=== PATIENT | female | born 1955 | race Caucasian/White ===

== ENCOUNTER 2017-01-01 07:56 | Day surgery (SDC) | payer SELFPAY ==
[~2017-01-01] VITALS: Ht 172.7 cm; Wt 84.6 kg
[~2017-01-01 07:56] MED LIST: AMLO2.5T PO; AMOX875T2 PO; LEVA750T PO; MUPI2OIN TOPICAL
[2017-01-01 09:42] VITALS: BP 176/89; PULSE 84; RESP 20; O2SAT 98
[2017-01-01] MEDS ORDERED: IBUP800T23 PO (09:42)
[2017-01-01] MEDS ORDERED: SODIUM CHLORIDE 0.9% FLUSH 10 ML FLUSH IV FLUSH PRN (09:45)
[2017-01-01] MEDS ORDERED: SODIUM BICARBONATE 100 MEQ in D5W 1000 ML IV SCH (09:45)
[2017-01-01] MEDS ORDERED: MORPHINE SULFATE 4 MG/ML INJ ONE (09:56)
[2017-01-01] MEDS ORDERED: SODIUM CHLORIDE 0.9% FLUSH 10 ML FLUSH IV FLUSH SCH (10:00)
[2017-01-01 10:15] LABS: AUTOMATED NEUTROPHIL # 9.8 TH/MM3 (1.8-7.7); BASOPHIL # 0.1 TH/MM3 (0-0.2); BASOPHIL % 0.5 % (0.0-2.0); EOSINOPHIL # 0.1 TH/MM3 (0-0.4); EOSINOPHIL % 1.1 % (0.0-4.0); HEMATOCRIT 41.4 % (35.0-46.0); HEMO FLAGS DIFF FINAL; LYMPH % 15.7 % (9.0-44.0); MEAN CELL VOLUME 93.4 FL (80.0-100.0); MEAN CORPUSCULAR HEMOGLOBIN 31.9 PG (27.0-34.0); MEAN CORPUSCULAR HGB CONC 34.2 % (32.0-36.0); MONO % 4.9 % (0.0-8.0); NEUT % 77.8 % (16.0-70.0); PLATELET COUNT 294 TH/MM3 (150-450); RED BLOOD COUNT 4.43 MIL/MM3 (4.00-5.30); RED CELL DISTRIBUTION WIDTH 12.6 % (11.6-17.2); WHITE BLOOD COUNT 12.6 TH/MM3 (4.0-11.0)
[2017-01-01 10:26] LABS: PROTHROMBIN TIME - PATIENT 10.5 SEC (9.8-11.6)
[2017-01-01] MEDS ORDERED: MORPHINE SULFATE 4 MG/ML INJ IV PRN (10:30)
[2017-01-01 10:35] LABS: BICARBONATE 29.8 MEQ/L (21.0-32.0); POTASSIUM 3.9 MEQ/L (3.5-5.1)
[2017-01-01] MEDS ORDERED: HEPARIN SODIUM - IV 10,000 UNITS/10 ML VIAL ONE ×2 (11:18→11:31)
[2017-01-01] MEDS ORDERED: MIDAZOLAM HCL 5 MG/5 ML VIAL ONE ×2 (11:31→12:18)
[2017-01-01] MEDS ORDERED: NITROGLYCERIN INJ 5 ML ONE (11:31)
[2017-01-01] MEDS ORDERED: METOPROLOL TARTRATE 5 MG/5 ML VIAL ONE (14:11)
[2017-01-01] MEDS ORDERED: CLOPIDOGREL 300 MG TAB ONE (14:55)
--- NOTE | 2017-01-02 07:29 | MA ---
cc: CHUCKY GASPAR DATE: 01/01/[address] Chucky Gaspar. PREOPERATIVE DIAGNOSIS Critical limb ischemia, right lower extremity. POSTOPERATIVE DIAGNOSIS Critical limb ischemia, right lower extremity. PROCEDURE 1. Aortogram. 2. Pelvic arteriogram. 3. Selective left lower extremity arteriogram. 4. Duplex ultrasound for access. 5. Bilateral common iliac stents with 7 mm x [address] Medtronic chromium cobalt stents. SURGEON Dr. Gaspar. IV FLUIDS Approximately 1 liter. ESTIMATED BLOOD LOSS Minimal. URINE OUTPUT Not calculated. COMPLICATIONS None. DISPOSITION To PACU. PROCEDURE The patient's bilateral groins were prepped and draped in a sterile fashion after being under moderate sedation. I got access to the left common femoral artery using Duplex ultrasound after anesthetizing the area. Using the Seldinger technique I exchanged for a micropuncture 4-Moroccan to a 5-Moroccan sheath. I then advanced an Omni-Flush catheter and then advanced it into the abdominal aorta. I shot AP aortogram. I pulled my catheter out and shot pelvic oblique arteriograms. I then selected out the right lower extremity arteries with Omni-Flush catheter and shot a selective right lower extremity arteriogram, and then I pulled a straight non-angled 5-Moroccan catheter through the right external iliac artery to the distal abdominal aorta, and from the abdominal aorta into the left external iliac artery. On the right side there was a more than 20 mm systolic pressure gradient and more than 10 mm systolic pressure gradient as well as in the left external iliac artery. It signified the right pressure gradient was larger than the left. My findings were that the abdominal aorta and bilateral renal arteries were widely patent. The abdominal aorta was patent, it was more narrowed distally than it was proximally but there did not appear to be a flow limiting stenosis associated with aorta as I measured a pressure gradient from the proximal below the renal arteries to the distal abdominal aorta before the bifurcation. The right common iliac artery had a flow limiting stenosis with a pressure gradient as well as the left common iliac artery. It should be noted that these lesions were just distal to the bifurcation bilaterally. The left external iliac artery was widely patent. The left hypogastric artery had some stenosis at its origin. The right distal common iliac artery, external iliac artery and hypogastric arteries were patent. The right common femoral artery appeared to be patent without any flow limiting stenosis and the right profunda femoral artery was patent. The right superficial femoral artery was essentially occluded after a diffuse narrowing a few centimeters after its takeoff and then reconstituted for a short segment at the area of the adductor canal and reoccluded again at the popliteal artery with reconstitution of the below-knee popliteal artery and the anterior tibial and posterior tibial arteries. 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 I did heparinize the patient to an ACT of greater than 200. I then got access to the right groin using the same technique as I did on the contralateral side. I then placed a 6-Moroccan sheath in the bilateral groins and extended them up into the distal abdominal aorta and then advanced my chromium cobalt stents after mapping and shooting a magged up view of this area with contrast. I then unsheathed the balloon mounted stents and then concomitantly and deployed the stents bilaterally. Afterwards there was good flow through the stents, there did not appear to be any flow limiting lesions subsequently. We then gave Protamine and make sure the ACT was less than 200 and then placed AngioSeal closure devices in the bilateral groins. The patient tolerated the procedure well. DO SYDNEY Harrison/KYA /2:06 PM /7:29 AM
[2017-02-04] MEDS ORDERED: NORV2.5T PO (09:44)
[2017-02-04] MEDS ORDERED: ASPI-110 PO (09:44)
[2017-02-04] MEDS ORDERED: BACT800T5 PO (09:44)
[2017-02-04] MEDS ORDERED: PLAV75TA29 PO (09:44)
[2017-02-20] MEDS ORDERED: VANC1000P IV (10:14)
== END 2017-01-01 17:51 | disposition home or self-care (01) ==
LOC: HCVO 07:56 → HDIC 08:07 → HCVO 17:51
PROVIDERS: ATTEND Surgery
DX: I73.9 Peripheral vascular disease, unspecified (principal); I70.92 Chronic total occlusion of artery of the extremities; I10 Essential (primary) hypertension; B35.1 Tinea unguium; M72.2 Plantar fascial fibromatosis; F17.210 Nicotine dependence, cigarettes, uncomplicated; Z01.818 Encounter for other preprocedural examination
CPT/HCPCS: 37221; 37223; 75625; 75710; 80048; 85002; 85025; 85610; C1876; J1644; J2250; J2270; J3010

== ENCOUNTER 2017-01-02 11:28 | Inpatient (IN) | payer SELFPAY ==
[~2017-01-02] VITALS: Ht 172.7 cm; Wt 85.6 kg
[~2017-01-02 11:28] MED LIST changes: -ASPI-110 PO; -BACT800T5 PO; -LEVA750T PO; -NORV2.5T PO; -PERC5TAB12 PO; -PLAV75TA29 PO; -VANC1000P IV
[2017-01-05 06:55] VITALS: BP 180/94; PULSE 94; RESP 18; TEMP 98.8; O2SAT 98
[2017-01-05] MEDS ORDERED: THROMBIN (TOPICAL) 5,000 UNIT VIAL ONE (07:21)
[2017-01-05] MEDS ORDERED: GELFOAM SIZE 100 ONE (07:21)
[2017-01-05] MEDS ORDERED: HEPARIN SODIUM - IV 10,000 UNITS/10 ML VIAL ONE ×2 (07:21→12:24)
[2017-01-05] MEDS ORDERED: HEPARIN SODIUM - SQ 10,000 UNITS/ML VIAL ONE (07:28)
[2017-01-05] MEDS ORDERED: FAMOTIDINE 20 MG/2 ML VIAL ONE (07:52)
[2017-01-05] MEDS ORDERED: ACETAMINOPHEN 1000 MG/100 ML VIAL IV ONE (07:52)
[2017-01-05] MEDS ORDERED: fentaNYL CITRATE 250 MCG/5 ML AMP ONE ×2 (07:53→15:01)
[2017-01-05] MEDS ORDERED: DEXAMETHASONE SOD PHOS 4 MG/ML VIAL ONE (07:53)
[2017-01-05] MEDS ORDERED: MIDAZOLAM HCL 2 MG/2 ML VIAL ONE (07:53)
[2017-01-05] MEDS ORDERED: CHLORHEXIDINE GLUCONATE 2 % 1 PACK (2 CLOTHS) TOPICAL PRN (08:00)
[2017-01-05] MEDS ORDERED: SODIUM CHLORID 0.9% 500 ML IV PRN (08:00)
[2017-01-05] MEDS ORDERED: METOPROLOL TARTRATE 25 MG TAB PO PRN (08:00)
[2017-01-05] MEDS ORDERED: LACTATED RINGER'S 1000 ML IV PRN (08:00)
[2017-01-05] MEDS ORDERED: POVIDONE IODINE 5% (ANTISEPSIS KIT) 4 APPLICATIONS EACH NARE PRN (08:00)
[2017-01-05] MEDS ORDERED: INSULIN HUMAN REGULAR 1,000 UNITS/10 ML VIAL SQ PRN (08:00)
[2017-01-05] MEDS ORDERED: ceFAZolin 2 GM PREMIX 50 ML ONE (08:20)
[2017-01-05] MEDS ORDERED: BUPIVACAINE HCL PF 0.5% 30 ML VIAL ONE (08:20)
[2017-01-05] MEDS ORDERED: SODIUM CHLOR 0.9% 1000 ML BAG IV ONE (08:20)
[2017-01-05] MEDS ORDERED: PROPOFOL 200 MG/20 ML AMP IV ONE (14:10)
[2017-01-05] MEDS ORDERED: ePHEDrine/NS 25 MG/5 ML SYR IV ONE (14:11)
[2017-01-05] MEDS ORDERED: ONDANSETRON HCL 4 MG/2 ML VIAL IV PUSH ONE (14:11)
[2017-01-05] MEDS ORDERED: NORMOSOL R INJ 3,000 ML IV ONE (14:12)
[2017-01-05] MEDS ORDERED: SODIUM CHLORID 0.9% 500 ML INJ 500 ML IV ONE (14:12)
[2017-01-05] MEDS ORDERED: PROTAMINE SULFATE 50 MG/5 ML VIAL ONE (14:33)
[2017-01-05] MEDS ORDERED: DO NOT ADM ANY ANTICOAGULANT DRUGS PRN (15:44)
--- NOTE | 2017-01-05 15:47 | HHI.PR ---
Immediate Post Op Note Procedure Date: January 05, 2017 Pre Op Diagnosis: (1) PAD (peripheral artery disease) Post Op Diagnosis: (1) PAD (peripheral artery disease) Surgeon: Chucky Medeiros Photography Manager(s): Harrison Procedure: Femoral endarterectomy right lower extremity. Fem-below knee popliteal artery bypass with spliced reversed SVG. Findings: Strong signal status post bypass. Additional Information: NA Complications: none Specimen(s) removed: NA Estimated blood loss: 500cc Anesthesia: General Drains: None Fluids: 3.5 lters. IVF Tourniquet time (min at mmHg) NA Patient to: PACU Patient Condition: Good Implant/Devices: Other Date/Time of Procedure: Other Chucky Medeiros DO January 05, 2017 15:47
--- NOTE | 2017-01-05 15:47 | PD.VS.PN ---
Subjective POD #: 0 Procedure(s): right fem-below knee pop with RSVG. Objective Vascular: dorsum of right foot with quarter sized necrotic eschar and 2,3 rd toes with ischemic changes distally. Right PT with strong signals. Assessment and Plan Assessment: (1) PAD (peripheral artery disease) Status: Acute Plan 61 yof with CLI with necrotic wound after trauma with dog more than a month ago. Status post right lower extremity femoral bovine patch and subsequent bypass. Signals noted distally. Bedrest overnight . Chucky Medeiros DO, FACS. Chucky Medeiros DO January 05, 2017 15:47
[2017-01-05] MEDS ORDERED: *MEPERIDINE 25 MG INJ VIAL PERIprocedural Use ONLY ONE (16:55)
[2017-01-05] MEDS ORDERED: *morphine SULFATE 8 MG/ML PERIprocedure ONLY ONE ×2 (17:20→18:06)
[2017-01-05] MEDS ORDERED: POTASSIUM CHLOR 20 MEQ 100 ML x 2 BAGS IV PRN (17:30)
[2017-01-05] MEDS ORDERED: LACTATED RINGER'S 1000 ML INJ IV SCH (17:30)
[2017-01-05] MEDS ORDERED: ONDANSETRON HCL 4 MG/2 ML VIAL IV PUSH PRN (17:30)
[2017-01-05] MEDS ORDERED: POTASSIUM CHLOR 20 MEQ/100 ML x 1 BAG IV PRN (17:30)
[2017-01-05] MEDS ORDERED: SODIUM CHLORIDE 0.9% FLUSH 10 ML FLUSH IV FLUSH PRN (17:30)
[2017-01-05] MEDS ORDERED: MAGNESIUM SULFATE 1 GM/100 ML IV PRN (17:30)
[2017-01-05 19:00] VITALS: PULSE 89
[2017-01-05 20:00] VITALS: BP 130/75; PULSE 85; PULSE 96; RESP 18; TEMP 98.4; O2SAT 97
[2017-01-05 21:00] VITALS: PULSE 90
[2017-01-05] MEDS: SODIUM CHLORIDE 0.9% FLUSH 10 ML FLUSH IV FLUSH SCH (21:00)
[2017-01-05] MEDS: MORPHINE SULFATE 4 MG/ML INJ IV PRN (21:58)
[2017-01-05 22:00] VITALS: PULSE 84
[2017-01-05 23:00] VITALS: PULSE 84
[2017-01-06] VITALS (25 sets, daily range): BP systolic 120–162; BP diastolic 63–78; PULSE 82–108; RESP 17–20; TEMP 98.1–99.6; O2SAT 92–96
[2017-01-06] MEDS: MORPHINE SULFATE 4 MG/ML INJ IV PRN ×4 (02:25→08:16)
[2017-01-06 05:31] LABS: REVIEW FLAG FINAL
[2017-01-06 05:53] LABS: BICARBONATE 28.2 MEQ/L (21.0-32.0); MAGNESIUM 2.3 MG/DL (1.5-2.5); POTASSIUM 3.7 MEQ/L (3.5-5.1)
--- NOTE | 2017-01-06 07:44 | EKG ---
Date Performed: 01/02/2017 Time Performed: 11:53:37 PTAGE: 61 years EKG: Sinus rhythm NONSPECIFIC ST & T-WAVE ABNORMALITY BORDERLINE ECG NO PREVIOUS TRACING DOCTOR: Sebas Shepard Interpretating Date/Time 01/06/2017 07:43:29
[2017-01-06] MEDS: SODIUM CHLORIDE 0.9% FLUSH 10 ML FLUSH IV FLUSH SCH ×2 (08:13→20:40)
[2017-01-06] MEDS ORDERED: NALOXONE HCL 0.4 MG/ML AMP IV PRN (08:30)
[2017-01-06] MEDS: MORPHINE SULFATE 30 MG/30 ML PCA IV SCH ×2 (09:53→20:27)
[2017-01-06] MEDS: ASPIRIN EC 81 MG TABEC PO SCH (09:53)
[2017-01-06] MEDS: PCA - TOTAL MG MORPHINE DELIVERED PER SHIFT SCH ×2 (14:00→22:00)
--- NOTE | 2017-01-06 14:56 | PD.VS.PN ---
Subjective POD #: 1 Procedure(s): right fem-below knee pop with RSVG. Subjective/Hospital Course Pain controlled (Syeda Tafoya) Objective Vitals/I&O Date Time Temp Pulse Resp B/P Pulse Ox O2 Delivery O2 Flow Rate FiO2 01/06/17 14:01 107 01/06/17 14:00 18 01/06/17 13:00 102 01/06/17 12:00 93 01/06/17 11:00 96 01/06/17 11:00 94 Room Air 01/06/17 11:00 99.2 92 17 140/71 94 01/06/17 10:42 94 21 01/06/17 10:00 88 01/06/17 09:53 18 01/06/17 09:00 96 01/06/17 08:00 91 01/06/17 07:00 87 01/06/17 07:00 93 Room Air 01/06/17 07:00 98.8 93 20 154/78 93 01/06/17 06:23 18 01/06/17 06:00 93 01/06/17 05:00 84 01/06/17 04:00 98.1 91 18 145/63 96 01/06/17 04:00 96 Room Air 01/06/17 04:00 98 01/06/17 03:00 82 01/06/17 02:47 18 01/06/17 02:00 84 01/06/17 01:00 92 01/06/17 00:00 96 Room Air 01/06/17 00:00 91 01/06/17 00:00 98.5 87 18 139/70 96 01/05/17 23:00 84 01/05/17 22:00 84 01/05/17 21:00 90 01/05/17 20:00 97 Room Air 01/05/17 20:00 96 01/05/17 20:00 98.4 85 18 130/75 97 01/05/17 19:22 97.4 88 20 131/63 97 Room Air 01/05/17 19:00 89 01/05/17 19:00 88 20 131/63 97 Room Air 01/05/17 18:00 97 20 155/70 97 Room Air 01/05/17 17:00 97 20 169/68 100 Room Air 01/05/17 16:45 96 20 177/79 100 Nasal Cannula 4 01/05/17 16:30 95 20 139/68 100 Nasal Cannula 4 01/05/17 16:15 96 20 128/58 100 Nasal Cannula 4 01/05/17 16:00 96 20 137/63 99 Nasal Cannula 4 01/05/17 15:40 98.1 90 20 132/60 97 Nasal Cannula 4 01/06/17 01/06/17 01/06/17 06:59 14:59 22:59 Intake Total 1720 ml Output Total 1850 ml Balance -130 ml Exam: GENERAL: A&OX3, NAD, GCS15 SKIN: Warm and dry. Provena wound vac to R groin intact, Dressings to RLE intact with mild serosanguineous drainage CARDIOVASCULAR: RRR,+S1, S2 w/o M/G/R RESPIRATORY: BS CTA GASTROINTESTINAL: S/NT Bilat LE warm with motor intact Incisions: Provena wound vac to R groin intact Dressing to RLE I/C/D Laboratory Laboratory Tests Test 01/06/17 04:57 Hemoglobin 9.9 Hematocrit 29.0 Sodium Level 138 Potassium Level 3.7 Chloride Level 103 Carbon Dioxide Level 28.2 Anion Gap 7 Blood Urea Nitrogen 9 Creatinine 0.71 Estimat Glomerular Filtration 83 Rate Random Glucose 106 Calcium Level 8.1 Phosphorus Level 2.7 Magnesium Level 2.3 (Syeda Tafoya) Assessment and Plan Assessment: (1) PAD (peripheral artery disease) Status: Acute Plan 61 yof with CLI with necrotic wound after trauma with dog more than a month ago. Status post right lower extremity femoral bovine patch and subsequent bypass. Signals noted distally. Plan PT OOB today D/C [place] tomorrow am Syeda MEIER [facility]/[employer] [phone] Discharge Planning 3-4 days (Syeda Tafoya) Plan I agree with above assessment and plan. Patient with warm right lower extremity. Right groin discomfort but no swelling. Will advance activity and diet with adjustment of pain medication over the next 24-48 hours. Chucky Medeiros DO, FACS (Chucky Medeiros DO) Syeda Tafoya January 06, 2017 14:56 Chucky Medeiros DO January 06, 2017 16:17
[2017-01-06] MEDS: amLODIPine BESYLATE 5 MG TAB PO SCH (16:31)
[2017-01-07] VITALS (29 sets, daily range): BP systolic 105–148; BP diastolic 62–83; PULSE 74–110; RESP 16–26; TEMP 98.6–102; O2SAT 89–99
[2017-01-07] MEDS ORDERED: ACETAMINOPHEN 325 MG TAB PO PRN (01:00)
[2017-01-07] MEDS: PCA - TOTAL MG MORPHINE DELIVERED PER SHIFT SCH ×3 (06:00→22:00)
--- NOTE | 2017-01-07 08:26 | MP ---
cc: JIMY GASPAR DATE OF SURGERY 01/05/2017 PREOPERATIVE DIAGNOSIS Critical ischemic right lower extremity. POSTOPERATIVE DIAGNOSIS Critical ischemic right lower extremity. PROCEDURE 1. Femoral endarterectomy/patch angioplasty of the right common femoral artery. 2. Right fem to below-knee popliteal artery bypass with spliced reverse saphenous vein from the bilateral thighs. IV FLUIDS 3500 cc of crystalloid. ESTIMATED BLOOD LOSS 500 cc URINE OUTPUT 630 COMPLICATIONS None DISPOSITION To the PACU PROCEDURE The patient was prepped and draped from the belly button to the feet bilaterally. The patient vein mapped preoperatively. We started making an incision over the right medial calf proximally to the thigh. It should be noted the usable saphenous vein was from around the level of the knee up to the thigh. We mobilized the vein with Metzenbaum scissors and used small medium clips as well as 2-0 and 4-0 ties as needed. I marked the vein along its length. I divided it distally with two medium clips and then proximally using a 5-0 on a BB1 and a horizontal mattress in a continuous running fashion. I then irrigated the vein and there were one or two areas that required 6-0 Prolene sutures for correction. Otherwise, I mobilized the common femoral, superficial femoral and profunda femoral arteries. I placed Vesseloops around these. I then made an incision on the contralateral leg where it was previously vein marked. With a scalpel and electrocautery, I dissected down with Metzenbaum scissors and in a similar fashion removed side branches with small to medium clips as needed and 2-0 and 4-0 ties as needed. Once I mobilized the vein, I closed in layers with 2-0 and 3-0 Vicryl absorbable and 4-0 Monocryl along the length of left leg. I then dissected out the deep space over the below-knee popliteal artery with a scalpel and electrocautery. I dissected down dividing the semitendinosus. I then dissected down to the level of the popliteal vessel and the sciatic nerve and the popliteal vein. I used a Vesseloop control the vein inferiorly. Once I mobilized the popliteal artery, I then heparinized the patient, I then performed an anastomosis in a reverse fashion with a cobra head and spliced the two pieces of saphenous vein together. Afterwards the patient required multiple 6-0 Prolene sutures in order to connect this area that had been oozing with irrigation. It should be noted that I connected it from the groin down to the leg through my saphenous vein harvest site area. Then I heparinized the patient with approximately 7000 units of heparin. I performed an arteriotomy on the right common femoral. They extended the superficial femoral artery. I used an 11 blade and Mark scissors to perform this after controlling the profunda, SFA and common femoral artery. I then used a 9 x 2 patch which I divided in half and extended from the common femoral into the superficial femoral artery with two 5-0 Prolene's in a continuous running fashion. After the patch was in place, I then made sure that there was good blood flow in the profunda. It should be noted that the SFA was occluded distally and had a different more resistant signal to it, but the profunda had a diastolic signal. After I performed this, I placed clamps once again on the common femoral, profunda and SFA and then performed a patchotomy with an 11 blade and Mark scissors. It should be noted, that this is pretty generous to make sure that there was no narrowing at this area. Then I sewed this in with two 5-0 and a Prolene suture. It should be noted, I used a bulldog distally for control. I marked the vein whenever I was irrigated the vessel. I then used a two pediatric profunda clamps to control my below-knee popliteal artery and then performed an arteriotomy with an 11-blade and Mark scissors. I sewed my distal anastomosis on with two 5-0 Prolene's in a continuous running fashion. I did use Angel and Surgicel to help with that with hemostasis. We used some small medium clips as needed for side branch of the veins in the below-knee operation. At the end of the case, I did give the patient protamine to reverse him and then we closed in layers with 2-0 and 3-0 Vicryl's and 4-0 Monocryl along the length. I used Dermabond for the skin. It should be noted there was hardly any signal in the posterior tibial before whenever I occluded my bypass. When the bypass was open, there is a triphasic strong signal in the posterior tibial distribution. Then I used a Prevena Vac on the groin and just used Tegmadyson bandages for the rest of the incision. DO SYDNEY Harrison/BRANDAN /2:40 PM /7:56 AM
[2017-01-07] MEDS: SODIUM CHLORIDE 0.9% FLUSH 10 ML FLUSH IV FLUSH SCH ×2 (09:17→21:00)
[2017-01-07] MEDS: amLODIPine BESYLATE 5 MG TAB PO SCH (09:19)
[2017-01-07] MEDS: ASPIRIN EC 81 MG TABEC PO SCH (09:19)
[2017-01-07] MEDS: ACETAMINOPHEN/HYDROcodone 325 MG/5 MG TAB PO PRN ×2 (10:20→15:35)
[2017-01-07] MEDS ORDERED: oxyCODONE/ACETAMINOPHEN 5 MG/325 MG TAB PO PRN (11:00)
--- NOTE | 2017-01-07 11:11 | PD.VS.PN ---
Subjective POD #: 2 Procedure(s): right fem-below knee pop with RSVG. Subjective/Hospital Course Pt alert laying in bed this am in NAD Reported she had a good night sleep without pain Pain controlled Pt reported Right leg "feels heavy" and swollen (Syeda Tafoya) Objective Vitals/I&O Date Time Temp Pulse Resp B/P Pulse Ox O2 Delivery O2 Flow Rate FiO2 01/07/17 10:18 16 01/07/17 06:00 83 01/07/17 06:00 18 01/07/17 05:00 89 01/07/17 04:00 84 01/07/17 04:00 99 Nasal Cannula 1.00 01/07/17 04:00 99.0 83 20 145/63 99 01/07/17 03:00 74 01/07/17 02:00 82 01/07/17 01:00 84 01/07/17 00:15 94 Nasal Cannula 2.00 01/07/17 00:00 102.0 99 26 148/68 89 01/07/17 00:00 92 01/07/17 00:00 88 Room Air 01/06/17 23:00 100 01/06/17 22:00 92 01/06/17 22:00 18 01/06/17 21:25 21 01/06/17 21:00 100 01/06/17 20:42 18 01/06/17 20:27 18 01/06/17 20:00 92 Room Air 01/06/17 20:00 99.6 107 18 120/66 92 01/06/17 20:00 108 01/06/17 19:00 95 01/06/17 18:00 102 01/06/17 17:00 106 01/06/17 16:00 104 01/06/17 15:00 94 Room Air 01/06/17 15:00 98.7 94 18 162/73 94 01/06/17 15:00 95 01/06/17 14:01 107 01/06/17 14:00 18 01/06/17 13:00 102 01/06/17 12:00 93 01/06/17 11:00 96 01/06/17 11:00 94 Room Air 01/06/17 11:00 99.2 92 17 140/71 94 01/07/17 01/07/17 01/07/17 07:00 15:00 23:00 Intake Total 1468 ml Output Total 2750 ml Balance -1282 ml Exam: GENERAL: A&OX3, NAD, GCS15, pleasant 61/F SKIN: Warm and dry. Provena wound vac to R groin intact, Dressings to RLE intact with mild serosanguineous drainage CARDIOVASCULAR: RRR,+S1, S2 w/o M/G/R RESPIRATORY: BS CTA GASTROINTESTINAL: S/NT Bilat LE warm with motor intact Bilat PT with phasic signals noted RLE with slight swelling RLE 4/5 strength LLE 5/5 strength Pulses: Bilateral PT with phasic signals Incisions: R groin vac in place/ No hematoma Incisions to R/L LE intact w/o S/R (Syeda Tafoya) Assessment and Plan Assessment: (1) PAD (peripheral artery disease) Status: Acute Plan Plan D/C SLOOP CAPTAIN pump PT OOB today Syeda MEIER [facility]/[place] [phone] Discharge Planning 3-4 days (Syeda Tafoya) Plan I agree with above assessment and plan. Right foot warm with signals in graft and PT. Plan for ambulation with PO pain meds . Chucky Medeiros DO, FACS (Chucky Medeiros DO) Syeda Tafoya January 07, 2017 11:11 Chucky Medeiros DO January 07, 2017 18:26
[2017-01-07] MEDS ORDERED: DOCUSATE SODIUM 50 MG/SENNA 8.6 MG TAB PO PRN (13:45)
[2017-01-07] MEDS: oxyCODONE/ACETAMINOPHEN 5 MG/325 MG TAB PO SCH ×2 (20:10→23:57)
[2017-01-08] VITALS (27 sets, daily range): BP systolic 138–159; BP diastolic 60–83; PULSE 75–96; RESP 16–18; TEMP 98–99; O2SAT 93–98
[2017-01-08] MEDS: oxyCODONE/ACETAMINOPHEN 5 MG/325 MG TAB PO SCH ×5 (04:03→21:06)
[2017-01-08] MEDS: PCA - TOTAL MG MORPHINE DELIVERED PER SHIFT SCH ×3 (05:41→22:00)
[2017-01-08 05:43] LABS: AUTOMATED NEUTROPHIL # 10.4 TH/MM3 (1.8-7.7); BASOPHIL # 0.1 TH/MM3 (0-0.2); BASOPHIL % 0.4 % (0.0-2.0); EOSINOPHIL # 0.4 TH/MM3 (0-0.4); EOSINOPHIL % 3.2 % (0.0-4.0); HEMATOCRIT 29.8 % (35.0-46.0); HEMO FLAGS DIFF FINAL; LYMPH % 14.2 % (9.0-44.0); MEAN CELL VOLUME 92.7 FL (80.0-100.0); MEAN CORPUSCULAR HEMOGLOBIN 31.8 PG (27.0-34.0); MEAN CORPUSCULAR HGB CONC 34.3 % (32.0-36.0); MONO % 7.3 % (0.0-8.0); NEUT % 74.9 % (16.0-70.0); PLATELET COUNT 289 TH/MM3 (150-450); RED BLOOD COUNT 3.22 MIL/MM3 (4.00-5.30); RED CELL DISTRIBUTION WIDTH 12.3 % (11.6-17.2); WHITE BLOOD COUNT 13.9 TH/MM3 (4.0-11.0)
[2017-01-08] MEDS: ASPIRIN EC 81 MG TABEC PO SCH (08:19)
[2017-01-08] MEDS: amLODIPine BESYLATE 5 MG TAB PO SCH (08:20)
[2017-01-08] MEDS: SODIUM CHLORIDE 0.9% FLUSH 10 ML FLUSH IV FLUSH SCH ×2 (08:20→21:00)
--- NOTE | 2017-01-08 10:38 | PD.VS.PN ---
Subjective POD #: 3 Procedure(s): right fem-below knee pop with RSVG. Subjective/Hospital Course Pt w/o complaints this am Pt reported her R leg weakness and swelling has improved Pt is w/o pain Pain controlled (Syeda Tafoya) Objective Vitals/I&O Date Time Temp Pulse Resp B/P Pulse Ox O2 Delivery O2 Flow Rate FiO2 01/08/17 09:53 94 21 01/08/17 08:00 98.6 84 16 138/60 93 01/08/17 06:18 80 01/08/17 05:00 76 01/08/17 04:00 78 01/08/17 03:05 80 01/08/17 03:05 Room Air 94 01/08/17 03:05 94 Nasal Cannula 2.00 01/08/17 03:05 98.5 90 18 148/72 94 01/08/17 02:24 83 01/08/17 01:17 77 01/08/17 00:24 79 01/07/17 23:59 99.0 88 18 146/74 92 01/07/17 23:59 Room Air 92 01/07/17 23:39 81 01/07/17 23:00 92 Nasal Cannula 2.00 01/07/17 22:00 84 01/07/17 21:00 88 01/07/17 20:13 97 Nasal Cannula 2.00 01/07/17 20:13 99.7 93 18 148/78 97 01/07/17 20:13 Room Air 97 01/07/17 20:00 88 01/07/17 19:00 87 01/07/17 18:00 94 01/07/17 17:45 93 21 01/07/17 17:00 93 01/07/17 16:10 96 01/07/17 15:14 93 Room Air 01/07/17 15:00 99.4 91 16 138/75 93 01/07/17 15:00 92 01/07/17 14:00 93 01/07/17 13:00 94 01/07/17 12:16 106 01/07/17 11:30 94 Room Air 01/07/17 11:30 98.6 98 16 141/83 94 01/07/17 11:00 91 01/07/17 10:18 16 Exam: GENERAL: A&OX3,NAD, GCS15, pleasant 61/F SKIN: Warm and dry. Left thigh/Right thigh and LE incision intact with erythema and ecchymosis noted. NO Drainage, swelling, pain or odor present. Incisions intact with surgical glue NECK: Supple, No JVD or lymphadenopathy. CARDIOVASCULAR: RRR RESPIRATORY: No accessory muscle use. GASTROINTESTINAL: S/NT MUSCULOSKELETAL: No cyanosis, or edema. + DP/PT RLE heard via doppler Bilat feet warm with motor intact LLE = 5/5 strength RLE= 5/5 strength Pulses: R- + DP/PT Incisions: Right groin vac in place/ No hematoma R thigh/LE incision intact with surgical glue L thigh incision intact with surgical glue No Swelling, pain or drainage Laboratory Laboratory Tests Test 01/08/17 04:30 White Blood Count 13.9 Red Blood Count 3.22 Hemoglobin 10.2 Hematocrit 29.8 Mean Corpuscular Volume 92.7 Mean Corpuscular Hemoglobin 31.8 Mean Corpuscular Hemoglobin 34.3 Concent Red Cell Distribution Width 12.3 Platelet Count 289 Mean Platelet Volume 9.1 Neutrophils (%) (Auto) 74.9 Lymphocytes (%) (Auto) 14.2 Monocytes (%) (Auto) 7.3 Eosinophils (%) (Auto) 3.2 Basophils (%) (Auto) 0.4 Neutrophils # (Auto) 10.4 Lymphocytes # (Auto) 2.0 Monocytes # (Auto) 1.0 Eosinophils # (Auto) 0.4 Basophils # (Auto) 0.1 CBC Comment DIFF FINAL Differential Comment (Syeda Tafoya) Assessment and Plan Assessment: (1) PAD (peripheral artery disease) Status: Acute Plan Plan Continue PT/OOB/ambulation ab ehsan Right foot warm with signals in graft and PT. Dressings removed from BLE Apply Kerlix to RLE Leave LLE incision RISK CONTROL FIELD REPRESENTATIVE Syeda MEIER [facility] [phone] Discharge Planning 2-3 days (Syeda Tafoya) Plan I agree with above assessment and plan. Chucky Medeiros DO, FACS (Chucky Medeiros DO) Syeda Tafoya January 08, 2017 10:38 Chucky Medeiros DO January 08, 2017 11:48
[2017-01-09] VITALS (12 sets, daily range): BP systolic 131–132; BP diastolic 65–67; PULSE 76–93; RESP 18; TEMP 98.1–98.8; O2SAT 92–94
[2017-01-09] MEDS: oxyCODONE/ACETAMINOPHEN 5 MG/325 MG TAB PO SCH ×4 (01:07→11:55)
[2017-01-09] MEDS: PCA - TOTAL MG MORPHINE DELIVERED PER SHIFT SCH (05:59)
[2017-01-09] MEDS: ASPIRIN EC 81 MG TABEC PO SCH (07:35)
[2017-01-09] MEDS: SODIUM CHLORIDE 0.9% FLUSH 10 ML FLUSH IV FLUSH SCH (07:35)
[2017-01-09] MEDS: amLODIPine BESYLATE 5 MG TAB PO SCH (07:36)
--- NOTE | 2017-01-09 09:55 | PD.VS.PN ---
Subjective POD #: 4 Procedure(s): right fem-below knee pop with RSVG. Subjective/Hospital Course Pt w/o complaints this am Pt reported she ambulated with assistance yesterday Pt is w/o pain Pain controlled (Syeda Tafoya) Objective Vitals/I&O Date Time Temp Pulse Resp B/P Pulse Ox O2 Delivery O2 Flow Rate FiO2 01/09/17 09:06 18 01/09/17 09:06 18 01/09/17 06:30 78 01/09/17 05:23 87 01/09/17 04:01 76 01/09/17 03:22 92 Room Air 01/09/17 03:22 98.8 93 18 131/67 92 01/09/17 03:04 89 01/09/17 02:30 79 01/09/17 01:00 80 01/09/17 00:00 84 01/08/17 23:30 98.4 89 18 159/83 97 01/08/17 23:30 97 Room Air 01/08/17 23:00 89 01/08/17 22:00 92 01/08/17 21:00 77 01/08/17 20:00 85 01/08/17 19:30 99.0 86 18 140/71 94 01/08/17 19:30 94 Room Air 01/08/17 19:00 89 01/08/17 18:07 89 01/08/17 17:00 96 01/08/17 16:00 91 01/08/17 15:00 90 01/08/17 15:00 98.7 91 16 142/71 93 01/08/17 15:00 93 Room Air 01/08/17 14:00 90 01/08/17 13:00 82 01/08/17 12:00 87 01/08/17 11:00 98.0 81 16 143/68 98 01/08/17 11:00 98 Room Air 01/08/17 11:00 88 01/08/17 10:00 92 01/08/17 09:53 94 21 Exam: GENERAL: Pt alert and in NAD SKIN: Warm and dry. Increased Erythema noted to RLE incision line intact with no S/D/O or warmth noted. LLE incision intact NECK: Supple,No JVD CARDIOVASCULAR: RRR +S1,S2 GASTROINTESTINAL: Abdomen soft, non-tender, nondistended. + DP/PT strong phasic signals RLE Bilat feet warm with motor intact Pulses: + DP/PT RLE Incisions: Increased Erythema to RLE incision line LLE incision line intact w/no R/D/S/O (Syeda Tafoya) Assessment and Plan Assessment: (1) PAD (peripheral artery disease) Status: Acute Plan Plan PT OOB with ambulation Continue pain management Apply Kerlix to RLE Syeda MEIER [facility]/[place] [phone] Discharge Planning This afternoon or tomorrow AM (Syeda Tafoya) Plan I agree with the above A/P. Patient may benefit from staying an extra day if not ready from mobility standpoint. Prescriptions in place for discharge. Good social support at the house. Chucky Medeiros DO, KATRINA (Chucky Medeiros DO) Syeda Tafoya January 09, 2017 09:55 Chucky Medeiros DO January 09, 2017 10:51
[2017-01-09] MEDS ORDERED: SULFAMETHOXAZOLE-TRIMETHOPRIM DS 800-160 MG TAB PO ONE (11:15)
--- NOTE | 2017-01-09 11:16 | PD.VS.DC ---
Discharge Summary Admission Date: January 05, 2017 at 06:16 Discharge Date: January 09, 2017 Admission Diagnosis: (1) PAD (peripheral artery disease) Discharge Diagnosis: (1) PAD (peripheral artery disease) Status: Acute Brief History from admission 61 yof with CLI with necrotic wound (dorsum of right foot with quarter sized necrotic eschar and 2,3 rd toes with ischemic changes distally) after trauma with dog more than a month ago. Procedure(s): right fem-below knee pop with RSVG. Significant Findings + Strong DP/PT phasic signals R/L LE via doppler Bilat feet warm with motor intact Erythema noted to RLE incision line Laboratory Tests Test 01/08/17 04:30 White Blood Count 13.9 TH/MM3 (4.0-11.0) Red Blood Count 3.22 MIL/MM3 (4.00-5.30) Hemoglobin 10.2 GM/DL (11.6-15.3) Hematocrit 29.8 % (35.0-46.0) Neutrophils (%) (Auto) 74.9 % (16.0-70.0) Neutrophils # (Auto) 10.4 TH/MM3 (1.8-7.7) Monocytes # (Auto) 1.0 TH/MM3 (0-0.9) Hospital Course: 61 yof with CLI with necrotic wound (dorsum of right foot with quarter sized necrotic eschar and 2,3 rd toes with ischemic changes distally) after trauma with dog more than a month ago. Status post right lower extremity femoral bovine patch and subsequent bypass. Signals noted distally post op Pt cleared for D/C Pain controlled Pt able to ambulate w/o difficulty Allergies Coded Allergies Type Severity Reaction Last Updated Verified No Known Allergies 01/05/17 No /////// 06:00 18:00 06:00 18:00 06:00 18:00 Intake Total 1468 ml 720 ml 1200 ml 720 ml Output Total 2750 ml 425 ml 1025 ml 600 ml Balance -1282 ml 295 ml 175 ml 120 ml Intake Oral 1200 ml 720 ml 1200 ml 720 ml IV Total 268 ml Output Urine Total 2750 ml 425 ml 1025 ml 600 ml Stool Total 0 ml # Voids 2 3 # Bowel Movements 0 0 0 0 Laboratory Tests Test 01/08/17 04:30 White Blood Count 13.9 TH/MM3 Red Blood Count 3.22 MIL/MM3 Hemoglobin 10.2 GM/DL Hematocrit 29.8 % Mean Corpuscular Volume 92.7 FL Mean Corpuscular Hemoglobin 31.8 PG Mean Corpuscular Hemoglobin 34.3 % Concent Red Cell Distribution Width 12.3 % Platelet Count 289 TH/MM3 Mean Platelet Volume 9.1 FL Neutrophils (%) (Auto) 74.9 % Lymphocytes (%) (Auto) 14.2 % Monocytes (%) (Auto) 7.3 % Eosinophils (%) (Auto) 3.2 % Basophils (%) (Auto) 0.4 % Neutrophils # (Auto) 10.4 TH/MM3 Lymphocytes # (Auto) 2.0 TH/MM3 Monocytes # (Auto) 1.0 TH/MM3 Eosinophils # (Auto) 0.4 TH/MM3 Basophils # (Auto) 0.1 TH/MM3 CBC Comment DIFF FINAL Differential Comment Procedure Category Date Status Time Consult Pt Eval & Tx PT 01/06/17 Logged OOB 14:23 Remove Urinary JEANNETTE 01/07/17 In Process Catheter 05:00 Amlodipine (Norvasc) MED 01/06/17 In Process 16:15 Complete Blood Count LAB 01/08/17 Complete With Diff 06:00 Acetaminophen MED 01/07/17 In Process (Tylenol) 01:00 ^ Remove Smoke Room Operator JEANNETTE 01/07/17 In Process 09:09 Oxycodone-Acetamin MED 01/07/17 Complete 5-325 Mg (Percocet 11:00 Docusate Sodium-Senna MED 01/07/17 In Process (Nahomi-Colace) 13:45 Oxycodone-Acetamin MED 01/07/17 In Process 5-325 Mg (Percocet 20:00 Oxycodone (Roxicodone) MED 01/07/17 In Process 18:45 ^ Wound Care JEANNETTE 01/08/17 In Process 10:39 Sulfamet-Trimeth Ds MED 01/09/17 In Process 800-160 Mg (Bactrim 11:15 Attending Discharge DISCHARGE 01/09/17 Transmitted Order Vital Signs Date Time Temp Pulse Resp B/P Pulse Ox O2 Delivery O2 Flow Rate FiO2 01/09/17 10:00 78 01/09/17 09:06 18 01/09/17 09:06 18 01/09/17 08:00 78 01/09/17 07:00 82 01/09/17 07:00 98.1 80 18 132/65 94 01/09/17 07:00 94 Room Air 01/09/17 06:30 78 01/09/17 05:23 87 01/09/17 04:01 76 01/09/17 03:22 92 Room Air 01/09/17 03:22 98.8 93 18 131/67 92 01/09/17 03:04 89 01/09/17 02:30 79 01/09/17 01:00 80 01/09/17 00:00 84 01/08/17 23:30 98.4 89 18 159/83 97 01/08/17 23:30 97 Room Air 01/08/17 23:00 89 01/08/17 22:00 92 01/08/17 21:00 77 01/08/17 20:00 85 01/08/17 19:30 99.0 86 18 140/71 94 01/08/17 19:30 94 Room Air 01/08/17 19:00 89 01/08/17 18:07 89 01/08/17 17:00 96 01/08/17 16:00 91 01/08/17 15:00 90 01/08/17 15:00 98.7 91 16 142/71 93 01/08/17 15:00 93 Room Air 01/08/17 14:00 90 01/08/17 13:00 82 01/08/17 12:00 87 01/08/17 11:00 98.0 81 16 143/68 98 01/08/17 11:00 98 Room Air 01/08/17 11:00 88 01/08/17 10:00 92 01/08/17 09:53 94 21 01/08/17 09:00 86 01/08/17 08:00 84 01/08/17 08:00 93 Room Air 01/08/17 08:00 98.6 84 16 138/60 93 01/08/17 08:00 93 Room Air 01/08/17 07:00 75 01/08/17 06:18 80 01/08/17 05:00 76 01/08/17 04:00 78 01/08/17 03:05 80 01/08/17 03:05 Room Air 94 01/08/17 03:05 98.5 90 18 148/72 94 01/08/17 02:24 83 01/08/17 01:17 77 01/08/17 00:24 79 01/07/17 23:59 99.0 88 18 146/74 92 01/07/17 23:59 Room Air 92 01/07/17 23:39 81 01/07/17 22:00 84 01/07/17 21:00 88 01/07/17 20:13 99.7 93 18 148/78 97 01/07/17 20:13 Room Air 97 01/07/17 20:00 88 01/07/17 19:00 87 01/07/17 18:00 94 01/07/17 17:45 93 21 01/07/17 17:00 93 01/07/17 16:10 96 01/07/17 15:14 93 Room Air 01/07/17 15:00 99.4 91 16 138/75 93 01/07/17 15:00 92 01/07/17 14:00 93 01/07/17 13:00 94 01/07/17 12:16 106 01/07/17 11:30 94 Room Air 01/07/17 11:30 98.6 98 16 141/83 94 01/07/17 11:00 91 01/07/17 10:18 16 01/07/17 10:00 110 01/07/17 10:00 93 21 01/07/17 09:00 94 01/07/17 08:00 90 01/07/17 08:00 98.7 88 16 148/74 92 01/07/17 08:00 92 Room Air 01/07/17 07:00 93 01/07/17 06:00 83 01/07/17 06:00 18 01/07/17 05:00 89 01/07/17 04:00 84 01/07/17 04:00 99 Nasal Cannula 1.00 01/07/17 04:00 99.0 83 20 145/63 99 01/07/17 03:00 74 01/07/17 02:00 82 01/07/17 01:00 84 01/07/17 00:15 94 Nasal Cannula 2.00 01/07/17 00:00 102.0 99 26 148/68 89 01/07/17 00:00 92 01/07/17 00:00 88 Room Air 01/06/17 23:00 100 01/06/17 22:00 92 01/06/17 22:00 18 01/06/17 21:25 21 01/06/17 21:00 100 01/06/17 20:42 18 01/06/17 20:27 18 01/06/17 20:00 92 Room Air 01/06/17 20:00 99.6 107 18 120/66 92 01/06/17 20:00 108 01/06/17 19:00 95 01/06/17 18:00 102 01/06/17 17:00 106 01/06/17 16:00 104 01/06/17 15:00 94 Room Air 01/06/17 15:00 98.7 94 18 162/73 94 01/06/17 15:00 95 01/06/17 14:01 107 01/06/17 14:00 18 01/06/17 13:00 102 01/06/17 12:00 93 Discharge Condition: Good Discharge Disposition: Discharge Home Discharge Instructions: Pt will return to our out patient clinic on Thursday for a wound check and surveillance U/S Apply Kerlix to RLE Pt may shower then pat dry incisions Do not apply creams or ointments to incisions Leave Open to air Call the office with any new onset fever, chills, increased redness, drainage or warmth near incision sites. Syeda MEIER [facility] [phone] Any questions or concerns: Call [facility] Heart and Vascular Surgery at [facility] [phone] Syeda Tafoya January 09, 2017 11:15
[2017-02-04] MEDS ORDERED: NORV2.5T PO (09:44)
[2017-02-04] MEDS ORDERED: PLAV75TA29 PO (09:44)
[2017-02-04] MEDS ORDERED: ASPI-110 PO (09:44)
[2017-02-04] MEDS ORDERED: BACT800T5 PO (09:44)
[2017-02-20] MEDS ORDERED: VANC1000P IV (10:14)
== END 2017-01-09 12:14 | disposition home or self-care (01) | DRG 254 ==
LOC: HSDI 01-05 06:16 → HCIN 01-05 19:23 → HCIS 01-07 14:40 → HCIN 01-07 14:42
PROVIDERS: ADMIT Surgery; ATTEND Surgery
PROC: 041L09L Bypass Left Femoral Artery to Popliteal Artery with Autologous Venous Tissue, Open Approach (ICD-10-PCS; 2017-01-05)
PROC: 06BP0ZZ Excision of Right Saphenous Vein, Open Approach (ICD-10-PCS; 2017-01-05)
PROC: 04UK0JZ Supplement Right Femoral Artery with Synthetic Substitute, Open Approach (ICD-10-PCS; 2017-01-05)
PROC: 04CK0ZZ Extirpation of Matter from Right Femoral Artery, Open Approach (ICD-10-PCS; principal; 2017-01-05 08:08)
DX: I70.235 Atherosclerosis of native arteries of right leg with ulceration of other part of foot (principal)
CPT/HCPCS: 76937; 80048; 83735; 84100; 85014; 85018; 85025; J0131; J0690; J1100; J1644; J2175; J2250; J2270; J2405; J2720; J3010; J7030; J7040; J7120

== ENCOUNTER → 2017-01-02 | Outpatient (CLI) | payer SELFPAY ==
[~2017-01-02] MED LIST changes: +ASPI-110 PO; +BACT800T5 PO; +IBUP800T23 PO; -MUPI2OIN TOPICAL; +NORV2.5T PO; +PERC5TAB12 PO; +PLAV75TA29 PO; +VANC1000P IV
--- NOTE | 2017-01-02 12:51 | RADRPT ---
EXAM DATE/TIME: 01/02/2017 12:41 [place] COMPARISON: No previous studies available for comparison. INDICATIONS : Evaluate for pneumonia, pneumothorax, or communicable disease. Pre op for artery bypass. MEDICAL HISTORY : Ex-smoker. SURGICAL HISTORY : None. ENCOUNTER: Initial ACUITY: 1 day PAIN SCORE: 0/10 LOCATION: Bilateral chest FINDINGS: PA and lateral views of the chest demonstrate a normal-sized cardiac silhouette. There is no effusion , consolidation, or pneumothorax. The bones and soft tissues demonstrate no acute abnormality. There are degenerative changes of the thoracic spine. CONCLUSION: No acute cardiopulmonary abnormality is identified. Adiel Del Real MD on January 02, 2017 at 12:47 Board Certified Radiologist. This report was verified electronically.
--- NOTE | 2017-01-06 09:47 | EKG ---
Date Performed: 01/02/2017 Time Performed: 11:53:37 PTAGE: 61 years EKG: Sinus rhythm NONSPECIFIC ST & T-WAVE ABNORMALITY BORDERLINE ECG NO PREVIOUS TRACING DOCTOR: Sebas Shepard Interpretating Date/Time 01/06/2017 09:45:50
== END ==
LOC: CPRE 11:25
PROVIDERS: ATTEND Surgery
DX: Z01.810 Encounter for preprocedural cardiovascular examination (principal); Z01.812 Encounter for preprocedural laboratory examination; I73.9 Peripheral vascular disease, unspecified; R94.31 Abnormal electrocardiogram [ECG] [EKG]
CPT/HCPCS: 71020; 93005

== ENCOUNTER 2017-02-13 11:31 | Inpatient (IN) | payer SELFPAY ==
[2017-02-13] VITALS (13 sets, daily range): BP systolic 159–175; BP diastolic 80–94; PULSE 70–89; RESP 16; TEMP 97.9–98.8; O2SAT 97–100
[~2017-02-13 11:31] MED LIST changes: -AMOX875T2 PO; +ASPI-110 PO; +BACT800T5 PO; +NORV2.5T PO; +PLAV75TA29 PO
[2017-02-13] MEDS ORDERED: HYDROmorphone HCL PF 1 MG/ML VIAL IV PRN (13:00)
[2017-02-13] MEDS ORDERED: PILL SPLITTER OTHER PRN (13:00)
[2017-02-13] MEDS: ASPIRIN 81 MG CHEW TAB PO SCH (13:11)
[2017-02-13] MEDS: CLOPIDOGREL 75 MG TAB PO SCH (13:11)
[2017-02-13 13:54] LABS: AUTOMATED NEUTROPHIL # 4.6 TH/MM3 (1.8-7.7); BASOPHIL % 0.7 % (0.0-2.0); EOSINOPHIL # 0.2 TH/MM3 (0-0.4); EOSINOPHIL % 2.9 % (0.0-4.0); HEMATOCRIT 38.4 % (35.0-46.0); HEMO FLAGS DIFF FINAL; LYMPH % 25.4 % (9.0-44.0); LYMPHOCYTE # 1.9 TH/MM3 (1.0-4.8); MEAN CELL VOLUME 93.3 FL (80.0-100.0); MEAN CORPUSCULAR HEMOGLOBIN 30.3 PG (27.0-34.0); MEAN CORPUSCULAR HGB CONC 32.4 % (32.0-36.0); MONO % 8.5 % (0.0-8.0); NEUT % 62.5 % (16.0-70.0); PLATELET COUNT 238 TH/MM3 (150-450); RED BLOOD COUNT 4.11 MIL/MM3 (4.00-5.30); RED CELL DISTRIBUTION WIDTH 13.6 % (11.6-17.2); WHITE BLOOD COUNT 7.3 TH/MM3 (4.0-11.0)
[2017-02-13 14:23] LABS: POTASSIUM 3.8 MEQ/L (3.5-5.1)
[2017-02-13] MEDS ORDERED: ALPRAZolam 0.25 MG TAB PO ONE (16:00)
[2017-02-13] MEDS ORDERED: SODIUM CHLOR 0.9% 1000 ML INJ 1,000 ML IV ONE (17:00)
[2017-02-13] MEDS: COLLAGENASE OINT 30 GM TUBE TOPICAL SCH (17:40)
[2017-02-13] MEDS: amLODIPine BESYLATE 5 MG TAB PO SCH (23:23)
[2017-02-13] MEDS: oxyCODONE/ACETAMINOPHEN 5 MG/325 MG TAB PO PRN (23:23)
[2017-02-13] MEDS: ALPRAZolam 0.25 MG TAB PO PRN (23:30)
[2017-02-14] VITALS (27 sets, daily range): BP systolic 141–191; BP diastolic 77–93; PULSE 63–92; RESP 16; TEMP 98–98.8; O2SAT 96–99
[2017-02-14] MEDS: ASPIRIN 81 MG CHEW TAB PO SCH (08:37)
[2017-02-14] MEDS: amLODIPine BESYLATE 5 MG TAB PO SCH ×2 (08:38→20:31)
--- NOTE | 2017-02-14 08:38 | HHI.HP ---
History of Present Illness Chief Complaint: left leg incisional break down with bypass graft (cryovein under incision) History of Present Illness 61 year old female with hx of right lower extremity bypass with cryovein (fem-PT ) Jan 05 2017. Patient had traumatic wound on right foot toes from dog that was non-healing. Found to have severe PAD right lower extremity Area of incision site above the knee with skin breakdown. Concern for proximity and exposure of bypass with wound care alone. Plan for surgical exploration and possible revision of right lower extremity bypass. Past/Family/Social History Past Medical History HTN Anxiety PAD Past Surgical History left lower extremity bypass. Home Medications Active Scripts Amlodipine 2.5 Mg Tab2.5 Mg PO DAILY #90 TAB Ref 0 Prov:Beryl Simons MD 12/19/16 Reported Medications Amlodipine (Norvasc)2.5 Mg Tab2.5 Mg PO DAILY #30 TAB Ref 0 02/04/[address] (Aspirin 81)81 Mg Tabdr81 Mg PO DAILY Ref 0 02/04/17 Clopidogrel (Plavix)75 Mg Tab75 Mg PO DAILY #30 TAB Ref 0 02/04/17 Sulfamethoxazole-Trimethoprim (Bactrim DS)800-160 Mg Tab1 Tab PO BID 10 Days Ref 0 02/04/17 Ibuprofen 800 Mg Exp330 Mg PO Q6HR PRN (PAIN) #40 TAB Ref 0 01/01/17 Coded Allergies: No Known Allergies (Unverified , 02/04/17) Review of Systems Cardiovascular: COMPLAINS OF: Lower Extremity Edema Psychiatric: COMPLAINS OF: Anxiety Physical Exam Vitals/I&O Date Time Temp Pulse Resp B/P Pulse Ox O2 Delivery O2 Flow Rate FiO2 02/14/17 05:29 98.8 76 16 141/79 97 02/14/17 05:00 75 02/14/17 04:00 81 02/14/17 03:00 84 02/14/17 02:00 89 02/14/17 01:26 98.7 84 16 159/77 96 02/14/17 01:00 89 02/14/17 01:00 88 02/14/17 00:00 92 02/13/17 23:00 84 02/13/17 22:00 78 02/13/17 21:22 97.9 87 16 159/94 97 02/13/17 21:00 89 02/13/17 20:00 87 02/13/17 19:00 72 02/13/17 18:00 72 02/13/17 17:00 70 02/13/17 16:00 76 02/13/17 15:00 98.8 75 16 167/80 100 02/13/17 14:00 71 02/13/17 13:00 98.8 75 16 175/80 100 02/13/17 13:00 73 02/13/17 12:00 85 02/14/17 02/14/17 02/14/17 07:00 15:00 23:00 Intake Total 240 ml Output Total 800 ml Balance -560 ml Neuro: A&Ox3 Neck: supple Heart: regular Lungs: CTA Bilaterally Abdomen: soft and ND. Vascular: Phasic right PT and phasic bypass signal. Extremities: right foot with dressing over dorsum. Right leg incision above knee area with elliptical denuded area with SQ tissue. approximately 2x1x0.5 cm.. No discharge but fibrinous exudate. no visible vessel. Laboratory Tests Test 02/13/17 13:08 White Blood Count 7.3 Red Blood Count 4.11 Hemoglobin 12.5 Hematocrit 38.4 Mean Corpuscular Volume 93.3 Mean Corpuscular Hemoglobin 30.3 Mean Corpuscular Hemoglobin 32.4 Concent Red Cell Distribution Width 13.6 Platelet Count 238 Mean Platelet Volume 9.8 Neutrophils (%) (Auto) 62.5 Lymphocytes (%) (Auto) 25.4 Monocytes (%) (Auto) 8.5 Eosinophils (%) (Auto) 2.9 Basophils (%) (Auto) 0.7 Neutrophils # (Auto) 4.6 Lymphocytes # (Auto) 1.9 Monocytes # (Auto) 0.6 Eosinophils # (Auto) 0.2 Basophils # (Auto) 0.0 CBC Comment DIFF FINAL Differential Comment Sodium Level 141 Potassium Level 3.8 Chloride Level 107 Carbon Dioxide Level 28.0 Anion Gap 6 Blood Urea Nitrogen 18 Creatinine 0.84 Estimat Glomerular Filtration 69 Rate Random Glucose 83 Calcium Level 9.0 Assessment and Plan Assessment: (1) PAD (peripheral artery disease) Status: Acute Plan 61 year old female with hx of incisional breakdown of right lower extremity bypass. Although vessel not visible, minimal tissue over the bypass with risk of bleeding. Patient admitted and scheduled for exploration and revision of wound with possible revision of bypass. Will allow for santyl debridement in the interim. Chucky Medeiros DO, FACS Resource Technician of Vascular Surgery /Chucky Churchill DO Feb 14, 2017 08:38
[2017-02-14] MEDS: COLLAGENASE OINT 30 GM TUBE TOPICAL SCH (08:39)
[2017-02-14] MEDS: CLOPIDOGREL 75 MG TAB PO SCH (08:40)
[2017-02-14] MEDS ORDERED: amLODIPine BESYLATE 5 MG TAB PO SCH (09:00)
[2017-02-14] MEDS: ALPRAZolam 0.25 MG TAB PO PRN ×2 (11:25→20:31)
[2017-02-14] MEDS ORDERED: IOHEXOL 350 MG/ML 10 ML VIAL (for RAD DIAG) IV ONE (18:24)
[2017-02-14] MEDS: oxyCODONE/ACETAMINOPHEN 5 MG/325 MG TAB PO PRN (20:31)
[2017-02-15] VITALS (26 sets, daily range): BP systolic 122–174; BP diastolic 74–93; PULSE 68–116; RESP 16–20; TEMP 96.5–98.3; O2SAT 96–100
[2017-02-15] MEDS: ALPRAZolam 0.25 MG TAB PO PRN ×2 (08:58→17:33)
[2017-02-15] MEDS: COLLAGENASE OINT 30 GM TUBE TOPICAL SCH (08:59)
[2017-02-15] MEDS: CLOPIDOGREL 75 MG TAB PO SCH (08:59)
[2017-02-15] MEDS: ASPIRIN 81 MG CHEW TAB PO SCH (08:59)
[2017-02-15] MEDS: amLODIPine BESYLATE 5 MG TAB PO SCH ×2 (08:59→20:13)
--- NOTE | 2017-02-15 11:57 | PD.VS.PN ---
Subjective Subjective/Hospital Course Underwent CTA. No new complaints. Objective Vitals/I&O Date Time Temp Pulse Resp B/P Pulse Ox O2 Delivery O2 Flow Rate FiO2 02/15/17 10:00 116 02/15/17 09:00 80 02/15/17 08:00 97.9 72 20 174/93 100 02/15/17 08:00 86 02/15/17 07:00 73 02/15/17 06:48 96.5 81 16 165/85 97 02/15/17 06:00 68 02/15/17 05:00 76 02/15/17 04:00 74 02/15/17 03:00 83 02/15/17 02:00 78 02/15/17 01:00 94 02/15/17 00:00 84 02/14/17 23:23 98.5 69 16 165/85 98 02/14/17 23:00 81 02/14/17 22:00 72 02/14/17 21:00 80 02/14/17 20:24 98.2 79 16 191/90 98 02/14/17 20:00 80 02/14/17 19:00 86 02/14/17 18:22 70 02/14/17 17:00 79 02/14/17 16:00 75 02/14/17 15:00 98.0 83 16 153/86 98 02/14/17 14:00 68 02/14/17 13:00 63 02/14/17 12:00 73 02/15/17 02/15/17 02/15/17 07:00 15:00 23:00 Intake Total 420 ml Output Total 1600 ml Balance -1180 ml Physical Exam right leg incision area with some fibrinous exudate and underlying granulation tissue. No discharge. Assessment and Plan Assessment: (1) PAD (peripheral artery disease) Status: Acute Plan 61 year old female with hx of incisional breakdown of right lower extremity bypass. CTA shows patent bypass.. Patient admitted and scheduled for exploration, debridement, closure and possible revision of right lower extremity bypass. Will allow for santyl debridement in the interim. Chucky Medeiros DO, FACS [facility] of Vascular Surgery MANJIT/Chucky Churchill DO Feb 15, 2017 11:57
--- NOTE | 2017-02-15 12:44 | RADRPT ---
EXAM DATE/TIME: 02/14/2017 18:18 [place] COMPARISON: No previous studies available for comparison. INDICATIONS : Persistent right foot wound. Recent right femoral bypass. IV CONTRAST: 100 cc Omnipaque 350 (iohexol) IV RADIATION DOSE: 2.77 CTDIvol (mGy) MEDICAL HISTORY : Hypertension. Carcinoma, breast. PAD SURGICAL HISTORY : section. Femoral bypass ENCOUNTER: Initial ACUITY: 1 week PAIN SCALE: 3/10 LOCATION: Right leg TECHNIQUE: Volumetric scanning was performed using a multi-row detector CT scanner. The data was post processed with a variety of visualization algorithms including full volume maximum intensity projection, multi -planar sliding thin slab reformation, curved planar reformation, and surface rendering techniques. Using automated exposure control and adjustment of the mA and/or kV according to patient size, radiat ion dose was kept as low as reasonably achievable to obtain optimal diagnostic quality images. ANGIOGRAPHIC FINDINGS: AORTA: The moderate vascular calcifications seen the infrarenal abdominal aorta with focal fusiform aneurysm injuring up to 2.1 cm in diameter compared with 1.3 cm for the remaining aorta. VISCERAL ARTERIES: Mild to moderate stenosis of the celiac origin. Standard celiac anatomy. Very mild stenosis of the SM A origin. NEIL is moderately stenosed at the origin. Single bilateral renal arteries. The left renal a rtery is patent. There is mild to moderate stenosis of the right renal artery origin secondary mixed plaque. RIGHT LEG: INFLOW: There is a proximal common iliac artery stent in place. Stent appears grossly patent. Origin of the i nternal iliac artery is moderate severely stenosed. There is mild stenosis of the external iliac román ry origin which is otherwise patent. Post surgical changes are noted in the common femoral artery. Bu lky eccentric calcified plaque in the proximal common femoral artery with resultant mild to moderate stenosis. Distally, post endarterectomy change.OUTFLOW: There is a patent right femoral to proximal below knee popliteal artery bypass evaluation of the prox imal anastomosis is somewhat limited due to a calcified plaque in the distal common femoral artery. T he distal anastomosis appears patent. The profunda is patent. RUNOFF: Three-vessel runoff to the foot with flow extending to the plantar and dorsal arches. LEFT LEG: INFLOW: There is a patent left proximal common iliac artery stent. Very mild stenosis of the distal common il iac artery right at the bifurcation. Diffusely diseased internal iliac artery with likely moderate st enosis at the origin. External iliac artery is widely patent. Diffuse bulky eccentric calcified plaqu e in the common femoral artery with resultant mild diffuse stenosis. OUTFLOW: Patent but small caliber profunda. Diffusely diseased SFA with moderate to severe approximately 2 cm length stenosis proximally and severe approximately 3 cm length stenosis in the mid thigh. Mild kelly ntric stenosis of the above-knee popliteal artery proximally and distally. Below knee popliteal arter y is small in caliber but patent. RUNOFF: Three-vessel runoff although the anterior tibial artery is small in caliber and not in visualized bey ond the ankle. GENERAL FINDINGS: Minimal atelectasis at the visualized lung bases. Evaluation of the abdominal viscera is limited due to arterial phase technique. Liver, spleen, adrenal glands, gallbladder, and pancreas are grossly unr emarkable. Kidneys demonstrate symmetrical enhancement without evidence for radiopaque renal calculi or hydronephrosis. No definite renal mass. Mild sigmoid diverticulosis without inflammatory changes t o suggest diverticulitis. Bowel is otherwise grossly unremarkable without evidence for obstruction. Bladder is mildly distended but otherwise unremarkable. Uterus and adnexa are unremarkable for age. T here is no significant free fluid or drainable fluid collection. There are no abnormal lytic or blast ic bony lesions. CONCLUSION: 1. No significant aortic occlusive disease or inflow stenosis with patent bilateral common iliac román ry stents. 2. Eccentric bulky calcified plaque in the common femoral arteries bilaterally with resultant mild to moderate stenosis in the proximal right common femoral artery and diffuse mild stenosis in the left common femoral artery. 3. Patent right common femoral artery to proximal below knee popliteal artery bypass. The distal anas tomosis is widely patent. The proximal anastomosis is suboptimally evaluated due to calcified plaque in the common femoral artery although it does not appear significantly stenosed. 4. Three-vessel runoff on the right. 5. Extensive left SFA outflow disease, as above. 6. Limited three-vessel runoff on the left. Breezy Saravia MD on February 15, 2017 at 12:14 Board Certified Radiologist. This report was verified electronically.
[2017-02-15] MEDS: oxyCODONE/ACETAMINOPHEN 5 MG/325 MG TAB PO PRN (20:15)
[2017-02-16] VITALS (21 sets, daily range): BP systolic 142–179; BP diastolic 71–92; PULSE 68–114; RESP 16–18; TEMP 98.1–98.6; O2SAT 96–100
[2017-02-16] MEDS ORDERED: SODIUM CHLORID 0.9% 500 ML IV PRN (03:15)
[2017-02-16] MEDS ORDERED: INSULIN HUMAN REGULAR 1,000 UNITS/10 ML VIAL SQ PRN (03:15)
[2017-02-16] MEDS ORDERED: CHLORHEXIDINE GLUCONATE 2 % 1 PACK (2 CLOTHS) TOPICAL PRN (03:15)
[2017-02-16] MEDS ORDERED: METOPROLOL TARTRATE 25 MG TAB PO PRN (03:15)
[2017-02-16] MEDS ORDERED: LACTATED RINGER'S 1000 ML IV PRN (03:15)
[2017-02-16] MEDS ORDERED: POVIDONE IODINE 5% (ANTISEPSIS KIT) 4 APPLICATIONS EACH NARE PRN (03:15)
[2017-02-16] MEDS: ASPIRIN 81 MG CHEW TAB PO SCH (08:26)
[2017-02-16] MEDS: CLOPIDOGREL 75 MG TAB PO SCH (08:26)
[2017-02-16] MEDS: amLODIPine BESYLATE 5 MG TAB PO SCH ×3 (08:26→20:17)
[2017-02-16] MEDS: COLLAGENASE OINT 30 GM TUBE TOPICAL SCH (08:30)
[2017-02-16] MEDS ORDERED: THROMBIN (TOPICAL) 5,000 UNIT VIAL ONE (09:25)
[2017-02-16] MEDS ORDERED: HEPARIN SODIUM - SQ 10,000 UNITS/ML VIAL ONE (09:25)
[2017-02-16] MEDS ORDERED: GELFOAM SIZE 100 ONE (09:26)
[2017-02-16] MEDS ORDERED: HEPARIN SODIUM - IV 10,000 UNITS/10 ML VIAL ONE ×2 (09:26→10:10)
[2017-02-16] MEDS ORDERED: FAMOTIDINE 20 MG/2 ML VIAL ONE (09:40)
[2017-02-16] MEDS ORDERED: VANCOMYCIN HCL 1000 MG VIAL ONE (10:02)
[2017-02-16] MEDS ORDERED: SODIUM CHLOR 0.9% 250 ML INJ 250 ML ONE (10:02)
[2017-02-16] MEDS ORDERED: GENTAMICIN SULFATE 80 MG/2 ML VIAL ONE ×2 (10:02→11:07)
[2017-02-16] MEDS ORDERED: PROTAMINE SULFATE 50 MG/5 ML VIAL ONE (10:10)
[2017-02-16] MEDS ORDERED: ACETAMINOPHEN 1000 MG/100 ML VIAL IV ONE (10:11)
[2017-02-16] MEDS ORDERED: KETAMINE HCL 500 MG/5 ML VIAL ONE (10:23)
[2017-02-16] MEDS ORDERED: VANCOMYCIN HCL 1000 MG VIAL OTHER ONE (10:47)
[2017-02-16] MEDS ORDERED: LACTATED RINGER'S 1000 ML INJ 1,000 ML IV ONE (12:00)
[2017-02-16] MEDS ORDERED: PROPOFOL 200 MG/20 ML AMP IV ONE (12:00)
[2017-02-16] MEDS ORDERED: BUPIVACAINE/EPINEPHRINE 0.5% PF 30 ML VIAL INFIL ONE (12:00)
[2017-02-16] MEDS ORDERED: ONDANSETRON HCL 4 MG/2 ML VIAL IV PUSH ONE (12:00)
[2017-02-16] MEDS ORDERED: DO NOT ADM ANY ANTICOAGULANT DRUGS PRN (12:30)
[2017-02-16] MEDS ORDERED: MIDAZOLAM HCL 2 MG/2 ML VIAL ONE (12:37)
[2017-02-16] MEDS ORDERED: fentaNYL CITRATE 250 MCG/5 ML AMP ONE (12:38)
[2017-02-16] MEDS: oxyCODONE/ACETAMINOPHEN 5 MG/325 MG TAB PO PRN ×2 (14:09→17:31)
--- NOTE | 2017-02-16 14:57 | PD.VS.PN ---
Subjective POD #: 0 Procedure(s): Exploration with I&D with transposition of right lower extremity bypass. Subjective/Hospital Course Underwent CTA. No new complaints. Objective Vitals/I&O Date Time Temp Pulse Resp B/P Pulse Ox O2 Delivery O2 Flow Rate FiO2 02/16/17 14:39 16 02/16/17 14:39 16 02/16/17 13:30 75 20 124/62 99 Room Air 02/16/17 13:15 74 20 114/61 96 Room Air 02/16/17 13:00 73 20 114/75 94 Room Air 02/16/17 12:45 77 20 114/75 94 Room Air 02/16/17 12:31 97.5 88 20 114/75 97 Nasal Cannula 2 02/16/17 08:00 74 02/16/17 08:00 98.2 78 16 179/87 99 02/16/17 07:00 82 02/16/17 06:34 98.4 68 16 162/92 98 02/16/17 06:00 87 02/16/17 05:00 86 02/16/17 04:00 74 02/16/17 03:00 72 02/16/17 02:00 76 02/16/17 01:00 78 02/16/17 00:17 98.1 86 16 147/71 99 02/16/17 00:00 86 02/15/17 23:00 74 02/15/17 22:00 76 02/15/17 21:00 84 02/15/17 20:30 98.1 98 16 169/91 97 02/15/17 20:00 92 02/15/17 19:00 81 02/15/17 18:00 90 02/15/17 17:00 85 02/15/17 16:00 87 02/15/17 15:00 98.3 78 20 161/84 97 02/15/17 15:00 86 02/16/17 02/16/17 02/16/17 07:00 15:00 23:00 Intake Total 1200 ml 1230 ml Output Total 1200 ml 100 ml Balance 0 ml 1130 ml Pulses: Triphasic DP and PT. Right leg with vac in place. Dressing over right foot. Laboratory Date/Time Procedure Status Source Growth 02/16/17 10:47 Gram Stain Received Wound Leg Pending 02/16/17 10:47 Wound Culture Received Wound Leg Pending 02/16/17 10:47 Fungal Smear Received Wound Leg Pending 02/16/17 10:47 Fungal Culture Received Wound Leg Pending 02/16/17 10:47 Acid Fast Stain Received Wound Leg Pending 02/16/17 10:47 Mycobacterial Culture Received Wound Leg Pending Assessment and Plan Assessment: (1) PAD (peripheral artery disease) Status: Acute Plan 61 year old female with hx of incisional breakdown of right lower extremity bypass. Status post debridement and revision of incision with transposition of bypass. Now will be on IV vancomycin, expected for two weeks with wound vac to right foot wound as well to help with acceleration of granulation tissue. Discharge planning. Chucky Medeiros DO, FACS Mechanical Fitter of Vascular Surgery MANJIT/Chucky Churchill DO Feb 16, 2017 14:57
--- NOTE | 2017-02-16 18:06 | PD.WCN.NOT ---
Wound Consult Description: Patient seen on [facility] for Wound VAC application to R foot. Removed Rolled gauze and 4x4 g[address] to wound bed to reveal wound to R foot. Wound bed presents with ~40% red granulation tissue, and ~60% yellow slough. Minimal sero- sanguinous drainage noted to old dressing with out odor. Wound is not actively draining.Wound measurements are as follows ~2.5 x ~4 x0.2. Wound is to shallow for wound VAC. Cleansed wound with normal saline and applied Santyl to wound bed and covered with saline moistened gauze and covered with dry 4x4 gauze. Secured dressing with rolled gauze and tape. Communicated with: LORENE Montano and HARDEEP Landa for Vascular Surgery Recommendation: Recommend to cleanse wound to R foot with normal saline only and apply Santyl ointment perez thickness with saline moistened 2x2 gauze to wound bed and cover with dry 4x4 gauze. Secure dressing with rolled gauze and tape. Please change dressing daily. Rufina Mccarty [facility] Feb 16, 2017 18:06
[2017-02-16] MEDS ORDERED: SODIUM CHLORIDE FLUSH PRN IV FLUSH (19:00)
[2017-02-16] MEDS ORDERED: MAGNESIUM SULFATE 1 GM/100 ML IV PRN (20:00)
[2017-02-16] MEDS ORDERED: ONDANSETRON HCL 4 MG/2 ML VIAL IV PUSH PRN (20:00)
[2017-02-16] MEDS ORDERED: POTASSIUM PHOSPHATE 21 MMOL/NS 250 ML IV PRN ×2 (20:00)
[2017-02-16] MEDS ORDERED: POTASSIUM CHLOR 20 MEQ 100 ML x 2 BAGS IV PRN (20:00)
[2017-02-16] MEDS ORDERED: SODIUM CHLORIDE 0.9% FLUSH 10 ML FLUSH IV FLUSH PRN (20:00)
[2017-02-16] MEDS ORDERED: POTASSIUM CHLOR 20 MEQ/100 ML x 1 BAG IV PRN (20:00)
[2017-02-16] MEDS: HYDROmorphone HCL PF 1 MG/ML VIAL IV PRN (20:10)
[2017-02-16] MEDS: SODIUM CHLORIDE 0.9% FLUSH 10 ML FLUSH IV FLUSH SCH (20:11)
[2017-02-16] MEDS ORDERED: SODIUM CHLORIDE FLUSH BID IV FLUSH SCH (21:00)
[2017-02-17] VITALS (22 sets, daily range): BP systolic 117–154; BP diastolic 52–82; PULSE 80–107; RESP 16–20; TEMP 98.3–99.4; O2SAT 95–100
[2017-02-17] MEDS: HYDROmorphone HCL PF 1 MG/ML VIAL IV PRN ×3 (00:20→18:27)
[2017-02-17 05:24] LABS: HEMATOCRIT 29.1 % (35.0-46.0); REVIEW FLAG FINAL
[2017-02-17 05:47] LABS: POTASSIUM 3.7 MEQ/L (3.5-5.1)
--- NOTE | 2017-02-17 08:31 | MP ---
cc: JIMY GASPAR DATE OF SURGERY 02/16/2017 PREOPERATIVE DIAGNOSIS Exposed graft right lower extremity. POSTOPERATIVE DIAGNOSIS Exposed graft right lower extremity. PROCEDURE Incision, debridement and irrigation with transposition of right lower extremity AV graft see me lower right lower extremity bypass. SURGEON DO Mala E COMMERCE ARCHITECT Jess Miller IV FLUIDS Approximately 1200 cc crystalloid. ESTIMATED BLOOD LOSS About 100 cc URINE OUTPUT Not calculated. COMPLICATIONS None. DISPOSITION To PACU. PROCEDURE The patient had a right lower extremity incisional wound with tissue loss. The patient had an underlying bypass graft in the way of cryo vein. We placed the patient under MAC anesthesia. Before performing the procedure we injected a culture swab into the wound, into the deep space, then removed it. We sent that for tissue culture and sensitivity. I used approximately a total of 6 liters of irrigation with gentamicin after mobilizing the vessel. It should be noted that the vessel was fairly posterior so we were able to move it anteriorly. The area of breakdown was just above the knee on the right lower extremity. I extended longitudinally the incision approximately 8-10 cm. Using a scalpel and electrocautery I dissected down. I did use two 5-0 Prolene sutures in order to help with bleeding from the graft itself. I should be noted that we irrigated thoroughly with gentamicin 3 liters for the superficial tissue and then 3 liters for the deeper subcutaneous tissue. I was able to use electrocautery and scalpel for sharp dissection to remove any of the nonviable tissue edges and then undermined the shelf anteriorly where I was able to transposed the bypass graft. I used 2-0 interrupted Vicryl sutures in a [id number] fashion in order to transpose it anteriorly. I used FloSeal help out with hemostasis and used minimal electrocautery to make sure that we did not devitalized the tissue. Mostly there was pretty good hemostasis. We used multiple interrupted 2-0 nylon sutures as horizontal mattress sutures along the length of the incision. It should be noted there was another incisional breakdown inferiorly below at the bottom aspect where we used two 2-0 nylon sutures there as well. It should be noted that the patient had an area of wound on the dorsum of the right foot which was debrided with sharp debridement with a scalpel. I did use approximately a total of 20 cc of 0.5% Marcaine with epinephrine during the procedure. I did use Prevena wound VAC over the right leg. It should be noted that, when we were manipulating the bypass I did give 2000 units of heparin and I did give 1 gram of vancomycin after getting my cultures. The patient tolerated the procedure well and was taken to the PACU at the end of the case. DO SYDNEY Harrison/THONG /12:22 PM /8:20 AM
[2017-02-17] MEDS: VANCOMYCIN 1,000 MG/NS 250 ML IV SCH ×2 (09:02)
[2017-02-17] MEDS: ASPIRIN 81 MG CHEW TAB PO SCH (09:04)
[2017-02-17] MEDS: CLOPIDOGREL 75 MG TAB PO SCH (09:04)
[2017-02-17] MEDS: SODIUM CHLORIDE 0.9% FLUSH 10 ML FLUSH IV FLUSH SCH ×2 (09:05→20:40)
[2017-02-17] MEDS: COLLAGENASE OINT 30 GM TUBE TOPICAL SCH (09:05)
--- NOTE | 2017-02-17 09:40 | PD.VS.PN ---
Subjective POD #: 1 Procedure(s): Exploration with I&D with transposition of right lower extremity bypass. Subjective/Hospital Course Pt in bed alert in NAD with daughter at the BS Pt reported mild pain last night Dressing to Right LE/Right foot changed this am (Syeda Tafoya) Procedure(s): right lower extremity wound revision with transposition of bypass. (Chucky Medeiros DO) Objective Vitals/I&O Date Time Temp Pulse Resp B/P Pulse Ox O2 Delivery O2 Flow Rate FiO2 02/17/17 08:49 18 02/17/17 08:00 98.7 107 20 148/72 98 02/17/17 07:00 101 02/17/17 05:00 86 02/17/17 04:52 98.7 94 16 143/72 95 02/17/17 04:00 92 02/17/17 03:00 90 02/17/17 02:00 86 02/17/17 01:00 98 02/17/17 00:20 99.4 96 16 147/76 97 02/17/17 00:00 94 02/16/17 23:00 88 02/16/17 22:00 94 02/16/17 21:00 102 02/16/17 20:13 98.5 95 16 142/85 96 02/16/17 20:00 104 02/16/17 19:00 114 02/16/17 18:23 16 02/16/17 18:00 104 02/16/17 17:00 88 02/16/17 16:00 74 02/16/17 16:00 98.6 75 18 146/82 100 02/16/17 15:00 72 02/16/17 14:39 16 02/16/17 13:30 75 20 124/62 99 Room Air 02/16/17 13:15 74 20 114/61 96 Room Air 02/16/17 13:00 73 20 114/75 94 Room Air 02/16/17 12:45 77 20 114/75 94 Room Air 02/16/17 12:31 97.5 88 20 114/75 97 Nasal Cannula 2 02/17/17 02/17/17 02/17/17 06:59 14:59 22:59 Intake Total 720 ml Output Total 1600 ml Balance -880 ml Exam: GENERAL: A&OX3, NAD, GCS15 SKIN: Warm and dry/ Provena wound vac to Right leg intact/no hematoma/ 4 X 3.2 ulcer to right foot with granulation tissue, hyperpigmentation along the borders of the of ulceration noted CARDIOVASCULAR: +S1,S2 RESPIRATORY: No accessory muscle use. + stong triphasic bilat DP/PT present Bilat feet warm with motor intact Laboratory Laboratory Tests Test 02/17/17 04:20 Hemoglobin 9.7 Hematocrit 29.1 Sodium Level 138 Potassium Level 3.7 Chloride Level 104 Carbon Dioxide Level 26.0 Anion Gap 8 Blood Urea Nitrogen 16 Creatinine 0.74 Estimat Glomerular Filtration 80 Rate Random Glucose 99 Calcium Level 8.6 Date/Time Procedure Status Source Growth 02/16/17 10:47 Gram Stain - Final Resulted Wound Leg 02/16/17 10:47 Wound Culture Resulted Wound Leg Pending 02/16/17 10:47 Fungal Smear - Final Resulted Wound Leg NO FUNGAL ELEMENTS SEEN. 02/16/17 10:47 Fungal Culture Resulted Wound Leg Pending 02/16/17 10:47 Acid Fast Stain Received Wound Leg Pending 02/16/17 10:47 Mycobacterial Culture Received Wound Leg Pending (Syeda Tafoya) Assessment and Plan Assessment: (1) PAD (peripheral artery disease) Status: Acute Plan 61 year old female with hx of incisional breakdown of right lower extremity bypass. Status post debridement and revision of incision with transposition of bypass. Plan Dressing changed this am Continue antibiotic therapy PICC line insertion for home Vancomycin therapy (2W) Syeda Tafoya [facility] [phone] Discharge Planning 1-2 days with home Vanco therapy (Syeda Tafoya) Plan I agree with above. Possible DC in AM in ambulating without pain. Chucky Medeiros DO, FACS (Chucky Medeiros DO) Syeda Tafoya Feb 17, 2017 09:40 Chucky Medeiros DO Feb 17, 2017 12:49
--- NOTE | 2017-02-17 13:08 | RADRPT ---
EXAM DATE/TIME: 02/17/2017 12:13 [place] COMPARISON: CHEST PA & LAT, January 02, 2017, 12:41. INDICATIONS : Post PICC line placement. MEDICAL HISTORY : Hypertension. SURGICAL HISTORY : Left lower extremity bypass. ENCOUNTER: Initial ACUITY: 1 day PAIN SCORE: 0/10 LOCATION: Bilateral chest FINDINGS: The PICC is in satisfactory position. The heart is mildly enlarged. There are diffuse chronic interstitial changes within the pulmonary par enchyma. The visualized bony structures are grossly intact. CONCLUSION: 1. PICC in satisfactory position. Jacoby Neal MD on February 17, 2017 at 13:03 Board Certified Radiologist. This report was verified electronically.
[2017-02-17] MEDS: amLODIPine BESYLATE 5 MG TAB PO SCH (20:33)
[2017-02-18] VITALS (20 sets, daily range): BP systolic 115–144; BP diastolic 53–77; PULSE 87–118; RESP 18–20; TEMP 98.1–99.6; O2SAT 93–98
[2017-02-18] MEDS: HYDROmorphone HCL PF 1 MG/ML VIAL IV PRN ×4 (03:00→22:38)
--- NOTE | 2017-02-18 08:55 | PD.VS.PN ---
Subjective POD #: 2 Procedure(s): right lower extremity wound revision with transposition of bypass. Subjective/Hospital Course Pt in bed alert in NAD Pt reported moderate pain last night and this am Dressing to Right LE/Right foot changed this am Objective Vitals/I&O Date Time Temp Pulse Resp B/P Pulse Ox O2 Delivery O2 Flow Rate FiO2 02/18/17 08:20 20 02/18/17 08:00 96 02/18/17 08:00 98.7 96 20 139/66 95 02/18/17 07:00 88 02/18/17 06:35 92 02/18/17 03:30 18 02/18/17 03:00 98.7 95 20 137/77 93 02/18/17 03:00 95 02/17/17 23:00 99 02/17/17 23:00 98.6 99 20 126/72 98 02/17/17 19:00 101 02/17/17 19:00 98.8 101 20 117/52 97 02/17/17 18:00 92 02/17/17 17:00 96 02/17/17 16:00 99 02/17/17 15:00 98.9 84 20 154/82 100 02/17/17 15:00 89 02/17/17 14:00 90 02/17/17 13:00 96 02/17/17 12:00 80 02/17/17 11:00 86 02/17/17 11:00 98.3 86 20 139/77 98 02/17/17 10:00 90 02/17/17 09:00 96 02/18/17 02/18/17 02/18/17 07:00 15:00 23:00 Intake Total 780 ml Output Total 1500 ml Balance -720 ml Exam: GENERAL: A&OX3,NAD,GCS15 Warm and dry. wound vac to Right leg intact/ Right foot ulcer with improved granulation tissue since last assessment + bilat triphasic DP/PT noted Bilat feet warm with motor intact Laboratory Date/Time Procedure Status Source Growth 02/16/17 10:47 Gram Stain - Final Resulted Wound Leg 02/16/17 10:47 Wound Culture - Preliminary Resulted Gram Negative Harrison 02/16/17 10:47 Fungal Smear - Final Resulted Wound Leg NO FUNGAL ELEMENTS SEEN. 02/16/17 10:47 Fungal Culture Resulted Wound Leg Pending 02/16/17 10:47 Acid Fast Stain - Final Resulted Wound Leg NO ACID FAST BACILLI SEEN 02/16/17 10:47 Mycobacterial Culture Resulted Wound Leg Pending Assessment and Plan Assessment: (1) PAD (peripheral artery disease) Status: Acute Plan Plan Continue pain management D/C planning for tomorrow am Dressings change this am Syeda MEIER [facility] [employer] [phone] Discharge Planning Potentially tomorrow am with home Vanco therapy Syeda Tafoya Feb 18, 2017 08:55
[2017-02-18] MEDS: COLLAGENASE OINT 30 GM TUBE TOPICAL SCH (09:00)
[2017-02-18] MEDS: amLODIPine BESYLATE 5 MG TAB PO SCH ×2 (10:02→20:12)
[2017-02-18] MEDS: CLOPIDOGREL 75 MG TAB PO SCH (10:02)
[2017-02-18] MEDS: ASPIRIN 81 MG CHEW TAB PO SCH (10:02)
[2017-02-18] MEDS: SODIUM CHLORIDE 0.9% FLUSH 10 ML FLUSH IV FLUSH SCH ×2 (10:02→20:12)
[2017-02-18] MEDS: VANCOMYCIN 1,000 MG/NS 250 ML IV SCH ×2 (10:03)
--- NOTE | 2017-02-18 12:42 | PD.VS.PN ---
Subjective Subjective/Hospital Course Pt in bed alert in NAD Pt reported moderate pain last night and this am Dressing to Right LE/Right foot changed this am Objective Vitals/I&O Date Time Temp Pulse Resp B/P Pulse Ox O2 Delivery O2 Flow Rate FiO2 02/18/17 11:38 20 02/18/17 11:00 88 02/18/17 10:00 96 02/18/17 09:00 104 02/18/17 08:00 96 02/18/17 08:00 98.7 96 20 139/66 95 02/18/17 07:00 88 02/18/17 06:35 92 02/18/17 03:30 18 02/18/17 03:00 98.7 95 20 137/77 93 02/18/17 03:00 95 02/17/17 23:00 99 02/17/17 23:00 98.6 99 20 126/72 98 02/17/17 19:00 101 02/17/17 19:00 98.8 101 20 117/52 97 02/17/17 18:00 92 02/17/17 17:00 96 02/17/17 16:00 99 02/17/17 15:00 98.9 84 20 154/82 100 02/17/17 15:00 89 02/17/17 14:00 90 02/17/17 13:00 96 02/18/17 02/18/17 02/18/17 07:00 15:00 23:00 Intake Total 780 ml Output Total 1500 ml Balance -720 ml Physical Exam right leg incision intact. no erythema or drainage. Laboratory Date/Time Procedure Status Source Growth 02/16/17 10:47 Gram Stain - Final Resulted Wound Leg 02/16/17 10:47 Wound Culture - Preliminary Resulted Gram Negative Harrison 02/16/17 10:47 Fungal Smear - Final Resulted Wound Leg NO FUNGAL ELEMENTS SEEN. 02/16/17 10:47 Fungal Culture Resulted Wound Leg Pending 02/16/17 10:47 Acid Fast Stain - Final Resulted Wound Leg NO ACID FAST BACILLI SEEN 02/16/17 10:47 Mycobacterial Culture Resulted Wound Leg Pending Imaging Last 48 hours Impressions Chest X-Ray 02/17/17 0000 Signed Impressions: Service Date/Time: Friday, February 17, 2017 12:13 - CONCLUSION: 1. PICC in satisfactory position. Jacoby Neal MD Assessment and Plan Assessment: (1) PAD (peripheral artery disease) Status: Acute Plan BID foot dressing changes with santyl and daily dressing changes of leg dressing with povidine ointment. Continued IV abx. Chucky Medeiros DO, FACS Senior Research Manager of Vascular Surgery /[place] Discharge Planning Potentially tomorrow am with home Vanco therapy Chucky Medeiros DO Feb 18, 2017 12:42
[2017-02-19] VITALS (10 sets, daily range): BP systolic 107–149; BP diastolic 59–72; PULSE 81–103; RESP 18; TEMP 98.7–98.9; O2SAT 93–98
[2017-02-19] MEDS: CLOPIDOGREL 75 MG TAB PO SCH (07:56)
[2017-02-19] MEDS: VANCOMYCIN 1,000 MG/NS 250 ML IV SCH ×2 (07:56)
[2017-02-19] MEDS: amLODIPine BESYLATE 5 MG TAB PO SCH (07:57)
[2017-02-19] MEDS: ASPIRIN 81 MG CHEW TAB PO SCH (07:57)
[2017-02-19] MEDS: COLLAGENASE OINT 30 GM TUBE TOPICAL SCH (07:58)
[2017-02-19] MEDS: SODIUM CHLORIDE 0.9% FLUSH 10 ML FLUSH IV FLUSH SCH (07:59)
--- NOTE | 2017-02-19 08:55 | PD.VS.PN ---
Subjective POD #: 3 Procedure(s): right lower extremity wound revision with transposition of bypass. Subjective/Hospital Course Pt in bed alert in NAD w/ daughters at the BS Pt reported minimal pain last night and this am Dressing to Right LE/Right foot changed this am Objective Vitals/I&O Date Time Temp Pulse Resp B/P Pulse Ox O2 Delivery O2 Flow Rate FiO2 02/19/17 06:00 92 02/19/17 05:00 88 02/19/17 04:00 96 02/19/17 03:50 98.9 97 18 107/59 93 02/19/17 03:00 87 02/19/17 02:00 88 02/19/17 01:00 84 02/19/17 00:00 84 02/18/17 23:00 87 02/18/17 23:00 98.1 93 18 115/53 93 02/18/17 22:00 114 02/18/17 21:00 90 02/18/17 20:00 96 02/18/17 19:20 98.8 97 18 136/71 96 02/18/17 19:00 94 02/18/17 18:56 20 02/18/17 18:00 91 02/18/17 17:00 106 02/18/17 16:23 18 02/18/17 16:00 97 02/18/17 15:00 87 02/18/17 15:00 99.4 89 20 142/77 94 02/18/17 14:00 95 02/18/17 13:00 118 02/18/17 12:00 90 02/18/17 11:00 99.6 92 20 144/69 98 02/18/17 11:00 88 02/18/17 10:00 96 02/18/17 09:00 104 02/19/17 02/19/17 02/19/17 07:00 15:00 23:00 Intake Total 720 ml Output Total 800 ml Balance -80 ml Exam: GENERAL: A&OX3,NAD,GCS15 SKIN: Warm and dry. Right lower ext incision w/ 13 lexy/13 suture closure, no R/S present/ mild serosanguineous drainage/ Right foot ulcer improving with granulation tissue present Bilat triphasic DP/PT heard via Doppler Blat feet warm w/ motor intact Laboratory Date/Time Procedure Status Source Growth 02/16/17 10:47 Gram Stain - Final Resulted Wound Leg 02/16/17 10:47 Wound Culture - Preliminary Resulted Pseudomonas Species 02/16/17 10:47 Fungal Smear - Final Resulted Wound Leg NO FUNGAL ELEMENTS SEEN. 02/16/17 10:47 Fungal Culture Resulted Wound Leg Pending 02/16/17 10:47 Acid Fast Stain - Final Resulted Wound Leg NO ACID FAST BACILLI SEEN 02/16/17 10:47 Mycobacterial Culture Resulted Wound Leg Pending Assessment and Plan Assessment: (1) PAD (peripheral artery disease) Status: Acute Plan Plan D/C today Daily right foot dressing changes with santyl and daily dressing changes of leg dressing with povidine ointment. Continued IV abx out patient Syeda MEIER formerly [facility] [phone] Discharge Planning This am with home Vanco therapy Syeda Tafoya Feb 19, 2017 08:55
[2017-02-19] MEDS ORDERED: PERC5TAB12 PO (08:58)
[2017-02-19] MEDS ORDERED: POVIDONE IODINE 10% OINT 30 GM TUBE TOPICAL PRN (09:00)
[2017-02-19] MEDS ORDERED: POVIDONE IODINE 10% OINT 30 GM TUBE TOPICAL SCH (09:00)
--- NOTE | 2017-02-19 09:05 | PD.VS.DC ---
Discharge Summary Admission Date: Feb 13, 2017 at 11:40 Discharge Date: Feb 19, 2017 Admission Diagnosis: (1) PAD (peripheral artery disease) Discharge Diagnosis: (1) PAD (peripheral artery disease) Status: Acute Brief History from admission 61 year old female with hx of right lower extremity bypass with cryovein (fem-PT ) Jan 05 2017. Patient had traumatic wound on right foot toes from dog that was non-healing. Found to have severe PAD right lower extremity Area of incision site above the knee with skin breakdown. Concern for proximity and exposure of bypass with wound care alone. Plan for surgical exploration and possible revision of right lower extremity bypass. Procedure(s): right lower extremity wound revision with transposition of bypass. Significant Findings Laboratory Tests Test 02/17/17 04:20 Hemoglobin 9.7 GM/DL (11.6-15.3) Hematocrit 29.1 % (35.0-46.0) Estimat Glomerular Filtration 80 ML/MIN (>89) Rate Hospital Course: 61 year old female with hx of right lower extremity bypass with cryovein -Jan 05 2017. Patient had traumatic wound on right foot toes from dog that was non-healing Found to have severe PAD right lower extremity Pt presented weeks later with an area of incision site above the knee with skin breakdown Concern for proximity and exposure of bypass with wound care alone Surgical exploration and revision of right lower extremity bypass was done Pt is w/o complications Discharge Condition: Good Discharge Disposition: Discharge Home Discharge Instructions: Follow up in our out patient clinic next week at shceduled appointment time Weight bear as tolerated MAY shower MAY NOT submerge in a swimming pool/ocean/ or tub bath while incision is healing Change dressings to right leg as instructed Daily right foot dressing changes with santyl and Daily dressing changes of leg dressing with povidine ointment. Continued IV abx out patient therapy Call the office to report any new onset increased redness, swelling or drainage Call the office with any new questions or concerns Syeda MEIER [facility] [phone] Any questions or concerns: Call [facility] Heart and Vascular Surgery at [facility] [phone] Syeda Tafoya Feb 19, 2017 09:05
[2017-02-20] MEDS ORDERED: VANC1000P IV (10:14)
== END 2017-02-19 10:09 | disposition home or self-care (01) | DRG 254 ==
LOC: HCIN 11:40
PROVIDERS: ADMIT Surgery; ATTEND Surgery
PROC: 04S Lower Arteries, Reposition (ICD-10-PCS; 2017-02-16)
PROC: 0HBMXZZ Excision of Right Foot Skin, External Approach (ICD-10-PCS; 2017-02-16)
PROC: 04QK0ZZ Repair Right Femoral Artery, Open Approach (ICD-10-PCS; principal; 2017-02-16 10:14)
DX: T82.312A Breakdown (mechanical) of femoral arterial graft (bypass), initial encounter (principal); I10 Essential (primary) hypertension; I70.201 Unspecified atherosclerosis of native arteries of extremities, right leg; Y83.2 Surgical operation with anastomosis, bypass or graft as the cause of abnormal reaction of the patient, or of later complication, without mention of misadventure at the time of the procedure; F41.9 Anxiety disorder, unspecified; S91.351A Open bite, right foot, initial encounter; W54.0XXA Bitten by dog, initial encounter
CPT/HCPCS: 36569; 71010; 75635; 76937; 80048; 85014; 85018; 85025; 87015; 87070; 87077; 87102; 87116; 87186; 87205; 87206; J0131; J1170; J1580; J1644; J2250; J2405; J2720; J3010; J3370; J7050; J7120; Q9967

== ENCOUNTER 2017-09-01 10:16 | Day surgery (SDC) | payer SELFPAY ==
[~2017-09-01] VITALS: Ht 172.7 cm; Wt 82.0 kg
[~2017-09-01 10:16] MED LIST changes: -AMLO2.5T PO; -ASPI-110 PO; +ASPI1TAB57 PO; -BACT800T5 PO; +IBUP1TAB7 PO; -IBUP800T23 PO; +PERC5TAB12 PO; +VANC1000P IV
[2017-09-01] MEDS ORDERED: IOHEXOL 350 MG/ML 100 ML BTL (for Cath Lab) OTHER ONE (10:17)
[2017-09-01 11:20] VITALS: BP 198/108; PULSE 78; RESP 17; TEMP 97.6; O2SAT 97
[2017-09-01] MEDS ORDERED: TURM500C3 PO (11:28)
[2017-09-01] MEDS ORDERED: LEVO100T5 PO (11:28)
[2017-09-01] MEDS ORDERED: POTA-255 (11:28)
[2017-09-01] MEDS ORDERED: VITATAB11 PO (11:28)
[2017-09-01] MEDS ORDERED: VITA100T65 PO (11:28)
[2017-09-01] MEDS ORDERED: POTA99TA4 PO (11:28)
[2017-09-01] MEDS ORDERED: AMLO5TAB2 PO (11:28)
[2017-09-01 11:31] LABS: AUTOMATED NEUTROPHIL # 9.7 TH/MM3 (1.8-7.7); BASOPHIL # 0.1 TH/MM3 (0-0.2); BASOPHIL % 0.7 % (0.0-2.0); EOSINOPHIL # 0.2 TH/MM3 (0-0.4); EOSINOPHIL % 1.1 % (0.0-4.0); HEMATOCRIT 44.6 % (35.0-46.0); HEMOGLOBIN 15.8 GM/DL (11.6-15.3); LYMPH % 22.3 % (9.0-44.0); LYMPHOCYTE # 3.1 TH/MM3 (1.0-4.8); MEAN CELL VOLUME 95.4 FL (80.0-100.0); MEAN CORPUSCULAR HEMOGLOBIN 33.7 PG (27.0-34.0); MEAN CORPUSCULAR HGB CONC 35.4 % (32.0-36.0); MEAN PLATELET VOLUME 9.6 FL (7.0-11.0); MONO % 5.4 % (0.0-8.0); MONOCYTE # 0.7 TH/MM3 (0-0.9); NEUT % 70.5 % (16.0-70.0); PLATELET COUNT 398 TH/MM3 (150-450); RED BLOOD COUNT 4.68 MIL/MM3 (4.00-5.30); RED CELL DISTRIBUTION WIDTH 13.9 % (11.6-17.2); WHITE BLOOD COUNT 13.7 TH/MM3 (4.0-11.0)
[2017-09-01] MEDS ORDERED: PLAV75TA29 PO (11:34)
[2017-09-01] MEDS ORDERED: ASPI81CH6 CHEW (11:34)
[2017-09-01] MEDS ORDERED: IBUP1TAB7 PO (11:34)
[2017-09-01 11:46] LABS: CALCIUM 9.3 MG/DL (8.5-10.1); CREATININE 0.93 MG/DL (0.50-1.00)
[2017-09-01] MEDS ORDERED: MORPHINE SULFATE 2 MG/ML INJ IV PUSH PRN (13:00)
--- NOTE | 2017-09-01 14:44 | PD.VS.PN ---
Pre-operative Note Pre-operative diagnosis: R LE tissue loss, PAD, failed bypass Planned procedure: Aortogram w/ R LE angiogram Interval History: The patient has continued pain but no motor dysfunction. Labs: Laboratory Results Test 09/01/17 11:09 Anion Gap 6 MEQ/L (5-15) Blood Urea Nitrogen 21 MG/DL (7-18) Creatinine 0.93 MG/DL (0.50-1.00) Random Glucose 95 MG/DL (74-106) Calcium Level 9.3 MG/DL (8.5-10.1) Sodium Level 136 MEQ/L (136-145) Potassium Level 4.0 MEQ/L (3.5-5.1) Chloride Level 103 MEQ/L (98-107) Carbon Dioxide Level 27.0 MEQ/L (21.0-32.0) Hematocrit 44.6 % (35.0-46.0) Hemoglobin 15.8 GM/DL (11.6-15.3) Mean Corpuscular Hemoglobin 33.7 PG (27.0-34.0) Mean Corpuscular Hemoglobin Concent 35.4 % (32.0-36.0) Mean Corpuscular Volume 95.4 FL (80.0-100.0) Mean Platelet Volume 9.6 FL (7.0-11.0) Platelet Count 398 TH/MM3 (150-450) Red Blood Count 4.68 MIL/MM3 (4.00-5.30) Red Cell Distribution Width 13.9 % (11.6-17.2) White Blood Count 13.7 TH/MM3 (4.0-11.0) Blood: none needed Imaging: will make in OR Orders: NPO Post-operative destination: DOCU Operative site marked: Yes Consent: Informed consent has been obtained from Mary Alice Burnham. I have explained the procedure in detail and discussed the risks, benefits, and potential complications. All questions have been answered. Patient contact information: daughter [phone] SofiaThomas sheffield Juan Antonio TY Sep 01, 2017 14:44
[2017-09-01] MEDS ORDERED: HEPARIN-NS/PF INJ 500 ML ONE (14:50)
[2017-09-01] MEDS ORDERED: MIDAZOLAM HCL 2 MG/2 ML VIAL ONE ×2 (14:55→15:01)
[2017-09-01] MEDS ORDERED: MORPHINE SULFATE 2 MG/ML INJ IV PRN (15:30)
--- NOTE | 2017-09-01 15:33 | CATHPROC ---
[facility] HIS Report Study Information Study Number Admission Scheduled Start Study Start [id number] Sep 01 2017 10:16AM 09/01/2017 Sep 01 2017 2:43PM [place] Service Cath Endovascular Study Admit Source Facility Department Other [facility] - Recruiter Manager Physician and Clinical Staff Initial Thomas Sebastian Circular Knife Machine Cutter Magdalena Fuentes BSN Recorder Jignesh Santizo,RT(R) Scrub Christian Law,RT(R) Procedures Performed Procedure Location (Site) Vessel Name Abdominal Angiogram Abd Aorta (A3) Aorta Abdominal Angiogram Fem R. Com (R7) Femoral Art Abdominal Angiogram Fem Sup. (right) Femoral Art Abdominal Angiogram Popliteal R (R10) Popliteal Abdominal Angiogram Tib, Ant. (right) Popliteal Wire insertion Fem Art (left) Femoral Art Equipment Time Historic Sites Registrar Description Size Mfg Part Number Used/Scraped [id number] 14:57 ANGIO-DYNAMICS OMNI FLUSH 65CM CATHETER FR 4 Used *[id number] INTRODUCER SET, 14:53 [employer] INC. FR 5 [id number] *[id number] Used MICROPUNCTURE, STIFFENED [id number] 14:53 [employer] INDUSTRIES PACK, CCL CUSTOM * Used *[id number] 14:53 [employer] MEDICAL PRESSURE TUBING 48" 48" [id number] Used [id number] 14:53 NAMIC TUBING, HIGH PRESSURE 20" 20" Used *[id number] TUBING, PRESSURE MONITORING [id number] 14:53 NAMIC PACER 72" Used 72" *[id number] 14:53 NYCOMED OMNIPAQUE, 300 MG, 150ML 150ML [id number] Used 14:53 NYCOMED OMNIPAQUE, 300 MG, 50ML 50ML [id number] Used [id number] 14:53 [employer] MEDICAL BLANKET,WARM AIR CCL * Used *[id number] 14:53 TERUMO MEDICAL SHEATH, FR4 TERUMO (10CM) FR 4 Used *[id number] WIRE, ANGLED GLIDE .035 [id number] 14:53 TERUMO MEDICAL/ANDREA 260CM Used 260CM *[id number] Labs Hgb (g/dl) Hct (%) WBC (l/cumm) Platelets (thousands) 11.60-17.00 35.00-51.00 4.00-11.00 150.00-450.00 15.8 44.6 13.7 398 Glucose (mg/dl) BUN (mg/dl) Creatinine (mg/dl) BUN:Creatinine (1:x) 74.00-106.00 7.00-18.00 0.50-1.30 10.00-20.00 95 21 0.9 23.3 Na (meq/l) K (meq/l) 136.00-145.00 3.50-5.10 136 4 CPK-MB (ng/ML) 0.50-3.60 Not Drawn Medication Medication Total Dose (Bolus/Oral) Medication Total Dosage/Unit 1% XYLOCAINE 20 mL FENTANYL 75 mcg VERSED 3 mg Medications (Bolus/Oral) Medication Time Given Dosage/Unit Administered By Reason 1% XYLOCAINE 09/01/2017 2:59:25 PM 20 mL Thomas Xiong Patient arrived on 20 mL 1% XYLOCAINE given by Thomas Xiong in Left Groin via Subcutaneous. Ordered by Thomas Xiong. VERSED 09/01/2017 2:59:53 PM 2 mg Magdalena Fuentes Patient arrived on 2 mg VERSED given by Magdalena Fuentes BSN in Right Antecubital via Peripheral IV. Ordered by Thomas Xiong. FENTANYL 09/01/2017 3:00:03 PM 50 mcg Magdalena Fuentes Patient arrived on 50 mcg FENTANYL given by Magdalena Fuentes BSN in Right Antecubital via Periphe ral IV. Ordered by Thomas Xiong. VERSED 09/01/2017 3:01:14 PM 1 mg Magdalena Fuentes Patient arrived on 1 mg VERSED given by Magdalena Fuentes BSN in Right Antecubital via Peripheral IV. Ordered by Thomas Xiong. FENTANYL 09/01/2017 3:02:55 PM 25 mcg Magdalena Fuentes Patient arrived on 25 mcg FENTANYL given by Magdalena Fuentes BSN via Peripheral IV. Ordered by Thomas Osorio. Medication (Drip) Medication Time Given Dosage/Unit Concentration/Unit Diluent (ml) Solution IV Solutions 09/01/2017 2:52:46 PM 0 mL (IV) 500 NaCl .9 Patient arrived on IV Solutions given by Thomas Xiong in Right Antecubital via Peripheral IV. Pump/ Drip Flow = 20 ml/hr using NaCl .9. Ordered by Thomas Xiong. Initial Case Assessment Cardiovascular HR Rhythm NIBP Chest Pain 70 sr 160/84 0 Edema Present Skin color Skin None Normal Warm Dry Circulatory - Right Pulses Femoral 2 Scale (0,1,2,3,4,d) Circulatory - Left Pulses Femoral 2 Scale (0,1,2,3,4,d) Neurological State Oriented to time-place- Alert Moves all extremities person Respiration - General Respiration Rate SpO2 (%) O2 (lpm) (B/min) 18 98 0 Chronological Log Time Study Chronological Log 14:43:06 Patient arrived via Bed. 14:43:07 Patient Name, D.O.B, / Armband Verified By R.N. 14:43:08 Consent signed by the physician and the patient and verified by the Recruiter Manager staff. 14:43:09 Pre-op and post- op instructions given; patient acknowledges understanding of instructions. 14:44:59 MD arrived. 14:50:49 Reference ECG taken 14:51:45 Verbal Stimulation=2 Physical Stimulation=2 Airway=2 Respiration=2 TOTAL=8. (0=absent, 1=li mited, 2=present) 14:51:59 Presedation assessment performed by Recruiter Manager RN. 14:52:02 Patient has been NPO for More than 6Hrs. 14:52:06 Skin Breakdown-noted is right foot. 14:52:26 A # 20 IV was noted in the Antecubital (right). Grade = 0 Patient arrived on IV Solutions given by Thomas Xiong in Right Antecubital via Peripheral IV. Pump/Drip Flow = 20 14:52:46 ml/hr using NaCl .9. Ordered by Thomas Xiong. 14:53:04 History and physical on the chart or being dictated. Assessment: Initial Case, HR=70 BPM, Rhythm=sr, IKDK=712/84 mmhg, Chest Pain=0, Edema=None, Col or=Normal, Skin = Warm, Dry Right Pulses: Femoral=2 14:53:06 Left Pulses: Femoral=2 Neurological: State=Alert, Ox3, [place]IP[place] Respiration: Resp=18 B/min, SpO2=98 %, O2=0 lpm Vitals capture started with the following parameters, Patient=Adult, Interval=5 min, Initial Pr pfkhlv=232 mmHg, 14:53:08 Deflation Rate=5 mmHg, Cuff placed on Right Arm 14:53:12 Bilateral groins prepped with 2% chlorhexidine, and draped after a 3 minute waiting time. 14:53:47 HR=71 bpm, LAWL=218/84 mmhg, SpO2=99.0 %, Resp=15 B/min, Smallwood=2 Time Out. Correct patient, correct procedure, correct physician, power injector loaded with con natalie with surgical team 14:58:29 present. Time Out Concurred by MD and individual staff in procedure. Loaded by Magdalena chavez rn verified bt Chritsian Law. 14:58:52 HR=92 bpm, EOSL=081/74 mmhg, BhG4=256.0 %, Resp=12 B/min, Smallwood=2 14:59:05 Presedation re-assessment performed by Recruiter Manager RN. 14:59:07 Case Start 14:59:12 Verbal Stimulation=2 Physical Stimulation=2 Airway=2 Respiration=2 TOTAL=8. (0=absent, 1=li mited, 2=present) Patient arrived on 20 mL 1% XYLOCAINE given by Thomas Xiong in Left Groin via Subcutaneous. O rdered by Tyrese, 14:59:25 Thomas. Patient arrived on 2 mg VERSED given by Magdalena Fuentes BSN in Right Antecubital via Perip heral IV. Ordered by 14:59:53 Thomas Xiong. Patient arrived on 50 mcg FENTANYL given by Magdalena Fuentes BSN in Right Antecubital via P eripheral IV. 15:00:03 Ordered by Thomas Xiong. Patient arrived on 1 mg VERSED given by Magdalena Fuentes BSN in Right Antecubital via Perip heral IV. Ordered by 15:01:14 Thomas Xiong. 15:01:39 Access site was Left Femoral Artery. A INTRODUCER SET, MICROPUNCTURE, STIFFENED FR 5 was advanced into the Fem Art (left) using the Percutaneous 15:01:49 technique. 15:02:16 A WIRE, ANGLED GLIDE .035 260CM 260CM was inserted via Fem Art (left). A SHEATH, FR4 TERUMO (10CM) FR 4 was exchanged in the Fem Art (left). This was necessary in ord er to 15:02:23 accomodate a larger catheter. 15:02:55 Patient arrived on 25 mcg FENTANYL given by Magdalena Fuentes BSN via Peripheral IV. Ord ered by Thomas Xiong. 15:03:47 HR=85 bpm, ADSM=289/83 mmhg, DzD0=607.0 %, Resp=13 B/min, Smallwood=2 15:05:07 Through a OMNI FLUSH 65CM CATHETER FR 4, The Abdominal Aorta was injected with 10 cc's of c ontrast. 15:05:20 A WIRE, ANGLED GLIDE .035 260CM 260CM was inserted via Fem Art (left). 15:05:55 Wire removed Through a OMNI FLUSH 65CM CATHETER FR 4, The Abdominal Aorta was injected with [address]Right common 15:06:03 fem 15:06:23 Through a OMNI FLUSH 65CM CATHETER FR 4, The Abdominal Aorta was injected with 4 cc's of co ntrast.Right Sfa 15:06:34 Through a OMNI FLUSH 65CM CATHETER FR 4, The Abdominal Aorta was injected with 4 cc's of co ntrast. Right pop 15:06:52 Through a OMNI FLUSH 65CM CATHETER FR 4, The Abdominal Aorta was injected with 4 cc's of co ntrast. right tibial 15:08:48 HR=84 bpm, UTLN=321/83 mmhg, SpO2=99.0 %, Resp=11 B/min, Smallwood=2 15:10:26 Through a OMNI FLUSH 65CM CATHETER FR 4, The Abdominal Aorta was injected with 12 cc's of c ontrast.right tibials 15:13:51 HR=87 bpm, MJWR=976/83 mmhg, SpO2=98.0 %, Resp=11 B/min, Smallwood=2 15:16:05 Catheter was removed 15:16:08 Case End 15:16:56 Sheath removed; pressure applied to access site. 15:19:33 HR=84 bpm, UFHO=953/78 mmhg, DfS8=273.0 %, Resp=12 B/min, Smallwood=2 15:23:51 HR=83 bpm, XEWW=204/80 mmhg, CjW2=587.0 %, Resp=15 B/min, Smallwood=2 15:28:46 HR=87 bpm, XVKP=555/81 mmhg, SpO2=99.0 %, Resp=16 B/min, Smallwood=2 15:31:06 Sterile dressing applied to site 15:31:11 Patient moved to stretcher 15:32:32 Vitals capture stopped. End Study - Contrast Media Used In Study Contrast Total Opened (mL) Total Used (mL) Total Wasted (mL) Omnipaque 64 64 0 End Study - Maximum Contrast Load Max Contrast Load (mL) 455.6 End Study - Radiation Exposure Fluoro Time (minutes) 2.8 End Study - Patient Disposition Complications Transferred To No Telemetry Bed
--- NOTE | 2017-09-01 21:06 | MP ---
cc: THOMAS XIONG DATE OF SURGERY: 09/01/2017 PREOPERATIVE DIAGNOSIS: Right lower extremity ischemic rest pain and failed distal bypass, peripheral arterial occlusive disease. POSTOPERATIVE DIAGNOSIS Right lower extremity ischemic rest pain and failed distal bypass, peripheral arterial occlusive disease. PROCEDURE Aortogram with right extremity angiogram. MEDICATIONS Thomas Xiong MD. ANESTHESIA Local with sedation INDICATIONS Mary Alice Burnham is a 61 year-old lady who has right lower extremity failed distal bypasses with ABIs in the 0.2 range. She has ischemic rest pain and she is taken to the operating room for angiographic evaluation. There is no prior catheter-based imaging on my review. DESCRIPTION OF PROCEDURE Informed consent was obtained from the patient. She was taken to the operating room, placed supine on the operating room table. An appropriate time-out was taken to ensure the patient's identity, operative site and planned procedure. The administration of antibiotics not necessary as this is a clean procedure without the planned implantation of any foreign object. Everyone in the room agreed to time-out and we proceeded. Her bilateral groins were prepped and draped. The left groin was anesthetized with 1% lidocaine. A 21 gauge micropuncture needle was used to access the left common femoral artery. This was exchanged using Seldinger technique micropuncture sheath through which a 0.035 Glidewire was introduced. The micropuncture sheath was exchanged for a 4-Georgian sheath. A VCF catheter was placed over the wire into the sheath and aortogram pelvic arteriograms obtained. The Glidewire was reintroduced, navigated down to the right common femoral artery and the VCF catheter was advanced over this. A right lower extremity arteriograms was obtained. The wire catheter and sheath were removed. Pressure was held for hemostasis, so there were no complications. I was present and scrubbed for the entire procedure. The patient has patent infrarenal aorta without any hemodynamically significant stenosis. Bilateral common iliac artery stents are present and there is approximately 50% In-stent stenosis on the one on the right. The right hypogastric occluded. The external iliac artery is widely patent. The common femoral artery has a smooth tapering of approximately 50%. Profunda is patent. The SFA and all the bypasses are occluded. Reconstitution via profunda based collaterals opacify a very sluggish anterior tibial artery. MD GOLD Broussard /8:01 PM /8:33 PM
== END 2017-09-01 17:39 | disposition home or self-care (01) ==
LOC: HDOC 10:16 → HDIC 10:19 → HDOC 17:39
PROVIDERS: ATTEND Surgery
DX: I73.9 Peripheral vascular disease, unspecified (principal); Z01.818 Encounter for other preprocedural examination
CPT/HCPCS: 36200; 36246; 75625; 75710; 80048; 85025; 99152; 99153; C1769; C1893; J1644; J2250; J2270; J3010; Q9967

== ENCOUNTER 2017-09-10 10:49 | Inpatient (IN) | payer SELFPAY ==
[~2017-09-10] VITALS: Ht 172.7 cm; Wt 94.0 kg
[~2017-09-10 10:49] MED LIST changes: +AMLO5TAB2 PO; -ASPI1TAB57 PO; +ASPI81CH6 CHEW; +LEVO100T5 PO; -NORV2.5T PO; -PERC5TAB12 PO; +POTA99TA4 PO; +TURM500C3 PO; -VANC1000P IV; +VITA100T65 PO; +VITATAB11 PO
--- NOTE | 2017-09-10 11:25 | HHI.HP ---
History of Present Illness Chief Complaint: RIGHT foot rest pain History of Present Illness 62 yo female with PAD and prior distal bypass that has failed. Has severe rest pain. Past/Family/Social History Past Medical History PAD HTN XOL Past Surgical History R LE bypass (Dr. Medeiros) about a year ago Family History NC Home Medications Reported Medications Clopidogrel (Plavix) 75 Mg Tab, 75 MG PO DAILY for Blood Clot Prevention, #30 TAB 0 Refills 09/01/17 Aspirin (Aspirin Low Dose) 81 Mg Chew, 81 MG CHEW DAILY, TAB 0 Refills 09/01/17 Ibuprofen (Ibuprofen) 800 Mg Tab, 800 MG PO Q6HR Y for PAIN, #40 TAB 0 Refills 09/01/17 B-Complex Vitamins (Vitamin B Complex) 1 Tab, PO DAILY 09/01/17 Vitamin E (Vitamin E) 100 Unit Tab, PO DAILY for Nutritional Supplement, TAB 0 Refills 09/01/17 Amlodipine (Amlodipine) 5 Mg Tab, 5 MG PO DAILY for Blood Pressure Management, # 30 TAB 0 Refills 09/01/17 Turmeric (Curcuma Longa) (Turmeric) 450 Mg-50 Mg Cap, PO DAILY 09/01/17 Potassium (Potassium) 99 Mg Tablet, 99 MG PO DAILY 09/01/17 Levothyroxine (Levothyroxine) 100 Mcg Tab, 100 MCG PO DAILY for Thyroid, #30 TAB 0 Refills 09/01/17 Coded Allergies: No Known Allergies (Unverified Adverse Reaction, Unknown, 09/09/17) Review of Systems Constitutional: COMPLAINS OF: Diaphoretic episodes, DENIES: Fever, Chills Cardiovascular: DENIES: Chest pain Musculoskeletal: COMPLAINS OF: Muscle aches, Stiffness, Joint Swelling Physical Exam Neuro: Alert, mild distress from pain HEENT: NC/AT, anicteric sclera Neck: trachea midline, no JVD Heart: reg rate Lungs: clear B Abdomen: NT Vascular: No palpable R LE pulses, medial leg incision healed Extremities: R LE dependent rubor pending angio reviewed Caprini VTE Risk Assessment Caprini VTE Risk Assessment: Mod/High Risk (score >= 2) Caprini Risk Assessment Model Point Value = 1 Point Value = 2 Point Value = 3 Point Value = 5 Age 41-60 Minor surgery BMI > 25 kg/m2 Swollen legs Varicose veins or History of unexplained or recurrent spontaneous Oral contraceptives or hormone replacement Sepsis (< 1 month) Serious lung disease, including pneumonia (< 1 month) Abnormal pulmonary function Acute myocardial infarction Congestive heart failure (< 1 month) History of inflammatory bowel disease Medical patient at bed rest Age 61-74 Arthroscopic surgery Major open surgery (> 45 min) Laparoscopic surgery (> 45 min) Malignancy Confined to bed (> 72 hours) Immobilizing plaster cast Central venous access Age >= 75 History of VTE Family history of VTE Factor V Leiden Prothrombin [id number] Lupus anticoagulant Anticardiolipin antibodies Elevated serum homocysteine Heparin-induced thrombocytopenia Other congenital or acquired thrombophilia Stroke (< 1 month) Elective arthroplasty Hip, pelvis, or leg fracture Acute spinal cord injury (< 1 month) Prophylaxis Regimen Total Risk Factor Score Risk Level Prophylaxis Regimen 0-1 Low Early ambulation 2 Moderate Order ONE of the following: *Sequential Compression Device (SCD) *Heparin 5000 units SQ BID 3-4 Higher Order ONE of the following medications: *Heparin 5000 units SQ TID *Enoxaparin/Lovenox 40 mg SQ daily (WT < 150 kg, CrCl > 30 mL/min) *Enoxaparin/Lovenox 30 mg SQ daily (WT < 150 kg, CrCl > 10-29 mL/min) *Enoxaparin/Lovenox 30 mg SQ BID (WT < 150 kg, CrCl > 30 mL/min) AND/OR *Sequential Compression Device (SCD) 5 or more Highest Order ONE of the following medications: *Heparin 5000 units SQ TID (Preferred with Epidurals) *Enoxaparin/Lovenox 40 mg SQ daily (WT < 150 kg, CrCl > 30 mL/min) *Enoxaparin/Lovenox 30 mg SQ daily (WT < 150 kg, CrCl > 10-29 mL/min) *Enoxaparin/Lovenox 30 mg SQ BID (WT < 150 kg, CrCl > 30 mL/min) AND *Sequential Compression Device (SCD) Assessment and Plan Plan R groin and distal with iliac intervention Pt and daughter understands risks of procedure. Operative site marked Thomas Xiong MD Sep 10, 2017 11:25
[2017-09-10 11:49] LABS: AUTOMATED NEUTROPHIL # 9.7 TH/MM3 (1.8-7.7); BASOPHIL # 0.1 TH/MM3 (0-0.2); BASOPHIL % 0.9 % (0.0-2.0); EOSINOPHIL # 0.1 TH/MM3 (0-0.4); EOSINOPHIL % 0.6 % (0.0-4.0); HEMATOCRIT 41.4 % (35.0-46.0); HEMOGLOBIN 14.1 GM/DL (11.6-15.3); LYMPH % 16.7 % (9.0-44.0); LYMPHOCYTE # 2.2 TH/MM3 (1.0-4.8); MEAN CELL VOLUME 95.6 FL (80.0-100.0); MEAN CORPUSCULAR HEMOGLOBIN 32.5 PG (27.0-34.0); MEAN PLATELET VOLUME 9.1 FL (7.0-11.0); MONO % 7.1 % (0.0-8.0); MONOCYTE # 0.9 TH/MM3 (0-0.9); NEUT % 74.7 % (16.0-70.0); PLATELET COUNT 317 TH/MM3 (150-450); RED BLOOD COUNT 4.33 MIL/MM3 (4.00-5.30); RED CELL DISTRIBUTION WIDTH 13.2 % (11.6-17.2)
--- NOTE | 2017-09-10 11:55 | RADRPT ---
EXAM DATE/TIME: 09/10/2017 11:06 [facility] COMPARISON: CHEST SINGLE AP, February 17, 2017, 12:13. INDICATIONS : Evaluate for pneumonia, pneumothorax or communible disease MEDICAL HISTORY : Hypertension. SURGICAL HISTORY : None. ENCOUNTER: Initial ACUITY: 1 day PAIN SCORE: 0/10 LOCATION: Bilateral chest FINDINGS: A single view of the chest demonstrates the lungs to be symmetrically aerated without evidence of mas s, infiltrate or effusion. There is mild scarring. The cardiomediastinal contours are unremarkable. Osseous structures are intact. CONCLUSION: No acute disease. Jordan Trivedi MD on September 10, 2017 at 11:52 Board Certified Radiologist. This report was verified electronically.
[2017-09-10 11:57] LABS: PROTHROMBIN TIME - PATIENT 10.2 SEC (9.8-11.6)
[2017-09-10] MEDS ORDERED: HEPARIN-NS/PF INJ 500 ML ONE ×2 (12:00→14:26)
[2017-09-10] MEDS ORDERED: ONDANSETRON HCL 4 MG/2 ML VIAL IV ONE (12:00)
[2017-09-10] MEDS ORDERED: ROCURONIUM INJ 50 MG/5 ML SYRINGE IV PUSH ONE (12:00)
[2017-09-10] MEDS ORDERED: THROMBIN (TOPICAL) 20,000 UNIT SPRAY KIT ONE (12:00)
[2017-09-10] MEDS ORDERED: PHENYLEPH/NS 1000 MCG/10 ML SYR IV ONE (12:00)
[2017-09-10] MEDS ORDERED: DEXAMETHASONE SOD PHOS 4 MG/ML VIAL IV ONE (12:00)
[2017-09-10] MEDS ORDERED: SODIUM CHLORID 0.9% 500 ML INJ 500 ML IV ONE (12:00)
[2017-09-10] MEDS ORDERED: LIDOCAINE HCL 1% PF 5 ML SYRINGE OTHER ONE (12:00)
[2017-09-10] MEDS ORDERED: NORMOSOL R INJ 2,000 ML IV ONE (12:00)
[2017-09-10] MEDS ORDERED: ceFAZolin 2 GM PREMIX 50 ML ONE (12:00)
[2017-09-10] MEDS ORDERED: HEPARIN SODIUM - IV 10,000 UNITS/10 ML VIAL ONE (12:00)
[2017-09-10] MEDS ORDERED: ePHEDrine/NS 25 MG/5 ML SYRINGE IV ONE (12:00)
[2017-09-10] MEDS ORDERED: LABETALOL HCL 100 MG/20 ML VIAL IV ONE (12:00)
[2017-09-10] MEDS ORDERED: PROTAMINE SULFATE 50 MG/5 ML VIAL ONE (12:00)
[2017-09-10] MEDS ORDERED: BUPIVACAINE HCL PF 0.5% 30 ML VIAL ONE (12:00)
[2017-09-10 12:08] LABS: BICARBONATE 27.3 MEQ/L (21.0-32.0); CALCIUM 9.5 MG/DL (8.5-10.1); CREATININE 1.04 MG/DL (0.50-1.00)
[2017-09-10] MEDS ORDERED: SODIUM CHLORID 0.9% 500 ML IV PRN (12:15)
[2017-09-10] MEDS ORDERED: CHLORHEXIDINE GLUCONATE 2 % 1 PACK (2 CLOTHS) TOPICAL PRN (12:15)
[2017-09-10] MEDS ORDERED: METOPROLOL TARTRATE 25 MG TAB PO PRN (12:15)
[2017-09-10] MEDS ORDERED: LACTATED RINGER'S 1000 ML IV PRN ×2 (12:15→19:00)
[2017-09-10] MEDS ORDERED: POVIDONE IODINE 5% (ANTISEPSIS KIT) 4 APPLICATIONS EACH NARE PRN (12:15)
[2017-09-10] MEDS ORDERED: HEPARIN SODIUM - SQ 10,000 UNITS/ML VIAL ONE (12:35)
[2017-09-10] MEDS ORDERED: IOHEXOL 300 INJ 50 ML IV ONE (14:34)
--- NOTE | 2017-09-10 15:38 | HHI.PR ---
cc: Thomas Xiong MD Immediate Post Op Note Procedure Date: Sep 10, 2017 Pre Op Diagnosis: PAD w/ R LE rest pain, failed distal bypass Post Op Diagnosis: PAD w/ R LE rest pain, failed distal bypass Surgeon: Thomas Xiong Assistance Representative(s): Adiel Drake Procedure: 1. R iliofemoral bypass (8mm Dacron) 2. R DEVANG COMPOSITION ROLL MAKER AND CUTTER (7mm DCB) 3. R EIA COMPOSITION ROLL MAKER AND CUTTER (7mm) 4. R FLOAT BUILDER-AT bypass (cryo), redo bypass Findings: intense scar tissue in groin, significant FLOAT BUILDER and EIA disease Successful revascularization Additional Information: Palpable graft pulse and strong Doppler signal in foot Complications: none Specimen(s) removed: none for pathology Estimated blood loss: 200mL Anesthesia: General Drains: None Fluids: 1500mL IVF Urinary Output (mLs): 300 Patient to: PACU Patient Condition: Good Implant/Devices: SEE IMPLANT LOG (if applicable) Date/Time of Procedure: SEE SURGICAL CARE RECORD Thomas Xiong MD Sep 10, 2017 15:38
[2017-09-10] MEDS ORDERED: SENNOSIDES 8.6 MG TAB PO PRN (15:45)
[2017-09-10] MEDS ORDERED: NALOXONE HCL 0.4 MG/ML AMP IV PUSH PRN (15:45)
[2017-09-10] MEDS ORDERED: LACTULOSE SYRUP 20 GM/30 ML CUP PO PRN (15:45)
[2017-09-10] MEDS ORDERED: MAGNESIUM HYDROXIDE SUSP 30 ML CUP PO PRN (15:45)
[2017-09-10] MEDS ORDERED: BISACODYL 10 MG SUPP RECTAL PRN (15:45)
[2017-09-10] MEDS ORDERED: DO NOT ADM ANY ANTICOAGULANT DRUGS PRN (15:58)
[2017-09-10] MEDS: MORPHINE SULFATE 30 MG/30 ML PCA IV SCH (16:12)
[2017-09-10] MEDS ORDERED: MORPHINE SULFATE 4 MG/ML INJ ONE (16:12)
[2017-09-10] MEDS ORDERED: *morphine SULFATE 10 MG/ML PERIprocedure ONLY ONE (16:18)
[2017-09-10 16:22] LABS: HEMATOCRIT 34.6 % (35.0-46.0); HEMOGLOBIN 12.3 GM/DL (11.6-15.3); MEAN CELL VOLUME 95.1 FL (80.0-100.0); MEAN CORPUSCULAR HEMOGLOBIN 33.7 PG (27.0-34.0); MEAN CORPUSCULAR HGB CONC 35.5 % (32.0-36.0); MEAN PLATELET VOLUME 8.9 FL (7.0-11.0); PLATELET COUNT 246 TH/MM3 (150-450); RED BLOOD COUNT 3.64 MIL/MM3 (4.00-5.30); RED CELL DISTRIBUTION WIDTH 12.8 % (11.6-17.2); WHITE BLOOD COUNT 12.1 TH/MM3 (4.0-11.0)
[2017-09-10 16:24] LABS: INTERNATIONAL NORMALIZED RATIO 1.1 RATIO; PROTHROMBIN TIME - PATIENT 10.7 SEC (9.8-11.6)
[2017-09-10] MEDS ORDERED: *HYDROmorphone PF 1 MG VIAL PERIprocedural Use ONLY ONE ×2 (17:01→17:32)
[2017-09-10] MEDS: HEPARIN-D5W 25,000 U/250 ML 250 ML IV PRN (18:00)
[2017-09-10] MEDS ORDERED: HEPARIN-D5W 25,000 U/250 ML 250 ML IV PRN (18:45)
[2017-09-10 19:48] VITALS: BP_SYST 127; BP_SYST 128; BP_DIAS 58; BP_DIAS 59; PULSE 85; RESP 18; TEMP 97.1; O2SAT 95
[2017-09-10] MEDS: DOCUSATE SODIUM 50 MG/SENNA 8.6 MG TAB PO SCH (20:59)
[2017-09-10] MEDS: ATORVASTATIN 40 MG TAB PO SCH (21:00)
[2017-09-10] MEDS ORDERED: LACTATED RINGER'S 1000 ML INJ 1,000 ML IV SCH (21:00)
[2017-09-10] MEDS: FAMOTIDINE 20 MG TAB PO SCH (21:00)
[2017-09-10] MEDS: PCA - TOTAL MG MORPHINE DELIVERED PER SHIFT SCH (22:00)
[2017-09-10 22:25] VITALS: O2SAT 96
[2017-09-10 23:00] VITALS: BP_SYST 141; BP_SYST 148; BP_DIAS 62; BP_DIAS 68; PULSE 90; RESP 16; TEMP 98.5; O2SAT 95
[2017-09-11] VITALS (8 sets, daily range): BP systolic 118–154; BP diastolic 61–75; PULSE 78–110; RESP 16–20; TEMP 98.1–99.7; O2SAT 91–97
[2017-09-11] MEDS: MORPHINE SULFATE 30 MG/30 ML PCA IV SCH ×3 (01:05→18:48)
[2017-09-11 04:42] LABS: HEMATOCRIT 31.8 % (35.0-46.0); HEMOGLOBIN 10.7 GM/DL (11.6-15.3); MEAN CORPUSCULAR HEMOGLOBIN 32.3 PG (27.0-34.0); MEAN CORPUSCULAR HGB CONC 33.7 % (32.0-36.0); MEAN PLATELET VOLUME 9.2 FL (7.0-11.0); PLATELET COUNT 240 TH/MM3 (150-450); RED BLOOD COUNT 3.31 MIL/MM3 (4.00-5.30); RED CELL DISTRIBUTION WIDTH 12.9 % (11.6-17.2); WHITE BLOOD COUNT 13.1 TH/MM3 (4.0-11.0)
[2017-09-11 05:07] LABS: BICARBONATE 27.8 MEQ/L (21.0-32.0); CALCIUM 7.5 MG/DL (8.5-10.1); CREATININE 0.71 MG/DL (0.50-1.00)
[2017-09-11] MEDS: PCA - TOTAL MG MORPHINE DELIVERED PER SHIFT SCH ×3 (06:00→21:39)
[2017-09-11] MEDS: LEVOTHYROXINE SODIUM 100 MCG TAB PO SCH (06:07)
[2017-09-11] MEDS: FAMOTIDINE 20 MG TAB PO SCH ×2 (08:37→21:00)
[2017-09-11] MEDS: ASPIRIN 81 MG CHEW TAB PO SCH (08:37)
[2017-09-11] MEDS: amLODIPine BESYLATE 5 MG TAB PO SCH (08:38)
[2017-09-11] MEDS: DOCUSATE SODIUM 50 MG/SENNA 8.6 MG TAB PO SCH ×2 (08:38→21:00)
[2017-09-11] MEDS: HEPARIN-D5W 25,000 U/250 ML 250 ML IV PRN (10:45)
--- NOTE | 2017-09-11 10:59 | PD.VS.PN ---
Subjective POD #: 1 Procedure(s): R iliofemoral bypass (8mm Dacron) R DEVANG MANUFACTURING TECHNICIAN (7mm DCB) R EIA MANUFACTURING TECHNICIAN (7mm) R INDUSTRIAL SWEEPER CLEANER-AT bypass (cryo), redo bypass Subjective/Hospital Course 62/F s/p R L E revascularization/ redo bypass Pt reports R LE pain last night Pain controlled this am Objective Vitals/I&O Date Time Temp Pulse Resp B/P (MAP) Pulse Ox O2 Delivery O2 Flow Rate FiO2 09/11/17 09:53 16 09/11/17 07:00 78 09/11/17 07:00 96 Nasal Cannula 2.00 09/11/17 07:00 78 16 145/75 (98) 94 149/64 (92) 09/11/17 06:00 19 09/11/17 04:30 97 Nasal Cannula 2.00 09/11/17 03:00 98.7 89 20 146/62 (90) 97 154/61 (92) 09/11/17 03:00 89 09/11/17 01:16 19 09/11/17 01:05 20 09/11/17 00:00 99 Nasal Cannula 2.00 09/10/17 23:00 90 09/10/17 23:00 98.5 90 16 141/68 (92) 95 148/62 (90) 09/10/17 22:25 96 Nasal Cannula 2.00 09/10/17 22:00 18 09/10/17 19:48 97.1 85 18 128/58 (81) 95 127/59 (81) 09/10/17 19:48 85 09/10/17 19:00 98.2 90 15 121/59 (79) 97 Nasal Cannula 2 09/10/17 18:00 85 13 128/61 (83) 94 Nasal Cannula 2 09/10/17 17:30 86 12 131/62 (85) 97 Nasal Cannula 2 09/10/17 17:00 87 12 144/67 (92) 100 Nasal Cannula 2 09/10/17 16:45 87 12 140/65 (90) 97 Nasal Cannula 2 09/10/17 16:30 88 12 139/65 (89) 97 Nasal Cannula 2 09/10/17 16:15 85 15 133/64 (87) 97 Nasal Cannula 2 09/10/17 16:12 12 09/10/17 16:00 98.7 88 15 132/65 (87) 94 Nasal Cannula 2 09/10/17 11:58 98.5 101 24 159/86 (110) 97 09/11/17 09/11/17 09/11/17 07:00 15:00 23:00 Intake Total 1596.8 ml Output Total 1075 ml Balance 521.8 ml Exam: GENERAL: A&Ox3, NAD,GCS15 SKIN: Provena wound vac intact Right groin w/o swelling or hematoma Right groin S/NT LE Warm and dry, motor intact L>R R LE with mild swelling/ erythema from mid calf region to foot CARDIOVASCULAR: Regular rate and rhythm without murmurs, gallops, or rubs. RESPIRATORY: Breath sounds equal bilaterally. No accessory muscle use. GASTROINTESTINAL: Abdomen soft, non-tender, nondistended. R DP/PT biphasic heard via Doppler Laboratory Laboratory Tests Test 09/10/17 11:30 09/10/17 16:05 09/10/17 23:52 09/11/17 04:00 White Blood Count 13.0 12.1 13.1 Red Blood Count 4.33 3.64 3.31 Hemoglobin 14.1 12.3 10.7 Hematocrit 41.4 34.6 31.8 Mean Corpuscular Volume 95.6 95.1 96.0 Mean Corpuscular Hemoglobin 32.5 33.7 32.3 Mean Corpuscular Hemoglobin Concent 34.0 35.5 33.7 Red Cell Distribution Width 13.2 12.8 12.9 Platelet Count 317 246 240 Mean Platelet Volume 9.1 8.9 9.2 Neutrophils (%) (Auto) 74.7 Lymphocytes (%) (Auto) 16.7 Monocytes (%) (Auto) 7.1 Eosinophils (%) (Auto) 0.6 Basophils (%) (Auto) 0.9 Neutrophils # (Auto) 9.7 Lymphocytes # (Auto) 2.2 Monocytes # (Auto) 0.9 Eosinophils # (Auto) 0.1 Basophils # (Auto) 0.1 CBC Comment DIFF FINAL Differential Comment Prothrombin Time 10.2 10.7 Prothromb Time International Ratio 1.0 1.1 Blood Urea Nitrogen 21 14 Creatinine 1.04 0.71 Random Glucose 113 123 Calcium Level 9.5 7.5 Sodium Level 134 136 Potassium Level 4.2 3.7 Chloride Level 97 102 Carbon Dioxide Level 27.3 27.8 Anion Gap 10 6 Estimat Glomerular Filtration Rate 54 83 Activated Partial Thromboplast Time 28.0 47.8 Test 09/11/17 05:50 Activated Partial Thromboplast Time 50.4 Assessment and Plan Assessment: (1) PAD (peripheral artery disease) Status: Acute Plan Pt s/p R LE revascularization/ redo bypass POD 1 Pain controlled Pt with phasic distal pulses heard via Doppler Plan Continue pain management PT/OOB D/C MIVF D/C A-line Ok to transfer to [facility] Syeda MEIER [facility] [phone] Discharge Planning 3-7 days Syeda Tafoya Sep 11, 2017 10:59
--- NOTE | 2017-09-11 16:31 | EKG ---
Date Performed: 09/10/2017 Time Performed: 11:44:02 PTAGE: 62 years EKG: Sinus rhythm NONSPECIFIC ST & T-WAVE ABNORMALITY BORDERLINE ECG PREVIOUS TRACING : 01/02/2017 11.53 Since previous tracing, no significant change noted DOCTOR: Renny Sams Interpretating Date/Time 09/11/2017 16:29:34
--- NOTE | 2017-09-11 18:09 | MP ---
cc: LONG XIONG DATE OF SURGERY 09/10/17 PREOPERATIVE DIAGNOSIS Right lower extremity ischemia, failed distal bypass. PLAN Right lower extremity ischemia, failed distal bypass. PROCEDURE 1. Right iliofemoral bypass with 8 mm Dacron 2. Right common iliac artery angioplasty with a 7 mm drug coated balloon. 3. Right external artery angioplasty with a 7-mm balloon. 4. Right femoral artery anterior tibial artery bypass with cryopreserved vein. 5. Redo bypass. MEDICATIONS Jaime Xiong MD CALL MANAGER SURGEON Piyush Bernal ANESTHESIA General INDICATIONS Ms. Burnham is a 62-year-old lady who has profound right lower extremity ischemia with rest pain, dependent rubor and LEIF of 0.2. She has a prior failed distal bypass and is taken to the operating room for redo bypass. She has no autogenous conduit and as such a cryopreserved conduit was selected. PROCEDURE IN DETAIL Informed consent was obtained from patient. She was taken to the operating room and placed supine on the operating table. An appropriate time-out was taken to ensure the patient, the operative site and planned procedure. Two grams of Ancef was initiated prior to the skin incision and will be discontinued after a single preoperative dose. Everyone in the room agreed with time-out and we proceeded. She was prepped from her nipples to her toes. A vertical incision was made in patient's right groin, carried down subcutaneous tissue with electrocautery. Dense scar tissue was encountered. The common femoral artery was identified and external artery was identified and encircled with vessel loop. We resected the common femoral artery all the way down to the bifurcation and several centimeters down the profunda. The SFA was noted to be occluded. The previous bypass was noted to be occluded. These were transected without difficulty. The SFA was oversewn with 4-0 Prolene. A separate incision was made in the patient's lateral calf, carried down to subcutaneous tissue with electrocautery. The anterior and lateral muscle groups was and the anterior tibial artery was identified and was noted be quite soft. Proximal and distal control of this artery were obtained and a transverse arteriotomy was made with an 11 blade and a Karma embolectomy catheter was passed down to the level of the foot suggesting the Vessel was widely patent all the way to the foot. A temporary 6-0 Prolene suture was placed in the arteriotomy and this wound was packed. A separate incision was made in the patient's distal lateral calf carried down to the subcutaneous tissue with electrocautery and a lul in the fascia overlying the femoris rectus muscles was performed. A tunnel was then created between the calf and lower thigh incision as well as the lower thigh and groin incision. These were created with DeBakey aorta clamps. The patient was systemically heparinized and throughout the remainder of the case the ACT was kept greater than 250. Proximal control of the external iliac artery and distal control of the profunda artery were obtained with profunda clamps and the entire common femoral artery was resected and the proximal distal ends were spatulated and endarterectomized. Eight mm Dacron was brought up on the field, spatulated and sewn end-to-end to the external artery and end to end to the profunda femoris artery with a running 5-0 Prolene suture. At the completion it was flushed and noted to be hemostatic. A 21 gauge micropuncture needle was used to access the right common femoral artery. The iliofemoral bypass was exchanged using Seldinger technique for micropuncture sheath through which a 0.025 Stork wire was introduced. The micropuncture sheath was changed for a 7-Ivorian sheath. The previously placed common iliac artery stent has a known in-stent stenosis and this was confirmed angiographically. This was successfully angioplastued with a 7 x 80 paclitaxel coated balloon. The completion angiogram showed excellent result and no recoil extravasation and then the external iliac artery was successfully angioplastied with a 7 mm balloon. Again, the completion angiogram showed no recoil extravasation or flow-limiting dissection. The wire, catheter and sheath were removed and clamps were placed above and proximal and distal to the graftotomy with profunda clamps. There was a nice pulse proximal in the graft at this point. The cryopreserved vein was brought up on the field and then prepped in standard fashion and was spatulated and the graftotomy was extended with the Monona scissors and the cryopreserved vein was sewn on end-to-side with running 5-0 Prolene suture. At the completion, it was flushed noted to be hemostatic. It was marked for orientation and passed through the tunnel taking caution not to twist it. Proximal and distal control of the anterior tibial artery was obtained with profunda clamps and a longitudinal arteriotomy was made with an 11 blade and extended with Naman scissors. The vein was cut to an appropriate length, spatulated and the distal anastomosis was sewn with a running 6-0 Prolene suture. The anterior tibial artery was noted to be about a 1 mm blood vessel that was soft and at the completion, there was a nice Doppler pulse in the graft and a strong Doppler signal in the distal anterior tibial artery. The wounds were all irrigated, made hemostatic. The heparin was reversed with protamine. The wounds were all closed with 2-0 Polysorb, 3-0 Polysorb and 4-0 Monocryl. The sponge and needle counts were correct at the end of the case. I was present and scrubbed and performed the entire procedure. MD MIA Broussard/ /5:04 AM /5:30 PM
[2017-09-11] MEDS: ATORVASTATIN 40 MG TAB PO SCH (21:00)
[2017-09-12] VITALS (22 sets, daily range): BP systolic 133–153; BP diastolic 63–69; PULSE 62–107; RESP 16–18; TEMP 98.5–101.1; O2SAT 92–98
[2017-09-12] MEDS ORDERED: ONDANSETRON HCL 4 MG/2 ML VIAL ONE (02:44)
[2017-09-12] MEDS ORDERED: ONDANSETRON HCL 4 MG/2 ML VIAL IV PUSH PRN (03:45)
[2017-09-12] MEDS: HEPARIN-D5W 25,000 U/250 ML 250 ML IV PRN ×2 (03:53→22:21)
[2017-09-12 04:41] LABS: HEMATOCRIT 33.2 % (35.0-46.0); HEMOGLOBIN 11.5 GM/DL (11.6-15.3); MEAN CELL VOLUME 95.6 FL (80.0-100.0); MEAN CORPUSCULAR HEMOGLOBIN 32.9 PG (27.0-34.0); MEAN CORPUSCULAR HGB CONC 34.5 % (32.0-36.0); MEAN PLATELET VOLUME 9.6 FL (7.0-11.0); PLATELET COUNT 239 TH/MM3 (150-450); RED BLOOD COUNT 3.48 MIL/MM3 (4.00-5.30)
[2017-09-12 05:12] LABS: CALCIUM 7.7 MG/DL (8.5-10.1); CREATININE 0.66 MG/DL (0.50-1.00)
[2017-09-12] MEDS: LEVOTHYROXINE SODIUM 100 MCG TAB PO SCH (05:57)
[2017-09-12] MEDS: PCA - TOTAL MG MORPHINE DELIVERED PER SHIFT SCH ×3 (05:57→20:36)
[2017-09-12] MEDS: ASPIRIN 81 MG CHEW TAB PO SCH (09:25)
[2017-09-12] MEDS: amLODIPine BESYLATE 5 MG TAB PO SCH (09:25)
[2017-09-12] MEDS: DOCUSATE SODIUM 50 MG/SENNA 8.6 MG TAB PO SCH ×2 (09:25→20:34)
[2017-09-12] MEDS: CLOPIDOGREL 75 MG TAB PO SCH (09:26)
[2017-09-12] MEDS: FAMOTIDINE 20 MG TAB PO SCH ×2 (09:26→20:35)
--- NOTE | 2017-09-12 15:10 | PD.CAR.PN ---
CVT Progress Note Subjective/Hospital Course: 62-year-old pleasant lady with severe peripheral vascular disease and previous attempts for reconstruction Underwent now right common iliac and external iliac balloon angioplasty followed by iliofemoral bypass and femoral to anterior tibial bypass with cryopreserved vein Patient is doing very well incisions are clean and dry Right foot is warm and red with shiny thinned out skin however well-perfused Patient is very grateful for surgery and has been out of bed walking on the heel Remains on IV heparin and I believe the patient should go home on some sort of long-term anticoagulant probably Eliquis Objective: Vital Signs Date Time Temp Pulse Resp B/P (MAP) Pulse Ox O2 Delivery O2 Flow Rate FiO2 09/12/17 11:00 98.6 93 16 140/63 (88) 97 09/12/17 11:00 97 Room Air 09/12/17 10:00 62 09/12/17 09:00 62 09/12/17 08:45 89 09/12/17 08:45 94 Room Air 09/12/17 08:45 98.5 89 16 140/63 (88) 94 09/12/17 08:05 92 Nasal Cannula 3.00 09/12/17 07:00 85 09/12/17 05:57 16 09/12/17 03:00 99.5 90 16 133/67 (89) 94 09/12/17 03:00 96 09/12/17 03:00 94 Room Air 09/11/17 23:00 99.7 85 16 130/64 (86) 91 Arterial Line 09/11/17 23:00 88 09/11/17 23:00 91 Room Air 09/11/17 21:39 16 09/11/17 19:57 97 09/11/17 19:35 16 09/11/17 19:00 92 Room Air 09/11/17 19:00 99.1 90 16 137/66 (89) 92 09/11/17 19:00 110 09/11/17 18:48 16 09/11/17 16:00 97 Room Air 09/11/17 16:00 98.7 87 16 132/70 (90) 97 09/11/17 16:00 87 Labs: Laboratory Tests Test 09/12/17 04:14 09/12/17 04:17 Activated Partial Thromboplast Time 49.4 SEC (24.3-30.1) White Blood Count 14.0 TH/MM3 (4.0-11.0) Red Blood Count 3.48 MIL/MM3 (4.00-5.30) Hemoglobin 11.5 GM/DL (11.6-15.3) Hematocrit 33.2 % (35.0-46.0) Mean Corpuscular Volume 95.6 FL (80.0-100.0) Mean Corpuscular Hemoglobin 32.9 PG (27.0-34.0) Mean Corpuscular Hemoglobin Concent 34.5 % (32.0-36.0) Red Cell Distribution Width 13.0 % (11.6-17.2) Platelet Count 239 TH/MM3 (150-450) Mean Platelet Volume 9.6 FL (7.0-11.0) Blood Urea Nitrogen 8 MG/DL (7-18) Creatinine 0.66 MG/DL (0.50-1.00) Random Glucose 125 MG/DL (74-106) Calcium Level 7.7 MG/DL (8.5-10.1) Sodium Level 133 MEQ/L (136-145) Potassium Level 3.5 MEQ/L (3.5-5.1) Chloride Level 98 MEQ/L (98-107) Carbon Dioxide Level 29.0 MEQ/L (21.0-32.0) Anion Gap 6 MEQ/L (5-15) Estimat Glomerular Filtration Rate 90 ML/MIN (>89) Result Diagram: 09/12/17 0417 09/12/17 0417 Charu Martell MD Sep 12, 2017 15:10
[2017-09-12] MEDS: MORPHINE SULFATE 30 MG/30 ML PCA IV SCH (16:12)
[2017-09-12] MEDS ORDERED: ACETAMINOPHEN 325 MG TAB PO PRN (20:30)
[2017-09-12] MEDS: ATORVASTATIN 40 MG TAB PO SCH (20:35)
[2017-09-13] VITALS (30 sets, daily range): BP systolic 125–146; BP diastolic 57–69; PULSE 72–95; RESP 16–20; TEMP 98.5–99.5; O2SAT 93–97
[2017-09-13] MEDS: PCA - TOTAL MG MORPHINE DELIVERED PER SHIFT SCH (04:43)
[2017-09-13] MEDS: LEVOTHYROXINE SODIUM 100 MCG TAB PO SCH (04:46)
[2017-09-13 08:30] LABS: HEMATOCRIT 32.1 % (35.0-46.0); HEMOGLOBIN 11.2 GM/DL (11.6-15.3); MEAN CELL VOLUME 96.1 FL (80.0-100.0); MEAN CORPUSCULAR HEMOGLOBIN 33.5 PG (27.0-34.0); MEAN CORPUSCULAR HGB CONC 34.9 % (32.0-36.0); MEAN PLATELET VOLUME 8.8 FL (7.0-11.0); PLATELET COUNT 215 TH/MM3 (150-450); RED BLOOD COUNT 3.34 MIL/MM3 (4.00-5.30); RED CELL DISTRIBUTION WIDTH 12.6 % (11.6-17.2); WHITE BLOOD COUNT 9.8 TH/MM3 (4.0-11.0)
[2017-09-13] MEDS: CLOPIDOGREL 75 MG TAB PO SCH (08:36)
[2017-09-13] MEDS: ASPIRIN 81 MG CHEW TAB PO SCH (08:36)
[2017-09-13] MEDS: DOCUSATE SODIUM 50 MG/SENNA 8.6 MG TAB PO SCH ×2 (08:36→21:27)
[2017-09-13] MEDS: FAMOTIDINE 20 MG TAB PO SCH ×2 (08:36→21:27)
[2017-09-13] MEDS: amLODIPine BESYLATE 5 MG TAB PO SCH (08:36)
[2017-09-13] MEDS: MORPHINE SULFATE 30 MG/30 ML PCA IV SCH (14:03)
[2017-09-13] MEDS: HEPARIN-D5W 25,000 U/250 ML 250 ML IV PRN (14:15)
--- NOTE | 2017-09-13 15:52 | PD.VS.PN ---
Subjective POD #: 3 Procedure(s): R iliofemoral bypass (8mm Dacron) R DEVANG SENIOR ABAP DEVELOPER (7mm DCB) R EIA SENIOR ABAP DEVELOPER (7mm) R TIRE MOUNTER-AT bypass (cryo), redo bypass Subjective/Hospital Course pain controlled Still with dec ROM R foot but able to bear some weight. Working with PT rest pain resolved Objective Vitals/I&O Date Time Temp Pulse Resp B/P (MAP) Pulse Ox O2 Delivery O2 Flow Rate FiO2 09/13/17 14:03 18 09/13/17 08:45 94 21 09/13/17 07:30 98 Room Air 09/13/17 07:30 83 09/13/17 07:30 98.5 83 18 141/62 (88) 97 09/13/17 06:20 99.2 85 16 144/69 (94) 94 09/13/17 06:00 86 09/13/17 05:00 78 09/13/17 04:43 16 09/13/17 04:00 78 09/13/17 03:02 96 Room Air 09/13/17 03:00 75 09/13/17 02:00 74 09/13/17 01:00 72 09/13/17 00:34 99.1 76 16 131/60 (83) 93 09/13/17 00:00 74 09/12/17 23:09 93 Room Air 09/12/17 23:00 77 09/12/17 22:47 99.5 09/12/17 22:00 96 09/12/17 21:00 80 09/12/17 20:36 16 09/12/17 20:00 80 09/12/17 20:00 101.1 97 18 144/69 (94) 93 09/12/17 20:00 99 Room Air 09/12/17 19:39 98 09/12/17 19:00 107 09/12/17 18:00 104 09/12/17 17:00 88 09/12/17 16:20 97 Room Air 09/12/17 16:20 99.6 91 16 153/67 (95) 97 09/12/17 16:12 16 09/12/17 16:00 87 09/13/17 09/13/17 09/13/17 07:00 15:00 23:00 Intake Total 930 ml Output Total 2300 ml Balance -1370 ml Exam: incisions covered; R LE edema and dependent erythema Strong DP/PT signals, even in foot Laboratory Laboratory Tests Test 09/13/17 08:00 White Blood Count 9.8 Red Blood Count 3.34 Hemoglobin 11.2 Hematocrit 32.1 Mean Corpuscular Volume 96.1 Mean Corpuscular Hemoglobin 33.5 Mean Corpuscular Hemoglobin Concent 34.9 Red Cell Distribution Width 12.6 Platelet Count 215 Mean Platelet Volume 8.8 Activated Partial Thromboplast Time 42.0 Assessment and Plan Assessment: (1) PAD (peripheral artery disease) Status: Acute Plan Pt s/p R LE revascularization/ redo bypass POD 4 1. D/C [place] 2. D/C SCRATCHER and change to po pain meds 3. HL IVF 4. anticipate transition heparin gtt to eliquis tomorrow 5. D/C dressings tomorrow (POD#5) 6. continue aggressive PT Discharge Planning 3-7 days Thomas Xiong MD Sep 13, 2017 15:52
[2017-09-13] MEDS ORDERED: MORPHINE SULFATE 2 MG/ML INJ IV PUSH PRN (16:00)
[2017-09-13] MEDS: ATORVASTATIN 40 MG TAB PO SCH (21:27)
[2017-09-13] MEDS: HYDROmorphone HCL 2 MG TAB PO PRN (22:22)
[2017-09-14] VITALS (27 sets, daily range): BP systolic 130–147; BP diastolic 39–72; PULSE 75–100; RESP 16–18; TEMP 98.3–100.1; O2SAT 93–100
[2017-09-14] MEDS: LEVOTHYROXINE SODIUM 100 MCG TAB PO SCH (04:43)
[2017-09-14] MEDS: HYDROmorphone HCL 2 MG TAB PO PRN ×4 (04:44→16:47)
[2017-09-14] MEDS: HEPARIN-D5W 25,000 U/250 ML 250 ML IV PRN (04:48)
--- NOTE | 2017-09-14 07:58 | PD.VS.PN ---
Subjective POD #: 4 Procedure(s): R iliofemoral bypass (8mm Dacron) R DEVANG ANGLE ROLL OPERATOR (7mm DCB) R EIA ANGLE ROLL OPERATOR (7mm) R IP ARCHITECT-AT bypass (cryo), redo bypass Subjective/Hospital Course looks great foot unchanged tani po pain controlled with transition from MACHINE RIVETER to po meds Objective Vitals/I&O Date Time Temp Pulse Resp B/P (MAP) Pulse Ox O2 Delivery O2 Flow Rate FiO2 09/14/17 04:00 82 09/14/17 03:12 100.1 85 16 130/39 (69) 93 09/14/17 03:11 95 Room Air 09/14/17 03:00 84 09/14/17 02:00 80 09/14/17 01:00 100 09/14/17 00:00 76 09/13/17 23:28 99.5 89 16 125/57 (79) 93 09/13/17 23:27 95 Room Air 09/13/17 23:00 81 09/13/17 22:00 78 09/13/17 21:00 86 09/13/17 20:00 93 Room Air 09/13/17 20:00 90 09/13/17 20:00 99.5 89 16 125/57 (79) 93 09/13/17 19:00 94 09/13/17 18:00 88 09/13/17 17:00 84 09/13/17 16:00 88 09/13/17 15:30 96 Room Air 09/13/17 15:30 95 09/13/17 15:30 99.1 95 20 146/64 (91) 96 09/13/17 15:00 92 09/13/17 15:00 18 09/13/17 14:03 18 09/13/17 14:00 88 09/13/17 13:00 78 09/13/17 12:00 76 09/13/17 11:30 93 09/13/17 11:30 95 Room Air 09/13/17 11:30 98.9 93 18 138/63 (88) 95 09/13/17 11:00 86 09/13/17 10:00 90 09/13/17 09:00 92 09/13/17 08:45 94 21 09/13/17 08:00 88 1/15/18 1/15/18 1/15/18 07:00 15:00 23:00 Intake Total 1200 ml Output Total 850 ml Balance 350 ml Exam: R groin soft, R lateral calf edematous R lower thigh incision c/d/i Pulses: Strong DP/PT signals in foot Laboratory Laboratory Tests Test 09/13/17 08:00 09/14/17 04:13 White Blood Count 9.8 Red Blood Count 3.34 Hemoglobin 11.2 Hematocrit 32.1 Mean Corpuscular Volume 96.1 Mean Corpuscular Hemoglobin 33.5 Mean Corpuscular Hemoglobin Concent 34.9 Red Cell Distribution Width 12.6 Platelet Count 215 Mean Platelet Volume 8.8 Activated Partial Thromboplast Time 42.0 38.3 Assessment and Plan Assessment: (1) PAD (peripheral artery disease) Status: Acute Plan Pt s/p R LE revascularization/ redo bypass POD 5 1. reg diet, po meds 2. transition hep gtt to Eliquis and will stop plavix (Eliquis and ASA only) 3. PT 4. D/C dressings tomorrow (POD#5) Discharge Planning potentially Tues home with PT Thomas Xiong MD Sep 14, 2017 07:58
[2017-09-14] MEDS: DOCUSATE SODIUM 50 MG/SENNA 8.6 MG TAB PO SCH ×2 (08:43→21:00)
[2017-09-14] MEDS: ASPIRIN 81 MG CHEW TAB PO SCH (08:43)
[2017-09-14] MEDS: FAMOTIDINE 20 MG TAB PO SCH ×2 (08:43→21:38)
[2017-09-14] MEDS: amLODIPine BESYLATE 5 MG TAB PO SCH (08:43)
[2017-09-14] MEDS: APIXABAN 5 MG TABLET PO SCH ×2 (08:47→21:38)
--- NOTE | 2017-09-14 10:04 | HHI.FF ---
Face to Face Verification Diagnosis: (1) PAD (peripheral artery disease) Physical Therapy Order: Evaluate and Treat, Improve ambulation, Strength and gait training Home Health Nursing Order: Signs/symptoms of disease process I have seen patient Mary Alice Burnham on 09/14/17. My clinical findings support the need for the requested home health care services because: Pt medically clear for d/c but will need continued rehabilitative services for strengthening and gait training Ltd mobility - disease progression High risk of falls I certify that my clinical findings support that this patient is homebound because: Pt medically clear for d/c but will need continued rehabilitative services for strengthening and gait training Post-op weakness Unsteady gait/balance Syeda Tafoya Sep 14, 2017 10:04
[2017-09-14] MEDS ORDERED: WALKER GLIDE WH1 MI1 (10:06)
[2017-09-14] MEDS: ATORVASTATIN 40 MG TAB PO SCH (21:38)
[2017-09-15] VITALS (13 sets, daily range): BP systolic 151–162; BP diastolic 67–74; PULSE 73–90; RESP 16–18; TEMP 98.3–99.2; O2SAT 94–98
[2017-09-15] MEDS: LEVOTHYROXINE SODIUM 100 MCG TAB PO SCH (06:54)
[2017-09-15] MEDS: DOCUSATE SODIUM 50 MG/SENNA 8.6 MG TAB PO SCH (08:17)
[2017-09-15] MEDS: ASPIRIN 81 MG CHEW TAB PO SCH (08:17)
[2017-09-15] MEDS: amLODIPine BESYLATE 5 MG TAB PO SCH (08:17)
[2017-09-15] MEDS: FAMOTIDINE 20 MG TAB PO SCH (08:17)
[2017-09-15] MEDS: APIXABAN 5 MG TABLET PO SCH (08:17)
--- NOTE | 2017-09-15 08:30 | PD.VS.PN ---
Subjective POD #: 5 Procedure(s): R iliofemoral bypass (8mm Dacron) R DEVANG SURVEILLANCE INVESTIGATOR (7mm DCB) R EIA SURVEILLANCE INVESTIGATOR (7mm) R TAX ASSISTANT-AT bypass (cryo), redo bypass Subjective/Hospital Course Pt in bed w/ FM at the BS Pain controlled looks great R LE warm w/ improved mobility, swelling and erythema Objective Vitals/I&O Date Time Temp Pulse Resp B/P (MAP) Pulse Ox O2 Delivery O2 Flow Rate FiO2 09/15/17 08:00 86 09/15/17 07:37 98 Room Air 09/15/17 07:00 90 09/15/17 06:00 73 09/15/17 05:00 77 09/15/17 04:00 77 09/15/17 03:55 99.2 89 18 162/74 (103) 96 09/15/17 03:51 97 Room Air 09/15/17 03:00 77 09/15/17 02:00 76 09/15/17 01:00 80 09/15/17 00:48 96 Room Air 09/15/17 00:00 78 09/15/17 00:00 99.0 81 16 151/67 (95) 94 09/14/17 23:00 84 09/14/17 22:00 80 09/14/17 21:00 88 09/14/17 20:30 95 Room Air 09/14/17 20:15 99.0 82 16 147/68 (94) 95 09/14/17 20:02 21 09/14/17 20:00 87 09/14/17 18:00 85 09/14/17 17:00 86 09/14/17 16:00 84 09/14/17 15:19 99 Room Air 09/14/17 15:18 98.3 86 16 139/65 (89) 99 09/14/17 15:00 91 09/14/17 14:00 89 09/14/17 13:00 85 09/14/17 12:00 80 09/14/17 11:47 98.6 77 18 136/72 (93) 100 09/14/17 11:18 95 Room Air 09/14/17 11:00 78 09/14/17 10:29 96 09/14/17 10:00 75 09/14/17 09:00 82 09/15/17 09/15/17 09/15/17 07:00 15:00 23:00 Intake Total 840 ml Output Total 980 ml Balance -140 ml Exam: GENERAL: A&OX3,NAD,GCS15 SKIN: LE Warm and dry with motor intact L>R Pt w/ Improved erythema/swelling/ mobility Right groin incision intact without R/D/S/O or hematoma CARDIOVASCULAR: Regular rate and rhythm without murmurs, gallops, or rubs. RESPIRATORY: Breath sounds equal bilaterally. No accessory muscle use. GASTROINTESTINAL: Abdomen soft, non-tender, nondistended. MUSCULOSKELETAL: No cyanosis, mild right foot edema (non pitting) Strong Biphasic R DP/PT heard via Doppler Laboratory Laboratory Tests Test 09/15/17 04:20 Activated Partial Thromboplast Time 28.2 Assessment and Plan Assessment: (1) PAD (peripheral artery disease) Status: Acute Plan Pt s/p R LE revascularization/ redo bypass POD 5 R LE with sufficient perfusion by exam R LE warm w/ motor intact and strong distal pulses Pt w/ improved R LE mobility, erythema and swelling Plan Pt clear for D/C with continued PT (out pt) Arranged out pt f/u with a surveillance LEIF/Graft scan Provena wound vac removed (right groin) Syeda MEIER [facility] [phone] Discharge Planning Today with PT Syeda Tafoya Sep 15, 2017 08:30
[2017-09-15] MEDS ORDERED: PERC5TAB12 PO (08:35)
[2017-09-15] MEDS ORDERED: APIX5TAB PO (08:35)
--- NOTE | 2017-09-15 08:49 | PD.VS.DC ---
Discharge Summary Admission Date: Sep 10, 2017 at 10:49 Discharge Date: Sep 15, 2017 Admission Diagnosis: (1) PAD (peripheral artery disease) Discharge Diagnosis: (1) PAD (peripheral artery disease) ICD Codes: I73.9 - Peripheral vascular disease, unspecified Status: Acute Brief History from admission 62 yo female with PAD and prior distal bypass that has failed. Has severe rest pain. Procedure(s): R iliofemoral bypass (8mm Dacron) R DEVANG PREPARED FOODS PRODUCTION TEAM MEMBER (7mm DCB) R EIA PREPARED FOODS PRODUCTION TEAM MEMBER (7mm) R SILK WASHING MACHINE OPERATOR-AT bypass (cryo), redo bypass Significant Findings Allergies Coded Allergies Type Severity Reaction Last Updated Verified No Known Allergies Allergy Unknown 09/10/17 No 09/13/17 09/13/17 09/14/17 09/14/17 09/15/17 09/15/17 06:00 18:00 06:00 18:00 06:00 18:00 Intake Total 1530 ml 1329 ml 1200 ml 840 ml 840 ml Output Total 2300 ml 1200 ml 850 ml 980 ml Balance -770 ml 129 ml 350 ml 840 ml -140 ml Intake Oral 930 ml 1000 ml 1200 ml 840 ml 840 ml IV Total 600 ml 329 ml Output Urine Total 2300 ml 1200 ml 850 ml 980 ml Stool Total 0 ml # Voids 3 # Bowel Movements 0 1 1 Laboratory Tests Test 09/13/17 08:00 09/14/17 04:13 09/15/17 04:20 White Blood Count 9.8 TH/MM3 Red Blood Count 3.34 MIL/MM3 Hemoglobin 11.2 GM/DL Hematocrit 32.1 % Mean Corpuscular Volume 96.1 FL Mean Corpuscular Hemoglobin 33.5 PG Mean Corpuscular Hemoglobin Concent 34.9 % Red Cell Distribution Width 12.6 % Platelet Count 215 TH/MM3 Mean Platelet Volume 8.8 FL Activated Partial Thromboplast Time 42.0 SEC 38.3 SEC 28.2 SEC Orders Procedure Category Date Status Time Acetaminophen MED 09/12/17 In Process (Tylenol) 20:30 Oxycodone (Roxicodone) MED 09/13/17 In Process 16:00 Hydromorphone MED 09/13/17 In Process (Dilaudid) 16:00 Remove Urinary JEANNETTE 09/13/17 In Process Catheter 15:47 ^ Other Nursing Orders JEANNETTE 09/13/17 In Process 15:47 Morphine Inj MED 09/13/17 In Process (Morphine Inj) 16:00 Apixaban (Eliquis) MED 09/14/17 In Process 09:00 Sodium Chlorid 0.9% MED 09/10/17 Complete 500 Ml Inj (Ns 500 M 12:00 Normosol R Inj MED 09/10/17 Complete (Normosol R Inj) 12:00 Lidocaine Pf 1% Inj MED 09/10/17 Complete (Xylocaine-Mpf 1% In 12:00 Rocuronium Inj MED 09/10/17 Complete (Zemuron Inj) 12:00 Phenyleph/Ns 1000 MED 09/10/17 Complete Mcg/10ml Syr (Neosynep 12:00 Ephedrine/Ns 25 Mg/5 MED 09/10/17 Complete Ml Syr (Ephedrine/N 12:00 Dexamethasone Inj MED 09/10/17 Complete (Decadron Inj) 12:00 Ondansetron Inj MED 09/10/17 Complete (Zofran Inj) 12:00 Labetalol Inj MED 09/10/17 Complete (Trandate Inj) 12:00 Shoe Post Op ORTHO 09/14/17 Logged Shoe Cast ORTHO 09/14/17 Complete Attending Discharge DISCHARGE 09/15/17 Transmitted Order Vital Signs Date Time Temp Pulse Resp B/P (MAP) Pulse Ox O2 Delivery O2 Flow Rate FiO2 09/15/17 08:00 86 09/15/17 07:37 98 Room Air 09/15/17 07:00 90 09/15/17 06:00 73 09/15/17 05:00 77 09/15/17 04:00 77 09/15/17 03:55 99.2 89 18 162/74 (103) 96 09/15/17 03:51 97 Room Air 09/15/17 03:00 77 09/15/17 02:00 76 09/15/17 01:00 80 09/15/17 00:48 96 Room Air 09/15/17 00:00 78 09/15/17 00:00 99.0 81 16 151/67 (95) 94 09/14/17 23:00 84 09/14/17 22:00 80 09/14/17 21:00 88 09/14/17 20:30 95 Room Air 09/14/17 20:15 99.0 82 16 147/68 (94) 95 09/14/17 20:02 21 09/14/17 20:00 87 09/14/17 18:00 85 09/14/17 17:00 86 09/14/17 16:00 84 09/14/17 15:19 99 Room Air 09/14/17 15:18 98.3 86 16 139/65 (89) 99 09/14/17 15:00 91 09/14/17 14:00 89 09/14/17 13:00 85 09/14/17 12:00 80 09/14/17 11:47 98.6 77 18 136/72 (93) 100 09/14/17 11:18 95 Room Air 09/14/17 11:00 78 09/14/17 10:29 96 09/14/17 10:00 75 09/14/17 09:00 82 09/14/17 08:00 76 09/14/17 07:23 98.4 82 18 138/61 (86) 96 09/14/17 07:23 96 Room Air 09/14/17 07:00 84 09/14/17 04:00 82 09/14/17 03:12 100.1 85 16 130/39 (69) 93 09/14/17 03:11 95 Room Air 09/14/17 03:00 84 09/14/17 02:00 80 09/14/17 01:00 100 09/14/17 00:00 76 09/13/17 23:28 99.5 89 16 125/57 (79) 93 09/13/17 23:27 95 Room Air 09/13/17 23:00 81 09/13/17 22:00 78 09/13/17 21:00 86 09/13/17 20:00 93 Room Air 09/13/17 20:00 90 09/13/17 20:00 99.5 89 16 125/57 (79) 93 09/13/17 19:00 94 09/13/17 18:00 88 09/13/17 17:00 84 09/13/17 16:00 88 09/13/17 15:30 96 Room Air 09/13/17 15:30 95 09/13/17 15:30 99.1 95 20 146/64 (91) 96 09/13/17 15:00 92 09/13/17 15:00 18 09/13/17 14:03 18 09/13/17 14:00 88 09/13/17 13:00 78 09/13/17 12:00 76 09/13/17 11:30 93 09/13/17 11:30 95 Room Air 09/13/17 11:30 98.9 93 18 138/63 (88) 95 09/13/17 11:00 86 09/13/17 10:00 90 09/13/17 09:00 92 09/13/17 08:45 94 21 09/13/17 08:00 88 09/13/17 07:30 98 Room Air 09/13/17 07:30 83 09/13/17 07:30 98.5 83 18 141/62 (88) 97 09/13/17 06:20 99.2 85 16 144/69 (94) 94 09/13/17 06:00 86 09/13/17 05:00 78 09/13/17 04:43 16 09/13/17 04:00 78 09/13/17 03:02 96 Room Air 09/13/17 03:00 75 09/13/17 02:00 74 09/13/17 01:00 72 09/13/17 00:34 99.1 76 16 131/60 (83) 93 09/13/17 00:00 74 09/12/17 23:09 93 Room Air 09/12/17 23:00 77 09/12/17 22:47 99.5 09/12/17 22:00 96 09/12/17 21:00 80 09/12/17 20:36 16 09/12/17 20:00 80 09/12/17 20:00 101.1 97 18 144/69 (94) 93 09/12/17 20:00 99 Room Air 09/12/17 19:39 98 09/12/17 19:00 107 09/12/17 18:00 104 09/12/17 17:00 88 09/12/17 16:20 97 Room Air 09/12/17 16:20 99.6 91 16 153/67 (95) 97 09/12/17 16:12 16 09/12/17 16:00 87 09/12/17 15:00 62 09/12/17 14:00 90 09/12/17 14:00 16 09/12/17 13:00 94 09/12/17 12:00 85 09/12/17 11:00 98.6 93 16 140/63 (88) 97 09/12/17 11:00 97 Room Air 09/12/17 10:00 62 09/12/17 09:00 62 09/12/17 08:45 89 09/12/17 08:45 94 Room Air 09/12/17 08:45 98.5 89 16 140/63 (88) 94 GENERAL: A&OX3,NAD,GCS15 SKIN: LE Warm and dry with motor intact L>R Pt w/ Improved erythema/swelling/ mobility Right groin incision intact without R/D/S/O or hematoma CARDIOVASCULAR: Regular rate and rhythm without murmurs, gallops, or rubs. RESPIRATORY: Breath sounds equal bilaterally. No accessory muscle use. GASTROINTESTINAL: Abdomen soft, non-tender, nondistended. MUSCULOSKELETAL: No cyanosis, mild right foot edema (non pitting) Strong Biphasic R DP/PT heard via Doppler Laboratory Tests Test 09/13/17 08:00 09/14/17 04:13 09/15/17 04:20 Red Blood Count 3.34 MIL/MM3 (4.00-5.30) Hemoglobin 11.2 GM/DL (11.6-15.3) Hematocrit 32.1 % (35.0-46.0) Activated Partial Thromboplast Time 42.0 SEC (24.3-30.1) 38.3 SEC (24.3-30.1) Hospital Course: Ms. Burnham is a 62 yo female with PAD and prior distal bypass that has failed. Pt arrived c/o severe rest pain. Pt s/p R LE revascularization/ redo bypass POD 1 62/F s/p R L E revascularization/ redo bypass Pt reports R LE pain last night Pain controlled this am POD 2 62-year-old pleasant lady with severe peripheral vascular disease and previous attempts for reconstruction Underwent now right common iliac and external iliac balloon angioplasty followed by iliofemoral bypass and femoral to anterior tibial bypass with cryopreserved vein Patient is doing very well incisions are clean and dry Right foot is warm and red with shiny thinned out skin however well-perfused Patient is very grateful for surgery and has been out of bed walking on the heel Remains on IV heparin and I believe the patient should go home on some sort of long-term anticoagulant probably Eliquis POD 3 pain controlled Still with dec ROM R foot but able to bear some weight. Working with PT rest pain resolved POD 4 looks great foot unchanged atni po pain controlled with transition from JAVA TECHNICAL MANAGER to po meds POD 5 Pt in bed w/ FM at the Pain controlled looks great R LE warm w/ improved mobility, swelling and erythema Provena wound vac removed (R groin) incision intact w/o R/D/S/O Pt clear for D/C with continued out pt PT Arranged post of F/U with a surveillance LEIF/GC in 2W Pt to continue Eliquis/ASA therapy for anticoagulation therapy Discharge Condition: Good Discharge Disposition: Disch w/ Home Health Serv Discharge Instructions: Continue PT- weight bear as tolerated/ Activities as tolerated Continue a heart healthy diet May shower No TUB baths/swimming until incision in healed Leave incision open to air Call the office to report any new onset redness, drainage or increased swelling Syeda MEIER [facility] [phone] Any questions or concerns: Call [facility] [phone] Syeda Tafoya Sep 15, 2017 08:48
== END 2017-09-15 10:45 | disposition home health service (06) | DRG 272 ==
LOC: HSDI 10:49 → HCVI 20:22 → HCPC 09-12 06:15
PROVIDERS: ADMIT Surgery; ATTEND Surgery
PROC: 04WY0KZ Revision of Nonautologous Tissue Substitute in Lower Artery, Open Approach (ICD-10-PCS; 2017-09-10)
PROC: 041H0JH Bypass Right External Iliac Artery to Right Femoral Artery with Synthetic Substitute, Open Approach (ICD-10-PCS; principal; 2017-09-10 12:16)
PROC: 047 Lower Arteries, Dilation (ICD-10-PCS; 2017-09-10 12:16)
PROC: 047H0ZZ Dilation of Right External Iliac Artery, Open Approach (ICD-10-PCS; 2017-09-10 12:16)
DX: T82.858A Stenosis of other vascular prosthetic devices, implants and grafts, initial encounter (principal); I10 Essential (primary) hypertension; I73.9 Peripheral vascular disease, unspecified; Z79.02 Long term (current) use of antithrombotics/antiplatelets; Z79.82 Long term (current) use of aspirin
CPT/HCPCS: 71045; 76937; 80048; 85025; 85027; 85610; 85730; 86850; 86900; 86901; 86920; 93005; 94150; C1757; C1768; C1769; C2623; J0690; J1100; J1170; J1644; J2270; J2370; J2405; J2720; J3010; J7040; J7120; L3260; Q9967

== ENCOUNTER 2017-12-27 08:52 | Inpatient (IN) | payer SELFPAY ==
[~2017-12-27] VITALS: Ht 172.7 cm; Wt 84.0 kg
[~2017-12-27 08:52] MED LIST changes: +APIX5TAB PO; +PERC5TAB12 PO; -PLAV75TA29 PO; +WALKER GLIDE WH1 MI1
[2017-12-27] MEDS ORDERED: IOHEXOL 350 MG/ML 10 ML VIAL (for RAD DIAG) IVCONTRAST ONE (08:53)
[2017-12-27 08:57] VITALS: BP 187/87; PULSE 88; RESP 18; TEMP 97.8; O2SAT 99
[2017-12-27] MEDS ORDERED: MORPHINE SULFATE 4 MG/ML INJ IV PUSH ONE ×2 (09:15→14:30)
[2017-12-27] MEDS ORDERED: LORazepam 2 MG/ML VIAL IV PUSH ONE (09:15)
--- NOTE | 2017-12-27 09:21 | PD ---
HPI . Right leg pain Chief Complaint: Pain: Acute or Chronic Time Seen by Provider: 09:09 Travel History International Travel<30 days: No Contact w/Intl Traveler<30days: No Traveled to known affect area: No History of Present Illness HPI This is a patient with a history of severe peripheral arterial disease status post several previous operative procedures. Her most recent operative procedure was in August when she underwent redo of several bypasses in the right lower extremity. She had been doing well until yesterday when she awakened with pain in her right calf. She reports that she is normally able to feel a pulse in the proximal lateral lower extremity from her bypass. Today, she is unable to palpate that pulse. She has also noted coolness and pain from just proximal to the ankle into the right foot. She is very alarmed that she has suffered an occlusion. She subsequently presents to us for evaluation. She is maintained on Eliquis and has taken an additional 650 mg of aspirin today. This has provided no relief of her symptoms. She is unaware of any modifying factors. She rates the pain at 8/10. She reports no other associated symptoms. PFSH Past Medical History Hx Anticoagulant Therapy: Yes (ELIQUIS) Arthritis: Yes Asthma: No Autoimmune Disease: No Anxiety: No Depression: No Heart Rhythm Problems: No Cancer: Yes (LUMPECTOMY RIGHT BREAST) Cardiovascular Problems: Yes High Cholesterol: No Chemotherapy: No Chest Pain: No Congestive Heart Failure: No COPD: No Cerebrovascular Accident: No Diabetes: No Endocrine: No Gastrointestinal Disorders: No GERD: No Glaucoma: No Genitourinary: No Hepatitis: No Hiatal Hernia: No Hypertension: Yes Immune Disorder: No Kidney Stones: No Musculoskeletal: Yes Neurologic: No Psychiatric: No Reproductive: No Respiratory: No Integumentary: No Migraines: No Radiation Therapy: No Renal Failure: No Seizures: No Sickle Cell Disease: No Sleep Apnea: No Thyroid Disease: Yes (HYPOTHYROID) Ulcer: No Past Surgical History Abdominal Surgery: No AICD: No Arteriovenous Shunt: No Body Medical Devices: BILATERAL ILIAC STENTS Cardiac Surgery: No Ear Surgery: No Endocrine Surgery: No Eye Surgery: Yes (lasik 12 years ago) Genitourinary Surgery: No Gynecologic Surgery: Yes (cs ) Insulin Pump: No Joint Replacement: No Oral Surgery: No Pacemaker: No Social History Tobacco Use: Yes Substance Use: No Allergies-Medications (Allergen,Severity, Reaction): Coded Allergies: No Known Allergies (Unverified Allergy, Unknown, 09/10/17) Reported Meds & Prescriptions Reported Meds & Active Scripts Active Percocet (Oxycodone-Acetaminophen) 5-325 mg Tab 1 Tab PO Q4H PRN Eliquis (Apixaban) 5 Mg Tab 5 Mg PO BID 30 Days Walker Spooner Wheels/5 Adj (Device) 1 Mis Mis Ea .ROUTE DIRECTED Reported Aspirin Low Dose (Aspirin) 81 Mg Chew 81 Mg CHEW DAILY Ibuprofen 800 Mg Tab 800 Mg PO Q6HR PRN Vitamin B Complex (B-Complex Vitamins) 1 Tab Unknown Dose PO DAILY Vitamin E 100 Unit Tab Unknown Dose PO DAILY Amlodipine (Amlodipine Besylate) 5 Mg Tab 5 Mg PO DAILY Turmeric (Turmeric (Curcuma Longa)) 450 Mg-50 Mg Cap Unknown Dose PO DAILY Potassium 99 Mg Tablet 99 Mg PO DAILY Levothyroxine (Levothyroxine Sodium) 100 Mcg Tab 100 Mcg PO DAILY Review of Systems Except as stated in HPI: all other systems reviewed are Neg Physical Exam Narrative GENERAL: Awake and alert but extremely anxious appearing. SKIN: Warm and dry. The right ankle and foot are cool to the touch. HEAD: Normocephalic/atraumatic. EYES: Pupils are equal. Extraocular movements are intact. NECK: Normal range of motion. CARDIOVASCULAR: Regular rate and rhythm. RESPIRATORY: Nonlabored respirations. MUSCULOSKELETAL: Atraumatic. NEUROLOGICAL: Nonfocal. PSYCHIATRIC: Appropriate mood and affect. Data Data Last Documented VS Vital Signs Date Time Temp Pulse Resp B/P (MAP) Pulse Ox O2 Delivery O2 Flow Rate FiO2 12/27/17 09:45 80 18 135/72 (93) 99 Room Air 12/27/17 08:57 97.8 Orders Orders Cta Runoff W Iv Contrast W 3d (12/27/17 ) Us Leg Venous Doppler (12/27/17 09:09) ^ Saline Lock (12/27/17 09:09) Act Partial Throm Time (Ptt) (12/27/17 09:09) Basic Metabolic Panel (Bmp) (12/27/17 09:09) Complete Blood Count With Diff (12/27/17 09:09) Prothrombin Time / Inr (Pt) (12/27/17 09:09) Lorazepam Inj (Ativan Inj) (12/27/17 09:15) Morphine Inj (Morphine Inj) (12/27/17 09:15) Iohexol 350 Inj (Omnipaque 350 Inj) (12/27/17 08:53) Morphine Inj (Morphine Inj) (12/27/17 14:30) Heparin Inj (Heparin Inj) (12/27/17 15:01) Heparin Inj (Heparin Inj) (12/27/17 21:15) Heparin Inj (Heparin Inj) (12/27/17 21:15) Heparin-D5w 25,000 U/250 Ml (Heparin-D5w (12/27/17 15:15) Act Partial Throm Time (Ptt) (12/27/17 15:01) Prothrombin Time / Inr (Pt) (12/27/17 15:01) Cbc No Diff, Includes Plts (12/27/17 15:01) Cbc No Diff, Includes Plts (12/30/17 06:00) Act Partial Throm Time (Ptt) (12/27/17 22:01) Occult Blood (Hemoccult) Stool (12/27/17 15:01) Labs Laboratory Tests Test 12/27/17 09:20 White Blood Count 8.3 TH/MM3 Red Blood Count 4.76 MIL/MM3 Hemoglobin 14.1 GM/DL Hematocrit 42.4 % Mean Corpuscular Volume 89.2 FL Mean Corpuscular Hemoglobin 29.7 PG Mean Corpuscular Hemoglobin Concent 33.2 % Red Cell Distribution Width 14.3 % Platelet Count 323 TH/MM3 Mean Platelet Volume 8.6 FL Neutrophils (%) (Auto) 65.6 % Lymphocytes (%) (Auto) 25.7 % Monocytes (%) (Auto) 6.7 % Eosinophils (%) (Auto) 1.0 % Basophils (%) (Auto) 1.0 % Neutrophils # (Auto) 5.4 TH/MM3 Lymphocytes # (Auto) 2.1 TH/MM3 Monocytes # (Auto) 0.6 TH/MM3 Eosinophils # (Auto) 0.1 TH/MM3 Basophils # (Auto) 0.1 TH/MM3 CBC Comment DIFF FINAL Differential Comment Prothrombin Time 10.6 SEC Prothromb Time International Ratio 1.0 RATIO Activated Partial Thromboplast Time 31.2 SEC Blood Urea Nitrogen 26 MG/DL Creatinine 1.04 MG/DL Random Glucose 100 MG/DL Calcium Level 9.2 MG/DL Sodium Level 137 MEQ/L Potassium Level 4.8 MEQ/L Chloride Level 105 MEQ/L Carbon Dioxide Level 23.5 MEQ/L Anion Gap 9 MEQ/L Estimat Glomerular Filtration Rate 54 ML/MIN MDM Medical Decision Making Medical Screen Exam Complete: Yes Emergency Medical Condition: Yes Medical Record Reviewed: Yes (Medical history of hypertension and severe peripheral arterial disease.) Differential Diagnosis Differential diagnosis includes but is not limited to partial arterial occlusion , complete arterial occlusion, venous occlusion Narrative Course Patient presents with a history of severe peripheral arterial disease status post several operative procedures with the acute onset of right lower extremity pain, decreased pulses and coolness of the foot and ankle. An IV will be started and she will be given Ativan and morphine for discomfort and anxiety. Routine labs have been ordered. Doppler pulses are not obtainable. CTA with runoff has been ordered as well as an ultrasound of her right lower extremity. CBC & BMP Diagram 12/27/17 09:20 Calcium Level 9.2 Last Impressions Lower Extremity Ultrasound 12/27/17 0909 Signed Impressions: Service Date/Time: Wednesday, December 27, 2017 09:15 - CONCLUSION: Normal examination. Noel Mahoney MD Aorta w/Runoff CTA 12/27/17 0000 Signed Impressions: Service Date/Time: Wednesday, December 27, 2017 12:04 - CONCLUSION: 1. Atherosclerotic change in the aorta without aneurysm or occlusion. 2. Bilateral common iliac artery stents. 3. Narrowing of the entire external iliac arteries bilaterally being worse on the right. 4. Occlusion of the superficial femoral arteries bilaterally. There is reconstitution of the distal left superficial femoral artery. 5. The proximal trifurcation vessels are filled via collaterals. 6. Occlusion of the right anterior tibial artery at the midcalf. The posterior tibial and popliteal arteries extend to the ankle region. 7. The left trifurcation vessels are patent. 8. Presumed post intervention changes seen in the right groin. Adiel Michael MD This is a patient of Dr. Abreu. The patient would prefer to be admitted with medical management initially and consultation with Dr. deshpande were tomorrow. Physician Communication Physician Communication Dr. Maciel Diagnosis Primary Impression: PAD (peripheral artery disease) Additional Impression: Right leg pain Admitting Information Admitting Physician Requests: Admit Condition: Stable Jolanta Estrella MD Dec 27, 2017 09:21
[2017-12-27 09:33] LABS: AUTOMATED NEUTROPHIL # 5.4 TH/MM3 (1.8-7.7); BASOPHIL # 0.1 TH/MM3 (0-0.2); EOSINOPHIL # 0.1 TH/MM3 (0-0.4); HEMATOCRIT 42.4 % (35.0-46.0); HEMOGLOBIN 14.1 GM/DL (11.6-15.3); LYMPH % 25.7 % (9.0-44.0); LYMPHOCYTE # 2.1 TH/MM3 (1.0-4.8); MEAN CELL VOLUME 89.2 FL (80.0-100.0); MEAN CORPUSCULAR HEMOGLOBIN 29.7 PG (27.0-34.0); MEAN CORPUSCULAR HGB CONC 33.2 % (32.0-36.0); MEAN PLATELET VOLUME 8.6 FL (7.0-11.0); MONO % 6.7 % (0.0-8.0); MONOCYTE # 0.6 TH/MM3 (0-0.9); NEUT % 65.6 % (16.0-70.0); PLATELET COUNT 323 TH/MM3 (150-450); RED BLOOD COUNT 4.76 MIL/MM3 (4.00-5.30); RED CELL DISTRIBUTION WIDTH 14.3 % (11.6-17.2); WHITE BLOOD COUNT 8.3 TH/MM3 (4.0-11.0)
[2017-12-27 09:44] LABS: PROTHROMBIN TIME - PATIENT 10.6 SEC (9.8-11.6)
[2017-12-27 09:45] VITALS: BP 135/72; PULSE 80; RESP 18; O2SAT 99
[2017-12-27 09:51] LABS: BICARBONATE 23.5 MEQ/L (21.0-32.0); CALCIUM 9.2 MG/DL (8.5-10.1); CREATININE 1.04 MG/DL (0.50-1.00)
--- NOTE | 2017-12-27 09:53 | RADRPT ---
EXAM DATE/TIME: 12/27/2017 09:15 [place] COMPARISON: No previous studies available for comparison. INDICATIONS : Right leg pain. MEDICAL HISTORY : Hypertension. Hypothyroidism. Anticoagulant therapy, Eliquis. Arthritis. SURGICAL HISTORY : section. Lumpectomy. Arterial bypass, right leg. ENCOUNTER: Initial ACUITY: 1 day PAIN SCORE: 3/10 LOCATION: Right leg. TECHNIQUE: Venous ultrasound of the leg was performed from the inguinal ligament to the proximal calf. Real-priscilla e, color Doppler and spectral tracing, compression and augmentation techniques were used. FINDINGS: There is normal compressibility of the deep venous system from the inguinal region to the proximal ca lf. No echogenic clot is seen in the lumen of the common femoral, femoral, popliteal, and posterior tibial veins. There is a normal response of the venous system to proximal and distal augmentation an d respiration. CONCLUSION: Normal examination. Noel Mahoney MD on December 27, 2017 at 9:49 Board Certified Radiologist. This report was verified electronically.
[2017-12-27 13:00] VITALS: BP 123/67; PULSE 89; RESP 18; O2SAT 99
--- NOTE | 2017-12-27 14:14 | RADRPT ---
EXAM DATE/TIME: 12/27/2017 12:04 [place] COMPARISON: CTA RUNOFF W 3D RECON, February 14, 2017, 18:18. INDICATIONS : Right leg pain. IV CONTRAST: 98 cc Omnipaque 350 (iohexol) IV RADIATION DOSE: 3.73 CTDIvol (mGy) MEDICAL HISTORY : SURGICAL HISTORY : section. 4 Femoral grafts ENCOUNTER: Initial ACUITY: 1 day PAIN SCALE: 6/10 LOCATION: Right Leg TECHNIQUE: Volumetric scanning was performed using a multi-row detector CT scanner. The data was post processed with a variety of visualization algorithms including full volume maximum intensity projection, multi -planar sliding thin slab reformation, curved planar reformation, and surface rendering techniques. Using automated exposure control and adjustment of the mA and/or kV according to patient size, radiat ion dose was kept as low as reasonably achievable to obtain optimal diagnostic quality images. DICO M format image data is available electronically for review and comparison. FINDINGS: ABDOMINAL AORTA: There is luminal irregularity but a significant stenosis of the aorta is not seen. No aneurysm is see n. There is a minimal area of plaque at the inferior proximal left renal artery without significant s tenosis. Single renal arteries are seen bilaterally. The celiac and SMA are normal. There is a severe stenosis at the origin of the NEIL. The remaining aspect of the NEIL appears normal. BIFURCATION: Common iliac artery stents are present. These are patent bilaterally. RIGHT PELVIS: There is severe stenosis of the entire right external iliac artery. The right common femoral artery a ppears normal. The internal iliac artery is patent. LEFT PELVIS: There is moderate to severe narrowing of the entire left external iliac artery. The left common femor al artery is small measuring only 4 mm in diameter. The left internal iliac artery is patent. RIGHT THIGH: The right common femoral artery is patent. There is occlusion at the origin of the SFA. The profunda femoris artery is patent. There is air and presumed post intervention changes in the right groin. LEFT THIGH: The left common femoral artery is patent but small. There is occlusion at the origin of the SFA. Ther e is reconstitution of the distal SFA. The profunda femoris artery is patent. RIGHT KNEE: The right popliteal artery is occluded. LEFT KNEE: The left popliteal artery is patent. RIGHT LEG: Flow is seen in the proximal trifurcation arteries. The popliteal artery can be seen extending into t he hindfoot region. The popliteal artery is seen to nearly extend to the ankle. The anterior tibial a rtery occludes in the midcalf. LEFT LEG: The trifurcation is intact. CONCLUSION: 1. Atherosclerotic change in the aorta without aneurysm or occlusion. 2. Bilateral common iliac artery stents. 3. Narrowing of the entire external iliac arteries bilaterally being worse on the right. 4. Occlusion of the superficial femoral arteries bilaterally. There is reconstitution of the distal l eft superficial femoral artery. 5. The proximal trifurcation vessels are filled via collaterals. 6. Occlusion of the right anterior tibial artery at the midcalf. The posterior tibial and popliteal a rteries extend to the ankle region. 7. The left trifurcation vessels are patent. 8. Presumed post intervention changes seen in the right groin. Adiel Michael MD on December 27, 2017 at 13:56 Board Certified Radiologist. This report was verified electronically.
[2017-12-27] MEDS ORDERED: HEPARIN - 10,000 UNITS/ML IV ADDITIVE IV PUSH STA (15:01)
--- NOTE | 2017-12-27 15:22 | HHI.HP ---
[facility] Family [facility] Primary Care Physician Adiel Keen M.D. Admission Diagnosis right popliteal artery occlusion Diagnoses: Chief Complaint: right leg pain International Travel<30 Days: No Contact w/Intl Traveler<30days: No Known Affected Area: No History of Present Illness 62-year-old female with history of hypertension and peripheral artery disease presents today with right leg pain. Patient has a long history of vascular disease history with several surgeries. Patient has had several bypasses done over the last year with Dr. Xiong. She states she woke up yesterday around 5 AM and had numbness in her leg. She also states was called to the touch. She states she took Eliquis and aspirin hoping that the pain would be relieved and that her blood fluid be restored because she was trying to avoid surgery. Also spoke with Dr. Xiong yesterday and today about this, who suggested she come in to the ER for possible surgery again. She states she had appointment with him a couple weeks ago and had good blood flow with Dopplers. She also tried soaking her foot in hot water, which did not help. Denies any pain in her left leg. Last week, denies any claudications symptoms. No pain at rest. Otherwise, denies any other symptoms. Denies any fever/chills , chest pain, shortness of breath, abdominal pain. No leg swelling or redness. Review of Systems Constitutional: DENIES: Fever, Weight loss, Chills Eyes: DENIES: Vision loss Ears, nose, mouth, throat: DENIES: Hearing loss, Throat pain Respiratory: DENIES: Cough, Snoring, Sputum production, Shortness of breath Cardiovascular: DENIES: Chest pain, Palpitations Gastrointestinal: DENIES: Abdominal pain, Black stools, Bloody stools, Constipation, Diarrhea, Nausea, Vomiting Genitourinary: DENIES: Urinary frequency, Urgency Musculoskeletal: DENIES: Muscle aches, Back pain, Neck pain Integumentary: DENIES: Abnormal pigmentation, Rash Neurologic: DENIES: Headache, Localized weakness, Paresthesias, Seizures Psychiatric: DENIES: Confusion, Mood changes Past Family Social History Past Medical History HTN PAD Past Surgical History 2 C-sections 3 bypass surgeries Reported Medications Reported Meds & Active Scripts Active Eliquis (Apixaban) 5 Mg Tab 5 Mg PO BID 30 Days Walker [place] Wheels/5 Adj (Device) 1 Mis Mis Ea .ROUTE DIRECTED Reported Aspirin Low Dose (Aspirin) 81 Mg Chew 81 Mg CHEW DAILY Ibuprofen 800 Mg Tab 800 Mg PO Q6HR PRN Vitamin B Complex (B-Complex Vitamins) 1 Tab Unknown Dose PO DAILY Vitamin E 100 Unit Tab Unknown Dose PO DAILY Turmeric (Turmeric (Curcuma Longa)) 450 Mg-50 Mg Cap Unknown Dose PO DAILY Potassium 99 Mg Tablet 99 Mg PO DAILY Levothyroxine (Levothyroxine Sodium) 100 Mcg Tab 100 Mcg PO DAILY Lisinopril 5mg BID Allergies: Coded Allergies: No Known Allergies (Unverified Allergy, Unknown, 09/10/17) Active Ordered Medications Active Medications Heparin Sodium (Porcine) (Heparin Inj) 2,500 units UNSCH PRN IV PUSH; Start at 21:15 Heparin Sodium (Porcine) (Heparin Inj) 5,000 units UNSCH PRN IV PUSH; Start at 21:15 Heparin Sodium (Porcine) (Heparin Inj) 7,000 units NOW STAT IV PUSH; Start at 15:01; Stop 12/27/17 at 15:03; Status DC Heparin Sodium/ Dextrose 250 ml @ 15 mls/hr TITRATE PRN IV; Start 12/27/17 at 15:15 Iohexol (Omnipaque 350 Inj) 98 ml STK-MED ONCE IVCONTRAST Last administered on at 08:53; Admin Dose 98 ML; Start 12/27/17 at 08:53; Stop 12/27/17 at 13: 28; Status DC Lorazepam (Ativan Inj) 2 mg ONCE ONCE IV PUSH Last administered on 12/27/17at 09 :26; Admin Dose 2 MG; Start 12/27/17 at 09:15; Stop 12/27/17 at 09:24; Status DC Morphine Sulfate (Morphine Inj) 4 mg ONCE ONCE IV PUSH Last administered on at 09:27; Admin Dose 4 MG; Start 12/27/17 at 09:15; Stop 12/27/17 at 09:24 ; Status DC Morphine Sulfate (Morphine Inj) 4 mg ONCE ONCE IV PUSH Last administered on at 14:29; Admin Dose 4 MG; Start 12/27/17 at 14:30; Stop 12/27/17 at 14:31 ; Status DC Family History Father-HD, AAA, CABG, vascular disease Mother- HTN Social History 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 Smoked 1PPD for 30 years Alcohol use: 1-2 drinks/week Illicit drug use-denies Physical Exam Vital Signs Vital Signs Date Time Temp Pulse Resp B/P (MAP) Pulse Ox O2 Delivery O2 Flow Rate FiO2 12/27/17 13:00 89 18 123/67 (85) 99 Room Air 12/27/17 09:45 80 18 135/72 (93) 99 Room Air 12/27/17 09:32 18 12/27/17 08:57 97.8 88 18 187/87 (120) 99 Physical Exam GENERAL: This is a well-nourished, well-developed patient, in no apparent distress. SKIN: No rashes, ecchymoses or lesions. Cool and dry. HEAD: Atraumatic. Normocephalic. EYES: Pupils equal round and reactive. Extraocular motions intact. No scleral icterus. No injection or drainage. ENT: Throat without erythema, tonsillar hypertrophy or exudate. Uvula midline. Airway patent. NECK: Trachea midline. No JVD or lymphadenopathy. Supple, nontender. CARDIOVASCULAR: Regular rate and rhythm without murmurs, gallops, or rubs. RESPIRATORY: Clear to auscultation. Breath sounds equal bilaterally. No wheezes , rales, or rhonchi. GASTROINTESTINAL: Abdomen soft, non-tender, nondistended. No hepato-splenomegaly , or palpable masses. No guarding. MUSCULOSKELETAL: Extremities without clubbing, cyanosis, or edema. Some tenderness to deep palpation. RLE cool to touch. Diminished pulses in right foot NEUROLOGICAL: Awake and alert. Motor and sensory grossly within normal limits. Normal speech. Laboratory Laboratory Tests Test 12/27/17 09:20 White Blood Count 8.3 Red Blood Count 4.76 Hemoglobin 14.1 Hematocrit 42.4 Mean Corpuscular Volume 89.2 Mean Corpuscular Hemoglobin 29.7 Mean Corpuscular Hemoglobin Concent 33.2 Red Cell Distribution Width 14.3 Platelet Count 323 Mean Platelet Volume 8.6 Neutrophils (%) (Auto) 65.6 Lymphocytes (%) (Auto) 25.7 Monocytes (%) (Auto) 6.7 Eosinophils (%) (Auto) 1.0 Basophils (%) (Auto) 1.0 Neutrophils # (Auto) 5.4 Lymphocytes # (Auto) 2.1 Monocytes # (Auto) 0.6 Eosinophils # (Auto) 0.1 Basophils # (Auto) 0.1 CBC Comment DIFF FINAL Differential Comment Prothrombin Time 10.6 Prothromb Time International Ratio 1.0 Activated Partial Thromboplast Time 31.2 Blood Urea Nitrogen 26 Creatinine 1.04 Random Glucose 100 Calcium Level 9.2 Sodium Level 137 Potassium Level 4.8 Chloride Level 105 Carbon Dioxide Level 23.5 Anion Gap 9 Estimat Glomerular Filtration Rate 54 Result Diagram: 12/27/1720 12/27/17919 Imaging Last Impressions Lower Extremity Ultrasound 12/27/1709 Signed Impressions: Service Date/Time: Wednesday, December 27, 2017 09:15 - CONCLUSION: Normal examination. Noel Mahoney MD Aorta w/Runoff CTA 12/27/17 0000 Signed Impressions: Service Date/Time: Wednesday, December 27, 2017 12:04 - CONCLUSION: 1. Atherosclerotic change in the aorta without aneurysm or occlusion. 2. Bilateral common iliac artery stents. 3. Narrowing of the entire external iliac arteries bilaterally being worse on the right. 4. Occlusion of the superficial femoral arteries bilaterally. There is reconstitution of the distal left superficial femoral artery. 5. The proximal trifurcation vessels are filled via collaterals. 6. Occlusion of the right anterior tibial artery at the midcalf. The posterior tibial and popliteal arteries extend to the ankle region. 7. The left trifurcation vessels are patent. 8. Presumed post intervention changes seen in the right groin. MD Sneha Vierai VTE Risk Assessment Caprini VTE Risk Assessment: Mod/High Risk (score >= 2) Caprini Risk Assessment Model Point Value = 1 Point Value = 2 Point Value = 3 Point Value = 5 Age 41-60 Minor surgery BMI > 25 kg/m2 Swollen legs Varicose veins or History of unexplained or recurrent spontaneous Oral contraceptives or hormone replacement Sepsis (< 1 month) Serious lung disease, including pneumonia (< 1 month) Abnormal pulmonary function Acute myocardial infarction Congestive heart failure (< 1 month) History of inflammatory bowel disease Medical patient at bed rest Age 61-74 Arthroscopic surgery Major open surgery (> 45 min) Laparoscopic surgery (> 45 min) Malignancy Confined to bed (> 72 hours) Immobilizing plaster cast Central venous access Age >= 75 History of VTE Family history of VTE Factor V Leiden Prothrombin [id number] Lupus anticoagulant Anticardiolipin antibodies Elevated serum homocysteine Heparin-induced thrombocytopenia Other congenital or acquired thrombophilia Stroke (< 1 month) Elective arthroplasty Hip, pelvis, or leg fracture Acute spinal cord injury (< 1 month) Prophylaxis Regimen Total Risk Factor Score Risk Level Prophylaxis Regimen 0-1 Low Early ambulation 2 Moderate Order ONE of the following: *Sequential Compression Device (SCD) *Heparin 5000 units SQ BID 3-4 Higher Order ONE of the following medications: *Heparin 5000 units SQ TID *Enoxaparin/Lovenox 40 mg SQ daily (WT < 150 kg, CrCl > 30 mL/min) *Enoxaparin/Lovenox 30 mg SQ daily (WT < 150 kg, CrCl > 10-29 mL/min) *Enoxaparin/Lovenox 30 mg SQ BID (WT < 150 kg, CrCl > 30 mL/min) AND/OR *Sequential Compression Device (SCD) 5 or more Highest Order ONE of the following medications: *Heparin 5000 units SQ TID (Preferred with Epidurals) *Enoxaparin/Lovenox 40 mg SQ daily (WT < 150 kg, CrCl > 30 mL/min) *Enoxaparin/Lovenox 30 mg SQ daily (WT < 150 kg, CrCl > 10-29 mL/min) *Enoxaparin/Lovenox 30 mg SQ BID (WT < 150 kg, CrCl > 30 mL/min) AND *Sequential Compression Device (SCD) Assessment and Plan Assessment and Plan 62-year-old female with history of peripheral arterial disease, hypertension, hypothyroidism presents with right leg. Found to have vascular occlusion, will admit for management and vascular consultation. Code Status DNR Discussed Condition With Dr. Estrella Problem List: (1) Vascular occlusion ICD Codes: I99.8 - Other disorder of circulatory system Status: Acute Plan: Patient presents with right leg pain. History of PAD. Right lower extremity cool to touch and diminished peripheral pulses. Has seen Dr. Xiong for multiple revascularizations. Aorta with runoff CTA shows narrowing of entire external iliac arteries, occlusion of superficial femoral arteries bilaterally. Occlusion of right anterior tibial artery at the mid calf. Ultrasound of leg shows no DVT -Vascular consultation-appreciate recs -Started on Heparin gtt -Hamler/morphine PRN pain -NPO after midnight for possible intervention (2) JUAN (acute kidney injury) ICD Codes: N17.9 - Acute kidney failure, unspecified Status: Acute Plan: Cr of 1.04 upon admission. Up from 0.66 in 09/12/17. BUN 26. Likely prerenal -IVF at maintenance -Avoid nephrotoxic agents -Monitor BMP (3) HTN (hypertension) ICD Codes: I10 - Essential (primary) hypertension Status: Chronic Plan: Continue home lisinopril (4) Hypothyroid ICD Codes: E03.9 - Hypothyroidism, unspecified Status: Chronic Plan: Continue home synthroid (5) FEN Status: Chronic Plan: Fluids: NS @ 120mls/hr while NPO Electrolytes; wnl, continue to monitor Nutrition: Heart healthy, NPO after MN DVT ppx: Heparin gtt Physician Certification 2 Midnight Certification Type: Admission for Inpatient Services Order for Inpatient Services The services are ordered in accordance with Medicare regulations or non- Medicare payer requirements, as applicable. In the case of services not specified as inpatient-only, they are appropriately provided as inpatient services in accordance with the 2-midnight benchmark. Estimated LOS (days): 3 days is the estimated time the patient will need to remain in the hospital, assuming treatment plan goals are met and no additional complications. Post-Hospital Plan: Home Problem Qualifiers (1) HTN (hypertension): Qualified Codes: I10 - Essential (primary) hypertension Johan Maciel MD R2 Dec 27, 2017 15:22
[2017-12-27 15:30] VITALS: BP 137/59; PULSE 89; RESP 19; TEMP 97.3; O2SAT 94
[2017-12-27] MEDS: HEPARIN-D5W 25,000 U/250 ML 250 ML IV PRN (15:38)
[2017-12-27 15:44] LABS: HEMOGLOBIN 14.4 GM/DL (11.6-15.3); MEAN CELL VOLUME 88.9 FL (80.0-100.0); MEAN CORPUSCULAR HEMOGLOBIN 29.8 PG (27.0-34.0); MEAN CORPUSCULAR HGB CONC 33.5 % (32.0-36.0); MEAN PLATELET VOLUME 9.2 FL (7.0-11.0); PLATELET COUNT 332 TH/MM3 (150-450); RED BLOOD COUNT 4.84 MIL/MM3 (4.00-5.30); RED CELL DISTRIBUTION WIDTH 14.3 % (11.6-17.2); WHITE BLOOD COUNT 9.6 TH/MM3 (4.0-11.0)
[2017-12-27] MEDS: SODIUM CHLOR 0.9% 1000 ML INJ 1,000 ML IV SCH (15:46)
[2017-12-27] MEDS ORDERED: LISI-519 PO (15:51)
[2017-12-27] MEDS ORDERED: LACTULOSE SYRUP 20 GM/30 ML CUP PO PRN (16:00)
[2017-12-27] MEDS ORDERED: ACETAMINOPHEN/HYDROcodone 325 MG/5 MG TAB PO PRN (16:00)
[2017-12-27] MEDS ORDERED: BISACODYL 10 MG SUPP RECTAL PRN (16:00)
[2017-12-27] MEDS ORDERED: SENNOSIDES 8.6 MG TAB PO PRN (16:00)
[2017-12-27] MEDS ORDERED: ONDANSETRON HCL 4 MG/2 ML VIAL IVP PRN (16:00)
[2017-12-27] MEDS ORDERED: NALOXONE HCL 0.4 MG/ML AMP IV PUSH PRN (16:00)
[2017-12-27] MEDS ORDERED: MAGNESIUM HYDROXIDE SUSP 30 ML CUP PO PRN (16:00)
[2017-12-27 16:12] LABS: PROTHROMBIN TIME - PATIENT 10.5 SEC (9.8-11.6)
[2017-12-27] MEDS: ACETAMINOPHEN/HYDROcodone 325 MG/10 MG TAB PO PRN ×2 (16:54→22:14)
[2017-12-27 20:00] VITALS: BP 124/66; PULSE 87; RESP 22; TEMP 97.6; O2SAT 98
[2017-12-27] MEDS: SODIUM CHLORIDE 0.9% FLUSH 10 ML FLUSH IV FLUSH SCH (21:00)
[2017-12-27] MEDS: DOCUSATE SODIUM 50 MG/SENNA 8.6 MG TAB PO SCH (21:00)
[2017-12-27] MEDS ORDERED: HEPARIN SODIUM - IV 10,000 UNITS/10 ML VIAL IV PUSH PRN (21:15)
[2017-12-27] MEDS ORDERED: HEPARIN - 10,000 UNITS/ML IV ADDITIVE IV PUSH PRN (21:15)
[2017-12-27] MEDS: LISINOPRIL 5 MG TAB PO SCH (22:14)
[2017-12-28] VITALS (12 sets, daily range): BP systolic 122–160; BP diastolic 58–85; PULSE 71–91; RESP 16–20; TEMP 97.6–98; O2SAT 97–100
[2017-12-28 03:47] LABS: CALCIUM 8.6 MG/DL (8.5-10.1); CREATININE 0.89 MG/DL (0.50-1.00)
[2017-12-28] MEDS: SODIUM CHLORIDE 0.9% FLUSH 10 ML FLUSH IV FLUSH PRN (04:01)
[2017-12-28] MEDS: MORPHINE SULFATE 2 MG/ML SYRINGE IV PUSH PRN ×3 (04:01→18:52)
[2017-12-28] MEDS: SODIUM CHLOR 0.9% 1000 ML INJ 1,000 ML IV SCH ×3 (04:07→22:53)
[2017-12-28] MEDS: LEVOTHYROXINE SODIUM 100 MCG TAB PO SCH (05:38)
[2017-12-28] MEDS: DOCUSATE SODIUM 50 MG/SENNA 8.6 MG TAB PO SCH ×2 (08:26→21:00)
[2017-12-28] MEDS: LISINOPRIL 5 MG TAB PO SCH ×2 (08:26→22:02)
[2017-12-28] MEDS: SODIUM CHLORIDE 0.9% FLUSH 10 ML FLUSH IV FLUSH SCH ×2 (08:26→21:00)
[2017-12-28] MEDS: HEPARIN-D5W 25,000 U/250 ML 250 ML IV PRN ×2 (08:31→15:27)
--- NOTE | 2017-12-28 09:08 | PD.VS.CON ---
History of Present Illness Chief Complaint: Painful RIGHT foot Consult Requested by: Medical service History of Present Illness 62 yo female with h/o R LE bypass x 2. On Sat morning, had perception of loss of pulse. She had calf cramping and now has developed foot pain. No motor dysfunction. Admitted and placed on heparin gtt. Past/Family/Social History Past Medical History PAD HTN Past Surgical History C-Sxn R LE bypass x 3 Social History former smoker Family History [place] Home Medications Active Scripts Oxycodone-Acetaminophen (Percocet) 5-325 mg Tab, 1 TAB PO Q4H Y for PAIN, #30 TAB 0 Refills Prov:Syeda Tafoya Danny LEARNING CONSULTANT 09/15/17 Apixaban (Eliquis) 5 Mg Tab, 5 MG PO BID for PAD for 30 Days, #60 TAB 3 Refills Prov:MicheletFarshadSyeda Danny LEARNING CONSULTANT 09/15/17 Walker [place] Wheels/5 Adj ([place] Wheels/5 Adj) 1 Mis Mis, EA .ROUTE DIRECTED for ambulation , #1 0 Refills Prov:MicheletFarshadSyeda Danny LEARNING CONSULTANT 09/14/17 Reported Medications Lisinopril (Lisinopril) 5 Mg Tab, 5 MG PO BID for Blood Pressure Management, # 30 TAB 0 Refills 12/27/17 Aspirin (Aspirin Low Dose) 81 Mg Chew, 81 MG CHEW DAILY, TAB 0 Refills 09/01/17 Ibuprofen (Ibuprofen) 800 Mg Tab, 800 MG PO Q6HR Y for PAIN, #40 TAB 0 Refills 09/01/17 B-Complex Vitamins (Vitamin B Complex) 1 Tab, PO DAILY 09/01/17 Vitamin E (Vitamin E) 100 Unit Tab, PO DAILY for Nutritional Supplement, TAB 0 Refills 09/01/17 Turmeric (Curcuma Longa) (Turmeric) 450 Mg-50 Mg Cap, PO DAILY 09/01/17 Potassium (Potassium) 99 Mg Tablet, 99 MG PO DAILY 09/01/17 Levothyroxine (Levothyroxine) 100 Mcg Tab, 100 MCG PO DAILY for Thyroid, #30 TAB 0 Refills 09/01/17 Coded Allergies: No Known Allergies (Unverified Allergy, Unknown, 09/10/17) Review of Systems Constitutional: DENIES: Fever, Chills, Night Sweats Physical Exam Vitals/I&O Date Time Temp Pulse Resp B/P (MAP) Pulse Ox O2 Delivery O2 Flow Rate FiO2 12/28/17 08:00 97.6 75 17 125/79 (94) 100 12/28/17 04:00 97.7 73 20 126/62 (83) 98 12/28/17 00:00 98.0 73 20 141/64 (89) 97 12/27/17 23:30 Nasal Cannula 2.00 12/27/17 20:00 97.6 87 22 124/66 (85) 98 12/27/17 16:00 12/27/17 15:30 97.3 89 19 137/59 (85) 94 12/27/17 13:00 89 18 123/67 (85) 99 Room Air 12/27/17 09:45 80 18 135/72 (93) 99 Room Air 12/27/17 09:32 18 12/28/17 12/28/17 12/28/17 07:00 15:00 23:00 Intake Total 0 ml Balance 0 ml Neuro: SHIPMAN, alert HEENT: NC/AT Neck: no JVD Heart: reg rate Lungs: clear Vascular: R groin and leg incisions ok. no palpable femoral pulses Extremities: 5/5 motor strength Laboratory Tests Test 12/27/17 09:20 12/27/17 15:05 12/27/17 22:21 12/28/17 02:35 White Blood Count 8.3 9.6 Red Blood Count 4.76 4.84 Hemoglobin 14.1 14.4 Hematocrit 42.4 43.0 Mean Corpuscular Volume 89.2 88.9 Mean Corpuscular Hemoglobin 29.7 29.8 Mean Corpuscular Hemoglobin Concent 33.2 33.5 Red Cell Distribution Width 14.3 14.3 Platelet Count 323 332 Mean Platelet Volume 8.6 9.2 Neutrophils (%) (Auto) 65.6 Lymphocytes (%) (Auto) 25.7 Monocytes (%) (Auto) 6.7 Eosinophils (%) (Auto) 1.0 Basophils (%) (Auto) 1.0 Neutrophils # (Auto) 5.4 Lymphocytes # (Auto) 2.1 Monocytes # (Auto) 0.6 Eosinophils # (Auto) 0.1 Basophils # (Auto) 0.1 CBC Comment DIFF FINAL Differential Comment Prothrombin Time 10.6 10.5 Prothromb Time International Ratio 1.0 1.0 Activated Partial Thromboplast Time 31.2 30.6 98.3 49.5 Blood Urea Nitrogen 26 24 Creatinine 1.04 0.89 Random Glucose 100 94 Calcium Level 9.2 8.6 Sodium Level 137 139 Potassium Level 4.8 4.4 Chloride Level 105 107 Carbon Dioxide Level 23.5 21.0 Anion Gap 9 11 Estimat Glomerular Filtration Rate 54 64 Last 48 hours Impressions Lower Extremity Ultrasound 12/27/17 0909 Signed Impressions: Service Date/Time: Wednesday, December 27, 2017 09:15 - CONCLUSION: Normal examination. Noel Mahoney MD Aorta w/Runoff CTA 12/27/17 0000 Signed Impressions: Service Date/Time: Wednesday, December 27, 2017 12:04 - CONCLUSION: 1. Atherosclerotic change in the aorta without aneurysm or occlusion. 2. Bilateral common iliac artery stents. 3. Narrowing of the entire external iliac arteries bilaterally being worse on the right. 4. Occlusion of the superficial femoral arteries bilaterally. There is reconstitution of the distal left superficial femoral artery. 5. The proximal trifurcation vessels are filled via collaterals. 6. Occlusion of the right anterior tibial artery at the midcalf. The posterior tibial and popliteal arteries extend to the ankle region. 7. The left trifurcation vessels are patent. 8. Presumed post intervention changes seen in the right groin. Adiel Michael MD Assessment and Plan Plan Occluded R LE bypass 1. Angiogram today, Will likely to be able to fix inflow (iliac stents) and evaluate for potential 3rd time redo distal bypass. If her symptoms don't improve with intervention today, will schedule bypass later in week 2. Discussed potential of major amputation which understandably she wants to avoid 3. Continue anticoagulation - can transition to therapeutic lovenox post angio today 4. Pain control 5. OOB 6. If loses motor function, would become surgical emergency 7. Cardiac diet after angiogram today. Pt and daughter aware of plan and agree. Thomas Xiong MD FACS RPVI reconciliation clerk [facility] - Heart [facility] V[facility] Surgery at [facility] [phone] Thomas Xiong MD Dec 28, 2017 09:08
[2017-12-28] MEDS: oxyCODONE/ACETAMINOPHEN 10 MG/325 MG TAB PO PRN ×3 (09:58→22:03)
[2017-12-28 11:43] LABS: AUTOMATED NEUTROPHIL # 4.5 TH/MM3 (1.8-7.7); BASOPHIL # 0.1 TH/MM3 (0-0.2); BASOPHIL % 1.1 % (0.0-2.0); EOSINOPHIL # 0.2 TH/MM3 (0-0.4); EOSINOPHIL % 2.1 % (0.0-4.0); HEMATOCRIT 38.8 % (35.0-46.0); HEMOGLOBIN 12.9 GM/DL (11.6-15.3); LYMPH % 34.5 % (9.0-44.0); LYMPHOCYTE # 2.8 TH/MM3 (1.0-4.8); MEAN CELL VOLUME 90.1 FL (80.0-100.0); MEAN CORPUSCULAR HEMOGLOBIN 29.9 PG (27.0-34.0); MEAN CORPUSCULAR HGB CONC 33.2 % (32.0-36.0); MEAN PLATELET VOLUME 9.6 FL (7.0-11.0); MONO % 7.1 % (0.0-8.0); MONOCYTE # 0.6 TH/MM3 (0-0.9); NEUT % 55.2 % (16.0-70.0); PLATELET COUNT 276 TH/MM3 (150-450); RED BLOOD COUNT 4.31 MIL/MM3 (4.00-5.30); RED CELL DISTRIBUTION WIDTH 14.3 % (11.6-17.2); WHITE BLOOD COUNT 8.2 TH/MM3 (4.0-11.0)
--- NOTE | 2017-12-28 11:43 | HHI.FPPN ---
Subjective Remarks No acute events overnight. Patient's pain in her right lower leg is unchanged. No worsening of symptoms or new skin changes. Patient states that the Mercedes was unhelpful and is requesting something stronger by mouth for pain. Denies chest pain, shortness of breath (Hubert Keen MD R1) Objective Vitals Vital Signs Date Time Temp Pulse Resp B/P (MAP) Pulse Ox O2 Delivery O2 Flow Rate FiO2 12/28/17 08:00 97.6 75 17 125/79 (94) 100 12/28/17 07:45 99 21 12/28/17 04:00 97.7 73 20 126/62 (83) 98 12/28/17 00:00 98.0 73 20 141/64 (89) 97 12/27/17 23:30 Nasal Cannula 2.00 12/27/17 20:00 97.6 87 22 124/66 (85) 98 12/27/17 16:00 12/27/17 15:30 97.3 89 19 137/59 (85) 94 12/27/17 13:00 89 18 123/67 (85) 99 Room Air I/O 12/27/17 12/27/17 12/27/17 12/28/17 12/28/17 12/28/17 07:00 15:00 23:00 07:00 15:00 23:00 Intake Total 0 ml Balance 0 ml Intake Oral 0 ml # Voids 3 # Bowel Movements 0 (Hubert Keen MD R1) Result Diagram: 12/27/17 1505 12/28/17 0235 Imaging Last 48 hours Impressions Lower Extremity Ultrasound 12/27/17 0909 Signed Impressions: Service Date/Time: Wednesday, December 27, 2017 09:15 - CONCLUSION: Normal examination. Noel Mahoney MD Aorta w/Runoff CTA 12/27/17 0000 Signed Impressions: Service Date/Time: Wednesday, December 27, 2017 12:04 - CONCLUSION: 1. Atherosclerotic change in the aorta without aneurysm or occlusion. 2. Bilateral common iliac artery stents. 3. Narrowing of the entire external iliac arteries bilaterally being worse on the right. 4. Occlusion of the superficial femoral arteries bilaterally. There is reconstitution of the distal left superficial femoral artery. 5. The proximal trifurcation vessels are filled via collaterals. 6. Occlusion of the right anterior tibial artery at the midcalf. The posterior tibial and popliteal arteries extend to the ankle region. 7. The left trifurcation vessels are patent. 8. Presumed post intervention changes seen in the right groin. Adiel Michael MD Objective Remarks GENERAL: This is a well-nourished, well-developed patient, in no apparent distress. SKIN: No rashes, ecchymoses or lesions. Cool and dry. HEAD: Atraumatic. Normocephalic. EYES: Pupils equal round and reactive. Extraocular motions intact. No scleral icterus. No injection or drainage. ENT: Throat without erythema, tonsillar hypertrophy or exudate. Uvula midline. Airway patent. NECK: Trachea midline. No JVD or lymphadenopathy. Supple, nontender. CARDIOVASCULAR: Regular rate and rhythm without murmurs, gallops, or rubs. RESPIRATORY: Clear to auscultation. Breath sounds equal bilaterally. No wheezes , rales, or rhonchi. GASTROINTESTINAL: Abdomen soft, non-tender, nondistended. No hepato-splenomegaly , or palpable masses. No guarding. MUSCULOSKELETAL: Extremities without clubbing, cyanosis, or edema. Some tenderness to deep palpation. RLE cool to touch. Diminished pulses in right foot NEUROLOGICAL: Awake and alert. Motor and sensory grossly within normal limits. Normal speech. (Hubert Keen MD R1) A/P Assessment and Plan 62-year-old female with history of peripheral arterial disease, hypertension, hypothyroidism presents with right leg. Found to have vascular occlusion, will admit for management and vascular consultation. Vascular surgery planning for angiogram on 12/28 with possible iliac stents and evaluation for potential third distal bypass. Discharge Planning Discharge pending vascular surgery evaluation (Hubert Keen MD R1) Attending Attestation Patient seen and examined with the medicine team this morning. Please refer to history and physical examination for this admission for additional historical details including past, family, social history and review of systems at the time of admission. This morning, she still complains of decreased sensation in the right foot and pain in the foot with foot feeling cold. She gets slight relief when she lowers her foot and allows gravity to help. She has had numerous arterial bypasses and is very concerned for the loss of her leg. She has already been seen by the vascular surgeons. She no longer smokes. Her daughter is with her. Exam is as documented in the resident note; I do not palpate a dorsalis pedis or posterior tibial pulse in the right lower extremity, the foot feels cool. She does have scars from multiple previous interventions on this leg. I agree with the plan as documented, and appreciate vascular surgery assistance. (Mary Alice Herrera MD) Problem List: (1) Vascular occlusion ICD Codes: I99.8 - Other disorder of circulatory system Status: Acute Plan: Patient presents with right leg pain. History of PAD. Right lower extremity cool to touch and diminished peripheral pulses. Has seen Dr. Xiong for multiple revascularizations. Aorta with runoff CTA shows narrowing of entire external iliac arteries, occlusion of superficial femoral arteries bilaterally. Occlusion of right anterior tibial artery at the mid calf. Ultrasound of leg shows no DVT -Vascular consultation-planning for angiogram on 12/28 with possible iliac stent placement. At risk of needing redo distal bypass. -Started on Heparin gtt, will transition to therapeutic Lovenox post angiogram today -Percocet/morphine PRN pain (2) JUAN (acute kidney injury) ICD Codes: N17.9 - Acute kidney failure, unspecified Status: Acute Plan: Cr of 1.04 upon admission. Up from 0.66 in 09/12/17. BUN 26. Likely prerenal Creatinine improved to 0.89 on 12/28 -IVF at maintenance -Avoid nephrotoxic agents -Monitor BMP (3) HTN (hypertension) ICD Codes: I10 - Essential (primary) hypertension Status: Chronic Plan: Continue home lisinopril (4) Hypothyroid ICD Codes: E03.9 - Hypothyroidism, unspecified Status: Chronic Plan: Continue home synthroid (5) FEN Status: Chronic Plan: Fluids: NS @ 120mls/hr while NPO Electrolytes; wnl, continue to monitor Nutrition: N.p.o. for surgical procedure today DVT ppx: Heparin gtt (Hubert Keen MD R1) Problem Qualifiers (1) HTN (hypertension): Qualified Codes: I10 - Essential (primary) hypertension Hubert Keen MD R1 Dec 28, 2017 11:43 Mary Alice Herrera MD Dec 28, 2017 12:20
[2017-12-28] MEDS ORDERED: HEPARIN-NS/PF FLUSH BAG 1,000 ML IV FLUSH ONE (12:07)
[2017-12-28] MEDS ORDERED: MIDAZOLAM HCL 5 MG/5 ML VIAL ONE (12:15)
[2017-12-28] MEDS ORDERED: LIDOCAINE HCL 2% 50 ML VIAL ONE (12:18)
[2017-12-28] MEDS ORDERED: HEPARIN SODIUM - IV 10,000 UNITS/10 ML VIAL ONE (12:28)
[2017-12-28] MEDS ORDERED: ceFAZolin INJ 1,000 MG VIAL ONE (12:38)
--- NOTE | 2017-12-28 13:07 | HHI.PR ---
cc: Thomas Xiong MD Immediate Post Op Note Procedure Date: Dec 28, 2017 Pre Op Diagnosis: PAD, R LE ischemia, failed distal bypass Post Op Diagnosis: PAD, R LE ischemia, failed distal bypass Surgeon: Thomas Xiong Dog Licenser(s): none Procedure: 1. Aortogram w/ R LE angiogram 2. R EIA GOVERNMENT RELATIONS DIRECTOR (6mm DCB) 3. L CNC LATHE PROGRAMMER Angioseal Findings: 1. High grade R EIA stenosis, successful GOVERNMENT RELATIONS DIRECTOR with no residual stenosis 2. Occluded fem-AT 3. potential open calf peroneal vs PT as potential target for bypass Complications: none Specimen(s) removed: none Estimated blood loss: 10mL Anesthesia: MAC Drains: None Patient to: Other (DOCU) Patient Condition: Good Implant/Devices: SEE IMPLANT LOG (if applicable) Date/Time of Procedure: SEE SURGICAL CARE RECORD Thomas Xiong MD Dec 28, 2017 13:06
--- NOTE | 2017-12-28 13:08 | CATHPROC ---
[email or web address] HIS Report Study Information Study Number Admission Scheduled Start Study Start [id number] Dec 27 2017 3:06PM 12/28/2017 Dec 28 2017 11:59AM [facility] [place] [facility] Cath Endovascular Study Admit Source Facility Department Emergency department [facility] - Prosthetics Lab Technician Physician and Clinical Staff Initial MD Xiong, Thomas Principal Web Developer Lesvia Singh,RT(R) (BS) Recorder Maninder PAULSON, Christian Aiken,RT(R) Procedures Performed Procedure Location (Site) Vessel Name Abdominal Angiogram Abd Aorta (A3) Aorta BARGE MASTER Fem Art (right) Femoral Art PTCA ADD ON'S Wire insertion Fem Art (left) Femoral Art Equipment Time Feather Edger Description Size Mfg Part Number Used/Scraped [id number] 12:17 ANGIO-DYNAMICS OMNI FLUSH 65CM CATHETER FR 4 Used *[id number] INTRODUCER SET, 12:16 [employer]. FR 5 [id number] *[id number] Used MICROPUNCTURE STIFF BALLOON, ADVANCE 35 LP .035 6 [id number] 12:39 COOK/ANDREA 6 X 10 Used X 10 *[id number] KCFW-6.0-18/38- 12:31 COOK/ANDREA SHEATH, FR6 GWEN 1 FLEXOR FR 6 [id number] Used *[id number] WIRE, CHUN CURVED GUIDE [id number] 12:31 COOK/ANDREA 260CM Used 260CM *[id number] 12:55 DAIG/[employer] ANGIOSEAL, FR6 VIP FR 6 Used *[id number] BALLOON, ADMIRAL IN.PACT 6 X [id number] 12:43 [employer] 130CM Used 120 130CM *[id number] 12:16 Desmos PACK, CCL CUSTOM * Used *[id number] 12:32 [employer] 30 JANNETTE INDEFLATOR Used *[id number] TUBING, PRESSURE INJECTION [id number] 12:16 NAMIC PACER 72" Used 72" *[id number] TUBING, PRESSURE INJECTION [id number] 12:47 NAMIC PACER 72" Used 72" *[id number] 12:16 NYCOMED OMNIPAQUE, 300 MG, 150ML 150ML [id number] Used 12:16 NYCOMED OMNIPAQUE, 300 MG, 50ML 50ML [id number] Used [id number] 12:16 DOWELL [employer] BLANKET,WARM AIR CCL * Used *[id number] 12:17 TERUMO MEDICAL SHEATH, FR4 TERUMO (10CM) FR 4 Used *[id number] 12:34 TERUMO MEDICAL SHEATH, FR6 TERUMO (10CM) FR 6 Used *[id number] WIRE, ANGLED GLIDE .035 [id number] 12:16 TERUMO MEDICAL/ANDREA 260CM Used 260CM *[id number] Equipment Model, Serial, Lot Number and Expiration Data Description Model Number Serial Number Lot Number Expiration Date ANGIOSEAL, FR6 VIP [id number] 08-30-2018 BALLOON, ADMIRAL IN.PACT 6 X [id number] 07-01-2018 120 130CM SHEATH, FR6 GEWN 1 FLEXOR [id number] 02-27-2018 WIRE, CUHN CURVED GUIDE [id number] 10-02-2022 260CM History: Current Medications Medication Dosage/Unit Route Frequency Last Date/Time Taken ASA ELIQUIS History: Allergies Allergy Reaction No Known Allergies History: Risk Factors Prior Valve Prior PCI Prior CABG Surgery No No No Peripheral Artery On Dialysis Diabetes Disease No Yes No Labs Hgb (g/dl) Hct (%) WBC (l/cumm) Platelets (thousands) 11.60-17.00 35.00-51.00 4.00-11.00 150.00-450.00 14.4 43 9.6 332 Glucose (mg/dl) BUN (mg/dl) Creatinine (mg/dl) BUN:Creatinine (1:x) 74.00-106.00 7.00-18.00 0.50-1.30 10.00-20.00 94 24 0.8 30 Na (meq/l) K (meq/l) 136.00-145.00 3.50-5.10 139 4.4 INR (PTT:PT) 0.90-1.10 1 CPK-MB (ng/ML) 0.50-3.60 Not Drawn Medication Medication Total Dose (Bolus/Oral) Medication Total Dosage/Unit 1% XYLOCAINE 20 mL FENTANYL 200 mcg HEPARIN 5000 units VERSED 5 mg Medications (Bolus/Oral) Medication Time Given Dosage/Unit Administered By Reason VERSED 12/28/2017 12:16:33 PM 2 mg Chuckie Dickens RN 2 mg VERSED given in lab by Chuckie Dickens RN in Right Antecubital via Peripheral IV. FENTANYL 12/28/2017 12:17:45 PM 50 mcg Chuckie Dickens RN 50 mcg FENTANYL given in lab by Chuckie Dickens RN in Right Antecubital via Peripheral IV. VERSED 12/28/2017 12:21:50 PM 1 mg Maninder PAULSON, Chuckie 1 mg VERSED given in lab by Maninder PAULSON, Chuckie in Right Antecubital via Peripheral IV. 1% XYLOCAINE 12/28/2017 12:21:56 PM 20 mL Thomas Xiong 20 mL 1% XYLOCAINE given in lab by Thomas Xiong in Left Groin via Subcutaneous. FENTANYL 12/28/2017 12:23:29 PM 25 mcg Maninder PAULSON, Chuckie 25 mcg FENTANYL given in lab by Maninder PAULSON, Chuckie in Right Antecubital via Peripheral IV. HEPARIN 12/28/2017 12:29:12 PM 5000 units Maninder PAULSON, Chuckie 5000 units HEPARIN given in lab by Chuckie Dickens RN in Right Antecubital via Peripheral IV. FENTANYL 12/28/2017 12:30:54 PM 25 mcg Maninder PAULSON, Chuckie 25 mcg FENTANYL given in lab by Maninder PAULSON, Chuckie in Right Antecubital via Peripheral IV. VERSED 12/28/2017 12:32:43 PM 2 mg Maninder PAULSON, Chuckie 2 mg VERSED given in lab by Maninder PAULSON, Chuckie in Right Antecubital via Peripheral IV. FENTANYL 12/28/2017 12:45:28 PM 50 mcg Maninder PAULSON, Chuckie 50 mcg FENTANYL given in lab by Maninder PAULSON, Chuckie in Right Antecubital via Peripheral IV. FENTANYL 12/28/2017 12:57:55 PM 50 mcg Chuckie Dickens RN 50 mcg FENTANYL given in lab by Maninder PAULSON, Chuckie in Right Antecubital via Peripheral IV. Medication (Drip) Medication Time Given Dosage/Unit Concentration/Unit Diluent (ml) Solutio n ANCEF 12/28/2017 12:40:52 PM 2 g 2 g ANCEF given in lab by Chuckie Dickens RN in Right Antecubital via Peripheral IV. IV Solutions 12/28/2017 12:07:07 PM 0 mL (IV) 1000 NaCl .9 Patient arrived on IV Solutions in Right Antecubital via Peripheral IV. Pump/Drip Flow = 30 ml/hr usi ng NaCl .9. Initial Case Assessment Cardiovascular HR NIBP 76 155/54 Edema Present Skin color Skin None Normal Warm Dry Neurological State Oriented to time-place- Alert Moves all extremities person Respiration - General Respiration Rate SpO2 (%) (B/min) 12 100 Chronological Log Time Study Chronological Log 12:01:46 Patient arrived via Bed. 12:01:51 Patient Name, D.O.B, / Armband Verified By R.N. 12:06:54 Consent signed by the physician and the patient and verified by the Prosthetics Lab Technician staff. 12:06:55 Pre-op and post- op instructions given; patient acknowledges understanding of instructions. 12:06:55 Verbal Stimulation=2 Physical Stimulation=2 Airway=2 Respiration=2 TOTAL=8. (0=absent, 1=li mited, 2=present) 12:06:57 Presedation assessment performed by Prosthetics Lab Technician RN. 12:07:00 Patient has been NPO for More than 6Hrs. 12:07:01 Skin Breakdown none per pt 12:07:03 Patient Warmer Placed on the Table. 12:07:05 Janice Prominences Protected 12:07:06 A # 20 IV was noted in the Antecubital (right). Grade = 0 12:07:07 Patient arrived on IV Solutions in Right Antecubital via Peripheral IV. Pump/Drip Flow = 30 ml/hr using NaCl .9. 12:07:08 History and physical on the chart or being dictated. Assessment: Initial Case, HR=76 BPM, KGRH=597/54 mmhg, Edema=None, Color=Normal, Skin = Warm, D ry 12:07:11 Neurological: State=Alert, Ox3, SHIPMAN Respiration: Resp=12 B/min, ZkX5=040 % Vitals capture started with the following parameters, Patient=Adult, Interval=5 min, Initial Pr mgxwqp=365 mmHg, 12:09:46 Deflation Rate=5 mmHg, Cuff placed on Right Ankle 12:10:34 OBAR=148/54 mmhg, SpO2=96.0 %, Pain=0, Aleah=10, Smallwood=2 12:15:29 HR=73 bpm, OOVI=067/78 mmhg, SfN5=453.0 %, Resp=9 B/min, Pain=0, Aleah=10, Smallwood=2 12:16:33 2 mg VERSED given in lab by Chuckie Dickens RN in Right Antecubital via Peripheral IV. 12:17:45 50 mcg FENTANYL given in lab by Chuckie Dickens RN in Right Antecubital via Peripheral IV. 12:19:17 Left groin prepped with 2% chlorhexidine, and draped after a 3 min. waiting time. 12:20:28 HR=73 bpm, QFBB=586/71 mmhg, SpO2=97.0 %, Resp=10 B/min, Pain=0, Aleah=10, Smallwood=2 Time Out. Correct patient, correct procedure, correct physician, power injector loaded with con trast with surgical team 12:: present. Time Out Concurred by MD and individual staff in procedure. 12::47 Case Start 12::50 1 mg VERSED given in lab by Chuckie Dickens RN in Right Antecubital via Peripheral IV. 12::56 20 mL 1% XYLOCAINE given in lab by Thomas Xiong in Left Groin via Subcutaneous. 12:: Reference ECG taken 12::29 25 mcg FENTANYL given in lab by Chuckie Dickens RN in Right Antecubital via Peripheral IV. 12:24:10 Access site was Left Femoral Artery. A INTRODUCER SET, MICROPUNCTURE STIFF FR 5 was advanced into the Fem Art (left) using the Al ocampo 12::24 technique. A SHEATH, FR4 TERUMO (10CM) FR 4 was exchanged in the Fem Art (left). This was necessary in ord er to 12:24:39 accomodate a larger catheter. 12::27 HR=80 bpm, SYDI=551/67 mmhg, GkB6=170.0 %, Resp=13 B/min, Pain=0, Aleah=10, Smallwood=2 A OMNI FLUSH 65CM CATHETER FR 4 was advanced over a wire. OMNIPAQUE, 300 MG, 150ML 150ML was us ed for 12::54 injections. 12::42 Wire removed 12:: Through a OMNI FLUSH 65CM CATHETER FR 4, The Abdominal Aorta was injected with 10 cc's of c ontrast. 12::12 5000 units HEPARIN given in lab by Chuckie Dickens RN in Right Antecubital via Peripheral IV. 12::57 A WIRE, ANGLED GLIDE .035 260CM 260CM was inserted via Fem Art (left). 12:30:30 HR=77 bpm, NUIR=238/62 mmhg, SpO2=99.0 %, Resp=13 B/min, Pain=0, Aleah=10, Smallwood=2 12::54 25 mcg FENTANYL given in lab by Chuckie Dickens RN in Right Antecubital via Peripheral IV. 12:31:02 Wire removed 12:32:15 contrast and 30 JANNETTE INDEFLATOR added. A SHEATH, FR6 GWEN 1 FLEXOR FR 6 was exchanged in the Fem Art (left). This was necessary in or andrew to 12:32:31 accomodate a larger catheter. 12:32:43 2 mg VERSED given in lab by Chuckie Dickens RN in Right Antecubital via Peripheral IV. 12:35:31 HR=82 bpm, QZPI=874/56 mmhg, SpO2=96.0 %, Resp=13 B/min, Pain=0, Aleah=10, Smallwood=2 A BALLOON, ADVANCE 35 LP .035 6 X 10 6 X 10 was inserted over WIRE, CHUN CURVED GUIDE 260CM 26 0CM via 12:38:04 the Fem Art (left). 12:38:36 In the Fem Art (right) a BALLOON, ADVANCE 35 LP .035 6 X 10 6 X 10 was inflated to 8 atms f or 120 seconds. 12:40:26 HR=83 bpm, TRWT=248/59 mmhg, SpO2=98.0 %, Resp=8 B/min, Pain=0, Aleah=10, Smallwood=2 12:40:52 2 g ANCEF given in lab by Chuckie Dickens RN in Right Antecubital via Peripheral IV. 12:41:32 Balloon Removed A BALLOON, ADMIRAL IN.PACT 6 X 120 130CM 130CM was inserted over WIRE, CHUN CURVED GUIDE 260CM 260CM 12:43:40 via the Fem Art (left). 12:44:33 In the Fem Art (right) a BALLOON, ADMIRAL IN.PACT 6 X 120 130CM 130CM was inflated to 10 at ms for 180 seconds. 12:45:28 50 mcg FENTANYL given in lab by Chuckie Dickens RN in Right Antecubital via Peripheral IV. 12:46:02 HR=82 bpm, RBQJ=854/71 mmhg, QwE8=957.0 %, Resp=7 B/min 12:48:36 Balloon Removed 12:50:28 HR=80 bpm, LKYN=308/66 mmhg, SpO2=99.0 %, Resp=12 B/min, Pain=0, Aleah=10, Smallwood=2 12:50:49 A OMNI FLUSH 65CM CATHETER FR 4 was advanced over a wire. contrast was used for injections. 12:50:55 Wire removed Through a OMNI FLUSH 65CM CATHETER FR 4, The Iliac R. Com. (R4) was injected with 10 cc's of co ntrast. Injections 12:52:52 continued down the right leg 12:55:01 A WIRE, CHUN CURVED GUIDE 260CM 260CM was inserted via Fem Art (left). 12:55:30 HR=92 bpm, YFSA=668/69 mmhg, SpO2=98.0 %, Resp=13 B/min, Pain=0, Aleah=10, Smallwood=2 12:55:34 Catheter was removed 12:56:37 ANGIOSEAL, FR6 VIP FR 6 placement in the Fem Art (left) 12:57:51 Case End 12:57:55 50 mcg FENTANYL given in lab by Chuckie Dickens RN in Right Antecubital via Peripheral IV. 12:58:05 Called DOCU. Spoke to Brad. 12:58:20 Catheter(s) removed without difficulty 12:58:33 No case complications noted. 12:58:37 Holding Area notified of successful intervention. 12:58:38 Bedside Report will be given. 12:58:39 Implantable Device card placed in patient's chart. 12:59:57 Sterile dressing applied to site 13:00:29 HR=88 bpm, SXCX=695/77 mmhg, SpO2=99.0 %, Resp=10 B/min, Pain=0, Aleah=10, Smallwood=2 13:03:07 Vitals capture stopped. 13:05:12 Patient moved to [facility] End Study - Contrast Media Used In Study Contrast Total Opened (mL) Total Used (mL) Total Wasted (mL) Omnipaque 55 55 0 End Study - Maximum Contrast Load Max Contrast Load (mL) 522.4 End Study - Radiation Exposure Fluoro Time (minutes) 7.9 End Study - Sheaths Sheaths Pulled By Sheath Hold Time (min) Thomas Xiong End Study - Patient Disposition Complications Transferred To Interventional Outcome No Prosthetics Lab Technician Holding successful
--- NOTE | 2017-12-28 14:56 | MP ---
cc: Thomas Xiong MD DATE OF OPERATION: 12/28/17 PREOPERATIVE DIAGNOSIS: Right lower extremity critical ischemia, failed bypass. POSTOPERATIVE DIAGNOSIS: Right lower extremity critical ischemia, failed bypass. PROCEDURE: 1. Aortogram with right lower extremity angiograms. 2. Right external iliac artery angioplasty with 6 mm drug-coated balloon. SURGEON: Thomas Xiong MD ANESTHESIA: Local with sedation. INDICATION: Ms. Burnham is a 62-year-old lady who has several right lower extremity bypasses, most recent of which was noted to be failed. She was taken to the operating room for angiographic evaluation and treatment of her right lower extremity ischemia. There is no prior catheter-based imaging available for my review since the onset of her ischemic symptoms. DESCRIPTION OF PROCEDURE: Informed consent was obtained from the patient. She was taken to the operating room and placed supine on the operating table, and appropriate timeout was taken to ensure the patient's identify, operative site and planned procedure. The administration of antibiotics was not necessary, as this is a clean procedure without planned implantation of any foreign object. Everyone in the room agreed with timeout and we proceeded. Her left groin was prepped and draped and locally anesthetized with 1% lidocaine. A 21-gauge micropuncture needle was used to access the left common femoral artery. This was exchanged using Seldinger technique for a micropuncture sheath, through which a 0.035 Glidewire was inserted. The micropuncture sheath was exchanged for a 4 Cameroonian sheath and a VCF catheter was placed over the wire through the sheath, and aortogram and pelvic arteriogram was obtained. The patient was systemically heparinized with 6000 units of IV heparin. The Glidewire and VCF catheter were advanced down to the right common femoral artery and the glide was exchanged for a Shen wire. The VCF catheter was removed. The 4 Cameroonian sheath was removed and a 6 Cameroonian 45 cm Ayush sheath was introduced. The entire external iliac artery was angioplastied with 6 mm regular and then drug-coated balloon. A completion angiogram showed excellent result and no recoil extravasation or flow-limiting dissection. The VCF catheter was advanced over the Shen wire, and the Shen was removed and a right lower extremity angiogram was obtained. Wire, catheter and sheath removed and groin was closed with an Angio-Seal. There were no complications. I was present and scrubbed and performed the entire procedure. INTERPRETATION OF IMAGES: The patient has patent common iliac artery stents bilaterally, diminutive but patent hypogastric arteries, and a right external iliac artery high-grade smooth stenosis in the mid external iliac artery. The common femoral artery appears to be surgically replaced and diminutive profunda. The SFA is occluded and the previously placed bypasses x 2 are occluded. The profunda based collaterals give rise to what I believed to be a proximal posterior tibial artery, but due to lack of contrast opacification, this is difficult to ascertain. MD MIA Broussard/SERGIO , 02:26 PM , 02:54 PM MTDD
[2017-12-28] MEDS ORDERED: IOHEXOL 350 MG/ML 100 ML BTL (for Cath Lab) OTHER ONE (17:35)
[2017-12-28] MEDS ORDERED: RESP: IPRATROPIUM 0.5 MG/2.5 ML NEB NEB SCH (22:00)
[2017-12-28] MEDS: MORPHINE SULFATE 4 MG/ML INJ IV PUSH PRN (22:54)
[2017-12-29] VITALS: BP 143/65; PULSE 77; RESP 18; TEMP 97.3; O2SAT 97
[2017-12-29] MEDS: oxyCODONE/ACETAMINOPHEN 10 MG/325 MG TAB PO PRN ×2 (02:13→04:54)
[2017-12-29] MEDS: MORPHINE SULFATE 4 MG/ML INJ IV PUSH PRN ×7 (03:19→21:20)
[2017-12-29] MEDS ORDERED: oxyCODONE/ACETAMINOPHEN 10 MG/325 MG TAB PO ONE (04:45)
[2017-12-29] MEDS: LEVOTHYROXINE SODIUM 100 MCG TAB PO SCH (04:53)
[2017-12-29 08:00] VITALS: BP 159/74; PULSE 80; RESP 17; TEMP 97.7; O2SAT 97; O2SAT 99
[2017-12-29] MEDS: SODIUM CHLORIDE 0.9% FLUSH 10 ML FLUSH IV FLUSH SCH ×2 (08:28→19:50)
[2017-12-29] MEDS: DOCUSATE SODIUM 50 MG/SENNA 8.6 MG TAB PO SCH ×2 (08:28→19:49)
[2017-12-29] MEDS: LISINOPRIL 5 MG TAB PO SCH ×2 (08:28→19:50)
[2017-12-29] MEDS ORDERED: MORPHINE SULFATE 4 MG/ML INJ IV PUSH PRN (08:30)
[2017-12-29] MEDS: HEPARIN-D5W 25,000 U/250 ML 250 ML IV PRN (08:34)
--- NOTE | 2017-12-29 09:24 | PD.VS.PN ---
Subjective Subjective/Hospital Course POD#1 s/p R EIA ANALYST SALES and R LE angiogram overnight, foot continues to hurt, clinically consistent with ischemic rest pain no wounds Objective Vitals/I&O Date Time Temp Pulse Resp B/P (MAP) Pulse Ox O2 Delivery O2 Flow Rate FiO2 12/29/17 08:00 97.7 80 17 159/74 (102) 97 12/29/17 00:00 97.3 77 18 143/65 (91) 97 12/28/17 18:55 97.7 91 16 133/62 (85) 100 12/28/17 16:00 97.6 79 18 122/85 (97) 97 12/28/17 14:16 77 16 160/66 (97) 98 12/28/17 14:00 71 16 137/72 (93) 98 12/28/17 13:45 76 16 149/68 (95) 98 12/28/17 13:30 74 16 150/76 (100) 98 12/28/17 13:25 95 Room Air 12/28/17 13:13 83 18 142/67 (92) 98 12/28/17 12:00 97.7 71 16 123/58 (79) 97 Physical Exam R foot cool motor intact Laboratory Laboratory Tests Test 12/28/17 11:10 12/28/17 22:45 White Blood Count 8.2 Red Blood Count 4.31 Hemoglobin 12.9 Hematocrit 38.8 Mean Corpuscular Volume 90.1 Mean Corpuscular Hemoglobin 29.9 Mean Corpuscular Hemoglobin Concent 33.2 Red Cell Distribution Width 14.3 Platelet Count 276 Mean Platelet Volume 9.6 Neutrophils (%) (Auto) 55.2 Lymphocytes (%) (Auto) 34.5 Monocytes (%) (Auto) 7.1 Eosinophils (%) (Auto) 2.1 Basophils (%) (Auto) 1.1 Neutrophils # (Auto) 4.5 Lymphocytes # (Auto) 2.8 Monocytes # (Auto) 0.6 Eosinophils # (Auto) 0.2 Basophils # (Auto) 0.1 CBC Comment DIFF FINAL Differential Comment Activated Partial Thromboplast Time 51.5 45.6 Assessment and Plan Plan Occluded R LE bypass 1. continue systemic anticoagulation; ok to transition to therapeutic lovenox and d/c hep gtt at administration of 2nd dose 2. Only options are continued pain management, BKA, or 4th time redo bypass with questionable target and no conduit; discussed frankly with patient today. She will discuss with her family. Could do bypass as early as afternoon or could proceed with BKA then as well Thomas Xiong MD FACS RPVI cuffer [facility] - Heart and Vascular Surgery at [facility] [phone] Thomas Xiong MD December 29, 2017 09:23
[2017-12-29] MEDS: HYDROmorphone HCL PF 0.5 MG/0.5 ML SYRINGE IV PUSH PRN ×5 (09:54→22:48)
--- NOTE | 2017-12-29 10:07 | HHI.FPPN ---
Subjective Remarks Pt seen and examined this morning. S/p angiogram yesterday. States the pain is worse today in her right leg. Pain fluctuates every 10 minutes or so and has to change position. States her leg feels less cold today. Otherwise denies any other symptoms, including chest pain, SOB, abdominal pain, leg pain. (Johan Maciel MD R2) Objective Vitals Vital Signs Date Time Temp Pulse Resp B/P (MAP) Pulse Ox O2 Delivery O2 Flow Rate FiO2 12/29/17 08:00 97.7 80 17 159/74 (102) 97 12/29/17 00:00 97.3 77 18 143/65 (91) 97 12/28/17 18:55 97.7 91 16 133/62 (85) 100 12/28/17 16:00 97.6 79 18 122/85 (97) 97 12/28/17 14:16 77 16 160/66 (97) 98 12/28/17 14:00 71 16 137/72 (93) 98 12/28/17 13:45 76 16 149/68 (95) 98 12/28/17 13:30 74 16 150/76 (100) 98 12/28/17 13:25 95 Room Air 12/28/17 13:13 83 18 142/67 (92) 98 12/28/17 12:00 97.7 71 16 123/58 (79) 97 I/O 12/28/17 12/28/17 12/28/17 12/29/17 12/29/17 12/29/17 07:00 15:00 23:00 07:00 15:00 23:00 Intake Total 0 ml 1000 ml Balance 0 ml 1000 ml Intake Oral 0 ml IV Total 1000 ml # Voids 3 # Bowel Movements 0 (Johan Maciel MD R2) Result Diagram: 12/28/17 1110 12/28/17 0235 Objective Remarks GENERAL: This is a well-nourished, well-developed patient, in no apparent distress. CARDIOVASCULAR: Regular rate and rhythm without murmurs, gallops, or rubs. RESPIRATORY: Clear to auscultation. Breath sounds equal bilaterally. No wheezes , rales, or rhonchi. GASTROINTESTINAL: Abdomen soft, non-tender, nondistended. MUSCULOSKELETAL: Improved color of RLE. Right foot is cool. Diminished pulses. Tender to palpation. Able to move right foot spontaneously NEUROLOGICAL: Awake and alert. Motor and sensory grossly within normal limits. Normal speech. (Johan Maciel MD R2) A/P Assessment and Plan 62-year-old female with history of peripheral arterial disease, hypertension, hypothyroidism presents with right leg. Found to have vascular occlusion, will admit for management and vascular consultation. Vascular surgery planning for angiogram on 12/28 with possible iliac stents and evaluation for potential third distal bypass. Discharge Planning Discharge pending vascular surgery evaluation (Johan Maciel MD R2) Attending Attestation Patient seen and examined. She is understandably emotional about the potential outcome of amputation. Case reviewed and discussed with the resident team. Agree with plan of care as discussed with me and documented in the resident note . (Mary Alice Herrera MD) Problem List: (1) Vascular occlusion ICD Codes: I99.8 - Other disorder of circulatory system Status: Acute Plan: Patient presents with right leg pain. History of PAD. Right lower extremity cool to touch and diminished peripheral pulses. Has seen Dr. Xiong for multiple revascularizations. Aorta with runoff CTA shows narrowing of entire external iliac arteries, occlusion of superficial femoral arteries bilaterally. Occlusion of right anterior tibial artery at the mid calf. Ultrasound of leg shows no DVT -Vascular consultation-appreciate recs -Transition to lovenox today -S/p angiogram -Pending bypass vs BKA later this week -Increase pain regimen to morphine/dilaudid PRN pain (2) JUAN (acute kidney injury) ICD Codes: N17.9 - Acute kidney failure, unspecified Status: Resolved Plan: Cr of 1.04 upon admission. Up from 0.66 in 09/12/17. BUN 26. Likely prerenal Creatinine improved to 0.89 on 12/28 -Tolerating PO -Avoid nephrotoxic agents -Monitor BMP (3) HTN (hypertension) ICD Codes: I10 - Essential (primary) hypertension Status: Chronic Plan: Continue home lisinopril (4) Hypothyroid ICD Codes: E03.9 - Hypothyroidism, unspecified Status: Chronic Plan: Continue home synthroid (5) FEN Status: Chronic Plan: Fluids: Tolerating PO Electrolytes; wnl, continue to monitor Nutrition: Heart healthy diet DVT ppx: Lovenox (Johan Maciel MD R2) Problem Qualifiers (1) HTN (hypertension): Qualified Codes: I10 - Essential (primary) hypertension Johan Maciel MD R2 December 29, 2017 10:06 Mary Alice Herrera MD December 29, 2017 14:16
[2017-12-29 12:00] VITALS: BP 150/63; PULSE 80; RESP 16; TEMP 97.7; O2SAT 98
[2017-12-29] MEDS: ENOXAPARIN SODIUM 80 MG/0.8 ML SYRINGE SQ SCH (15:14)
[2017-12-29 16:00] VITALS: BP 163/85; PULSE 85; RESP 18; TEMP 97.5; O2SAT 100
[2017-12-29 20:00] VITALS: BP 122/81; PULSE 94; RESP 18; TEMP 98.3; O2SAT 97
[2017-12-29] MEDS: SODIUM CHLORIDE 0.9% FLUSH 10 ML FLUSH IV FLUSH PRN ×2 (21:20→22:48)
[2017-12-30] VITALS: BP 141/61; PULSE 87; RESP 18; TEMP 99; O2SAT 96
[2017-12-30] MEDS: MORPHINE SULFATE 4 MG/ML INJ IV PUSH PRN ×8 (00:24→22:59)
[2017-12-30] MEDS: SODIUM CHLORIDE 0.9% FLUSH 10 ML FLUSH IV FLUSH PRN ×8 (00:25→18:03)
[2017-12-30] MEDS: HYDROmorphone HCL PF 0.5 MG/0.5 ML SYRINGE IV PUSH PRN ×7 (02:03→21:01)
[2017-12-30] MEDS: ENOXAPARIN SODIUM 80 MG/0.8 ML SYRINGE SQ SCH (03:21)
[2017-12-30] MEDS: LEVOTHYROXINE SODIUM 100 MCG TAB PO SCH (05:02)
[2017-12-30 08:00] VITALS: BP 146/65; PULSE 85; RESP 16; TEMP 98.1; O2SAT 93
[2017-12-30] MEDS: SODIUM CHLORIDE 0.9% FLUSH 10 ML FLUSH IV FLUSH SCH ×2 (08:26→21:02)
[2017-12-30] MEDS: DOCUSATE SODIUM 50 MG/SENNA 8.6 MG TAB PO SCH ×2 (08:28→21:02)
[2017-12-30] MEDS: LISINOPRIL 5 MG TAB PO SCH ×2 (08:28→21:02)
--- NOTE | 2017-12-30 09:31 | HHI.FPPN ---
Subjective Remarks No acute events overnight. Patient continues to have pain in her right lower leg. States she is having more difficulty moving her ankle and also has pins and needles in her foot. Edema is mildly improved from yesterday after discontinuing IV fluids. Per patient, vascular surgery planning for attempt at bypass tomorrow. Patient remains hopeful that she will not have to have amputation. Denies chest pain, shortness of breath. She has not had a bowel movement since admission (Hubert Keen MD R1) Objective Vitals Vital Signs Date Time Temp Pulse Resp B/P (MAP) Pulse Ox O2 Delivery O2 Flow Rate FiO2 12/30/17 00:00 99.0 87 18 141/61 (87) 96 12/29/17 20:00 98.3 94 18 122/81 (95) 97 12/29/17 16:00 97.5 85 18 163/85 (111) 100 12/29/17 12:00 97.7 80 16 150/63 (92) 98 I/O 12/29/17 12/29/17 12/29/17 12/30/17 12/30/17 12/30/17 07:00 15:00 23:00 07:00 15:00 23:00 Intake Total 750 ml Balance 750 ml Intake Oral 750 ml # Voids 4 # Bowel Movements 0 (Hubert Keen MD R1) Result Diagram: 12/28/17 1110 12/28/17 0235 Objective Remarks GENERAL: This is a well-nourished, well-developed patient, in no apparent distress. CARDIOVASCULAR: Regular rate and rhythm without murmurs, gallops, or rubs. RESPIRATORY: Clear to auscultation. Breath sounds equal bilaterally. No wheezes , rales, or rhonchi. GASTROINTESTINAL: Abdomen soft, non-tender, nondistended. MUSCULOSKELETAL: No change in color of RLE. Right foot is cool. Diminished pulses. Tender to palpation. Mildly less edematous compared to prior exam. Able to move right foot spontaneously but patient states this is becoming more difficult NEUROLOGICAL: Awake and alert. Motor and sensory grossly within normal limits. Normal speech. (Hubert Keen MD R1) A/P Assessment and Plan 62-year-old female with history of peripheral arterial disease, hypertension, hypothyroidism presents with right leg. Found to have vascular occlusion, will admit for management and vascular consultation. Vascular surgery performed angiogram with angioplasty on 12/28. Patient continued to have right leg pain, poor perfusion postoperatively and vascular surgery is planning for attempt at bypass on 12/31 with the knowledge that had a amputation is highly possible. Discharge Planning Discharge pending vascular surgery evaluation (Hubert Keen MD R1) Attending Attestation Patient seen, discussed with Dr. Keen. Patient understands the plan for tomorrow which is to attempt a bypass procedure if possible. If not possible, the plan is not to proceed to amputation until further discussion. Patient requested that we put a sign on her door to restrict visitors because she needs quiet time to get her head around what is happening with her. Her lower extremities are swollen right greater than left and she is having worsening stiffness in her right ankle. She is not terribly optimistic since she has already had 3 procedures on this leg but is willing to try. I agree with the physical findings as documented above, and with the plan. (Mary Alice Herrera MD) Problem List: (1) Vascular occlusion ICD Codes: I99.8 - Other disorder of circulatory system Status: Acute Plan: Patient presents with right leg pain. History of PAD. Right lower extremity cool to touch and diminished peripheral pulses. Has seen Dr. Xiong for multiple revascularizations. Aorta with runoff CTA shows narrowing of entire external iliac arteries, occlusion of superficial femoral arteries bilaterally. Occlusion of right anterior tibial artery at the mid calf. Ultrasound of leg shows no DVT -Vascular consultation-appreciate recs -Transition to lovenox on 12/29 -S/p angiogram with angioplasty on 12/28 -Planning for bypass on 12/31 with the possibility of a BKA following that if unsuccessful -Pain regimen morphine/dilaudid PRN pain -currently more well controlled (2) JUAN (acute kidney injury) ICD Codes: N17.9 - Acute kidney failure, unspecified Status: Resolved Plan: Cr of 1.04 upon admission. Up from 0.66 in 09/12/17. BUN 26. Likely prerenal Currently resolved -Tolerating PO -Avoid nephrotoxic agents -Monitor BMP (3) HTN (hypertension) ICD Codes: I10 - Essential (primary) hypertension Status: Chronic Plan: Continue home lisinopril (4) Constipation ICD Codes: K59.00 - Constipation, unspecified Plan: Patient is on a bowel movement since admission. Likely secondary to opioids for pain No abdominal pain, distention or bloating. We will increase Nahomi-Colace to 2 tabs twice daily, other constipation meds available as needed (5) Hypothyroid ICD Codes: E03.9 - Hypothyroidism, unspecified Status: Chronic Plan: Continue home synthroid (6) FEN Status: Chronic Plan: Fluids: Tolerating PO Electrolytes; wnl, continue to monitor Nutrition: Heart healthy diet, n.p.o. at midnight for procedure tomorrow DVT ppx: Lovenox (Hubert Keen MD R1) Problem Qualifiers (1) HTN (hypertension): Qualified Codes: I10 - Essential (primary) hypertension Hubert Keen MD R1 December 30, 2017 09:31 Mary Alice Herrera MD December 30, 2017 12:33
--- NOTE | 2017-12-30 10:37 | PD.VS.PN ---
Subjective POD #: 2 Procedure(s): Aortogram w/ R LE angiogram R EIA STEAM TRAP MAN (6mm DCB) L DIMENSION SPECIFICATION INSPECTOR Angioseal Subjective/Hospital Course 62/F S/P RIGHT EIA STEAM TRAP MAN and R LE angiogram Pt reported she was able to rest last night Pt continues to c/o persistent R LE (foot) pain R foot discolored with darkening dusky discoloration No wounds noted Objective Vitals/I&O Date Time Temp Pulse Resp B/P (MAP) Pulse Ox O2 Delivery O2 Flow Rate FiO2 12/30/17 08:00 98.1 85 16 146/65 (92) 93 12/30/17 00:00 99.0 87 18 141/61 (87) 96 12/29/17 20:00 98.3 94 18 122/81 (95) 97 12/29/17 16:00 97.5 85 18 163/85 (111) 100 12/29/17 12:00 97.7 80 16 150/63 (92) 98 Exam: GENERAL: A&OX3,NAD SKIN: R LE cool to touch, motor intact R LE dusky with purplish discoloration Non palpable R DP/PT LEFT groin w/o hematoma or swelling Laboratory Laboratory Tests Test 12/29/17 12:31 Activated Partial Thromboplast Time 42.7 Assessment and Plan Assessment: (1) Limb ischemia (2) PAD (peripheral artery disease) Status: Acute Plan 62/F pt w/ a HX of an occluded R LE bypass Pt continues w/ ischemic R LE rest pain, motor intact No wounds present Pain controlled Plan Discussed and reviewed R LE distal bypass surgical intervention w/ pt (4th time redo bypass) Pt agrees w/ plan Consent signed and pt scheduled for tomorrow am w/ Dr. 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
[2017-12-30 12:00] VITALS: BP 135/60; PULSE 76; RESP 16; TEMP 98.5; O2SAT 98
[2017-12-30] MEDS ORDERED: DOCUSATE SODIUM 50 MG/SENNA 8.6 MG TAB PO SCH (13:00)
[2017-12-30 13:27] VITALS: O2SAT 94
[2017-12-30 16:00] VITALS: BP 157/66; PULSE 83; RESP 16; TEMP 97.9; O2SAT 99
[2017-12-30 20:00] VITALS: BP 142/65; PULSE 83; RESP 16; TEMP 97.5; O2SAT 100
[2017-12-31] VITALS: BP 125/57; PULSE 84; RESP 15; TEMP 98.1; O2SAT 96
[2017-12-31] MEDS: HYDROmorphone HCL PF 0.5 MG/0.5 ML SYRINGE IV PUSH PRN ×4 (00:05→09:36)
[2017-12-31] MEDS: MORPHINE SULFATE 4 MG/ML INJ IV PUSH PRN ×3 (02:07→08:30)
[2017-12-31] MEDS: LEVOTHYROXINE SODIUM 100 MCG TAB PO SCH (05:20)
[2017-12-31 05:49] LABS: AUTOMATED NEUTROPHIL # 6.6 TH/MM3 (1.8-7.7); BASOPHIL % 0.4 % (0.0-2.0); EOSINOPHIL # 0.2 TH/MM3 (0-0.4); EOSINOPHIL % 1.7 % (0.0-4.0); HEMATOCRIT 34.3 % (35.0-46.0); HEMOGLOBIN 11.5 GM/DL (11.6-15.3); LYMPH % 14.9 % (9.0-44.0); LYMPHOCYTE # 1.3 TH/MM3 (1.0-4.8); MEAN CELL VOLUME 89.6 FL (80.0-100.0); MEAN CORPUSCULAR HEMOGLOBIN 29.9 PG (27.0-34.0); MEAN CORPUSCULAR HGB CONC 33.4 % (32.0-36.0); MEAN PLATELET VOLUME 9.5 FL (7.0-11.0); MONO % 8.5 % (0.0-8.0); MONOCYTE # 0.8 TH/MM3 (0-0.9); NEUT % 74.5 % (16.0-70.0); PLATELET COUNT 214 TH/MM3 (150-450); RED BLOOD COUNT 3.83 MIL/MM3 (4.00-5.30); RED CELL DISTRIBUTION WIDTH 14.1 % (11.6-17.2); WHITE BLOOD COUNT 8.8 TH/MM3 (4.0-11.0)
[2017-12-31 06:21] LABS: BICARBONATE 25.3 MEQ/L (21.0-32.0); CREATININE 0.76 MG/DL (0.50-1.00)
[2017-12-31 08:00] VITALS: BP 153/69; PULSE 83; RESP 18; TEMP 98.3; O2SAT 98
[2017-12-31] MEDS: DOCUSATE SODIUM 50 MG/SENNA 8.6 MG TAB PO SCH ×2 (08:31→20:04)
[2017-12-31] MEDS: LISINOPRIL 5 MG TAB PO SCH ×2 (08:31→20:04)
[2017-12-31] MEDS: SODIUM CHLORIDE 0.9% FLUSH 10 ML FLUSH IV FLUSH SCH ×2 (08:33→20:04)
[2017-12-31] MEDS: SODIUM CHLORIDE 0.9% FLUSH 10 ML FLUSH IV FLUSH PRN (09:36)
--- NOTE | 2017-12-31 09:49 | HHI.FPPN ---
Subjective Remarks No acute events overnight. Patient states that her leg pain has gradually worsened. She feels tightness/swelling up to the level of her knee. Operation scheduled for today at noon. Denies CP, SOB, N/V. (Hubert Keen MD R1) Objective Vitals Vital Signs Date Time Temp Pulse Resp B/P (MAP) Pulse Ox O2 Delivery O2 Flow Rate FiO2 12/31/17 00:00 98.1 84 15 125/57 (79) 96 12/30/17 20:00 97.5 83 16 142/65 (90) 100 12/30/17 18:33 16 12/30/17 16:35 16 12/30/17 16:00 97.9 83 16 157/66 (96) 99 12/30/17 13:27 94 21 12/30/17 12:00 98.5 76 16 135/60 (85) 98 I/O 12/30/17 12/30/17 12/30/17 12/31/17 12/31/17 12/31/17 07:00 15:00 23:00 07:00 15:00 23:00 Intake Total 1500 ml 0 ml Balance 1500 ml 0 ml Intake Oral 1500 ml 0 ml # Voids 8 2 # Bowel Movements 0 0 (Hubert Keen MD R1) Result Diagram: 12/31/17 0410 12/31/17 0410 Objective Remarks GENERAL: This is a well-nourished, well-developed patient, in no apparent distress. CARDIOVASCULAR: Regular rate and rhythm without murmurs, gallops, or rubs. RESPIRATORY: Clear to auscultation. Breath sounds equal bilaterally. No wheezes , rales, or rhonchi. GASTROINTESTINAL: Abdomen soft, non-tender, nondistended. MUSCULOSKELETAL: Slightly more discoloration of the RLE. Right foot is cool. Diminished pulses. Tender to palpation. NEUROLOGICAL: Awake and alert. Motor and sensory grossly within normal limits. Normal speech. (Hubert Keen MD R1) A/P Assessment and Plan 62-year-old female with history of peripheral arterial disease, hypertension, hypothyroidism presents with right leg. Found to have vascular occlusion, will admit for management and vascular consultation. Vascular surgery performed angiogram with angioplasty on 12/28. Patient continued to have right leg pain, poor perfusion postoperatively and vascular surgery is planning for attempt at bypass on 12/31 with the knowledge that had a amputation is highly possible. Discharge Planning Discharge pending vascular surgery evaluation (Hubert Keen MD R1) Attending Attestation Pt. seen in PACU after bypass procedure on right lower leg. 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 Discussed with the medicine team. appreciate Dr. Xiong. I agree with the plan as documented. (Mary Alice Herrera MD) Problem List: (1) Vascular occlusion ICD Codes: I99.8 - Other disorder of circulatory system Status: Acute Plan: Patient presents with right leg pain. History of PAD. Right lower extremity cool to touch and diminished peripheral pulses. Has seen Dr. Xiong for multiple revascularizations. Aorta with runoff CTA shows narrowing of entire external iliac arteries, occlusion of superficial femoral arteries bilaterally. Occlusion of right anterior tibial artery at the mid calf. Ultrasound of leg shows no DVT -Vascular consultation-appreciate recs -Transitioned to lovenox on 12/29. DC'd on 12/30 with surgery planned on 12/31 -S/p angiogram with angioplasty on 12/28 -Planning for bypass on 12/31 with the possibility of a BKA following that if unsuccessful -Pain regimen morphine/dilaudid PRN pain -currently more well controlled (2) JUAN (acute kidney injury) ICD Codes: N17.9 - Acute kidney failure, unspecified Status: Resolved Plan: Cr of 1.04 upon admission. Up from 0.66 in 09/12/17. BUN 26. Likely prerenal Currently resolved -Tolerating PO -Avoid nephrotoxic agents -Monitor BMP (3) HTN (hypertension) ICD Codes: I10 - Essential (primary) hypertension Status: Chronic Plan: Continue home lisinopril (4) Constipation ICD Codes: K59.00 - Constipation, unspecified Plan: Likely secondary to opioids for pain No abdominal pain, distention or bloating. We will increase Nahomi-Colace to 2 tabs twice daily, other constipation meds available as needed (5) Hypothyroid ICD Codes: E03.9 - Hypothyroidism, unspecified Status: Chronic Plan: Continue home synthroid (6) FEN Status: Chronic Plan: Fluids: Tolerating PO Electrolytes; wnl, continue to monitor Nutrition: Currently NPO for procedure today DVT ppx: Lovenox DC'd on 12/30 in anticipation of procedure. (Hubert Keen MD R1) Problem Qualifiers (1) HTN (hypertension): Qualified Codes: I10 - Essential (primary) hypertension Hubert Keen MD R1 December 31, 2017 09:49 Mary Alice Herrera MD December 31, 2017 15:36
[2017-12-31] MEDS ORDERED: PROTAMINE SULFATE 50 MG/5 ML VIAL ONE (10:39)
[2017-12-31] MEDS ORDERED: HEPARIN SODIUM - IV 10,000 UNITS/10 ML VIAL ONE ×3 (10:39→12:20)
[2017-12-31] MEDS ORDERED: THROMBIN (TOPICAL) 20,000 UNIT SPRAY KIT ONE (10:40)
[2017-12-31] MEDS ORDERED: HEPARIN-NS/PF INJ 500 ML ONE (10:40)
[2017-12-31] MEDS ORDERED: ceFAZolin 2 GM PREMIX 50 ML ONE (10:40)
[2017-12-31] MEDS ORDERED: BUPIVACAINE HCL PF 0.5% 30 ML VIAL ONE (10:40)
[2017-12-31] MEDS ORDERED: IOHEXOL 300 INJ 50 ML IV ONE (12:40)
[2017-12-31] MEDS ORDERED: ACETAMINOPHEN 1000 MG/100 ML 100 ML IV ONE (13:28)
--- NOTE | 2017-12-31 14:39 | HHI.PR ---
cc: Thomas Xiong MD Immediate Post Op Note Procedure Date: December 31, 2017 Pre Op Diagnosis: R LE ischemia, PAD, failed bypass Post Op Diagnosis: R LE ischemia, PAD, failed bypass Surgeon: Thomas Xiong Engineering Technical Specialist(s): Thomas Mercedes Procedure: 1. R fem-PT with artegraft 2. Redo bypass 3. R EIA stent 4. R LE angiogram Findings: very small artery muslim of inflow +Doppler signal at foot Complications: none Specimen(s) removed: none Estimated blood loss: 150mL Anesthesia: General Drains: None Fluids: 2700mL IVF Urinary Output (mLs): 450 Patient to: PACU Patient Condition: Good Implant/Devices: SEE IMPLANT LOG (if applicable) Date/Time of Procedure: SEE SURGICAL CARE RECORD Thomas Xiong MD December 31, 2017 14:39
[2017-12-31] MEDS ORDERED: HEPARIN-D5W 25,000 U/250 ML 250 ML IV PRN ×2 (14:45→17:00)
[2017-12-31] MEDS ORDERED: NALOXONE HCL 0.4 MG/ML AMP IV PUSH PRN (14:45)
[2017-12-31] MEDS ORDERED: DO NOT ADM ANY ANTICOAGULANT DRUGS PRN (14:58)
[2017-12-31] MEDS ORDERED: *morphine SULFATE 4 MG/ML PERIprocedure ONLY ONE ×2 (15:16→15:32)
[2017-12-31 15:35] LABS: HEMATOCRIT 31.4 % (35.0-46.0); HEMOGLOBIN 10.6 GM/DL (11.6-15.3); MEAN CELL VOLUME 89.5 FL (80.0-100.0); MEAN CORPUSCULAR HEMOGLOBIN 30.2 PG (27.0-34.0); MEAN CORPUSCULAR HGB CONC 33.7 % (32.0-36.0); MEAN PLATELET VOLUME 9.2 FL (7.0-11.0); PLATELET COUNT 186 TH/MM3 (150-450); RED BLOOD COUNT 3.51 MIL/MM3 (4.00-5.30); WHITE BLOOD COUNT 10.3 TH/MM3 (4.0-11.0)
[2017-12-31 15:52] LABS: INTERNATIONAL NORMALIZED RATIO 1.1 RATIO; PROTHROMBIN TIME - PATIENT 10.8 SEC (9.8-11.6)
[2017-12-31] MEDS: HEPARIN-D5W 25,000 U/250 ML 250 ML IV PRN (16:15)
[2017-12-31] MEDS: HYDROmorphone HCL PCA 6 MG/30 ML IV SCH ×2 (17:22→22:12)
[2017-12-31 20:00] VITALS: BP 110/55; PULSE 97; RESP 20; TEMP 98; O2SAT 94
[2017-12-31] MEDS: PCA - TOTAL MG DILAUDID DELIVERED PER SHIFT OTHER SCH (20:06)
[2018-01-01] VITALS (7 sets, daily range): BP systolic 114–163; BP diastolic 54–69; PULSE 81–101; RESP 18–24; TEMP 97.9–100.1; O2SAT 94–100
[2018-01-01] MEDS: LACTATED RINGER'S 1000 ML INJ 1,000 ML IV SCH ×2 (01:05→18:19)
[2018-01-01] MEDS: LEVOTHYROXINE SODIUM 100 MCG TAB PO SCH (06:44)
[2018-01-01] MEDS: PCA - TOTAL MG DILAUDID DELIVERED PER SHIFT OTHER SCH ×3 (06:45→21:11)
--- NOTE | 2018-01-01 07:47 | PD.VS.PN ---
Subjective POD #: 1 Procedure(s): R fem-PT (redo) R EIA stent Subjective/Hospital Course Looks great foot warm pain in calf at incision groin ok Objective Vitals/I&O Date Time Temp Pulse Resp B/P (MAP) Pulse Ox O2 Delivery O2 Flow Rate FiO2 01/01/18 06:45 17 01/01/18 06:00 98.7 81 20 155/68 (97) 98 01/01/18 00:00 97.9 82 19 116/56 (76) 95 12/31/17 22:12 20 12/31/17 20:06 18 12/31/17 20:00 98.0 97 20 110/55 (73) 94 12/31/17 17:22 16 12/31/17 16:00 92 16 122/68 (86) 96 Nasal Cannula 2 12/31/17 15:45 98 16 132/62 (85) 98 Nasal Cannula 2 12/31/17 15:30 98 16 128/60 (82) 96 Nasal Cannula 2 12/31/17 15:15 96 16 141/68 (92) 98 Nasal Cannula 2 12/31/17 15:00 98 16 126/60 (82) 98 Nasal Cannula 2 12/31/17 14:55 97.6 102 16 124/63 (83) 99 Nasal Cannula 2 12/31/17 14:25 21 12/31/17 08:00 98.3 83 18 153/69 (97) 98 01/01/18 01/01/18 01/01/18 07:00 15:00 23:00 Intake Total 1700 ml Output Total 1000 ml Balance 700 ml Exam: resting comfortably foot warm Pulses: + PT signal Incisions: R calf incision looks good R groin incision covered with Prevena Laboratory Laboratory Tests Test 12/31/17 15:10 12/31/17 20:37 White Blood Count 10.3 Red Blood Count 3.51 Hemoglobin 10.6 Hematocrit 31.4 Mean Corpuscular Volume 89.5 Mean Corpuscular Hemoglobin 30.2 Mean Corpuscular Hemoglobin Concent 33.7 Red Cell Distribution Width 14.0 Platelet Count 186 Mean Platelet Volume 9.2 Prothrombin Time 10.8 Prothromb Time International Ratio 1.1 Activated Partial Thromboplast Time 57.2 38.0 Assessment and Plan Assessment: (1) Limb ischemia (2) PAD (peripheral artery disease) Status: Acute Plan POD#1 s/p redo (x4) bypass; foot perfused and overall looks great 1. Transition hep gtt to therapeutic lovenox. After 3 days, will transition to oral anticoagulation which she will need group home 2. OOB/PT; ok to bear weight on foot 3. D/C [place] 4. Continue pulse checks Discharge Planning likely 4-5 days depending on mobility and pain control I have had a long conversation with the patient and her family about the next steps should this 4th bypass fail. I think there are no more revascularization options and they seem to understand. Thomas Xiong MD January 01, 2018 07:47
[2018-01-01] MEDS: SODIUM CHLORIDE 0.9% FLUSH 10 ML FLUSH IV FLUSH SCH ×2 (09:00→21:00)
[2018-01-01] MEDS: HEPARIN-D5W 25,000 U/250 ML 250 ML IV PRN (09:23)
[2018-01-01] MEDS: ENOXAPARIN SODIUM 80 MG/0.8 ML SYRINGE SQ SCH ×2 (09:24→21:11)
[2018-01-01] MEDS: DOCUSATE SODIUM 50 MG/SENNA 8.6 MG TAB PO SCH ×2 (09:25→21:10)
[2018-01-01] MEDS: LISINOPRIL 5 MG TAB PO SCH ×2 (09:25→21:10)
--- NOTE | 2018-01-01 10:16 | HHI.FPPN ---
Subjective Remarks Patient is doing good this morning. She notes that her right foot is warm and well perfused. Pain is controlled with medications currently. She denies nausea, vomiting, fever, chills, diarrhea, constipation. (Vidal Herrera MD R3) Objective Vitals Vital Signs Date Time Temp Pulse Resp B/P (MAP) Pulse Ox O2 Delivery O2 Flow Rate FiO2 01/01/18 08:00 98.6 88 22 114/69 (84) 94 01/01/18 06:45 17 01/01/18 06:00 98.7 81 20 155/68 (97) 98 01/01/18 00:00 97.9 82 19 116/56 (76) 95 12/31/17 22:12 20 12/31/17 20:06 18 12/31/17 20:00 98.0 97 20 110/55 (73) 94 12/31/17 17:22 16 12/31/17 16:00 92 16 122/68 (86) 96 Nasal Cannula 2 12/31/17 15:45 98 16 132/62 (85) 98 Nasal Cannula 2 12/31/17 15:30 98 16 128/60 (82) 96 Nasal Cannula 2 12/31/17 15:15 96 16 141/68 (92) 98 Nasal Cannula 2 12/31/17 15:00 98 16 126/60 (82) 98 Nasal Cannula 2 12/31/17 14:55 97.6 102 16 124/63 (83) 99 Nasal Cannula 2 12/31/17 14:25 21 I/O 12/31/17 12/31/17 12/31/17 01/01/18 01/01/18 01/01/18 07:00 15:00 23:00 07:00 15:00 23:00 Intake Total 0 ml 2700 ml 520 ml 1700 ml Output Total 600 ml 1100 ml 1000 ml Balance 0 ml 2100 ml -580 ml 700 ml Intake Oral 0 ml 420 ml 1400 ml IV Total 100 ml 300 ml Other 2700 ml Output Urine Total 450 ml 1100 ml 1000 ml Estimated Blood Loss 150 ml # Voids 2 # Bowel Movements 0 (Vidal Herrera MD R3) Result Diagram: 12/31/17 1510 12/31/17 0410 Objective Remarks GENERAL: This is a well-nourished, well-developed patient, in no apparent distress. CARDIOVASCULAR: Regular rate and rhythm without murmurs, gallops, or rubs. RESPIRATORY: Clear to auscultation. Breath sounds equal bilaterally. No wheezes , rales, or rhonchi. GASTROINTESTINAL: Abdomen soft, non-tender, nondistended. MUSCULOSKELETAL: Right foot is warm. Right foot drop (this is not new). Skin: Right calf incision clean dry and intact. Right groin incision covered with dressing, clean dry and intact. NEUROLOGICAL: Awake and alert. Motor and sensory grossly within normal limits. Normal speech. (Vidal Herrera MD R3) A/P Assessment and Plan 62-year-old female with history of peripheral arterial disease, hypertension, hypothyroidism presents with right leg. Found to have vascular occlusion, will admit for management and vascular consultation. Postop day #1 status post redo x 4 bypass. Discharge Planning Likely 4-5 days pending on mobility and pain control per vascular surgery (Vidal Herrera MD R3) Attending Attestation Patient seen and examined and discussed with the resident team. Agree with plan of care as discussed with me and documented in the resident note. (Mary Alice Herrera MD) Problem List: (1) Vascular occlusion ICD Codes: I99.8 - Other disorder of circulatory system Status: Acute Plan: Postop day #1 s/p redo (x4) bypass Vascular surgery, Dr. Xiong following Transitioning heparin drip to therapeutic Lovenox. After 3 days, transition to oral anticoagulation which she will need long-term. Physical therapy (2) JUAN (acute kidney injury) ICD Codes: N17.9 - Acute kidney failure, unspecified Status: Resolved Plan: Resolved. (3) HTN (hypertension) ICD Codes: I10 - Essential (primary) hypertension Status: Chronic Plan: Continue home lisinopril (4) Constipation ICD Codes: K59.00 - Constipation, unspecified Plan: Likely secondary to opioids for pain No abdominal pain, distention or bloating. We will increase Nahomi-Colace to 2 tabs twice daily, other constipation meds available as needed (5) Hypothyroid ICD Codes: E03.9 - Hypothyroidism, unspecified Status: Chronic Plan: Continue home synthroid (6) FEN Status: Chronic Plan: Fluids: Tolerating PO Electrolytes; wnl, continue to monitor Nutrition: Tolerating p.o. DVT ppx: Lovenox per vascular. After 3 days, transition to oral anticoagulation. (Vidal Herrera MD R3) Problem Qualifiers (1) HTN (hypertension): Qualified Codes: I10 - Essential (primary) hypertension Vidal Herrera MD R3 January 01, 2018 10:16 Mary Alice Herrera MD January 01, 2018 11:48
[2018-01-01 11:08] LABS: AUTOMATED NEUTROPHIL # 8.9 TH/MM3 (1.8-7.7); BASOPHIL % 0.3 % (0.0-2.0); EOSINOPHIL % 0.3 % (0.0-4.0); HEMATOCRIT 33.3 % (35.0-46.0); HEMOGLOBIN 10.9 GM/DL (11.6-15.3); LYMPH % 15.3 % (9.0-44.0); LYMPHOCYTE # 1.8 TH/MM3 (1.0-4.8); MEAN CELL VOLUME 90.8 FL (80.0-100.0); MEAN CORPUSCULAR HEMOGLOBIN 29.8 PG (27.0-34.0); MEAN CORPUSCULAR HGB CONC 32.8 % (32.0-36.0); MONO % 9.3 % (0.0-8.0); MONOCYTE # 1.1 TH/MM3 (0-0.9); NEUT % 74.8 % (16.0-70.0); PLATELET COUNT 198 TH/MM3 (150-450); RED BLOOD COUNT 3.67 MIL/MM3 (4.00-5.30); RED CELL DISTRIBUTION WIDTH 14.4 % (11.6-17.2); WHITE BLOOD COUNT 11.9 TH/MM3 (4.0-11.0)
[2018-01-01 11:30] LABS: BICARBONATE 25.3 MEQ/L (21.0-32.0); CALCIUM 8.3 MG/DL (8.5-10.1); CREATININE 0.77 MG/DL (0.50-1.00)
--- NOTE | 2018-01-01 11:54 | MP ---
cc: Thomas Xiong MD DATE OF OPERATION: 12/31/2017 PREOPERATIVE DIAGNOSIS: Right lower extremity ischemia, failed bypass, peripheral arterial disease. POSTOPERATIVE DIAGNOSIS: Right lower extremity ischemia, failed bypass, peripheral arterial disease. PROCEDURES PERFORMED: 1. Right lower extremity angiogram with catheterization of the posterior tibial artery. 2. Right femoral artery to posterior tibial artery bypass with Artegraft. 3. Redo bypass. 4. Right external iliac artery stent with 8 x 80 Zilver. OPERATING SURGEON: Thomas Xiong MD SURGEON: Thomas Hernandez ANESTHESIA: General. INDICATIONS FOR PROCEDURE: Ms. Burnham is a 62-year-old lady who has had 3 failed distal bypass. The preoperative angiogram showed that she may have a tibial target and she is taken to the operating room for tibial exploration and possible bypass. Intraoperatively, it was found her tibial target was reasonable, however, she had an inflow blockage and this was treated endovascularly. DESCRIPTION OF PROCEDURE: Informed consent was obtained from the patient, she was taken to the operating room and placed supine on the operating table. Appropriate timeout was taken to ensure the patient's identity, operative site and planned procedure. The administration of 2 grams of Ancef was initiated prior to skin incision, will be discontinued after single preoperative dose. Everyone in the room agreed with timeout and we proceeded. She was prepped from nipple to her toes. An incision was made in the patient's medial aspect of the calf, carried down to subcutaneous tissue with electrocautery. The posterior tibial artery was identified and noted to be quite small, but soft. Arteriotomy was made with an 11 blade and a micropuncture wire was then advanced down the posterior tibial artery and the catheter, followed and the right lower extremity angiogram was obtained from the posterior tibial artery. This angiogram showed that there was adequate opacification of the distal posterior tibial and into the foot and based on this angiogram, a decision was made to proceed with bypass. Please note, there was no prior pathways imaging available for my review that adequately displayed this posterior tibial artery. As the catheter was removed, a single 6-0 Prolene suture was then placed in the artery for hemostasis. Her previous groin incision was reopened with a 10 blade, carried down to subcutaneous tissue with electrocautery. We dissected tediously through scar tissue down to the Dacron graft, which was easily identified and dissected free sufficiently to place 2 Profunda clamps on it. There was a very poor pulse in the Dacron graft at that time. The tunnel was then created between the 2 incisions and the patient was systemically heparinized. Throughout the remainder of the case, the ACT was kept greater than 250. Proximal and distal control of the previously placed Dacron iliofemoral bypass were obtained with Profunda clamps and a longitudinal graftotomy was made with an 11 blade, extended with Naman scissors. The Artegraft was brought up on the field. Two pieces were sewn together with running 5-0 Prolene suture and then the Artegraft was spatulated and sewn end to side to the graft with a running 5-0 Prolene suture. The graft was flushed and hemostatic. Karma Soft jaw was placed on the Artegraft and the clamps were released. Again, there was a very poor pulse in the graft. A 21-gauge micropuncture needle was used to access the proximal aspect of the graft. This was exchanged using Seldinger technique through micropuncture sheath, through which a 0.035 STORQ wire was obtained and the micropuncture sheath was exchanged for a 6-Swedish sheath. A retrograde iliac angiogram showed no significant stenosis, although on oblique view, there was stenosis and this was treated with an 8 x 80 Zilver self-expanding stent, which was postdilated to 7 mm. After the stent was placed, there was excellent opacification of the common femoral artery and bypass and there was a significant improvement in the inflow pole. The wire catheter and sheath were removed and the graftotomy was closed with 5-0 Prolene suture. The graft was then marked for orientation and passed through the tunnel, taking care not to twist it. The posterior tibial artery was clamped proximally and distally with Matthieu clamps and a longitudinal graft arteriotomy was then extended with [place] scissors. The graft was cut to appropriate length, spatulated and sewn end-to-side with running 6-0 Prolene suture. The graft was flushed, found to be hemostatic. There was a strong Doppler signal in the foot. The wounds were all irrigated, infiltrated with Marcaine and closed with 2-0 Polysorb, 3-0 Polysorb and 4-0 Monocryl. The sponge and needle counts were correct at the end of the case. I was present and scrubbed for the entire procedure. MD MAX Broussard , 04:48 PM , 05:18 PM [facility]
[2018-01-01] MEDS: HYDROmorphone HCL PCA 6 MG/30 ML IV SCH (12:48)
[2018-01-01] MEDS ORDERED: ACETAMINOPHEN 325 MG TAB PO ONE (21:30)
[2018-01-02] VITALS (9 sets, daily range): BP systolic 107–141; BP diastolic 56–65; PULSE 81–101; RESP 17–20; TEMP 97.7–99.6; O2SAT 93–100
[2018-01-02] MEDS: HYDROmorphone HCL PCA 6 MG/30 ML IV SCH (03:16)
[2018-01-02] MEDS: LEVOTHYROXINE SODIUM 100 MCG TAB PO SCH (06:06)
[2018-01-02] MEDS: PCA - TOTAL MG DILAUDID DELIVERED PER SHIFT OTHER SCH (06:08)
[2018-01-02 07:01] LABS: HEMATOCRIT 31.9 % (35.0-46.0); HEMOGLOBIN 10.8 GM/DL (11.6-15.3); MEAN CELL VOLUME 89.1 FL (80.0-100.0); MEAN CORPUSCULAR HEMOGLOBIN 30.3 PG (27.0-34.0); MEAN PLATELET VOLUME 9.7 FL (7.0-11.0); PLATELET COUNT 199 TH/MM3 (150-450); RED BLOOD COUNT 3.58 MIL/MM3 (4.00-5.30); RED CELL DISTRIBUTION WIDTH 14.6 % (11.6-17.2); WHITE BLOOD COUNT 9.1 TH/MM3 (4.0-11.0)
[2018-01-02] MEDS: SODIUM CHLORIDE 0.9% FLUSH 10 ML FLUSH IV FLUSH SCH ×2 (09:00→21:53)
[2018-01-02] MEDS: DOCUSATE SODIUM 50 MG/SENNA 8.6 MG TAB PO SCH ×2 (09:00→21:52)
[2018-01-02] MEDS: ENOXAPARIN SODIUM 80 MG/0.8 ML SYRINGE SQ SCH ×2 (09:34→21:52)
[2018-01-02] MEDS: LISINOPRIL 5 MG TAB PO SCH ×2 (09:34→21:51)
--- NOTE | 2018-01-02 09:43 | HHI.FPPN ---
Subjective Remarks Patient seen and examined this morning. Patient had temperature of 100.1 overnight. Denies any fever/chills since. 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 She states she feels like she does not really need it, but presses it every time preemptively for pain. Denies any chest pain, shortness of breath , cough, abdominal pain. (Johan Maciel MD R2) Objective Vitals Vital Signs Date Time Temp Pulse Resp B/P (MAP) Pulse Ox O2 Delivery O2 Flow Rate FiO2 01/02/18 06:08 17 01/02/18 04:44 98.6 101 20 117/63 (81) 98 01/02/18 03:46 17 01/02/18 03:16 18 01/02/18 00:00 97.7 85 17 107/56 (73) 96 01/01/18 21:11 18 01/01/18 20:00 100.1 93 18 163/66 (98) 94 01/01/18 16:00 98.9 101 22 121/54 (76) 97 01/01/18 12:54 18 01/01/18 12:48 18 01/01/18 12:00 99.5 81 24 137/62 (87) 100 I/O 01/01/18 01/01/18 01/01/18 01/02/18 01/02/18 01/02/18 07:00 15:00 23:00 07:00 15:00 23:00 Intake Total 1700 ml 250 ml 3500 ml 680 ml Output Total 1000 ml 250 ml 1100 ml Balance 700 ml 0 ml 2400 ml 680 ml Intake Oral 1400 ml 2200 ml 680 ml IV Total 300 ml 250 ml 1300 ml Output Urine Total 1000 ml 250 ml 1100 ml # Voids 1 4 # Bowel Movements 0 (Johan Maciel MD R2) Result Diagram: 01/02/18 0553 01/01/18 1049 Objective Remarks GENERAL: This is a well-nourished, well-developed patient, in no apparent distress. CARDIOVASCULAR: Regular rate and rhythm without murmurs, gallops, or rubs. RESPIRATORY: Clear to auscultation. Breath sounds equal bilaterally. No wheezes , rales, or rhonchi. GASTROINTESTINAL: Abdomen soft, non-tender, nondistended. MUSCULOSKELETAL: Right foot is warm. Right foot drop (this is not new). Right foot is warm. Perfused. Skin: Right calf incision clean dry and intact. Right groin incision covered with dressing, clean dry and intact. Able NEUROLOGICAL: Awake and alert. Motor and sensory grossly within normal limits. Normal speech. (Johan Maciel MD R2) A/P Assessment and Plan 62-year-old female with history of peripheral arterial disease, hypertension, hypothyroidism presents with right leg. Found to have vascular occlusion, will admit for management and vascular consultation. Postop day #1 status post redo x 4 bypass. Discharge Planning Likely middle of next week pending on mobility and pain control per vascular surgery (Johan Maciel MD R2) Attending Attestation Patient seen, discussed with Dr. Maciel. She has no complaints today, she did have a little temperature elevation yesterday evening, so today I ordered an incentive spirometer. She is getting up to the bedside commode. I agree with the physical findings as documented above, and with the plan. Appreciate Dr. Xiong. (Mary Alice Herrera MD) Problem List: (1) Vascular occlusion ICD Codes: I99.8 - Other disorder of circulatory system Status: Acute Plan: Postop day #2 s/p redo (x4) bypass Vascular surgery, Dr. Xiong following Continue therapeutic Lovenox. After 3 days, transition to oral anticoagulation which she will need long-term. Pulse checks Physical therapy Pain control with BORING MACHINE OPERATOR HELPER pump. Will transition today to oral (2) JUAN (acute kidney injury) ICD Codes: N17.9 - Acute kidney failure, unspecified Status: Resolved Plan: Resolved. (3) HTN (hypertension) ICD Codes: I10 - Essential (primary) hypertension Status: Chronic Plan: Continue home lisinopril (4) Constipation ICD Codes: K59.00 - Constipation, unspecified Plan: Likely secondary to opioids for pain No abdominal pain, distention or bloating. We will increase Nahomi-Colace to 2 tabs twice daily, other constipation meds available as needed (5) Hypothyroid ICD Codes: E03.9 - Hypothyroidism, unspecified Status: Chronic Plan: Continue home synthroid (6) FEN Status: Chronic Plan: Fluids: Tolerating PO Electrolytes; wnl, continue to monitor Nutrition: Tolerating p.o. DVT ppx: Lovenox per vascular. After 3 days, transition to oral anticoagulation. (Johan Maciel MD R2) Problem Qualifiers (1) HTN (hypertension): Qualified Codes: I10 - Essential (primary) hypertension Johan Maciel MD R2 January 02, 2018 09:43 Mary Alice Herrera MD January 02, 2018 12:45
--- NOTE | 2018-01-02 09:52 | PD.VS.PN ---
Subjective POD #: 2 Procedure(s): R fem-PT (redo) R EIA stent Subjective/Hospital Course continues to look good foot warm started bearing weight on it yesterday tani po voided since [place] out pain controlled Objective Vitals/I&O Date Time Temp Pulse Resp B/P (MAP) Pulse Ox O2 Delivery O2 Flow Rate FiO2 01/02/18 06:08 17 01/02/18 04:44 98.6 101 20 117/63 (81) 98 01/02/18 03:46 17 01/02/18 03:16 18 01/02/18 00:00 97.7 85 17 107/56 (73) 96 01/01/18 21:11 18 01/01/18 20:00 100.1 93 18 163/66 (98) 94 01/01/18 16:00 98.9 101 22 121/54 (76) 97 01/01/18 12:54 18 01/01/18 12:48 18 01/01/18 12:00 99.5 81 24 137/62 (87) 100 01/02/18 01/02/18 01/02/18 07:00 15:00 23:00 Intake Total 680 ml Balance 680 ml Exam: resting comfortably foot warm R groin incision with Prevena R calf incision ok Pulses: good doppler signal in PT Laboratory Laboratory Tests Test 01/01/18 10:49 01/02/18 05:53 01/02/18 05:55 White Blood Count 11.9 9.1 Red Blood Count 3.67 3.58 Hemoglobin 10.9 10.8 Hematocrit 33.3 31.9 Mean Corpuscular Volume 90.8 89.1 Mean Corpuscular Hemoglobin 29.8 30.3 Mean Corpuscular Hemoglobin Concent 32.8 34.0 Red Cell Distribution Width 14.4 14.6 Platelet Count 198 199 Mean Platelet Volume 9.0 9.7 Neutrophils (%) (Auto) 74.8 Lymphocytes (%) (Auto) 15.3 Monocytes (%) (Auto) 9.3 Eosinophils (%) (Auto) 0.3 Basophils (%) (Auto) 0.3 Neutrophils # (Auto) 8.9 Lymphocytes # (Auto) 1.8 Monocytes # (Auto) 1.1 Eosinophils # (Auto) 0.0 Basophils # (Auto) 0.0 CBC Comment DIFF FINAL Differential Comment Activated Partial Thromboplast Time 42.2 30.9 Blood Urea Nitrogen 9 Creatinine 0.77 Random Glucose 84 Calcium Level 8.3 Sodium Level 138 Potassium Level 3.6 Chloride Level 102 Carbon Dioxide Level 25.3 Anion Gap 11 Estimat Glomerular Filtration Rate 76 Assessment and Plan Assessment: (1) Limb ischemia (2) PAD (peripheral artery disease) Status: Acute Plan POD#2 s/p redo (x4) bypass; foot perfused and overall looks great 1. Continue therapeutic lovenox. After 2 more days, will transition to oral anticoagulation which she will need custodial 2. 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 Continue pulse checks Discharge Planning Thursday/Thursday Thomas Xiong MD January 02, 2018 09:52
[2018-01-02] MEDS ORDERED: MORPHINE SULFATE 4 MG/ML INJ IV PUSH PRN (10:00)
[2018-01-02] MEDS: HYDROmorphone HCL 2 MG TAB PO PRN ×3 (13:38→22:03)
[2018-01-02] MEDS: ACETAMINOPHEN 325 MG TAB PO PRN (14:54)
--- NOTE | 2018-01-02 17:24 | HHI.FPPN ---
Addendum to progress note ADDENDUM Reason for addendum: Additonal documentation Additional information Resident team paged by nurse because patient was not feeling well and had chills. Nurse also reported that patient did not look well and had a temperature of 99.6 Fahrenheit. Patient received Tylenol. Patient seen and examined at bedside, patient reported that symptoms had subsided and she was currently asymptomatic. She reports that her chills, malaise and sweats started around noon and subsided by 2 PM after she received tylenol. Patient report she has been consuming a good amount of fluids. GEN: Well nourished, well developed female siting in bed in [facility]. warm: warm and slightly diaphoretic Cardio: Normal S1 and S2, no m/g/r Resp: mild atelectasis at lower bases BL, otherwise clear lung sounds at upper bases BL. no wheezing, crackles or rales. Neuro: awake and oriented. Ext: Right leg with incision healing well, no erythema or swelling 62-year-old female admitted for occluded veins in right lower extremity, POD#2 s /p redo (x4) bypass. Today with an episode of malaise early in the afternoon now asymptomatic and doing well. Clinically stable, afebrile. monitor vs patient advised to use incentive spirometry in room to prevent further atelectasis in lower lung bases. c/w tylenol for fever w day medicine team Kadeem Rogers MD, R1 January 02, 2018 17:24
[2018-01-03 00:30] VITALS: BP 130/61; PULSE 94; RESP 18; TEMP 99.1; O2SAT 94
[2018-01-03] MEDS: LEVOTHYROXINE SODIUM 100 MCG TAB PO SCH (05:02)
[2018-01-03] MEDS: HYDROmorphone HCL 2 MG TAB PO PRN ×5 (05:03→22:49)
[2018-01-03] MEDS: HYDROmorphone HCL PF 0.5 MG/0.5 ML SYRINGE IV PUSH PRN ×3 (06:03→20:10)
--- NOTE | 2018-01-03 07:35 | PD.VS.PN ---
Subjective POD #: 3 Procedure(s): R fem-PT (redo) R EIA stent Subjective/Hospital Course continues to look good Febrile intermittently yesterday foot warm incisional pain controlled with po meds Objective Vitals/I&O Date Time Temp Pulse Resp B/P (MAP) Pulse Ox O2 Delivery O2 Flow Rate FiO2 01/03/18 00:30 99.1 94 18 130/61 (84) 94 01/02/18 20:00 98.1 88 17 122/58 (79) 100 01/02/18 17:39 99.2 81 20 119/57 (77) 01/02/18 16:00 98.9 92 20 124/59 (80) 93 01/02/18 14:49 99.6 01/02/18 12:00 98.1 95 20 136/61 (86) 98 01/02/18 11:03 18 01/02/18 08:00 98.3 99 20 141/65 (90) 100 01/03/18 01/03/18 01/03/18 07:00 15:00 23:00 Intake Total 240 ml Balance 240 ml Exam: resting comfortably R groin soft R leg incision c/d/i + edema and anterior doran erythema, mild foot warm Assessment and Plan Assessment: (1) Limb ischemia (2) PAD (peripheral artery disease) Status: Acute Plan POD#3 s/p redo (x4) bypass; foot perfused and overall looks great 1. Continue therapeutic lovenox. Starting tomorrow (Thursday), will transition to oral anticoagulation which she will need long-term 2. OOB/PT; ok to bear weight on foot 3. IS for likely atalectasis 4. Continue pulse checks Discharge Planning Thursday/Thursday Thomas Xiong MD January 03, 2018 07:35
[2018-01-03 07:59] LABS: HEMOGLOBIN 10.8 GM/DL (11.6-15.3); MEAN CELL VOLUME 89.7 FL (80.0-100.0); MEAN CORPUSCULAR HEMOGLOBIN 30.4 PG (27.0-34.0); MEAN CORPUSCULAR HGB CONC 33.9 % (32.0-36.0); MEAN PLATELET VOLUME 10.2 FL (7.0-11.0); PLATELET COUNT 209 TH/MM3 (150-450); RED BLOOD COUNT 3.57 MIL/MM3 (4.00-5.30); RED CELL DISTRIBUTION WIDTH 14.6 % (11.6-17.2); WHITE BLOOD COUNT 10.5 TH/MM3 (4.0-11.0)
[2018-01-03 08:00] VITALS: BP 120/58; PULSE 99; RESP 20; TEMP 98.3; O2SAT 92
[2018-01-03] MEDS: DOCUSATE SODIUM 50 MG/SENNA 8.6 MG TAB PO SCH ×2 (09:00→20:03)
[2018-01-03] MEDS: LISINOPRIL 5 MG TAB PO SCH ×2 (09:11→20:03)
[2018-01-03] MEDS: ENOXAPARIN SODIUM 80 MG/0.8 ML SYRINGE SQ SCH ×2 (09:11→20:03)
--- NOTE | 2018-01-03 09:39 | HHI.FPPN ---
Subjective Remarks No acute events overnight. Patient states that yesterday she had a temperature up to 99.6 and experienced chills at that time. Denies any chest pain, shortness of breath or cough, nausea or vomiting or abdominal pain. She does have some erythema on the skin overlying the tibial plateau. No significant change with that over the last 24 hours. Objective Vitals Vital Signs Date Time Temp Pulse Resp B/P (MAP) Pulse Ox O2 Delivery O2 Flow Rate FiO2 01/03/18 00:30 99.1 94 18 130/61 (84) 94 01/02/18 20:00 98.1 88 17 122/58 (79) 100 01/02/18 17:39 99.2 81 20 119/57 (77) 01/02/18 16:00 98.9 92 20 124/59 (80) 93 01/02/18 14:49 99.6 01/02/18 12:00 98.1 95 20 136/61 (86) 98 01/02/18 11:03 18 I/O 01/02/18 01/02/18 01/02/18 01/03/18 01/03/18 01/03/18 07:00 15:00 23:00 07:00 15:00 23:00 Intake Total 680 ml 2400 ml 240 ml Output Total 1800 ml Balance 680 ml 600 ml 240 ml Intake Oral 680 ml 2400 ml 240 ml Output Urine Total 1800 ml # Voids 4 2 # Bowel Movements 0 Result Diagram: 01/03/18 0551 01/01/18 1049 Objective Remarks GENERAL: This is a well-nourished, well-developed patient, in no apparent distress. CARDIOVASCULAR: Regular rate and rhythm without murmurs, gallops, or rubs. RESPIRATORY: Clear to auscultation. Breath sounds equal bilaterally. No wheezes , rales, or rhonchi. GASTROINTESTINAL: Abdomen soft, non-tender, nondistended. MUSCULOSKELETAL: Right foot is warm and well perfused. Right foot drop (this is not new). No pressure ulcerations on the heel noted. She does have some erythema/warmth overlying the tibial plateau of the right leg. Skin: Right calf incision clean dry and intact. Right groin incision covered with dressing, clean dry and intact. NEUROLOGICAL: Awake and alert. Motor and sensory grossly within normal limits. Normal speech. A/P Assessment and Plan 62-year-old female with history of peripheral arterial disease, hypertension, hypothyroidism presents with right leg. Found to have vascular occlusion, will admit for management and vascular consultation. Postop day #3 status post redo x 4 bypass. Discharge Planning Discharge likely on Thursday or Thursday Problem List: (1) Vascular occlusion ICD Codes: I99.8 - Other disorder of circulatory system Status: Acute Plan: Postop day #3 s/p redo (x4) bypass Vascular surgery, Dr. Xiong following Continue therapeutic Lovenox. On Thursday, transition to oral anticoagulation which she will need long-term. Pulse checks Physical therapy Pain well-controlled on p.o. Dilaudid, roxicodone (2) Erythema of lower limb ICD Codes: L53.9 - Erythematous condition, unspecified Plan: Patient noted to have erythema overlying the tibial plateau of the surgical limb. No leukocytosis or fevers currently. Will outline the area to keep track, low threshold to order blood cultures/ start empiric antibiotics (Cefazolin or Rocephin) (3) JUAN (acute kidney injury) ICD Codes: N17.9 - Acute kidney failure, unspecified Status: Resolved Plan: Resolved. (4) HTN (hypertension) ICD Codes: I10 - Essential (primary) hypertension Status: Chronic Plan: Continue home lisinopril (5) Constipation ICD Codes: K59.00 - Constipation, unspecified Plan: Likely secondary to opioids for pain No abdominal pain, distention or bloating. We will increase Nahomi-Colace to 2 tabs twice daily, other constipation meds available as needed (6) Hypothyroid ICD Codes: E03.9 - Hypothyroidism, unspecified Status: Chronic Plan: Continue home synthroid (7) FEN Status: Chronic Plan: Fluids: Tolerating PO Electrolytes; wnl, continue to monitor Nutrition: Tolerating p.o. DVT ppx: Lovenox per vascular. After 3 days, transition to oral anticoagulation. Problem Qualifiers (1) HTN (hypertension): Qualified Codes: I10 - Essential (primary) hypertension Hubert Keen MD R1 January 03, 2018 09:39
[2018-01-03 12:00] VITALS: BP 120/74; PULSE 94; RESP 22; TEMP 98.3; O2SAT 97
[2018-01-03] MEDS: ACETAMINOPHEN 325 MG TAB PO PRN (12:33)
[2018-01-03 16:00] VITALS: BP 130/66; PULSE 80; RESP 22; TEMP 98; O2SAT 98
[2018-01-03] MEDS: SODIUM CHLORIDE 0.9% FLUSH 10 ML FLUSH IV FLUSH SCH ×2 (18:20→20:03)
[2018-01-03 20:01] VITALS: BP 154/67; PULSE 84; RESP 20; TEMP 98.6; O2SAT 97
[2018-01-04] VITALS: BP 150/67; PULSE 86; RESP 17; TEMP 98.8; O2SAT 96
[2018-01-04] MEDS: HYDROmorphone HCL 2 MG TAB PO PRN ×3 (02:52→10:39)
[2018-01-04] MEDS: LEVOTHYROXINE SODIUM 100 MCG TAB PO SCH (06:40)
[2018-01-04 07:50] LABS: BASOPHIL # 0.1 TH/MM3 (0-0.2); BASOPHIL % 0.7 % (0.0-2.0); EOSINOPHIL # 0.2 TH/MM3 (0-0.4); EOSINOPHIL % 1.9 % (0.0-4.0); HEMATOCRIT 33.9 % (35.0-46.0); HEMOGLOBIN 11.4 GM/DL (11.6-15.3); LYMPH % 20.7 % (9.0-44.0); LYMPHOCYTE # 2.1 TH/MM3 (1.0-4.8); MEAN CELL VOLUME 89.6 FL (80.0-100.0); MEAN CORPUSCULAR HEMOGLOBIN 30.2 PG (27.0-34.0); MEAN CORPUSCULAR HGB CONC 33.7 % (32.0-36.0); MEAN PLATELET VOLUME 9.1 FL (7.0-11.0); MONO % 6.5 % (0.0-8.0); MONOCYTE # 0.7 TH/MM3 (0-0.9); NEUT % 70.2 % (16.0-70.0); PLATELET COUNT 214 TH/MM3 (150-450); RED BLOOD COUNT 3.79 MIL/MM3 (4.00-5.30); RED CELL DISTRIBUTION WIDTH 14.3 % (11.6-17.2)
[2018-01-04 08:00] VITALS: BP 115/56; PULSE 93; RESP 22; TEMP 98.6; O2SAT 98
[2018-01-04 08:11] LABS: BICARBONATE 24.1 MEQ/L (21.0-32.0); CALCIUM 8.9 MG/DL (8.5-10.1); CREATININE 0.75 MG/DL (0.50-1.00)
--- NOTE | 2018-01-04 08:28 | PD.VS.PN ---
Subjective POD #: 4 Procedure(s): R fem-PT (redo) R EIA stent Subjective/Hospital Course foot swollen but feels good overall ambulated by herself and showered yesterday tani po Objective Vitals/I&O Date Time Temp Pulse Resp B/P (MAP) Pulse Ox O2 Delivery O2 Flow Rate FiO2 01/04/18 00:00 98.8 86 17 150/67 (94) 96 01/03/18 20:01 98.6 84 20 154/67 (96) 97 01/03/18 16:00 98.0 80 22 130/66 (87) 98 01/03/18 12:00 98.3 94 22 120/74 (89) 97 01/04/18 01/04/18 01/04/18 07:00 15:00 23:00 Intake Total 240 ml Output Total 3 ml Balance 237 ml Exam: no distress foot warm and edematous minimal erythema anterior doran Incisions: calf incision c/d/i groin Prevena removed; incision c/d/i Laboratory Laboratory Tests Test 01/04/18 07:15 White Blood Count 10.0 Red Blood Count 3.79 Hemoglobin 11.4 Hematocrit 33.9 Mean Corpuscular Volume 89.6 Mean Corpuscular Hemoglobin 30.2 Mean Corpuscular Hemoglobin Concent 33.7 Red Cell Distribution Width 14.3 Platelet Count 214 Mean Platelet Volume 9.1 Neutrophils (%) (Auto) 70.2 Lymphocytes (%) (Auto) 20.7 Monocytes (%) (Auto) 6.5 Eosinophils (%) (Auto) 1.9 Basophils (%) (Auto) 0.7 Neutrophils # (Auto) 7.0 Lymphocytes # (Auto) 2.1 Monocytes # (Auto) 0.7 Eosinophils # (Auto) 0.2 Basophils # (Auto) 0.1 CBC Comment DIFF FINAL Differential Comment Blood Urea Nitrogen 9 Creatinine 0.75 Random Glucose 95 Calcium Level 8.9 Sodium Level 138 Potassium Level 3.7 Chloride Level 104 Carbon Dioxide Level 24.1 Anion Gap 10 Estimat Glomerular Filtration Rate 78 Assessment and Plan Assessment: (1) Limb ischemia (2) PAD (peripheral artery disease) Status: Acute Plan POD#4 s/p redo (x4) bypass; foot perfused and overall looks great 1. Transition to eliquis - will need for life 2. OOB/PT; ok to bear weight on foot 3. Continue pulse checks Discharge Planning ok today; will RTC next Wed with Thomas Turner MD January 04, 2018 08:28
[2018-01-04] MEDS: ENOXAPARIN SODIUM 80 MG/0.8 ML SYRINGE SQ SCH (08:50)
[2018-01-04] MEDS: DOCUSATE SODIUM 50 MG/SENNA 8.6 MG TAB PO SCH (08:50)
[2018-01-04] MEDS: SODIUM CHLORIDE 0.9% FLUSH 10 ML FLUSH IV FLUSH SCH (08:50)
[2018-01-04] MEDS: LISINOPRIL 5 MG TAB PO SCH (08:50)
[2018-01-04] MEDS ORDERED: APIXABAN 5 MG TABLET PO SCH (10:00)
--- NOTE | 2018-01-04 10:35 | HHI.FPPN ---
Subjective Remarks Patient seen and examined this morning. No acute events overnight. Patient reports doing well. Denies any new complaints or concerns. Has been working with physical therapy. Is able to get around a little bit better. Pain is well controlled. Denies any fever/chills, chest pain, shortness of breath, abdominal pain. Is ready to go home. Objective Vitals Vital Signs Date Time Temp Pulse Resp B/P (MAP) Pulse Ox O2 Delivery O2 Flow Rate FiO2 01/04/18 08:00 98.6 93 22 115/56 (75) 98 01/04/18 00:00 98.8 86 17 150/67 (94) 96 01/03/18 20:01 98.6 84 20 154/67 (96) 97 01/03/18 16:00 98.0 80 22 130/66 (87) 98 01/03/18 12:00 98.3 94 22 120/74 (89) 97 I/O 01/03/18 01/03/18 01/03/18 01/04/18 01/04/18 01/04/18 07:00 15:00 23:00 07:00 15:00 23:00 Intake Total 240 ml 2600 ml 240 ml Output Total 3 ml Balance 240 ml 2600 ml 237 ml Intake Oral 240 ml 2600 ml 240 ml Output Urine Total 3 ml # Voids 2 5 Result Diagram: 01/04/18 0715 01/04/18 0715 Objective Remarks GENERAL: This is a well-nourished, well-developed patient, in no apparent distress. CARDIOVASCULAR: Regular rate and rhythm without murmurs, gallops, or rubs. RESPIRATORY: Clear to auscultation. Breath sounds equal bilaterally. No wheezes , rales, or rhonchi. GASTROINTESTINAL: Abdomen soft, non-tender, nondistended. MUSCULOSKELETAL: Right foot is warm and well perfused. Right foot drop (this is not new). No pressure ulcerations on the heel noted. Improving erythema/ warmth overlying the tibial plateau of the right leg. Skin: Right calf incision clean dry and intact. Right groin incision covered with dressing, clean dry and intact. NEUROLOGICAL: Awake and alert. Motor and sensory grossly within normal limits. Normal speech. A/P Assessment and Plan 62-year-old female with history of peripheral arterial disease, hypertension, hypothyroidism presents with right leg. Found to have vascular occlusion, will admit for management and vascular consultation. Postop day #3 status post redo x 4 bypass. Discharge Planning Discharge today Problem List: (1) Vascular occlusion ICD Codes: I99.8 - Other disorder of circulatory system Status: Acute Plan: Postop day #4 s/p redo (x4) bypass Vascular surgery, Dr. Xiong following [facility]ed to [facility] for life Pulse checks D/c with home health Physical therapy Pain well-controlled on p.o. Dilaudid, roxicodone (2) Erythema of lower limb ICD Codes: L53.9 - Erythematous condition, unspecified Plan: Patient noted to have erythema overlying the tibial plateau of the surgical limb. No leukocytosis or fevers currently. Improving today. No sign of infection (3) JUAN (acute kidney injury) ICD Codes: N17.9 - Acute kidney failure, unspecified Status: Resolved Plan: Resolved. (4) HTN (hypertension) ICD Codes: I10 - Essential (primary) hypertension Status: Chronic Plan: Continue home lisinopril (5) Constipation ICD Codes: K59.00 - Constipation, unspecified Plan: Likely secondary to opioids for pain No abdominal pain, distention or bloating. Nahomi-Colace 2 tabs twice daily, other constipation meds available as needed (6) Hypothyroid ICD Codes: E03.9 - Hypothyroidism, unspecified Status: Chronic Plan: Continue home synthroid (7) FEN Status: Chronic Plan: Fluids: Tolerating PO Electrolytes; wnl, continue to monitor Nutrition: Tolerating p.o. DVT ppx: Eliquis Problem Qualifiers (1) HTN (hypertension): Qualified Codes: I10 - Essential (primary) hypertension Johan Maciel MD R2 January 04, 2018 10:35
--- NOTE | 2018-01-04 10:36 | HHI.DCPOC ---
Discharge Care Plan Diagnosis: (1) HTN (hypertension) (2) Hypothyroid (3) Vascular occlusion Goals to Promote Your Health * To prevent worsening of your condition and complications * To maintain your health at the optimal level Directions to Meet Your Goals Take your medications as prescribed Follow your dietary instruction Follow activity as directed Keep your appointments as scheduled Take your immunizations and boosters as scheduled If your symptoms worsen call your PCP, if no PCP go to Urgent Care Center or Emergency Room Smoking is Dangerous to Your Health. Avoid second hand smoke Call the 24-hour hour crisis hotline for domestic abuse at Johan Maciel MD R2 January 04, 2018 10:36
--- NOTE | 2018-01-04 10:38 | HHI.FF ---
Face to Face Verification Diagnosis: (1) PAD (peripheral artery disease) (2) Limb ischemia (3) Vascular occlusion (4) HTN (hypertension) (5) Hypothyroid Physical Therapy Order: Evaluate and Treat, Improve ambulation, Strength and gait training I have seen patient Mary Alice Burnham on 01/04/18. My clinical findings support the need for the requested home health care services because: Ltd mobility - disease progression Deconditioned w/ increased weakness Limited ability to care for self High risk of falls I certify that my clinical findings support that this patient is homebound because: Unsteady gait/balance Unsafe to leave home unassisted Johan Maciel MD R2 January 04, 2018 10:38
[2018-01-04] MEDS: HYDROmorphone HCL PF 0.5 MG/0.5 ML SYRINGE IV PUSH PRN (11:56)
[2018-01-04 12:00] VITALS: BP 121/80; PULSE 79; RESP 20; TEMP 98.3; O2SAT 98
--- NOTE | 2018-01-04 12:03 | HHI.DS ---
Discharge Summary Admission Date Dec 27, 2017 at 15:06 Discharge Date: January 04, 2018 Admitting Diagnosis right popliteal artery occlusion (1) Vascular occlusion Diagnosis: Principal Plan: Postop day #4 s/p redo (x4) bypass Vascular surgery, Dr. Xiong following Transitioned to Eliquis from Lovenox for life Pulse checks D/c with home health Physical therapy Pain well-controlled on p.o. Dilaudid, roxicodone ICD Codes: I99.8 - Other disorder of circulatory system Status: Acute (2) Erythema of lower limb Diagnosis: Secondary Plan: Patient noted to have erythema overlying the tibial plateau of the surgical limb. No leukocytosis or fevers currently. Improving today. No sign of infection ICD Codes: L53.9 - Erythematous condition, unspecified (3) JUAN (acute kidney injury) Diagnosis: Secondary Plan: Resolved. ICD Codes: N17.9 - Acute kidney failure, unspecified Status: Resolved (4) HTN (hypertension) Diagnosis: Secondary Plan: Continue home lisinopril ICD Codes: I10 - Essential (primary) hypertension Status: Chronic (5) Constipation Diagnosis: Secondary Plan: Likely secondary to opioids for pain No abdominal pain, distention or bloating. Nahomi-Colace 2 tabs twice daily, other constipation meds available as needed ICD Codes: K59.00 - Constipation, unspecified (6) Hypothyroid Diagnosis: Secondary Plan: Continue home synthroid ICD Codes: E03.9 - Hypothyroidism, unspecified Status: Chronic (7) FEN Diagnosis: Secondary Plan: Fluids: Tolerating PO Electrolytes; wnl, continue to monitor Nutrition: Tolerating p.o. DVT ppx: Eliquis Status: Chronic Consultants Vascular Procedures RLE angiogram & bypass Brief History 62-year-old female with history of hypertension and peripheral artery disease presents today with right leg pain. Patient has a long history of vascular disease history with several surgeries. Patient has had several bypasses done over the last year with Dr. Xiong. She states she woke up yesterday around 5 AM and had numbness in her leg. She also states was called to the touch. She states she took Eliquis and aspirin hoping that the pain would be relieved and that her blood fluid be restored because she was trying to avoid surgery. Also spoke with Dr. Xiong yesterday and today about this, who suggested she come in to the ER for possible surgery again. She states she had appointment with him a couple weeks ago and had good blood flow with Dopplers. She also tried soaking her foot in hot water, which did not help. Denies any pain in her left leg. Last week, denies any claudications symptoms. No pain at rest. Otherwise, denies any other symptoms. Denies any fever/chills , chest pain, shortness of breath, abdominal pain. No leg swelling or redness. CBC/BMP: 01/04/18 0715 01/04/18 0715 Significant Findings Laboratory Tests Test 01/02/18 05:53 01/02/18 05:55 01/03/18 05:51 01/04/18 07:15 Red Blood Count 3.58 MIL/MM3 (4.00-5.30) 3.57 MIL/MM3 (4.00-5.30) 3.79 MIL/MM3 (4.00-5.30) Hemoglobin 10.8 GM/DL (11.6-15.3) 10.8 GM/DL (11.6-15.3) 11.4 GM/DL (11.6-15.3) Hematocrit 31.9 % (35.0-46.0) 32.0 % (35.0-46.0) 33.9 % (35.0-46.0) Activated Partial Thromboplast Time 30.9 SEC (24.3-30.1) Neutrophils (%) (Auto) 70.2 % (16.0-70.0) Estimat Glomerular Filtration Rate 78 ML/MIN (>89) Imaging Last Impressions Lower Extremity Ultrasound 12/27/17 0909 Signed Impressions: Service Date/Time: Wednesday, December 27, 2017 09:15 - CONCLUSION: Normal examination. Noel Mahoney MD Aorta w/Runoff CTA 12/27/17 0000 Signed Impressions: Service Date/Time: Wednesday, December 27, 2017 12:04 - CONCLUSION: 1. Atherosclerotic change in the aorta without aneurysm or occlusion. 2. Bilateral common iliac artery stents. 3. Narrowing of the entire external iliac arteries bilaterally being worse on the right. 4. Occlusion of the superficial femoral arteries bilaterally. There is reconstitution of the distal left superficial femoral artery. 5. The proximal trifurcation vessels are filled via collaterals. 6. Occlusion of the right anterior tibial artery at the midcalf. The posterior tibial and popliteal arteries extend to the ankle region. 7. The left trifurcation vessels are patent. 8. Presumed post intervention changes seen in the right groin. Adiel Michael MD PE at Discharge GENERAL: This is a well-nourished, well-developed patient, in no apparent distress. CARDIOVASCULAR: Regular rate and rhythm without murmurs, gallops, or rubs. RESPIRATORY: Clear to auscultation. Breath sounds equal bilaterally. No wheezes , rales, or rhonchi. GASTROINTESTINAL: Abdomen soft, non-tender, nondistended. MUSCULOSKELETAL: Right foot is warm and well perfused. Right foot drop (this is not new). No pressure ulcerations on the heel noted. Improving erythema/ warmth overlying the tibial plateau of the right leg. Skin: Right calf incision clean dry and intact. Right groin incision covered with dressing, clean dry and intact. NEUROLOGICAL: Awake and alert. Motor and sensory grossly within normal limits. Normal speech. Hospital Course 62-year-old female with hypertension and peripheral artery disease with multiple right lower extremity bypasses presented with right leg pain. Found to have occlusion in her right popliteal artery. Vascular was consulted and patient was started on heparin drip. Angiogram was performed, which confirmed diagnosis. Options were discussed with the patient and patient opted for another bypass. The bypass was performed successfully without complications. Patient's pain slowly improved and was transitioned to oral pain medications. Patient was transitioned to Lovenox and then Eliquis for outpatient therapy. Patient discharged in stable condition with follow-up with vascular surgery. Pt Condition on Discharge: Stable Discharge Disposition: Disch w/ Home Health Serv Discharge Instructions DIET: Follow Instructions for: As Tolerated, No Restrictions Activities you can perform: Regular-No Restrictions, Weight Bearing as Jay Follow up Referrals: PCP Follow-up - 1 Week with Adiel Keen M.d. Vascular Surgery - 1 Week @ Vascular Surgery with Thomas Xiong MD Continued Medications: Apixaban (Eliquis) 5 Mg Tab 5 MG PO BID for PAD for 30 Days, #60 TAB 3 Refills Aspirin (Aspirin Low Dose) 81 Mg Chew 81 MG CHEW DAILY, TAB 0 Refills B-Complex Vitamins (Vitamin B Complex) 1 Tab Unknown Dose PO DAILY Ibuprofen (Ibuprofen) 800 Mg Tab 800 MG PO Q6HR PRN for PAIN, #40 TAB 0 Refills Levothyroxine (Levothyroxine) 100 Mcg Tab 100 MCG PO DAILY for Thyroid, #30 TAB 0 Refills Lisinopril (Lisinopril) 5 Mg Tab 5 MG PO BID for Blood Pressure Management, #30 TAB 0 Refills Oxycodone-Acetaminophen (Percocet) 5-325 mg Tab 1 TAB PO Q4H PRN for PAIN, #30 TAB 0 Refills Potassium (Potassium) 99 Mg Tablet 99 MG PO DAILY Turmeric (Curcuma Longa) (Turmeric) 450 Mg-50 Mg Cap Unknown Dose PO DAILY Vitamin E (Vitamin E) 100 Unit Tab Unknown Dose PO DAILY for Nutritional Supplement, TAB 0 Refills Johan Maciel MD R2 January 04, 2018 12:03
== END 2018-01-04 13:50 | disposition home health service (06) | DRG 253 ==
LOC: NEPE 08:52 → NEDA 15:06 → N07A 16:20
PROVIDERS: ADMIT Family Medicine; ATTEND Family Medicine
PROC: B4101ZZ Fluoroscopy of Abdominal Aorta using Low Osmolar Contrast (ICD-10-PCS; 2017-12-28)
PROC: B41F1ZZ Fluoroscopy of Right Lower Extremity Arteries using Low Osmolar Contrast (ICD-10-PCS; 2017-12-28)
PROC: 047H3Z1 Dilation of Right External Iliac Artery using Drug-Coated Balloon, Percutaneous Approach (ICD-10-PCS; principal; 2017-12-28 15:00)
PROC: 047H34Z Dilation of Right External Iliac Artery with Drug-eluting Intraluminal Device, Percutaneous Approach (ICD-10-PCS; 2017-12-31)
PROC: B41F1ZZ Fluoroscopy of Right Lower Extremity Arteries using Low Osmolar Contrast (ICD-10-PCS; 2017-12-31)
PROC: 041K0JN Bypass Right Femoral Artery to Posterior Tibial Artery with Synthetic Substitute, Open Approach (ICD-10-PCS; 2017-12-31 10:56)
DX: I70.321 Atherosclerosis of unspecified type of bypass graft(s) of the extremities with rest pain, right leg (principal); N17.9 Acute kidney failure, unspecified; I10 Essential (primary) hypertension; F41.9 Anxiety disorder, unspecified; Z66 Do not resuscitate; E03.9 Hypothyroidism, unspecified; K59.09 Other constipation; M19.90 Unspecified osteoarthritis, unspecified site; Z95.820 Peripheral vascular angioplasty status with implants and grafts; Z79.01 Long term (current) use of anticoagulants; Z87.891 Personal history of nicotine dependence
CPT/HCPCS: 36247; 37220; 75635; 75710; 80048; 85025; 85027; 85610; 85730; 86850; 86900; 86901; 93971; 94150; 96374; 96375; 96376; C1725; C1760; C1769; C1876; C1893; C2623; G0269; J0131; J0690; J1170; J1644; J1650; J2060; J2250; J2270; J2720; J3010; J7030; J7120; Q9967

== ENCOUNTER 2018-03-11 19:22 | Inpatient (IN) ==
[~2018-03-11 19:22] MED LIST changes: -AMLO5TAB2 PO; -APIX5TAB PO; -ASPI81CH6 CHEW; +Glycopyrrolate Inj 1 MG/5 ML Syringe IV.PUSH ONE; -IBUP1TAB7 PO; -LEVO100T5 PO; +Lidocaine PF 1% Inj 5 ML Syringe INFILTRATN ONE; +Metoprolol Inj 5 MG/5 ML Vial IV.PUSH ONE; +Neostigmine Inj 5 MG/5 ML Syringe IV.PUSH ONE; -PERC5TAB12 PO; -POTA99TA4 PO; +Phenylephrine/NS 1000 MCG/10ML Syringe IV.PUSH ONE; -TURM500C3 PO; -VITA100T65 PO; -VITATAB11 PO; -WALKER GLIDE WH1 MI1
--- NOTE | 2018-03-11 19:42 | ED ---
HPI General Chief complaint: Medical Clearance Stated complaint: Medical / FH Transport Time Seen by Provider: 03/11/18 19:31 Source: EMS Mode of arrival: EMS Limitations: other History of Present Illness HPI narrative: 62yo F was transferred from [facility] after her CTA showed focal soft tissue collection surrounding the right common femoral/ femoral artery bypass graft anastamosis in right groin region measuring approximately 5.3 x 6.2cm with surrounding subcutaneous stranding and inflammation and focal stenosis of the proximal common artery suggestive of hematoma. No active bleed. Pt said she was driving today and all of a sudden felt a pop in right groin and then felt a painful swelling so called her vascular surgeon's office and was told to go to the nearest hospital. Denies any other symptoms including fever, chest pain, sob, n/v, abdominal pain, focal weakness or numbness. Pt had multiple femoral bypass, last was in 12/[address] Xiong. Related Data Allergies Allergy/AdvReac Type Severity Reaction Status Date / Time No Known Allergies Allergy Unknown n/a Uncoded 03/11/18 19:49 Review of Systems ROS Unobtainable All other systems reviewed negative except as stated in HPI [facility] Family History Family History Other HTN (hypertension) Exam Narrative Exam Narrative: GENERAL: 62yo F in mild distress. SKIN: Focused skin assessment warm/dry. HEAD: Atraumatic. Normocephalic. CARDIOVASCULAR: Regular rate and rhythm. No murmur appreciated. RESPIRATORY: No accessory muscle use. Clear to auscultation. Breath sounds equal bilaterally. GASTROINTESTINAL: Abdomen soft, non-tender, nondistended. MUSCULOSKELETAL: RLE: +DP pulse. +Induration in right groin that is pulsatile. NEUROLOGICAL: Awake and alert. No obvious cranial nerve deficits. Motor grossly within normal limits. Normal speech. PSYCHIATRIC: Appropriate mood and affect; insight and judgment normal. Course Initial Documented Vital Signs Temperature 97.9 F 03/11/18 19:38 Pulse Rate 78 03/11/18 19:38 Respiratory Rate 20 03/11/18 19:38 Blood Pressure 136/65 03/11/18 19:38 Pulse Oximetry 100 03/11/18 19:38 Last Documented Vital Signs Temperature 97.9 F 03/11/18 19:38 Pulse Rate 78 03/11/18 19:38 Respiratory Rate 20 03/11/18 19:38 Blood Pressure 136/65 03/11/18 19:38 Pulse Oximetry 100 03/11/18 19:38 Medical Decision Making MDM Narrative Medical decision making narrative: 62yo F was transferred here from [facility] for pseudoaneurysm of right groin. Pt's a known patient of Dr. Xiong'thelma so he was called when pt arrived to the ED. Dr. Xiong saw the patient and wants to take her to the OR for angiogram and possible right groin repair for pseudoaneurysm tonight. Labs were completed at [facility] and came with lab work that was completed today. Labs reviewed, no leukocytosis. H /H 13.0/39.9. Platelet 277. Creatinine normal at 0.9. I added coags and type and screen. Ordered 2 units of RBC to be held as per Dr. Xiong. Discussed with Dr. Joann Artis and accepted to her service. Pt is NPO. Differential Diagnosis Differential Diagnosis: hematoma vs. pseudoaneurysm Lab Data Lab Results 03/11/18 03/11/18 03/11/18 Range/Units 20:23 20:25 20:25 PT 10.1 (9.8-11.6) sec INR 1.0 Ratio APTT 26.6 (24.3-30.1) sec Blood Type O Positive Blood Type Recheck Not needed Antibody Screen Negative MTS Gel Crossmatch See Detail Discharge Plan Discharge Disposition Patient Disposition: 30 Still Patient Physicians Team ED Provider: Kaylen Segovia Primary Care Provider: Adiel Keen Attending Provider: Itzel David Status ED Status: Admitted Patient
[2018-03-11] MEDS ORDERED: Bisacodyl 10 MG Supp RECTAL PRN (20:24)
--- NOTE | 2018-03-11 20:45 | P.HPVS ---
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 CTA at local hospital suggestive of proximal groin pseudoaneurysm off bypass. No foot pain. + leg pain. - Inpatient Certification If this patient has been admitted as an Inpatient: I certify that the inpatient services were ordered in accordance with Medicare regulations governing the order. This includes certification that hospital inpatient services are reasonable and necessary and in the case of services not specified as inpatient-only under 42 CFR 419.22(n), that they are appropriately provided as inpatient services in accordance to with the 2-midnight benchmark under 43 CFR 412.3(e) Estimated Total Length of Stay (Days): 7 Plans for Post Hospital Care: Home Review of Systems Constitutional: Denies anorexia, Denies body ache(s), Denies chills, Denies daytime sleepiness, Denies excessive sweating, Denies fatigue, Denies fever(s), Denies headache(s), Denies increased appetite, Denies lack of energy, Denies malaise, Denies night sweats, Denies weakness, Denies weight gain, Denies weight loss, Denies other Cardiovascular: Denies chest pain, Denies chest pain at rest, Denies chest pain with activity, Denies excessive sweating, Denies fainting, Denies fast heart rate, Denies foot swelling, Denies generalized swelling, Denies irregular heart rhythm, Denies leg pain with activity, Denies leg sores, Denies leg swelling, Denies lightheadedness, Denies radiating jaw, neck or arm pain, Denies rapid, pounding, or irregular heartbeat, Denies shortness of breath, Denies shortness of breath with activity, Denies shortness of breath when lying down, Denies shortness of breath causing sudden awakening, Denies slow heart rate, Denies other PMFSH - History History Provided By: Medical Record, Automobile Insurance Claim Examiner / EMT - Medical History Medical History: Medical History (Last Reviewed 03/11/18 @ 20:40 by Thomas Xiong MD) HTN (hypertension) (Acute) PAD (peripheral artery disease) (Acute) Anxiety 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 Plantar fasciitis Smoking - Surgical History Surgical History: Surgical History (Last Reviewed 03/11/18 @ 20:40 by Thomas Xiong MD) H/O section - Family History Family History: Family History (Last Updated 03/11/18 @ 20:40 by Thomas Xiong MD) Other HTN (hypertension) - Tobacco History Tobacco Use In Past 30 Days: No Medications and Allergies Active Medications: Active Medications Al Hydroxide/Mg Hydroxide (Milk Of Magnesia Liq) 30 ml PO Q12H PRN PRN Reason: Mild Constipation Bisacodyl (Dulcolax Supp) 10 mg RECTAL DAILY PRN PRN Reason: SEVERE CONSITIPATION Lactated Ringer's (Lr 1000 Ml Inj) 1,000 mls @ 100 mls/hr IV.CONT .Q10H [place] Lactulose (Lactulose Liq) 30 ml PO DAILY PRN PRN Reason: SEVERE CONSITIPATION Sennosides (Senokot) 17.2 mg PO Q12H PRN PRN Reason: Moderate Constipation Sodium Chloride (Ns Flush) 2 ml IV.FLUSH PRN PRN PRN Reason: FLUSH AFTER USING IV ACCESS Allergies Allergy/AdvReac Type Severity Reaction Status Date / Time No Known Allergies Allergy Unknown n/a Uncoded 03/11/18 19:49 Physical Exam Vital Signs / I&O: Vital Signs 03/11/18 19:38 Temperature 97.9 F Pulse Rate 78 Respiratory Rate 20 Blood Pressure 136/65 Pulse Oximetry 100 Intake & Output 03/11/18 03/11/18 03/12/18 06:59 18:59 06:59 Weight 81.647 kg Neuro: alert, appropriately anxious HEENT: NC/AT; anicteric sclera Neck: no JVD Heart: reg rate, no M Lungs: clear B Vascular: palpable R groin with hematoma and punctate bloody drainage at caudal aspect of the wound, no immediate skin threat + PT pulse in foot Hct 40 (outside) outside CTA reviewed - proximal graft pseusdoaneurysm off 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 bypass with surrounding hematoma Caprini VTE Risk Assessment Caprini VTE Risk Assessment: No/Low Risk (score <= 1) (on anticoagulation) Caprini Risk Assessment Model: Point Value = 1 Point Value = 2 Point Value = 3 Point Value = 5 Age 41-60 Minor surgery BMI > 25 kg/m2 Swollen legs Varicose veins or History of unexplained or recurrent spontaneous Oral contraceptives or hormone replacement Sepsis (< 1 month) Serious lung disease, including pneumonia (< 1 month) Abnormal pulmonary function Acute myocardial infarction Congestive heart failure (< 1 month) History of inflammatory bowel disease Medical patient at bed rest Age 61-74 Arthroscopic surgery Major open surgery (> 45 min) Laparoscopic surgery (> 45 min) Malignancy Confined to bed (> 72 hours) Immobilizing plaster cast Central venous access Age >= 75 History of VTE Family history of VTE Factor V Leiden Prothrombin [id number] Lupus anticoagulant Anticardiolipin antibodies Elevated serum homocysteine Heparin-induced thrombocytopenia Other congenital or acquired thrombophilia Stroke (< 1 month) Elective arthroplasty Hip, pelvis, or leg fracture Acute spinal cord injury (< 1 month) Prophylaxis Regimen: Total Risk Factor Score Risk Level Prophylaxis Regimen 0-1 Low Early ambulation 2 Moderate Order ONE of the following: *Sequential Compression Device (SCD) *Heparin 5000 units SQ BID 3-4 Higher Order ONE of the following medications: *Heparin 5000 units SQ TID *Enoxaparin/Lovenox 40 mg SQ daily (WT < 150 kg, CrCl > 30 mL/min) *Enoxaparin/Lovenox 30 mg SQ daily (WT < 150 kg, CrCl > 10-29 mL/min) *Enoxaparin/Lovenox 30 mg SQ BID (WT < 150 kg, CrCl > 30 mL/min) AND/OR *Sequential Compression Device (SCD) 5 or more Highest Order ONE of the following medications: *Heparin 5000 units SQ TID (Preferred with Epidurals) *Enoxaparin/Lovenox 40 mg SQ daily (WT < 150 kg, CrCl > 30 mL/min) *Enoxaparin/Lovenox 30 mg SQ daily (WT < 150 kg, CrCl > 10-29 mL/min) *Enoxaparin/Lovenox 30 mg SQ BID (WT < 150 kg, CrCl > 30 mL/min) AND *Sequential Compression Device (SCD) Assessment and Plan - Assessment (1) Bypass graft mechanical complication Code(s): T82.398A - Other mechanical complication of other vascular grafts, initial encounter Status: Acute (2) Pseudoaneurysm Code(s): I72.9 - Aneurysm of unspecified site Status: Acute - Plan To OR tonight for R LE angiogram and possible placement of covered stent within bypass, and possible groin exploration and bypass revision. Pt understands risks including but not limited to the need for more surgery, groin wound complications, limb loss I also discussed this with her daughter radha. Hayley [phone] Discharge Planning: likely 5-7 days
[2018-03-11 21:02] LABS: Activated Partial Thrombo Time 26.6 sec (24.3-30.1); Prothrombin Time 10.1 sec (9.8-11.6)
[2018-03-11] MEDS ORDERED: Heparin 10,000 UNITS/10 ML Vial (for IV use) ONE (21:04)
[2018-03-11] MEDS ORDERED: Protamine Sulfate Inj 50 MG/5 ML Vial ONE (21:04)
[2018-03-11] MEDS ORDERED: Bupivacaine PF 0.5% Inj 30 ML Vial ONE (21:04)
[2018-03-11] MEDS ORDERED: Thrombin Topical 20,000 UNIT Spray Kit TOPICAL ONE (21:04)
[2018-03-11] MEDS ORDERED: Heparin/NS PF Inj 500 ML ONE (21:05)
[2018-03-11] MEDS ORDERED: ceFAZolin 2 GM Premix Inj 2 GM/50 ML PIGGYBACK IV.SIG ONE (21:38)
--- NOTE | 2018-03-11 21:44 | P.HPIM ---
History of Present Illness Service: [facility] Hospitalist Primary Care Physician: Adiel Keen MD Chief Complaint: Right groin pain and swelling History of Present Illness: Ms. Burnham is a pleasant 62-year-old female with a history of hypertension, hypothyroidism, and severe PAD status post 3 right lower extremity bypass surgeries in the past 2 years who presented to the emergency room at [facility] in [place] for evaluation of sudden onset of right groin pain and swelling while driving home from [place]. She called her vascular surgeon Dr. Xiong and he referred her to the nearest emergency room. CTA suggested proximal groin pseudoaneurysm off caudal femoral artery and posterior tibial bypass and the patient was transferred to [facility] in [place] for revascularization by Dr. Xiong. The patient is seen in the emergency room with her daughter and her son-in-law at the bedside. She denies pain at the time of my visit but continues to have swelling in the right groin. She denies any recent fever, chills, or illness and states she has been in feeling well and exercising over the past month. She denies any nausea, vomiting, diarrhea, chest pain or shortness of breath. - Diagnosis (1) Bypass graft mechanical complication (2) Pseudoaneurysm Inpatient Certification: I certify that the inpatient services were ordered in accordance with Medicare regulations governing the order. 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 - Medical History Medical History: Medical History (Last Reviewed 03/11/18 @ 20:40 by Thomas Xiong MD) HTN (hypertension) (Acute) Anxiety 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 Mother HTN (hypertension) - Tobacco History Second Hand Smoke Exposure: No Tobacco Use In Past 30 Days: No Smoking Status: Never smoker Tobacco Type: Cigarettes Packs Per Day: 1 Years Smoked: 30 Smoking End Date: 1 year ago - Alcohol History How Often Do You Have a Drink Containing Alcohol: Monthly or less - Substance Use History Substance History: No History of Abuse - Travel History History of Recent Travel: No Recent Travel in the [facility] Within the Last 8 Weeks: No - Immunization History Tetanus Immunization: <5 Years Medications and Allergies Active Medications: Active Medications Al Hydroxide/Mg Hydroxide (Milk Of Magnesia Liq) 30 ml PO Q12H PRN PRN Reason: Mild Constipation Bisacodyl (Dulcolax Supp) 10 mg RECTAL DAILY PRN PRN Reason: SEVERE CONSITIPATION Lactated Ringer's (Lr 1000 Ml Inj) 1,000 mls @ 100 mls/hr IV.CONT .Q10H [place] Last Infusion: 03/11/18 20:35 Dose: 0 mls/hr Lactulose (Lactulose Liq) 30 ml PO DAILY PRN PRN Reason: SEVERE CONSITIPATION Sennosides (Senokot) 17.2 mg PO Q12H PRN PRN Reason: Moderate Constipation Sodium Chloride (Ns Flush) 2 ml IV.FLUSH PRN PRN PRN Reason: FLUSH AFTER USING IV ACCESS Allergies Allergy/AdvReac Type Severity Reaction Status Date / Time No Known Allergies Allergy Unknown n/a Uncoded 03/11/18 19:49 Exam Vital signs: Vital Signs 03/11/18 19:38 Temperature 97.9 F Pulse Rate 78 Respiratory Rate 20 Blood Pressure 136/65 Pulse Oximetry 100 Intake & Output 03/11/18 03/11/18 03/12/18 06:59 18:59 06:59 Weight 81.647 kg - Constitutional no acute distress, average body habitus - Routine Respiratory Exam Present: CTA bilaterally. Absent: accessory muscle use, wheezes, crackles - Routine Cardiovascular Exam Present: RRR, S1, S2. Absent: murmur, gallop, rubs - Routine Abdominal Exam Present: soft, normoactive bowel sounds. Absent: distended - Routine Extremities Exam Present: pulses intact. Absent: edema, extremity cold to touch - Routine Skin Exam Present: intact, dry, warm - Routine Neurological Exam Present: alert, oriented X3, motor deficit. Absent: sensory deficit left first toe with drop noted Results - Labs Labs: Labs reviewed from [facility] today WBC 9.86, hemoglobin 13.0, hematocrit 39.9, glucose 277, sodium 140, potassium 3.7, bun 20, creatinine 0.9, glucose 110 . Caprini VTE Risk Assessment Caprini VTE Risk Assessment: No/Low Risk (score <= 1) (on anticoagulation) Caprini Risk Assessment Model: Point Value = 1 Point Value = 2 Point Value = 3 Point Value = 5 Age 41-60 Minor surgery BMI > 25 kg/m2 Swollen legs Varicose veins or History of unexplained or recurrent spontaneous Oral contraceptives or hormone replacement Sepsis (< 1 month) Serious lung disease, including pneumonia (< 1 month) Abnormal pulmonary function Acute myocardial infarction Congestive heart failure (< 1 month) History of inflammatory bowel disease Medical patient at bed rest Age 61-74 Arthroscopic surgery Major open surgery (> 45 min) Laparoscopic surgery (> 45 min) Malignancy Confined to bed (> 72 hours) Immobilizing plaster cast Central venous access Age >= 75 History of VTE Family history of VTE Factor V Leiden Prothrombin [id number] Lupus anticoagulant Anticardiolipin antibodies Elevated serum homocysteine Heparin-induced thrombocytopenia Other congenital or acquired thrombophilia Stroke (< 1 month) Elective arthroplasty Hip, pelvis, or leg fracture Acute spinal cord injury (< 1 month) Prophylaxis Regimen: Total Risk Factor Score Risk Level Prophylaxis Regimen 0-1 Low Early ambulation 2 Moderate Order ONE of the following: *Sequential Compression Device (SCD) *Heparin 5000 units SQ BID 3-4 Higher Order ONE of the following medications: *Heparin 5000 units SQ TID *Enoxaparin/Lovenox 40 mg SQ daily (WT < 150 kg, CrCl > 30 mL/min) *Enoxaparin/Lovenox 30 mg SQ daily (WT < 150 kg, CrCl > 10-29 mL/min) *Enoxaparin/Lovenox 30 mg SQ BID (WT < 150 kg, CrCl > 30 mL/min) AND/OR *Sequential Compression Device (SCD) 5 or more Highest Order ONE of the following medications: *Heparin 5000 units SQ TID (Preferred with Epidurals) *Enoxaparin/Lovenox 40 mg SQ daily (WT < 150 kg, CrCl > 30 mL/min) *Enoxaparin/Lovenox 30 mg SQ daily (WT < 150 kg, CrCl > 10-29 mL/min) *Enoxaparin/Lovenox 30 mg SQ BID (WT < 150 kg, CrCl > 30 mL/min) AND *Sequential Compression Device (SCD) Assessment and Plan - Assessment (1) Bypass graft mechanical complication Code(s): T82.398A - Other mechanical complication of other vascular grafts, initial encounter Status: Acute (2) Pseudoaneurysm Code(s): I72.9 - Aneurysm of unspecified site Status: Acute - Plan Ms. Burnham is a pleasant 62-year-old female with a history of hypertension, hypothyroidism, and severe PAD status post 3 right lower extremity bypass surgeries in the past 2 years who presented to the emergency room at [facility] in [place] for evaluation of sudden onset of right groin pain and swelling while driving home from [place]. She called her vascular surgeon Dr. Xiong and he referred her to the nearest emergency room. CTA suggested proximal groin pseudoaneurysm off caudal femoral artery and posterior tibial bypass and the patient was transferred to [facility] in [place] for revascularization by Dr. Xiong. PAD Pseudoaneurysm Bypass graft mechanical complication -Dr. Xiong will take patient to the [facility] for right lower extremity angiogram and possible revascularization -We will be available postoperatively to assist with pain management or any postoperative complications Hypertension -Continue home medications - Lisinopril 5 mg p.o. daily per old records - await med rec to be completed -Monitor trends in blood pressure and adjust treatments as indicated Hypothyroidism -Resume patient's home Synthroid 100 mcg per old records - await med rec to be completed DVT prophylaxis -Per vascular surgeon
[2018-03-11] MEDS ORDERED: Iohexol 300 MG/ML 50 ML Vial (for Rad Diag) IVCONTRAST ONE (23:59)
[2018-03-12] MEDS ORDERED: Naloxone Inj 0.4 MG/ML Vial IV.PUSH PRN (00:19)
--- NOTE | 2018-03-12 00:19 | P.OP ---
Date of procedure: 03/12/18 Procedure: 1. R LE angiogram 2. L HANDKERCHIEF SAMPLE CLERK Angioseal 3. Direct repair of R HANDKERCHIEF SAMPLE CLERK pseudoaneurysm 4. Graft thrombectomy via groin and calf incisions Implants: L HANDKERCHIEF SAMPLE CLERK Angioseal Anesthesia: GETA Surgeon: Thomas Xiong MD Vice President Planning: Adiel Quiroz Estimated blood loss (mL): 300 IV fluids (mL): 2,300 Urine output (mL): 600 Pathology: none sent Operation and Findings: 1. R pseudoaneurysm off iliofemoral bypass, successful direct repair 2. Graft thrombectomy with groin and calf incisions 3. + PT signal after thrombectomy
[2018-03-12] MEDS ORDERED: fentaNYL Citrate Inj 250 MCG/5 ML Ampul ONE (00:50)
[2018-03-12] MEDS ORDERED: Morphine Inj 4 MG/ML Vial ONE (00:50)
--- NOTE | 2018-03-12 00:54 | MP ---
cc: Thomas Xiong MD DATE OF OPERATION: 03/11/2018 PREOPERATIVE DIAGNOSIS: Right common femoral artery pseudoaneurysm. POSTOPERATIVE DIAGNOSES: 1. Right common femoral artery pseudoaneurysm. 2. Graft thrombosis. PROCEDURES PERFORMED: 1. Right lower extremity angiogram. 2. Left common femoral artery Angio-Seal. 3. Direct repair of ruptured right common femoral artery pseudoaneurysm. 4. Graft embolectomy in the femoral popliteal segment via groin incision. 5. Graft, thrombectomy of the posterior tibial via calf incision. ATTENDING SURGEON: Thomas Xiong MD VICE ADMIRAL SURGEON: Adiel Quiroz ANESTHESIA: General. INDICATIONS FOR PROCEDURE: Ms. Burnham is a lady who has 4 time redo right lower extremity bypass. She presented today with acute right lower extremity pain and a CT scan suggested a common femoral artery pseudoaneurysm. It was unclear where the pseudoaneurysm emanated from the most recent bypass graft or the underlying femoral reconstruction and, as such, an angiogram was performed and this, in fact, showed it was off the femoral artery and, as such, direct surgical exploration was performed. Intraoperatively, it was found that the graft was thrombosed likely from pressure of the hematoma and this was successfully thromboembolectomized . DESCRIPTION OF PROCEDURE: Informed consent was obtained from the patient. She was taken to the operating room and placed supine on the operating table. An appropriate timeout was taken to ensure the patient's identity, the operative site and planned procedure. The administration of 2 grams of Ancef was initiated prior to skin incision and discontinued after single preoperative dose. She was prepped from her nipples to her toes. A 21-gauge micropuncture needle was used to access the left common femoral artery. This was obtained using Seldinger technique through a micropuncture sheath, through which a 0.035 Glidewire was introduced. The micropuncture sheath was changed from a 5-British sheath and a VCF catheter was placed over the wire and through the sheath and the VCF and Glidewire navigated down to the right common femoral artery and right lower extremity arteriogram was obtained. This showed that the patient had a pseudoaneurysm emanating from the iliofemoral bypass and not from the femoral, posterior tibial artery bypass. As such, endovascular repair was not possible. The glide was exchanged for a Shen and over the Shen, a 6 x 20 balloon was then placed for endovascular balloon control. We then turned our attention towards the open surgical reconstruction. Her vertical groin incision was reopened with a 10 blade, carried down through subcutaneous tissue with electrocautery. The previous bypass graft was identified. It was noted to be intact and we dissected this back to the iliofemoral graft, which had a linear area of laceration, which was successfully repaired with a series of 4-0 and 5-0 pledgeted Prolene suture. This was irrigated with 2 liters of saline and there was no further bleeding. The old hematoma was evacuated without difficulty. The wire, catheter and sheath were removed from the groin and the groin was closed in Angio-Seal. At this point, we checked the pulses in the foot and there were none. As such, the patient who had been systemically heparinized at the beginning of the case, was confirmed to be greater than 250 and proximal and distal graft were obtained and a transverse graftotomy was made with 11 blade and the graft was then embolectomized with a #3 Karma balloon. The fresh thrombus was retrieved without difficulty and the graftotomy was oversewn with 6-0 Prolene suture. Hemostasis was achieved in this area, but there was still no signal in the foot. We then made an incision in the below-knee, medial calf, carried down subcutaneously with electrocautery. The graft was identified. It had a pulse in it distally, but it was a water hammer pulse. The graft was then isolated, clamped proximally and distally and a transverse graftotomy was made and a #2 Karma embolectomy catheter was passed all the way down to the midfoot and the clot and other contents were retrieved. The graftotomy was closed with 6-0 Prolene suture and the clamps were released. At this point, there was a pulse in the graft and a strong Doppler signal in the posterior tibial, around the malleolus. All the wounds were made hemostatic with Surgicel and spray thrombin and closed with 2-0 Polysorb and 3-0 Polysorb. The skin was closed in the groin with a 4-0 Monocryl and in the calf with lexy. Sponge and needle counts were correct at the end of the case. I was present, scrubbed and performed the entire procedure. MD MAX Broussard , 12:26 AM , 12:53 AM MICKEY
[2018-03-12] MEDS ORDERED: *morphine SULFATE 4 MG/ML PERIprocedure ONLY ONE ×2 (01:10→01:16)
[2018-03-12] MEDS: Heparin Drip 25,000 UNIT/250 ML BAG IV.CONT PRN ×2 (01:31→18:19)
[2018-03-12] MEDS ORDERED: HYDROmorphone PF Inj 2 MG/ML Vial ONE (01:37)
[2018-03-12] MEDS: Morphine Inj 30 MG/30 ML PCA.VIAL PCA PRN ×2 (01:47→19:35)
[2018-03-12 01:58] LABS: Activated Partial Thrombo Time 74.9 sec (24.3-30.1); Prothrombin Time 10.6 sec (9.8-11.6)
[2018-03-12 04:57] LABS: Baso % (Auto) 0.2 % (0.0-2.0); Eos % (Auto) 0.2 % (0.0-4.0); Hematocrit 26.2 % (35.0-46.0); Hemoglobin 8.9 gm/dL (11.6-15.3); Lymph # (Auto) 1.9 th/mm3 (1.0-4.8); Lymph % (Auto) 17.6 % (9.0-44.0); Mean Corpuscular Hemoglobin 30.4 pg (27.0-34.0); Mean Corpuscular Volume 89.5 fL (80.0-100.0); Mean Platelet Volume 8.9 fL (7.0-11.0); Mono # (Auto) 0.7 th/mm3 (0.0-0.9); Mono % (Auto) 6.4 % (0.0-8.0); Neut # (Auto) 8.1 th/mm3 (1.8-7.7); Neut % (Auto) 75.6 % (16.0-70.0); Platelet Count 206 th/mm3 (150-450); Red Blood Count 2.93 mil/mm3 (4.00-5.30); Red Cell Distribution Width 14.5 % (11.6-17.2); White Blood Count 10.7 th/mm3 (4.0-11.0)
[2018-03-12 05:10] LABS: Calcium 8.1 mg/dL (8.5-10.1); Carbon Dioxide 20.8 meq/L (21.0-32.0); Potassium 4.2 meq/L (3.5-5.1)
[2018-03-12] MEDS: PCA - Total MG Morphine Delevered per Shift IV.SIG SCH ×3 (06:06→23:45)
--- NOTE | 2018-03-12 07:20 | P.PNVS ---
Subjective Post Op Day #: 1 Procedure: R groin pseudoaneurysm repair and graft thrombectomy Subjective/Hospital Course: overnight, pain controlled has been HD stable Good UOP Objective Vital Signs / I&O: Vital Signs 03/11/18 19:38 03/12/18 00:34 03/12/18 00:45 Temperature 97.9 F 98.7 F Pulse Rate 78 69 69 Respiratory Rate 20 18 Blood Pressure 136/65 147/67 H 137/55 L Pulse Oximetry 100 100 03/12/18 01:00 03/12/18 01:15 03/12/18 01:30 Temperature Pulse Rate 66 82 76 Respiratory Rate 19 Blood Pressure 137/57 L 136/68 108/51 L Pulse Oximetry 100 100 100 03/12/18 01:45 03/12/18 02:00 03/12/18 02:05 Temperature Pulse Rate 66 72 80 Respiratory Rate Blood Pressure 107/57 L 104/48 L 104/46 L Pulse Oximetry 100 100 03/12/18 02:30 Temperature Pulse Rate 75 Respiratory Rate Blood Pressure Pulse Oximetry 98 Intake & Output 03/11/18 03/12/18 03/12/18 18:59 06:59 18:59 Intake Total 3645 / 3645 Output Total 1250 / 1250 Balance 2395 / 2395 Weight 99 kg Intake: IV 625 / 625 Heparin/NS PF Inj 500 ML @ 0 100 / 100 mls/hr .ROUTE .STK-MED ONE Rx#: [id number] Heparin/D5W 25,000 U/250 mL 25, 65 / 65 000 unit In 250 ml @ 1,500 UNITS/HR 15 mls/hr IV.CONT TITRATE PRN Rx#:[id number] LR 1000 mL Inj 1,000 ML @ 100 410 / 410 mls/hr IV.CONT .Q10H [place] Rx#: [id number] Ancef 2 GM Premix Inj 2 gm In 50 / 50 50 ml @ 0 mls/hr IV.SIG .STK- MED ONE Rx#:[id number] Oral 720 / 720 Anesthesia Amount 2300 / 2300 Output: Estimated Blood Loss 300 / 300 Urine Amount (Catheter) 950 / 950 Indwelling Temp Sensing 950 / 950 Catheter Other: # Bowel Movements 0 Exam: resting comfortably R groin slightly full but not tense Prevena VACs in place Palpable PT Laboratory Results - last 24 hr 0703/11/18 03/11/18 20:23 20:25 20:25 WBC RBC Hgb Hct MCV MCH MCHC RDW Plt Count MPV Neut % (Auto) Lymph % (Auto) [place] % (Auto) Eos % (Auto) Baso % (Auto) Neut # (Auto) Lymph # (Auto) [place] # (Auto) Eos # (Auto) Baso # (Auto) WBC Differential Differential Comment PT 10.1 INR 1.0 APTT 26.6 Sodium Potassium Chloride Carbon Dioxide Anion Gap BUN Creatinine Estimated GFR Random Glucose Calcium Blood Type O Positive Blood Type Recheck Not needed Antibody Screen Negative MTS Gel Crossmatch See Detail 03/12/18 03/12/18 03/12/18 01:26 04:30 04:30 WBC 10.7 RBC 2.93 L Hgb 8.9 L Hct 26.2 L MCV 89.5 MCH 30.4 MCHC 34.0 RDW 14.5 Plt Count 206 MPV 8.9 Neut % (Auto) 75.6 H Lymph % (Auto) 17.6 [place] % (Auto) 6.4 Eos % (Auto) 0.2 Baso % (Auto) 0.2 Neut # (Auto) 8.1 H Lymph # (Auto) 1.9 [place] # (Auto) 0.7 Eos # (Auto) 0.0 Baso # (Auto) 0.0 WBC Differential . Differential Comment Auto diff final PT 10.6 INR 1.0 APTT 74.9 H D Sodium 141 Potassium 4.2 Chloride 109 H Carbon Dioxide 20.8 L Anion Gap 11 BUN 14 Creatinine 0.81 Estimated GFR 71 L Random Glucose 125 H Calcium 8.1 L Blood Type Blood Type Recheck Antibody Screen MTS Gel Crossmatch 03/12/18 04:30 WBC RBC Hgb Hct MCV MCH MCHC RDW Plt Count MPV Neut % (Auto) Lymph % (Auto) [place] % (Auto) Eos % (Auto) Baso % (Auto) Neut # (Auto) Lymph # (Auto) [place] # (Auto) Eos # (Auto) Baso # (Auto) WBC Differential Differential Comment PT INR APTT 86.5 H Sodium Potassium Chloride Carbon Dioxide Anion Gap BUN Creatinine Estimated GFR Random Glucose Calcium Blood Type Blood Type Recheck Antibody Screen MTS Gel Crossmatch Assessment and Plan - Assessment (1) Bypass graft mechanical complication Code(s): T82.398A - Other mechanical complication of other vascular grafts, initial encounter Status: Acute (2) Pseudoaneurysm Code(s): I72.9 - Aneurysm of unspecified site Status: Acute - Plan POD#1 s/p L groin reconstruction and graft thrombectomy, palpable pulse 1. BR today - OOB TC tomorrow 2. [place] in today for UOP during continued resuscitation 3. Recheck CBC at 1300 4. Continue hep gtt 5. Continue pulse checks 6. Cardiac diet Discharge Planning: likely 5-7 days
--- NOTE | 2018-03-12 08:07 | P.PN ---
Physical Exam Vital signs: Vital Signs 03/11/18 19:38 03/12/18 00:34 03/12/18 00:45 Temperature 97.9 F 98.7 F Pulse Rate 78 69 69 Respiratory Rate 20 18 Blood Pressure 136/65 147/67 H 137/55 L Pulse Oximetry 100 100 03/12/18 01:00 03/12/18 01:15 03/12/18 01:30 Temperature Pulse Rate 66 82 76 Respiratory Rate 19 Blood Pressure 137/57 L 136/68 108/51 L Pulse Oximetry 100 100 100 03/12/18 01:45 03/12/18 02:00 03/12/18 02:05 Temperature Pulse Rate 66 72 80 Respiratory Rate Blood Pressure 107/57 L 104/48 L 104/46 L Pulse Oximetry 100 100 03/12/18 02:30 03/12/18 07:33 Temperature Pulse Rate 75 Respiratory Rate Blood Pressure Pulse Oximetry 98 94 L Intake & Output 03/11/18 03/12/18 03/12/18 18:59 06:59 18:59 Intake Total 3645 / 3645 Output Total 1250 / 1250 Balance 2395 / 2395 Weight 99 kg Intake: IV 625 / 625 Heparin/NS PF Inj 500 ML @ 0 100 / 100 mls/hr .ROUTE .STK-MED ONE Rx#: [id number] Heparin/D5W 25,000 U/250 mL 25, 65 / 65 000 unit In 250 ml @ 1,500 UNITS/HR 15 mls/hr IV.CONT TITRATE PRN Rx#:[id number] LR 1000 mL Inj 1,000 ML @ 100 410 / 410 mls/hr IV.CONT .Q10H [place] Rx#: [id number] Ancef 2 GM Premix Inj 2 gm In 50 / 50 50 ml @ 0 mls/hr IV.SIG .STK- MED ONE Rx#:[id number] Oral 720 / 720 Anesthesia Amount 2300 / 2300 Output: Estimated Blood Loss 300 / 300 Urine Amount (Catheter) 950 / 950 Indwelling Temp Sensing 950 / 950 Catheter Other: # Bowel Movements 0 - Urinary Catheter Management Indwelling Temp Sensing Catheter Cath placed during this visit: yes Reason for continuing: Hourly intake/output Insertion date: 03/11/18 Insertion time: 21:42 Results - Labs CBC & Chem 7: 03/12/18 04:30 03/12/18 04:30 Laboratory Results - last 24 hr 03/11/18 03/11/18 03/11/18 20:23 20:25 20:25 WBC RBC Hgb Hct MCV MCH MCHC RDW Plt Count MPV Neut % (Auto) Lymph % (Auto) [place] % (Auto) Eos % (Auto) Baso % (Auto) Neut # (Auto) Lymph # (Auto) [place] # (Auto) Eos # (Auto) Baso # (Auto) WBC Differential Differential Comment PT 10.1 INR 1.0 APTT 26.6 Sodium Potassium Chloride Carbon Dioxide Anion Gap BUN Creatinine Estimated GFR Random Glucose Calcium Blood Type O Positive Blood Type Recheck Not needed Antibody Screen Negative MTS Gel Crossmatch See Detail 03/12/18 03/12/18 03/12/18 01:26 04:30 04:30 WBC 10.7 RBC 2.93 L Hgb 8.9 L Hct 26.2 L MCV 89.5 MCH 30.4 MCHC 34.0 RDW 14.5 Plt Count 206 MPV 8.9 Neut % (Auto) 75.6 H Lymph % (Auto) 17.6 [place] % (Auto) 6.4 Eos % (Auto) 0.2 Baso % (Auto) 0.2 Neut # (Auto) 8.1 H Lymph # (Auto) 1.9 [place] # (Auto) 0.7 Eos # (Auto) 0.0 Baso # (Auto) 0.0 WBC Differential . Differential Comment Auto diff final PT 10.6 INR 1.0 APTT 74.9 H D Sodium 141 Potassium 4.2 Chloride 109 H Carbon Dioxide 20.8 L Anion Gap 11 BUN 14 Creatinine 0.81 Estimated GFR 71 L Random Glucose 125 H Calcium 8.1 L Blood Type Blood Type Recheck Antibody Screen MTS Gel Crossmatch 03/12/18 04:30 WBC RBC Hgb Hct MCV MCH MCHC RDW Plt Count MPV Neut % (Auto) Lymph % (Auto) [place] % (Auto) Eos % (Auto) Baso % (Auto) Neut # (Auto) Lymph # (Auto) [place] # (Auto) Eos # (Auto) Baso # (Auto) WBC Differential Differential Comment PT INR APTT 86.5 H Sodium Potassium Chloride Carbon Dioxide Anion Gap BUN Creatinine Estimated GFR Random Glucose Calcium Blood Type Blood Type Recheck Antibody Screen MTS Gel Crossmatch Assessment and Plan - Plan Ms. Burnham is a pleasant 62-year-old female with a history of hypertension, hypothyroidism, and severe PAD status post 3 right lower extremity bypass surgeries in the past 2 years who presented to the emergency room at [facility] in [place] for evaluation of sudden onset of right groin pain and swelling while driving home from [place]. She called her vascular surgeon Dr. Xiong and he referred her to the nearest emergency room. CTA suggested proximal groin pseudoaneurysm off caudal femoral artery and posterior tibial bypass and the patient was transferred to [facility] in [place] for revascularization by Dr. Xiong. PAD Pseudoaneurysm Bypass graft mechanical complication -Dr. Xiong will take patient to the [facility] for right lower extremity angiogram and possible revascularization -We will be available postoperatively to assist with pain management or any postoperative complications Hypertension -Continue home medications - Lisinopril 5 mg p.o. daily per old records - await med rec to be completed -Monitor trends in blood pressure and adjust treatments as indicated Hypothyroidism -Resume patient's home Synthroid 100 mcg per old records - await med rec to be completed DVT prophylaxis -Per vascular surgeon
--- NOTE | 2018-03-12 08:10 | P.PNIM ---
Subjective Interval history: The patient was resting comfortably in bed. She said that her right arm was a little tight earlier but it is better now. She has been tolerating breakfast. Discussed with nurse at the bedside. Physical Exam Vital signs: Vital Signs 03/11/18 19:38 03/12/18 00:34 03/12/18 00:45 Temperature 97.9 F 98.7 F Pulse Rate 78 69 69 Respiratory Rate 20 18 Blood Pressure 136/65 147/67 H 137/55 L Pulse Oximetry 100 100 03/12/18 01:00 03/12/18 01:15 03/12/18 01:30 Temperature Pulse Rate 66 82 76 Respiratory Rate 19 Blood Pressure 137/57 L 136/68 108/51 L Pulse Oximetry 100 100 100 03/12/18 01:45 03/12/18 02:00 03/12/18 02:05 Temperature Pulse Rate 66 72 80 Respiratory Rate Blood Pressure 107/57 L 104/48 L 104/46 L Pulse Oximetry 100 100 03/12/18 02:30 03/12/18 07:33 Temperature Pulse Rate 75 Respiratory Rate Blood Pressure Pulse Oximetry 98 94 L Intake & Output 03/11/18 03/12/18 03/12/18 18:59 06:59 18:59 Intake Total 3645 / 3645 Output Total 1250 / 1250 Balance 2395 / 2395 Weight 99 kg Intake: IV 625 / 625 Heparin/NS PF Inj 500 ML @ 0 100 / 100 mls/hr .ROUTE .STK-MED ONE Rx#: [id number] Heparin/D5W 25,000 U/250 mL 25, 65 / 65 000 unit In 250 ml @ 1,500 UNITS/HR 15 mls/hr IV.CONT TITRATE PRN Rx#:[id number] LR 1000 mL Inj 1,000 ML @ 100 410 / 410 mls/hr IV.CONT .Q10H [facility] Rx#: [id number] Ancef 2 GM Premix Inj 2 gm In 50 / 50 50 ml @ 0 mls/hr IV.SIG .STK- MED ONE Rx#:[id number] Oral 720 / 720 Anesthesia Amount 2300 / 2300 Output: Estimated Blood Loss 300 / 300 Urine Amount (Catheter) 950 / 950 Indwelling Temp Sensing 950 / 950 Catheter Other: # Bowel Movements 0 Narrative: GENERAL: No distress. SKIN: Focused skin assessment warm/dry. HEAD: Atraumatic. Normocephalic. CARDIOVASCULAR: Regular rate and rhythm. No murmur appreciated. RESPIRATORY: No accessory muscle use. Clear to auscultation. Breath sounds equal bilaterally. GASTROINTESTINAL: Abdomen soft, slight tenderness in RLQ, nondistended. MUSCULOSKELETAL: RLE: + pulse. LLE: Decreased pulse. NEUROLOGICAL: Awake and alert. No obvious cranial nerve deficits. Motor grossly within normal limits. Normal speech. PSYCHIATRIC: Appropriate mood and affect; insight and judgment normal. - Urinary Catheter Management Indwelling Temp Sensing Catheter Cath placed during this visit: yes Reason for continuing: Hourly intake/output Insertion date: 03/11/18 Insertion time: 21:42 Results - Labs CBC & Chem 7: 03/12/18 04:30 03/12/18 04:30 Laboratory Results - last 24 hr 03/11/18 03/11/18 03/11/18 20:23 20:25 20:25 WBC RBC Hgb Hct MCV MCH MCHC RDW Plt Count MPV Neut % (Auto) Lymph % (Auto) [place] % (Auto) Eos % (Auto) Baso % (Auto) Neut # (Auto) Lymph # (Auto) [place] # (Auto) Eos # (Auto) Baso # (Auto) WBC Differential Differential Comment PT 10.1 INR 1.0 APTT 26.6 Sodium Potassium Chloride Carbon Dioxide Anion Gap BUN Creatinine Estimated GFR Random Glucose Calcium Blood Type O Positive Blood Type Recheck Not needed Antibody Screen Negative MTS Gel Crossmatch See Detail 03/12/18 03/12/18 03/12/18 01:26 04:30 04:30 WBC 10.7 RBC 2.93 L Hgb 8.9 L Hct 26.2 L MCV 89.5 MCH 30.4 MCHC 34.0 RDW 14.5 Plt Count 206 MPV 8.9 Neut % (Auto) 75.6 H Lymph % (Auto) 17.6 [place] % (Auto) 6.4 Eos % (Auto) 0.2 Baso % (Auto) 0.2 Neut # (Auto) 8.1 H Lymph # (Auto) 1.9 [place] # (Auto) 0.7 Eos # (Auto) 0.0 Baso # (Auto) 0.0 WBC Differential . Differential Comment Auto diff final PT 10.6 INR 1.0 APTT 74.9 H D Sodium 141 Potassium 4.2 Chloride 109 H Carbon Dioxide 20.8 L Anion Gap 11 BUN 14 Creatinine 0.81 Estimated GFR 71 L Random Glucose 125 H Calcium 8.1 L Blood Type Blood Type Recheck Antibody Screen MTS Gel Crossmatch 03/12/18 04:30 WBC RBC Hgb Hct MCV MCH MCHC RDW Plt Count MPV Neut % (Auto) Lymph % (Auto) [place] % (Auto) Eos % (Auto) Baso % (Auto) Neut # (Auto) Lymph # (Auto) [place] # (Auto) Eos # (Auto) Baso # (Auto) WBC Differential Differential Comment PT INR APTT 86.5 H Sodium Potassium Chloride Carbon Dioxide Anion Gap BUN Creatinine Estimated GFR Random Glucose Calcium Blood Type Blood Type Recheck Antibody Screen MTS Gel Crossmatch Assessment and Plan - Plan Ms. Burnham is a pleasant 62-year-old female with a history of hypertension, hypothyroidism, and severe PAD status post 3 right lower extremity bypass surgeries in the past 2 years who presented to the emergency room at [facility] in [place] for evaluation of sudden onset of right groin pain and swelling while driving home from [place]. She called her vascular surgeon Dr. Xiong and he referred her to the nearest emergency room. CTA suggested proximal groin pseudoaneurysm off caudal femoral artery and posterior tibial bypass and the patient was transferred to [facility] in [place] for revascularization by Dr. Xiong. PAD Pseudoaneurysm. Bypass graft mechanical complication. Vascular surgery was consulted. CT showed: Right common femoral artery pseudoaneurysm; Graft thrombosis. S/p: Right lower extremity angiogram; Left common femoral artery Angio-Seal; Direct repair of ruptured right common femoral artery pseudoaneurysm; Graft embolectomy in the femoral popliteal segment via groin incision; Graft, thrombectomy of the posterior tibial via calf incision. - management per vascular surgery. - pain control with a bowel regimen. - continue heparin gtt. - PT when OK with surgery. Hypertension Well controlled at this time. - Continue home medications - Lisinopril 5 mg daily. - Monitor trends in blood pressure and adjust treatments as indicated. Hypothyroidism On levothyroxine. - Resume patient's home Synthroid 100 mcg per old records. Med rec Not completed yet. - Requested nurse to update med reconciliation. DVT prophylaxis: Per vascular surgeon
[2018-03-12] MEDS: Levothyroxine 100 MCG Tablet PO SCH (10:27)
[2018-03-12 13:49] LABS: Baso % (Auto) 0.3 % (0.0-2.0); Eos # (Auto) 0.1 th/mm3 (0.0-0.4); Eos % (Auto) 0.7 % (0.0-4.0); Hematocrit 23.7 % (35.0-46.0); Lymph # (Auto) 1.8 th/mm3 (1.0-4.8); Lymph % (Auto) 18.6 % (9.0-44.0); Mean Corpuscular HGB Conc 33.8 % (32.0-36.0); Mean Corpuscular Hemoglobin 30.3 pg (27.0-34.0); Mean Corpuscular Volume 89.7 fL (80.0-100.0); Mean Platelet Volume 9.2 fL (7.0-11.0); Mono # (Auto) 0.8 th/mm3 (0.0-0.9); Mono % (Auto) 8.6 % (0.0-8.0); Neut % (Auto) 71.8 % (16.0-70.0); Platelet Count 184 th/mm3 (150-450); Red Blood Count 2.64 mil/mm3 (4.00-5.30); Red Cell Distribution Width 14.6 % (11.6-17.2); White Blood Count 9.7 th/mm3 (4.0-11.0)
[2018-03-12] MEDS: Acetaminophen 325 MG Tablet PO PRN ×2 (18:28→19:44)
[2018-03-13] MEDS: Acetaminophen 325 MG Tablet PO PRN (03:17)
[2018-03-13 04:27] LABS: Hematocrit 21.9 % (35.0-46.0); Hemoglobin 7.5 gm/dL (11.6-15.3); Mean Corpuscular Hemoglobin 30.5 pg (27.0-34.0); Mean Corpuscular Volume 89.9 fL (80.0-100.0); Mean Platelet Volume 9.6 fL (7.0-11.0); Platelet Count 165 th/mm3 (150-450); Red Blood Count 2.44 mil/mm3 (4.00-5.30); Red Cell Distribution Width 14.4 % (11.6-17.2)
[2018-03-13 04:54] LABS: Anion Gap 11 meq/L (5-15); Blood Urea Nitrogen 10 mg/dL (7-18); Calcium 8.1 mg/dL (8.5-10.1); Carbon Dioxide 22.7 meq/L (21.0-32.0); Chloride 105 meq/L (98-107); Glomerular Filtration Rate Greater Than 89 mL/min (>89); Glucose,Random 131 mg/dL (74-106); Potassium 3.5 meq/L (3.5-5.1); Sodium 139 meq/L (136-145)
[2018-03-13] MEDS: PCA - Total MG Morphine Delevered per Shift IV.SIG SCH ×3 (06:21→23:45)
[2018-03-13] MEDS: Levothyroxine 100 MCG Tablet PO SCH (06:23)
[2018-03-13] MEDS ORDERED: Furosemide 20 MG Tablet PO ONE (08:00)
--- NOTE | 2018-03-13 08:04 | P.PNIM ---
Subjective Interval history: The pt was about to get a blood transfusion. She said she still has significant pain and the [employer] makes her nauseous. She says her right leg has been bleeding. Se was about to get a new IV. Discussed with nursing at the bedside. Physical Exam Vital signs: Vital Signs 03/12/18 11:00 03/12/18 15:00 03/12/18 15:17 Temperature 100 F H 100.6 F H Pulse Rate 105 H 107 H 108 H Respiratory Rate 16 16 16 Blood Pressure 145/66 H 88/53 L 118/55 L Pulse Oximetry 98 98 03/12/18 19:00 03/12/18 20:05 03/12/18 21:45 Temperature 101.7 F H 100.0 F H Pulse Rate 113 H Respiratory Rate 16 16 Blood Pressure 140/60 Pulse Oximetry 03/12/18 22:58 03/12/18 23:00 03/12/18 23:01 Temperature 100.1 F H Pulse Rate 104 H Respiratory Rate 18 Blood Pressure 100/55 L 125/52 L Pulse Oximetry 97 03/13/18 03:00 03/13/18 04:00 03/13/18 07:00 Temperature 102.2 F H 100.2 F H Pulse Rate 112 H 87 Respiratory Rate 18 16 16 Blood Pressure 145/52 H 107/58 L Pulse Oximetry 92 L Intake & Output 03/12/18 03/13/18 03/13/18 18:59 06:59 18:59 Intake Total 2355 / 2355 1176 / 1176 Output Total 1215 / 1215 2300 / 2300 Balance 1140 / 1140 -1124 / -1124 Weight 100 kg Intake: IV 1395 / 1395 1176 / 1176 Heparin/D5W 25,000 U/250 mL 25, 185 / 185 000 unit In 250 ml @ 1,500 UNITS/HR 15 mls/hr IV.CONT TITRATE PRN Rx#:[id number] LR 1000 mL Inj 1,000 ML @ 100 1210 / 1210 1176 / 1176 mls/hr IV.CONT .Q10H [facility] Rx#: [id number] Oral 960 / 960 Output: Urine Amount (Catheter) 1175 / 1175 2300 / 2300 Indwelling Temp Sensing 1175 / 1175 2300 / 2300 Catheter Wound Drainage 40 / 40 Right Medial Calf Hemovac 40 / 40 Other: # Bowel Movements 0 Narrative: GENERAL: No distress. SKIN: Focused skin assessment warm/dry. HEAD: Atraumatic. Normocephalic. CARDIOVASCULAR: Regular rate and rhythm. No murmur appreciated. RESPIRATORY: No accessory muscle use. Clear to auscultation. Breath sounds equal bilaterally. GASTROINTESTINAL: Abdomen soft, slight tenderness in RLQ, nondistended. MUSCULOSKELETAL: RLE: + pulse, swollen, bandaged. LLE: Decreased pulse. NEUROLOGICAL: Awake and alert. No obvious cranial nerve deficits. Motor grossly within normal limits. Normal speech. PSYCHIATRIC: Appropriate mood and affect; insight and judgment normal. - Urinary Catheter Management Indwelling Temp Sensing Catheter Cath placed during this visit: yes Reason for continuing: Hourly intake/output Insertion date: 03/11/18 Insertion time: 21:42 Results - Labs CBC & Chem 7: 03/13/18 03:40 03/13/18 03:40 Laboratory Results - last 24 hr 03/11/18 03/12/18 03/12/18 20:25 13:00 13:00 WBC 9.7 RBC 2.64 L Hgb 8.0 L Hct 23.7 L MCV 89.7 MCH 30.3 MCHC 33.8 RDW 14.6 Plt Count 184 MPV 9.2 Neut % (Auto) 71.8 H Lymph % (Auto) 18.6 [place] % (Auto) 8.6 H Eos % (Auto) 0.7 Baso % (Auto) 0.3 Neut # (Auto) 7.0 Lymph # (Auto) 1.8 [place] # (Auto) 0.8 Eos # (Auto) 0.1 Baso # (Auto) 0.0 WBC Differential . Differential Comment Auto diff final APTT 53.7 H D Sodium Potassium Chloride Carbon Dioxide Anion Gap BUN Creatinine Estimated GFR Random Glucose Calcium MTS Gel Crossmatch See Detail 03/12/18 03/13/18 03/13/18 18:00 03:40 03:40 WBC 10.0 RBC 2.44 L Hgb 7.5 L Hct 21.9 L MCV 89.9 MCH 30.5 MCHC 34.0 RDW 14.4 Plt Count 165 MPV 9.6 Neut % (Auto) Lymph % (Auto) [place] % (Auto) Eos % (Auto) Baso % (Auto) Neut # (Auto) Lymph # (Auto) [place] # (Auto) Eos # (Auto) Baso # (Auto) WBC Differential Differential Comment APTT 50.0 H Sodium 139 Potassium 3.5 Chloride 105 Carbon Dioxide 22.7 Anion Gap 11 BUN 10 Creatinine 0.59 Estimated GFR Greater than 89 Random Glucose 131 H Calcium 8.1 L MTS Gel Crossmatch 03/13/18 03:40 WBC RBC Hgb Hct MCV MCH MCHC RDW Plt Count MPV Neut % (Auto) Lymph % (Auto) [place] % (Auto) Eos % (Auto) Baso % (Auto) Neut # (Auto) Lymph # (Auto) [place] # (Auto) Eos # (Auto) Baso # (Auto) WBC Differential Differential Comment APTT 58.8 H Sodium Potassium Chloride Carbon Dioxide Anion Gap BUN Creatinine Estimated GFR Random Glucose Calcium MTS Gel Crossmatch Assessment and Plan - Plan Ms. Burnham is a pleasant 62-year-old female with a history of hypertension, hypothyroidism, and severe PAD status post 3 right lower extremity bypass surgeries in the past 2 years who presented to the emergency room at [facility] in [place] for evaluation of sudden onset of right groin pain and swelling while driving home from [place]. She called her vascular surgeon Dr. Xiong and he referred her to the nearest emergency room. CTA suggested proximal groin pseudoaneurysm off caudal femoral artery and posterior tibial bypass and the patient was transferred to [facility] in [place] for revascularization by Dr. Xiong. PAD Pseudoaneurysm. Bypass graft mechanical complication. Vascular surgery was consulted. CT showed: Right common femoral artery pseudoaneurysm; Graft thrombosis. S/p: Right lower extremity angiogram; Left common femoral artery Angio-Seal; Direct repair of ruptured right common femoral artery pseudoaneurysm; Graft embolectomy in the femoral popliteal segment via groin incision; Graft, thrombectomy of the posterior tibial via calf incision. - management per vascular surgery. - pain control with a bowel regimen. Add IV Tylenol. - continue heparin gtt. - PT when OK with surgery. Anemia S/t blood loss from surgery. - 2 units red cells ordered 03/13. - follow CBC and transfuse as needed. Hypertension Well controlled at this time. - hold lisinopril at this time. Hypothyroidism On levothyroxine. - Resume patient's home Synthroid 100 mcg per old records. Hypokalemia Potassium level 3.5. - replete PO and monitor. DVT prophylaxis: Per vascular surgeon
--- NOTE | 2018-03-13 10:16 | P.PNVS ---
Subjective Post Op Day #: 2 Procedure: R groin pseudoaneurysm repair and graft thrombectomy Subjective/Hospital Course: pain reasonably controlled + nausea with [employer] ATTORNEY - getting IV tylenol R leg oozing on hep gtt foot ok Objective Vital Signs / I&O: Vital Signs 03/12/18 11:00 03/12/18 15:00 03/12/18 15:17 Temperature 100 F H 100.6 F H Pulse Rate 105 H 107 H 108 H Respiratory Rate 16 16 16 Blood Pressure 145/66 H 88/53 L 118/55 L Pulse Oximetry 98 98 03/12/18 19:00 03/12/18 20:05 03/12/18 21:45 Temperature 101.7 F H 100.0 F H Pulse Rate 113 H Respiratory Rate 16 16 Blood Pressure 140/60 Pulse Oximetry 03/12/18 22:58 03/12/18 23:00 03/12/18 23:01 Temperature 100.1 F H Pulse Rate 104 H Respiratory Rate 18 Blood Pressure 100/55 L 125/52 L Pulse Oximetry 97 03/13/18 03:00 03/13/18 04:00 03/13/18 07:00 Temperature 102.2 F H 100.2 F H Pulse Rate 112 H 87 Respiratory Rate 18 16 16 Blood Pressure 145/52 H 107/58 L Pulse Oximetry 92 L 03/13/18 08:15 03/13/18 08:30 03/13/18 09:30 Temperature 100.2 F H 100.4 F H Pulse Rate 87 98 H Respiratory Rate 18 16 Blood Pressure 107/58 L 112/58 L Pulse Oximetry 94 L 03/13/18 10:07 Temperature 99.2 F Pulse Rate 94 H Respiratory Rate 16 Blood Pressure 107/57 L Pulse Oximetry 97 Intake & Output 03/12/18 03/13/18 03/13/18 18:59 06:59 18:59 Intake Total 2355 / 2355 1176 / 1176 0 / 0 Output Total 1215 / 1215 2300 / 2300 Balance 1140 / 1140 -1124 / -1124 0 / 0 Weight 100 kg Intake: IV 1395 / 1395 1176 / 1176 Heparin/D5W 25,000 U/250 mL 25, 185 / 185 000 unit In 250 ml @ 1,500 UNITS/HR 15 mls/hr IV.CONT TITRATE PRN Rx#:[id number] LR 1000 mL Inj 1,000 ML @ 100 1210 / 1210 1176 / 1176 mls/hr IV.CONT .Q10H [facility] Rx#: [id number] Oral 960 / 960 Intake (Blood Product) Amt 0 / 0 Rbc As-3 Leukoreduced Unit 0 / 0 [id number] Rbc As-3 Leukoreduced Unit 0 / 0 [id number] Output: Urine Amount (Catheter) 1175 / 1175 2300 / 2300 Indwelling Temp Sensing 1175 / 1175 2300 / 2300 Catheter Wound Drainage 40 / 40 Right Medial Calf Hemovac 40 / 40 Other: # Bowel Movements 0 Exam: R groin soft R leg swollen and + serosanguinous drainage palpable PT Laboratory Results - last 24 hr 03/11/18 03/12/18 03/12/18 20:25 13:00 13:00 WBC 9.7 RBC 2.64 L Hgb 8.0 L Hct 23.7 L MCV 89.7 MCH 30.3 MCHC 33.8 RDW 14.6 Plt Count 184 MPV 9.2 Neut % (Auto) 71.8 H Lymph % (Auto) 18.6 [place] % (Auto) 8.6 H Eos % (Auto) 0.7 Baso % (Auto) 0.3 Neut # (Auto) 7.0 Lymph # (Auto) 1.8 [place] # (Auto) 0.8 Eos # (Auto) 0.1 Baso # (Auto) 0.0 WBC Differential . Differential Comment Auto diff final APTT 53.7 H D Sodium Potassium Chloride Carbon Dioxide Anion Gap BUN Creatinine Estimated GFR Random Glucose Calcium MTS Gel Crossmatch See Detail 03/12/18 03/13/18 03/13/18 18:00 03:40 03:40 WBC 10.0 RBC 2.44 L Hgb 7.5 L Hct 21.9 L MCV 89.9 MCH 30.5 MCHC 34.0 RDW 14.4 Plt Count 165 MPV 9.6 Neut % (Auto) Lymph % (Auto) [place] % (Auto) Eos % (Auto) Baso % (Auto) Neut # (Auto) Lymph # (Auto) [place] # (Auto) Eos # (Auto) Baso # (Auto) WBC Differential Differential Comment APTT 50.0 H Sodium 139 Potassium 3.5 Chloride 105 Carbon Dioxide 22.7 Anion Gap 11 BUN 10 Creatinine 0.59 Estimated GFR Greater than 89 Random Glucose 131 H Calcium 8.1 L MTS Gel Crossmatch 03/13/18 03:40 WBC RBC Hgb Hct MCV MCH MCHC RDW Plt Count MPV Neut % (Auto) Lymph % (Auto) [place] % (Auto) Eos % (Auto) Baso % (Auto) Neut # (Auto) Lymph # (Auto) [place] # (Auto) Eos # (Auto) Baso # (Auto) WBC Differential Differential Comment APTT 58.8 H Sodium Potassium Chloride Carbon Dioxide Anion Gap BUN Creatinine Estimated GFR Random Glucose Calcium MTS Gel Crossmatch Assessment and Plan - Assessment (1) Bypass graft mechanical complication Code(s): T82.398A - Other mechanical complication of other vascular grafts, initial encounter Status: Acute (2) Pseudoaneurysm Code(s): I72.9 - Aneurysm of unspecified site Status: Acute - Plan POD#2 s/p L groin reconstruction and graft thrombectomy, palpable pulse 1. OOB TC and PT today 2. D/C [place] 3. Change R LE dressing as needed 4. Tx 2U PRBC with Lasix 5. Recheck CBC, BMP 6. Will hold hep gtt tomorrow (48h) to allow wounds to settle Discharge Planning: likely 4-6 days
[2018-03-13] MEDS: Heparin Drip 25,000 UNIT/250 ML BAG IV.CONT PRN (12:29)
[2018-03-13 16:44] LABS: Alanine Aminotransferase 17 U/L (10-53); Albumin 2.5 g/dL (3.4-5.0); Aspartate Aminotransferase 37 U/L (15-37)
[2018-03-13 16:46] LABS: Alkaline Phosphatase 67 U/L (45-117); Total Protein 5.3 g/dL (6.4-8.2)
[2018-03-14 04:11] LABS: Hematocrit 28.6 % (35.0-46.0); Hemoglobin 9.8 gm/dL (11.6-15.3); Mean Corpuscular HGB Conc 34.2 % (32.0-36.0); Mean Corpuscular Hemoglobin 30.5 pg (27.0-34.0); Mean Corpuscular Volume 89.3 fL (80.0-100.0); Mean Platelet Volume 9.7 fL (7.0-11.0); Platelet Count 151 th/mm3 (150-450); Red Blood Count 3.21 mil/mm3 (4.00-5.30); Red Cell Distribution Width 14.8 % (11.6-17.2); White Blood Count 10.4 th/mm3 (4.0-11.0)
[2018-03-14 04:39] LABS: Anion Gap 9 meq/L (5-15); Blood Urea Nitrogen 8 mg/dL (7-18); Calcium 8.6 mg/dL (8.5-10.1); Carbon Dioxide 25.9 meq/L (21.0-32.0); Chloride 104 meq/L (98-107); Glomerular Filtration Rate Greater Than 89 mL/min (>89); Glucose,Random 124 mg/dL (74-106); Potassium 3.6 meq/L (3.5-5.1); Sodium 139 meq/L (136-145)
[2018-03-14] MEDS: PCA - Total MG Morphine Delevered per Shift IV.SIG SCH (06:00)
[2018-03-14] MEDS: Levothyroxine 100 MCG Tablet PO SCH (06:21)
--- NOTE | 2018-03-14 07:52 | P.PNVS ---
Subjective Post Op Day #: 3 Procedure: R groin pseudoaneurysm repair and graft thrombectomy Subjective/Hospital Course: looks great leg feels swollen to her but able to get OOB TC with minimal assistance voiding with [place] out Hct good response to PRBC foot ok Objective Vital Signs / I&O: Vital Signs 03/13/18 08:00 03/13/18 08:15 03/13/18 08:30 Temperature 100.2 F H 100.4 F H Pulse Rate 87 87 98 H Respiratory Rate 18 16 Blood Pressure 107/58 L 112/58 L Pulse Oximetry 03/13/18 09:30 03/13/18 10:07 03/13/18 10:27 Temperature 99.2 F 99.0 F Pulse Rate 94 H 94 H Respiratory Rate 16 16 Blood Pressure 107/57 L 124/67 Pulse Oximetry 94 L 97 92 L 03/13/18 11:00 03/13/18 12:17 03/13/18 15:00 Temperature 99.0 F 98.5 F Pulse Rate 85 94 H Respiratory Rate 16 16 16 Blood Pressure 91/52 L 124/67 Pulse Oximetry 03/13/18 19:00 03/13/18 22:18 03/13/18 23:00 Temperature 99.5 F 98.6 F Pulse Rate 99 H 81 Respiratory Rate 18 20 Blood Pressure 128/50 L 106/54 L Pulse Oximetry 94 L 97 94 L 03/14/18 00:00 03/14/18 03:00 03/14/18 04:00 Temperature 99.2 F Pulse Rate 94 H Respiratory Rate 20 18 20 Blood Pressure 128/68 Pulse Oximetry 95 Intake & Output 03/13/18 03/14/18 03/14/18 18:59 06:59 18:59 Intake Total 2651 / 2651 1985 Output Total 3300 / 3300 1550 / 1550 Balance -649 / -649 436 / 436 Weight 94.5 kg Intake: IV 1501 / 1501 1266 / 1266 Heparin/D5W 25,000 U/250 mL 25, 143 / 143 000 unit In 250 ml @ 1,500 UNITS/HR 15 mls/hr IV.CONT TITRATE PRN Rx#:[id number] LR 1000 mL Inj 1,000 ML @ 100 1158 / 1158 1166 / 1166 mls/hr IV.CONT .Q10H [facility] Rx#: [id number] Ofirmev Inj 1,000 mg In 100 ml 200 / 200 100 / 100 @ 400 mls/hr IV.SIG Q8H [facility] Rx# :[id number] Oral 750 / 750 720 / 720 Intake (Blood Product) Amt 400 / 400 Rbc As-3 Leukoreduced Unit 400 / 400 [id number] Rbc As-3 Leukoreduced Unit 0 / 0 [id number] Output: Urine 3300 / 3300 1550 / 1550 Other: Date of Last Bowel Movement 03/11/18 Exam: R groin with Prevena in place, modest edema lower leg lexy in place, not tense, minimal drainage palpable PT Laboratory Results - last 24 hr 03/11/18 03/13/18 03/14/18 20:25 03:40 03:35 WBC 10.4 RBC 3.21 L Hgb 9.8 L D Hct 28.6 L MCV 89.3 MCH 30.5 MCHC 34.2 RDW 14.8 Plt Count 151 MPV 9.7 APTT Sodium Potassium Chloride Carbon Dioxide Anion Gap BUN Creatinine Estimated GFR Random Glucose Calcium Total Bilirubin 0.2 Direct Bilirubin Less than 0.1 Indirect Bilirubin 0.1 AST 37 ALT 17 Alkaline Phosphatase 67 Total Protein 5.3 L Albumin 2.5 L MTS Gel Crossmatch See Detail 03/14/18 03/14/18 03:35 03:35 WBC RBC Hgb Hct MCV MCH MCHC RDW Plt Count MPV APTT 40.6 H D Sodium 139 Potassium 3.6 Chloride 104 Carbon Dioxide 25.9 Anion Gap 9 BUN 8 Creatinine 0.58 Estimated GFR Greater than 89 Random Glucose 124 H Calcium 8.6 Total Bilirubin Direct Bilirubin Indirect Bilirubin AST ALT Alkaline Phosphatase Total Protein Albumin MTS Gel Crossmatch Assessment and Plan - Assessment (1) Bypass graft mechanical complication Code(s): T82.398A - Other mechanical complication of other vascular grafts, initial encounter Status: Acute (2) Pseudoaneurysm Code(s): I72.9 - Aneurysm of unspecified site Status: Acute - Plan POD#3 s/p L groin reconstruction and graft thrombectomy, palpable pulse 1. continue OOB TC and PT 2. HL IVF 3. D/C [employer] and start po pain meds 4. ASA/statin 5. Will transition from IV hep to Eliquis tomorrow (POD#4) 6. Ok to transfer to floor Discharge Plannin-3 more days
--- NOTE | 2018-03-14 08:43 | P.PNIM ---
Subjective Interval history: The pt was working with PT. She would like to go home soon. Family at the bedside. Discussed with nursing. Physical Exam Vital signs: Vital Signs 03/13/18 09:30 03/13/18 10:07 03/13/18 10:27 Temperature 99.2 F 99.0 F Pulse Rate 94 H 94 H Respiratory Rate 16 16 Blood Pressure 107/57 L 124/67 Pulse Oximetry 94 L 97 92 L 03/13/18 11:00 03/13/18 12:17 03/13/18 15:00 Temperature 99.0 F 98.5 F Pulse Rate 85 94 H Respiratory Rate 16 16 16 Blood Pressure 91/52 L 124/67 Pulse Oximetry 03/13/18 19:00 03/13/18 22:18 03/13/18 23:00 Temperature 99.5 F 98.6 F Pulse Rate 99 H 81 Respiratory Rate 18 20 Blood Pressure 128/50 L 106/54 L Pulse Oximetry 94 L 97 94 L 03/14/18 00:00 03/14/18 03:00 03/14/18 04:00 Temperature 99.2 F Pulse Rate 94 H Respiratory Rate 20 18 20 Blood Pressure 128/68 Pulse Oximetry 95 Intake & Output 03/13/18 03/14/18 03/14/18 18:59 06:59 18:59 Intake Total 2651 / 2651 1985 Output Total 3300 / 3300 1550 / 1550 Balance -649 / -649 436 / 436 Weight 94.5 kg Intake: IV 1501 / 1501 1266 / 1266 Heparin/D5W 25,000 U/250 mL 25, 143 / 143 000 unit In 250 ml @ 1,500 UNITS/HR 15 mls/hr IV.CONT TITRATE PRN Rx#:[id number] LR 1000 mL Inj 1,000 ML @ 100 1158 / 1158 1166 / 1166 mls/hr IV.CONT .Q10H [place] Rx#: [id number] Ofirmev Inj 1,000 mg In 100 ml 200 / 200 100 / 100 @ 400 mls/hr IV.SIG Q8H [place] Rx# :[id number] Oral 750 / 750 720 / 720 Intake (Blood Product) Amt 400 / 400 Rbc As-3 Leukoreduced Unit 400 / 400 [id number] Rbc As-3 Leukoreduced Unit 0 / 0 [id number] Output: Urine 3300 / 3300 1550 / 1550 Other: Date of Last Bowel Movement 03/11/18 Narrative: GENERAL: No distress. SKIN: Focused skin assessment warm/dry. HEAD: Atraumatic. Normocephalic. CARDIOVASCULAR: Regular rate and rhythm. No murmur appreciated. RESPIRATORY: No accessory muscle use. Clear to auscultation. Breath sounds equal bilaterally. GASTROINTESTINAL: Abdomen soft, slight tenderness in RLQ, nondistended. MUSCULOSKELETAL: RLE: + pulse, swollen, bandaged. LLE: Decreased pulse. NEUROLOGICAL: Awake and alert. No obvious cranial nerve deficits. Motor grossly within normal limits. Normal speech. PSYCHIATRIC: Appropriate mood and affect; insight and judgment normal. - Urinary Catheter Management Indwelling Temp Sensing Catheter Cath placed during this visit: yes, but has since been removed by the nurse Reason for continuing: Not indwelling catheter Insertion date: 03/11/18 Insertion time: 21:42 Removal date: 03/13/18 Removal time: 13:20 Results - Labs CBC & Chem 7: 03/14/18 03:35 03/14/18 03:35 Laboratory Results - last 24 hr 03/11/18 03/13/18 03/14/18 20:25 03:40 03:35 WBC 10.4 RBC 3.21 L Hgb 9.8 L D Hct 28.6 L MCV 89.3 MCH 30.5 MCHC 34.2 RDW 14.8 Plt Count 151 MPV 9.7 APTT Sodium Potassium Chloride Carbon Dioxide Anion Gap BUN Creatinine Estimated GFR Random Glucose Calcium Total Bilirubin 0.2 Direct Bilirubin Less than 0.1 Indirect Bilirubin 0.1 AST 37 ALT 17 Alkaline Phosphatase 67 Total Protein 5.3 L Albumin 2.5 L MTS Gel Crossmatch See Detail 03/14/18 03/14/18 03:35 03:35 WBC RBC Hgb Hct MCV MCH MCHC RDW Plt Count MPV APTT 40.6 H D Sodium 139 Potassium 3.6 Chloride 104 Carbon Dioxide 25.9 Anion Gap 9 BUN 8 Creatinine 0.58 Estimated GFR Greater than 89 Random Glucose 124 H Calcium 8.6 Total Bilirubin Direct Bilirubin Indirect Bilirubin AST ALT Alkaline Phosphatase Total Protein Albumin MTS Gel Crossmatch Assessment and Plan - Plan Ms. Burnham is a pleasant 62-year-old female with a history of hypertension, hypothyroidism, and severe PAD status post 3 right lower extremity bypass surgeries in the past 2 years who presented to the emergency room at [facility] in [place] for evaluation of sudden onset of right groin pain and swelling while driving home from [place]. She called her vascular surgeon Dr. Xiong and he referred her to the nearest emergency room. CTA suggested proximal groin pseudoaneurysm off caudal femoral artery and posterior tibial bypass and the patient was transferred to [facility] in [place] for revascularization by Dr. Xiong. PAD Pseudoaneurysm. Bypass graft mechanical complication. Vascular surgery was consulted. CT showed: Right common femoral artery pseudoaneurysm; Graft thrombosis. S/p: Right lower extremity angiogram; Left common femoral artery Angio-Seal; Direct repair of ruptured right common femoral artery pseudoaneurysm; Graft embolectomy in the femoral popliteal segment via groin incision; Graft, thrombectomy of the posterior tibial via calf incision. - management per vascular surgery. - pain control with a bowel regimen. Added IV Tylenol with good effect. - continue heparin gtt. Transition to Eliquis per vascular. - PT. Anemia S/t blood loss from surgery. 2 units red cells ordered 03/13. Hgb improved. - follow CBC and transfuse as needed. Hypertension Well controlled. - hold lisinopril at this time. Hypothyroidism On levothyroxine. - Resume patient's home Synthroid 100 mcg per old records. Hypokalemia Potassium level 3.5. - replete PO and monitor. DVT prophylaxis: Per vascular surgeon
[2018-03-14] MEDS: Heparin Drip 25,000 UNIT/250 ML BAG IV.CONT PRN (09:19)
[2018-03-14] MEDS: Aspirin 325 MG Tablet PO SCH (09:19)
[2018-03-15] MEDS: oxyCODONE/Acetaminophen 10/325 Tablet PO PRN ×5 (00:14→19:00)
[2018-03-15] MEDS: Heparin Drip 25,000 UNIT/250 ML BAG IV.CONT PRN (04:06)
[2018-03-15 04:31] LABS: Hematocrit 29.2 % (35.0-46.0); Mean Corpuscular HGB Conc 34.2 % (32.0-36.0); Mean Corpuscular Hemoglobin 30.5 pg (27.0-34.0); Mean Corpuscular Volume 89.3 fL (80.0-100.0); Platelet Count 179 th/mm3 (150-450); Red Blood Count 3.27 mil/mm3 (4.00-5.30); Red Cell Distribution Width 14.4 % (11.6-17.2); White Blood Count 10.1 th/mm3 (4.0-11.0)
[2018-03-15 04:41] LABS: Calcium 8.4 mg/dL (8.5-10.1); Carbon Dioxide 26.9 meq/L (21.0-32.0); Potassium 4.3 meq/L (3.5-5.1)
[2018-03-15] MEDS: Levothyroxine 100 MCG Tablet PO SCH (06:13)
--- NOTE | 2018-03-15 07:39 | P.PNVS ---
Subjective Post Op Day #: 4 Procedure: R groin pseudoaneurysm repair and graft thrombectomy Subjective/Hospital Course: continues to look great. some difficulty with mobility from edema, pain foot ok Objective Vital Signs / I&O: Vital Signs 03/14/18 07:45 03/14/18 11:00 03/14/18 15:00 Temperature 98.6 F 98.8 F Pulse Rate 98 H 90 Respiratory Rate 18 Blood Pressure 132/59 L 104/60 Pulse Oximetry 94 L 92 L 93 L 03/14/18 19:00 03/14/18 20:00 03/14/18 20:40 Temperature 98.6 F Pulse Rate 89 89 Respiratory Rate 16 16 Blood Pressure 140/69 Pulse Oximetry 97 03/14/18 23:00 03/15/18 00:00 03/15/18 01:38 Temperature 98.6 F Pulse Rate 90 90 Respiratory Rate 16 16 Blood Pressure 138/65 Pulse Oximetry 93 L 03/15/18 03:00 03/15/18 03:37 03/15/18 04:00 Temperature 98.7 F Pulse Rate 81 81 Respiratory Rate 16 16 Blood Pressure 121/55 L Pulse Oximetry 96 Intake & Output 03/14/18 03/15/18 03/15/18 18:59 06:59 18:59 Intake Total 720 / 720 730 / 730 Output Total 900 / 900 640 / 640 Balance -180 / -180 90 / 90 Weight 96.5 kg Intake: IV 250 / 250 Heparin/D5W 25,000 U/250 mL 25, 250 / 250 000 unit In 250 ml @ 1,500 UNITS/HR 15 mls/hr IV.CONT TITRATE PRN Rx#:[id number] Oral 720 / 720 480 / 480 Output: Urine 900 / 900 640 / 640 Stool 0 / 0 Other: Date of Last Bowel Movement 03/11/18 03/11/18 # Bowel Movements 0 Weight On Admission 94.5 kg Exam: R groin edematous, Prevena in place R calf incision c/d/i palpable PT Laboratory Results - last 24 hr 03/15/18 03/15/18 03/15/18 04:10 04:10 04:10 WBC 10.1 RBC 3.27 L Hgb 10.0 L Hct 29.2 L MCV 89.3 MCH 30.5 MCHC 34.2 RDW 14.4 Plt Count 179 MPV 10.0 Hematology Comments APTT 37.8 H Sodium Potassium 4.3 Chloride 105 Carbon Dioxide 26.9 Anion Gap 9 BUN 9 Creatinine 0.75 Estimated GFR 78 L Random Glucose 101 Calcium 8.4 L Assessment and Plan - Assessment (1) Bypass graft mechanical complication Code(s): T82.398A - Other mechanical complication of other vascular grafts, initial encounter Status: Acute (2) Pseudoaneurysm Code(s): I72.9 - Aneurysm of unspecified site Status: Acute - Plan POD#4 s/p L groin reconstruction and graft thrombectomy, palpable pulse 1. continue OOB TC and PT 2. Transition from IV hep gtt to Eliquis 3. Transfer to floor 4. Possible d/c tomorrow (POD#5) - will remove Prevena then Discharge Plannin-3 more days
--- NOTE | 2018-03-15 08:24 | P.PNIM ---
Subjective Interval history: The pt was feeling well. She wanted to go home tomorrow. She had a good night's sleep. She has not yet had a bowel movement. Pain is controlled, but she says her right leg feels tight. Discussed with nursing and family at the bedside. Physical Exam Vital signs: Vital Signs 03/14/18 11:00 03/14/18 15:00 03/14/18 19:00 Temperature 98.6 F 98.8 F Pulse Rate 98 H 90 89 Respiratory Rate 18 Blood Pressure 132/59 L 104/60 Pulse Oximetry 92 L 93 L 03/14/18 20:00 03/14/18 20:40 03/14/18 23:00 Temperature 98.6 F Pulse Rate 89 90 Respiratory Rate 16 16 Blood Pressure 140/69 Pulse Oximetry 97 03/15/18 00:00 03/15/18 01:38 03/15/18 03:00 Temperature 98.6 F Pulse Rate 90 81 Respiratory Rate 16 16 Blood Pressure 138/65 Pulse Oximetry 93 L 03/15/18 03:37 03/15/18 04:00 03/15/18 07:54 Temperature 98.7 F Pulse Rate 81 Respiratory Rate 16 16 16 Blood Pressure 121/55 L Pulse Oximetry 96 Intake & Output 03/14/18 03/15/18 03/15/18 18:59 06:59 18:59 Intake Total 720 / 720 730 / 730 Output Total 900 / 900 640 / 640 Balance -180 / -180 90 / 90 Weight 96.5 kg Intake: IV 250 / 250 Heparin/D5W 25,000 U/250 mL 25, 250 / 250 000 unit In 250 ml @ 1,500 UNITS/HR 15 mls/hr IV.CONT TITRATE PRN Rx#:[id number] Oral 720 / 720 480 / 480 Output: Urine 900 / 900 640 / 640 Stool 0 / 0 Other: Date of Last Bowel Movement 03/11/18 03/11/18 # Bowel Movements 0 Weight On Admission 94.5 kg Narrative: GENERAL: No distress. SKIN: Focused skin assessment warm/dry. HEAD: Atraumatic. Normocephalic. CARDIOVASCULAR: Regular rate and rhythm. No murmur appreciated. RESPIRATORY: No accessory muscle use. Clear to auscultation. Breath sounds equal bilaterally. GASTROINTESTINAL: Abdomen soft, slight tenderness in RLQ, nondistended. MUSCULOSKELETAL: RLE: + pulse, swollen, bandaged. LLE: Decreased pulse. NEUROLOGICAL: Awake and alert. No obvious cranial nerve deficits. Motor grossly within normal limits. Normal speech. PSYCHIATRIC: Appropriate mood and affect; insight and judgment normal. - Urinary Catheter Management Indwelling Temp Sensing Catheter Cath placed during this visit: yes, but has since been removed by the nurse Reason for continuing: Not indwelling catheter Insertion date: 03/11/18 Insertion time: 21:42 Removal date: 03/13/18 Removal time: 13:20 Results - Labs CBC & Chem 7: 03/15/18 04:10 03/15/18 04:10 Laboratory Results - last 24 hr 03/15/18 03/15/18 03/15/18 04:10 04:10 04:10 WBC 10.1 RBC 3.27 L Hgb 10.0 L Hct 29.2 L MCV 89.3 MCH 30.5 MCHC 34.2 RDW 14.4 Plt Count 179 MPV 10.0 Hematology Comments APTT 37.8 H Sodium Potassium 4.3 Chloride 105 Carbon Dioxide 26.9 Anion Gap 9 BUN 9 Creatinine 0.75 Estimated GFR 78 L Random Glucose 101 Calcium 8.4 L Assessment and Plan - Plan Ms. Burnham is a pleasant 62-year-old female with a history of hypertension, hypothyroidism, and severe PAD status post 3 right lower extremity bypass surgeries in the past 2 years who presented to the emergency room at [facility] in [place] for evaluation of sudden onset of right groin pain and swelling while driving home from [place]. She called her vascular surgeon Dr. Xiong and he referred her to the nearest emergency room. CTA suggested proximal groin pseudoaneurysm off caudal femoral artery and posterior tibial bypass and the patient was transferred to [facility] in [place] for revascularization by Dr. Xiong. PAD Pseudoaneurysm. Bypass graft mechanical complication. Vascular surgery was consulted. CT showed: Right common femoral artery pseudoaneurysm; Graft thrombosis. S/p: Right lower extremity angiogram; Left common femoral artery Angio-Seal; Direct repair of ruptured right common femoral artery pseudoaneurysm; Graft embolectomy in the femoral popliteal segment via groin incision; Graft, thrombectomy of the posterior tibial via calf incision. - management per vascular surgery. - pain control with a bowel regimen. Added IV Tylenol with good effect. - Heparin gtt transitioned to Eliquis per vascular. - PT. Anemia S/t blood loss from surgery. 2 units red cells ordered 03/13. Hgb improved. - follow CBC and transfuse as needed. Hypertension Well controlled. - hold lisinopril at this time. Hypothyroidism On levothyroxine. - Resume patient's home Synthroid 100 mcg per old records. Hypokalemia Potassium level 3.5. - replete PO and monitor. Resolved. Constipation The pt has tried MoM. - add Miralax daily. DVT prophylaxis: Per vascular surgeon
[2018-03-15] MEDS: Aspirin 325 MG Tablet PO SCH (08:36)
[2018-03-15] MEDS: Polyethylene Glycol 3350 17 GM Packet PO SCH (09:00)
[2018-03-16] MEDS: oxyCODONE/Acetaminophen 10/325 Tablet PO PRN (00:10)
[2018-03-16] MEDS: Levothyroxine 100 MCG Tablet PO SCH (05:21)
[2018-03-16 06:17] LABS: Hematocrit 32.7 % (35.0-46.0); Hemoglobin 10.7 gm/dL (11.6-15.3); Mean Corpuscular HGB Conc 32.7 % (32.0-36.0); Mean Corpuscular Hemoglobin 29.9 pg (27.0-34.0); Mean Corpuscular Volume 91.4 fL (80.0-100.0); Mean Platelet Volume 8.4 fL (7.0-11.0); Platelet Count 255 th/mm3 (150-450); Red Blood Count 3.58 mil/mm3 (4.00-5.30); Red Cell Distribution Width 14.4 % (11.6-17.2); White Blood Count 8.3 th/mm3 (4.0-11.0)
--- NOTE | 2018-03-16 07:56 | P.PNVS ---
Subjective Post Op Day #: 5 Procedure: R groin pseudoaneurysm repair and graft thrombectomy Subjective/Hospital Course: looks great, OOB by herself. Foot ok pain controlled Objective Vital Signs / I&O: Vital Signs 03/15/18 08:36 03/15/18 11:00 03/15/18 12:00 Temperature 98.3 F Pulse Rate 86 80 Respiratory Rate 16 16 Blood Pressure 123/55 L Pulse Oximetry 94 L 03/15/18 13:00 03/15/18 14:00 03/15/18 15:00 Temperature 98.6 F Pulse Rate 78 87 88 Respiratory Rate 14 Blood Pressure 116/59 L Pulse Oximetry 96 03/15/18 19:00 03/15/18 23:00 03/16/18 03:00 Temperature 99.1 F 97.9 F 98.2 F Pulse Rate 88 78 78 Respiratory Rate 22 22 22 Blood Pressure 115/58 L 117/54 L 98/58 L Pulse Oximetry 98 97 95 Intake & Output 03/15/18 03/16/18 03/16/18 18:59 06:59 18:59 Intake Total 720 / 720 480 / 480 Output Total 1000 / 1000 Balance 720 / 720 -520 / -520 Weight 94 kg Intake: Oral 720 / 720 480 / 480 Output: Urine 1000 / 1000 Other: # Voids 2 Date of Last Bowel Movement 03/11/18 03/15/18 # Bowel Movements 3 Exam: R groin soft, NT R calf soft, NT palpable PT Laboratory Results - last 24 hr 03/15/18 03/16/18 14:47 05:53 WBC 8.3 RBC 3.58 L Hgb 10.7 L Hct 32.7 L MCV 91.4 MCH 29.9 MCHC 32.7 RDW 14.4 Plt Count 255 D MPV 8.4 APTT 25.7 D Assessment and Plan - Assessment (1) Bypass graft mechanical complication Code(s): T82.398A - Other mechanical complication of other vascular grafts, initial encounter Status: Acute (2) Pseudoaneurysm Code(s): I72.9 - Aneurysm of unspecified site Status: Acute - Plan POD#5 s/p R groin reconstruction and graft thrombectomy, palpable pulse 1. continue OOB TC and PT 2. Ok to d/c home today 3. RTC TH/F for Prevena removal Discharge Planning: today
--- NOTE | 2018-03-16 08:43 | P.DCO ---
- Physical Therapy Order: Evaluate and treat, Improve ambulation, Strength and gait training - Home Health Nursing Order: Medical education, Signs/symptoms of disease process, Medication education-adverse effect, Wound care and dressing changes, Nursing assessment with vital signs - Certification I have seen patient Mary Alice Burnham on 03/16/18. My clinical findings support the need for the requested home health care services because: Deconditioned with increased weakness, Limited ability to care for self I certify that my clinical findings support that this patient is homebound because: Post-op weakness
--- NOTE | 2018-03-16 08:49 | P.DS ---
Date of admission: 03/11/18 20:22 Primary care physician: Adiel Keen MD Anticipated date of discharge: 03/16/18 Brief History from admission: Ms. Burnham is a pleasant 62-year-old female with a history of hypertension, hypothyroidism, and severe PAD status post 3 right lower extremity bypass surgeries in the past 2 years who presented to the emergency room at [facility] in [place] for evaluation of sudden onset of right groin pain and swelling while driving home from [place]. She called her vascular surgeon Dr. Xiong and he referred her to the nearest emergency room. CTA suggested proximal groin pseudoaneurysm off caudal femoral artery and posterior tibial bypass and the patient was transferred to [facility] in [place] for revascularization by Dr. Xiong. The patient is seen in the emergency room with her daughter and her son-in-law at the bedside. She denies pain at the time of my visit but continues to have swelling in the right groin. She denies any recent fever, chills, or illness and states she has been in feeling well and exercising over the past month. She denies any nausea, vomiting, diarrhea, chest pain or shortness of breath. DS: Diagnosis - Discharge Diagnosis (1) Pseudoaneurysm Status: Acute (2) Bypass graft mechanical complication Status: Acute DS: Medications - Discharge Medications Prescriptions: apixaban [Eliquis] 5 mg PO BID #60 tab atorvastatin 40 mg PO DAILY #30 tab oxycodone-acetaminophen 1 tab PO Q4H PRN #18 tab PRN Reason: Pain DS: Summary Hospital Course: Pseudoaneurysm/Bypass graft mechanical complication The pt is a pleasant 62-year-old female with a history of hypertension, hypothyroidism, and severe PAD status post 3 right lower extremity bypass surgeries in the past 2 years who presented to the emergency room at [facility] in [place] for evaluation of sudden onset of right groin pain and swelling while driving home from [place]. She called her vascular surgeon Dr. Xiong and he referred her to the nearest emergency room. CTA suggested proximal groin pseudoaneurysm off caudal femoral artery and posterior tibial bypass and the patient was transferred to [facility] in [place] for revascularization by Dr. Xiong. Vascular surgery was consulted. CT showed: Right common femoral artery pseudoaneurysm; Graft thrombosis. Vascular surgery performed: Right lower extremity angiogram; Left common femoral artery Angio-Seal; Direct repair of ruptured right common femoral artery pseudoaneurysm; Graft embolectomy in the femoral popliteal segment via groin incision; Graft, thrombectomy of the posterior tibial via calf incision. Two units of red cells were ordered 03/13. Hemoglobin improved and remained stable The pt received pain control with a bowel regimen. The heparin gtt was transitioned to Eliquis per vascular surgery. The pt worked with PT. She will be discharged with home health care. She will follow up with surgery as an outpt. - Time Spent with Patient Total time spent providing and/or coordinating discharge services: Less than 30 minutes - Quality: VTE Deep Vein Thrombosis/Pulmonary Embolism Present on Admission: No Exam Vital signs: Vital Signs 03/15/18 11:00 03/15/18 12:00 03/15/18 13:00 Temperature 98.3 F Pulse Rate 86 80 78 Respiratory Rate 16 Blood Pressure 123/55 L Pulse Oximetry 94 L 03/15/18 14:00 03/15/18 15:00 03/15/18 19:00 Temperature 98.6 F 99.1 F Pulse Rate 87 88 88 Respiratory Rate 14 22 Blood Pressure 116/59 L 115/58 L Pulse Oximetry 96 98 03/15/18 23:00 03/16/18 03:00 Temperature 97.9 F 98.2 F Pulse Rate 78 78 Respiratory Rate 22 22 Blood Pressure 117/54 L 98/58 L Pulse Oximetry 97 95 Intake & Output 03/15/18 03/16/18 03/16/18 18:59 06:59 18:59 Intake Total 720 / 720 480 / 480 Output Total 1000 / 1000 Balance 720 / 720 -520 / -520 Weight 94 kg Intake: Oral 720 / 720 480 / 480 Output: Urine 1000 / 1000 Other: # Voids 2 Date of Last Bowel Movement 03/11/18 03/15/18 # Bowel Movements 3 Narrative: GENERAL: No distress. SKIN: Focused skin assessment warm/dry. HEAD: Atraumatic. Normocephalic. CARDIOVASCULAR: Regular rate and rhythm. No murmur appreciated. RESPIRATORY: No accessory muscle use. Clear to auscultation. Breath sounds equal bilaterally. GASTROINTESTINAL: Abdomen soft, slight tenderness in RLQ, nondistended. MUSCULOSKELETAL: RLE: + pulse, incision clean. NEUROLOGICAL: Awake and alert. No obvious cranial nerve deficits. Motor grossly within normal limits. Normal speech. PSYCHIATRIC: Appropriate mood and affect; insight and judgment normal. Results Procedures completed during hospitalization: Right lower extremity angiogram; Left common femoral artery Angio-Seal; Direct repair of ruptured right common femoral artery pseudoaneurysm; Graft embolectomy in the femoral popliteal segment via groin incision; Graft, thrombectomy of the posterior tibial via calf incision. Labs on day of discharge: Labs from last 24 hours 03/16/18 03/15/18 05:53 14:47 WBC 8.3 RBC 3.58 L Hgb 10.7 L Hct 32.7 L MCV 91.4 MCH 29.9 MCHC 32.7 RDW 14.4 Plt Count 255 D MPV 8.4 APTT 25.7 D Discharge Plan - Discharge Disposition Patient Disposition: /Home Health Service - Discharge Condition Condition: Stable - Discharge Order Discharge Orders: Discharge Order (Routine); Ordered 03/16/18 Ordered By: Jordan Grace - Discharge Details Anticipated Discharge Date: 03/16/18 - Physicians Team Primary Care Provider: Adiel Keen Attending Provider: Jordan Grace Other Providers: Thomas Xiong MD
[2018-03-16] MEDS: Polyethylene Glycol 3350 17 GM Packet PO SCH (09:13)
[2018-03-16] MEDS: Aspirin 325 MG Tablet PO SCH (09:13)
== END 2018-03-16 10:02 | disposition home health service (06) ==
LOC: NEPD 19:22 → NEDA 20:22 → HCVI 21:05 → HPAC 03-12 → HCVI 03-12 02:34 → HCPC 03-15 09:15
PROVIDERS: ADMIT Hospitalist; ATTEND Hospitalist
PROC: ANGIOLE (2018-03-11 21:29)